=== PATIENT | male | born 1955 | race American Indian/Alaskan Native ===

== ENCOUNTER 2018-09-24 14:20 | Emergency (ER) | payer MEDICAID, OTHER, SELFPAY ==
--- NOTE | 2018-09-24 14:23 | DI.US.S_ITS ---
PROCEDURE: US PERIPH VENOUS LOW EXTREM RT INDICATIONS: LE pain, swelling, smoker TECHNIQUE: Real-time imaging, as well as color and pulse Doppler interrogation, were performed of the lower extremity deep veins from the inguinal ligament to the popliteal fossa. COMPARISON: None. FINDINGS: The common femoral, femoral and popliteal veins are normally compressible, and free of intraluminal thrombus. Color and pulse Doppler demonstrate normal phasic intraluminal flow. There is normal augmentation response to distal compression maneuver. IMPRESSION: No evidence for deep vein thrombosis of the right lower extremity. Dictated by: Derik Jerez M.D. on 09/24/2018 at 13:57 Approved by: Derik Jerez M.D. on 09/24/2018 at 14:26
[2018-09-24 14:25] VITALS: BP 138/78; PULSE 109; RESP 15; TEMP 37.4; O2SAT 96
--- NOTE | 2018-09-24 14:59 | ED_ITS ---
HPI - Extremity Problem <Donna Espinoza PA-C - Last Filed: 09/24/18 21:58> General Chief complaint: Extremity Problem,Nontraumatic Stated complaint: right foot/ankle pain, no injury Time Seen by Provider: 09/24/18 14:22 Source: patient Mode of arrival: ambulatory Limitations: no limitations History of Present Illness HPI Narrative: This 63-year-old male is sent for right lower extremity Doppler by PCP due to concern for possible DVT. Provider called and noted he had onset of swelling and pain in his right foot and calf today. Patient states that he noted onset of pain this morning when walking at the store. He states that he did not note any trauma, did not twist his ankle and fall, however his son notes that he has been walking a lot recently to try to get better control of his diabetes. Patient describes the pain as diffuse, worse in his foot and radiating all the way up the back of his leg. He thinks this is work so with walking but also very tender to touch anywhere on the skin. He denies any history of neuropathy. He denies any new chest pain or dyspnea. He denies any wounds on the leg recently, no fever or other new complaints such as back pain on systems review. He did not take any pain medication at home. He did try hot soak without relief. He states that he does have history of remote fracture in that foot or ankle, cannot remember exactly where Related Data Home Medications Medication Instructions Recorded Confirmed lisinopril 10 mg PO QDAY #0 09/22/11 metformin [Glucophage] 1,000 mg PO BIDCC #0 09/22/11 econazole 1 milly TOPICAL #0 06/11/16 fluconazole [Diflucan] 200 mg PO QDAY #0 06/11/16 Previous Rx's Medication Instructions Recorded amoxicillin-pot clavulanate 875 mg PO Q8H 7 Days #0 tab 06/11/16 [Augmentin] bacitracin zinc 500 unit TOPICAL BID #1 gm 06/11/16 hydrocodone-acetaminophen [[place]] 1 - 2 tab PO Q6HP PRN #10 tab 06/11/16 miconazole nitrate [Micatin] 1 milly TP BID #14 gm 06/11/16 Allergies Allergy/AdvReac Type Severity Reaction Status Date / Time ibuprofen [IBUPROFEN] Allergy Severe RASH Verified 09/24/18 14:27 Review of Systems <Donna Espinoza PA-C - Last Filed: 09/24/18 21:58> Review of Systems ROS Unobtainable: All systems reviewed & are unremarkable except as noted in HPI and below PFSH <Donna Espinoza PA-C - Last Filed: 09/24/18 21:58> Medical History (Updated 09/24/18 @ 16:25 by Donna Espinoza PA-C) Alcoholism (Chronic) Asthma (Chronic) HTN (hypertension) (Chronic) History of gastric ulcer (Chronic) No pertinent family history (Chronic) Type 2 diabetes mellitus (Chronic) History of kidney stones (Resolved) Surgical History (Updated 09/24/18 @ 15:14 by Donna Espinoza PA-C) No pertinent past surgical history (Chronic) Social History Smoking Status: Current every day smoker Social History Smoking Status: Current every day smoker Comment: ETOH abuse Exam <Donna Espinoza PA-C - Last Filed: 09/24/18 21:58> Narrative Exam Narrative: GENERAL APPEARANCE: Patient resting comfortably, in no distress. LUNGS: Clear to auscultation bilaterally. HEART: Rate and rhythm regular without murmur, normal S1 and S2, no S3 or S4. EXTREMITIES: Trace right pedal edema, none on the left. No edema proximal to the right ankle. No cyanosis, right foot is warm to touch. Right PT and DP pulses 2+ MUSCULOSKELETAL: Right foot is exquisitely tender throughout the bones as well as soft tissues, perhaps a bit more on the dorsum than plantar surface, also tender over both malleoli. Achilles is intact by palpation and mildly tender. He is able to move the toes and ankle. Mildly tender over the left calf. No effusion over the knee on the right where he has full range of motion Initial Vital Signs Initial Vital Signs: Vital Signs Temperature 99.3 F 09/24/18 14:25 Pulse Rate 109 H 09/24/18 14:25 Respiratory Rate 15 09/24/18 14:25 Blood Pressure 138/78 09/24/18 14:25 Pulse Oximetry 96 09/24/18 14:25 HENUT Head: normocephalic and atraumatic Ears: external ears normal and TM's normal bilaterally Nose: external nose normal and No nasal discharge Face and sinus: sinuses nontender, face symmetric, no sinus tenderness and No dry mucous membranes Mouth: oral mucosae normal and moist mucous membranes Teeth and gingiva: dentition normal Throat: tonsils normal and uvula midline <Neetu Zabala MD - Last Filed: 10/04/18 07:39> Initial Vital Signs Initial Vital Signs: Vital Signs Temperature 99.3 F 09/24/18 14:25 Pulse Rate 109 H 09/24/18 14:25 Respiratory Rate 15 09/24/18 14:25 Blood Pressure 138/78 09/24/18 14:25 Pulse Oximetry 96 09/24/18 14:25 Course <Donna Espinoza PA-C - Last Filed: 09/24/18 21:58> Additional Information: Patient was feeling better prior to discharge and stated ice had helped. He did not want crutches. Advised source of his pain is not clear, could be neuropathy related to diabetes, no evidence of acute bony injury or DVT today. He will follow up with PCP Orders Ordered: Discontinued Medications Acetaminophen (Tylenol) 650 mg PO NOW ONE Stop: 09/24/18 15:07 Last Admin: 09/24/18 15:12 Dose: 650 mg Vital Signs - 8 hr 09/24/18 14:25 09/24/18 15:17 09/24/18 16:30 Temperature 99.3 F Pulse Rate 109 H 98 H 99 H Respiratory Rate 15 18 16 Blood Pressure 138/78 Blood Pressure [Left Arm] 129/78 129/83 Pulse Oximetry 96 96 98 <Neetu Zabala MD - Last Filed: 10/04/18 07:39> Orders Ordered: Discontinued Medications Acetaminophen (Tylenol) 650 mg PO NOW ONE Stop: 09/24/18 15:07 Last Admin: 09/24/18 15:12 Dose: 650 mg Vital Signs - 8 hr 09/24/18 14:25 09/24/18 15:17 09/24/18 16:30 Temperature 99.3 F Pulse Rate 109 H 98 H 99 H Respiratory Rate 15 18 16 Blood Pressure 138/78 Blood Pressure [Left Arm] 129/78 129/83 Pulse Oximetry 96 96 98 MDM - Extremity (Nontraumatic) <Donna Espinoza PA-C - Last Filed: 09/24/18 21:58> Imaging Data foot and ankle: Radiologist's impression: [address] [address] XRay Report Signed Patient: Edgar Hernandez WMR#: [id number] : 6Acct:[id number] Age/Sex: 63 / MDate of Service: 09/24/18 Loc: ED Accession Number: [id number] Procedure: XR ankle RT min 3V Ordering Provider: Donna Espinoza P.A-C PROCEDURE: XR ANKLE RT MIN 3V INDICATIONS: pain TECHNIQUE: 3 views of the ankle were acquired. COMPARISON: [facility], XR FOOT RT 2V, 09/24/2018, 15:13. FINDINGS: Bones: No fractures or dislocations. Ankle mortise is normally aligned. No suspicious bony lesions. There is a prominent plantar calcaneal spur. Mild degenerative changes of the talonavicular joint are evident. Soft tissues: No tibiotalar joint effusion. Achilles tendon appears normal. IMPRESSION: 1. No acute fractures or ankle. 2. Prominent plantar calcaneal spur. Dictated by: Derik Jerez M.D. on 09/24/2018 at 14:36 Approved by: Derik Jerez M.D. on 09/24/2018 at 14:[address] [address] XRay Report Signed Patient: Edgar Hernandez WMR#: [id number] : 6Acct:[id number] Age/Sex: 63 / MDate of Service: 09/24/18 Loc: ED Accession Number: [id number] Procedure: XR foot RT 2V Ordering Provider: Donna Espinoza P.A-C PROCEDURE: XR FOOT RT 2V INDICATIONS: acute pain after walking, diffuse TECHNIQUE: 3 views of the foot were acquired. COMPARISON: [facility], , XR ANKLE RT MIN 3V, 09/24/2018, 15:13. FINDINGS: Bones: No fractures or dislocations. No suspicious bony lesions. There is a prominent plantar calcaneal spur. Minimal degenerative changes of the tibiotalar joint. Soft tissues: No tibiotalar joint effusion. Achilles tendon appears normal. IMPRESSION: No acute osseous abnormality of the right foot. Dictated by: Derik Jerez M.D. on 09/24/2018 at 14:40 Approved by: Derik Jerez M.D. on 09/24/2018 at 14:42 Venous US: Radiologist's impression: [facility] DATE TYPE STATUS AUTHOR Hx 09/24/18 15:06 Derik Jerez 09/24/18 15:06 Derik Jerez 09/24/18 14:23 Derik JerezEdgar Geoff 63, M0 1955 [facility], ED.LOC - Main ED: R06 88.904kg Extremity Problem,Nontraumatic Search Chart RASH ONSET Today 15:17 Edgar Hernandez Geoff 63 M 1955 [place] [address] Ultrasound Report Signed Patient: Edgar Hernandez WMR#: [id number] : 1955cct:[id number] Age/Sex: 63 / MDate of Service: 09/24/18 Loc: ED Accession Number: [id number] Procedure: US periph venous low extrem rt Ordering Provider: Donna Espinoza P.A-C PROCEDURE: US PERIPH VENOUS LOW EXTREM RT INDICATIONS: LE pain, swelling, smoker TECHNIQUE: Real-time imaging, as well as color and pulse Doppler interrogation, were performed of the lower extremity deep veins from the inguinal ligament to the popliteal fossa. COMPARISON: None. FINDINGS: The common femoral, femoral and popliteal veins are normally compressible, and free of intraluminal thrombus. Color and pulse Doppler demonstrate normal phasic intraluminal flow. There is normal augmentation response to distal compression maneuver. IMPRESSION: No evidence for deep vein thrombosis of the right lower extremity. Dictated by: Derik Jerez M.D. on 09/24/2018 at 13:57 Approved by: Derik Jerez M.D. on 09/24/2018 at 14:26 Discharge Plan Departure Patient Disposition: Home Clinical Impression: Pain in right ankle and joints of right foot, Lower extremity edema Discharge Date/Time: 09/24/18 16:40 Interventions: ED Discharge Assessment Last Done: 09/24/18 16:40 Instructions: DI for Ankle Pain, DI for Foot Pain Activity Restrictions/Additional Instructions: Try the Rick wrap and use ice as needed since that has been helpful for your pain . Also take Tylenol every 4-6 hours as needed. Please rest the foot and ankle today. As we talked about, your ultrasound and x-rays did not show any blood clot or broken bone. It is possible that you have pain related to your diabetes as well. please set up a follow-up appointment with your PCP in the next day or two for recheck and to determine whether further testing or treatment are needed depending upon your progress. Prescriptions: No Action metformin [Glucophage] 500 MG tablet 1,000 mg PO BIDCC Qty: 0 RF: 0 lisinopril 10 MG tablet 10 mg PO QDAY Qty: 0 RF: 0 fluconazole [Diflucan] 200 MG tablet 200 mg PO QDAY Qty: 0 RF: 0 econazole 1 % cream 1 milly Topical Qty: 0 RF: 0 miconazole nitrate [Micatin] 2 % cream 1 milly TP BID Qty: 14 RF: 0 bacitracin zinc 28.35 GM ointment 500 unit Topical BID Qty: 1 RF: 0 amoxicillin-pot clavulanate [Augmentin] 875 MG/125 MG tablet 875 mg PO Q8H 7 Days Qty: 0 RF: 0 hydrocodone-acetaminophen [[place]] 5 MG/325 MG tablet 1 - 2 tab PO Q6HP PRNQty: 10 RF: 0 Referrals: Zander Bowden PA-C [Non-Staff] -
--- NOTE | 2018-09-24 15:06 | DI.RAD.S_ITS ---
PROCEDURE: XR FOOT RT 2V INDICATIONS: acute pain after walking, diffuse TECHNIQUE: 3 views of the foot were acquired. COMPARISON: [facility], CR, XR ANKLE RT MIN 3V, 09/24/2018, 15:13. FINDINGS: Bones: No fractures or dislocations. No suspicious bony lesions. There is a prominent plantar calcaneal spur. Minimal degenerative changes of the tibiotalar joint. Soft tissues: No tibiotalar joint effusion. Achilles tendon appears normal. IMPRESSION: No acute osseous abnormality of the right foot. Dictated by: Derik Jerez M.D. on 09/24/2018 at 14:40 Approved by: Derik Jerez M.D. on 09/24/2018 at 14:42
--- NOTE | 2018-09-24 15:06 | DI.RAD.S_ITS ---
PROCEDURE: XR ANKLE RT MIN 3V INDICATIONS: pain TECHNIQUE: 3 views of the ankle were acquired. COMPARISON: [facility], CR, XR FOOT RT 2V, 09/24/2018, 15:13. FINDINGS: Bones: No fractures or dislocations. Ankle mortise is normally aligned. No suspicious bony lesions. There is a prominent plantar calcaneal spur. Mild degenerative changes of the talonavicular joint are evident. Soft tissues: No tibiotalar joint effusion. Achilles tendon appears normal. IMPRESSION: 1. No acute fractures or ankle. 2. Prominent plantar calcaneal spur. Dictated by: Derik eJrez M.D. on 09/24/2018 at 14:36 Approved by: Derik Jerez M.D. on 09/24/2018 at 14:40
[2018-09-24] MEDS: ACETAMINOPHEN 325 MG TABLET 650 MG PO (15:12)
[2018-09-24 15:17] VITALS: BP 129/78; PULSE 98; RESP 18; O2SAT 96
[2018-09-24 16:30] VITALS: BP 129/83; PULSE 99; RESP 16; O2SAT 98
== END 2018-09-24 16:40 | disposition home or self-care (01) ==
PROVIDERS: Emergency Provider Internal Medicine
DX: M25.571 Pain in right ankle and joints of right foot (principal); R60.0 Localized edema; M79.89 Other specified soft tissue disorders
CPT/HCPCS: 73610; 73620; 93971; 99283; 99284

== ENCOUNTER 2018-12-15 18:38 | Inpatient (IN) | payer MEDICAID, OTHER, SELFPAY ==
[2018-12-15] VITALS (7 sets, daily range): BP systolic 99–135; BP diastolic 57–88; PULSE 108–124; RESP 18–34; TEMP 36.7–37.5; O2SAT 89–95; BMI 30.7
--- NOTE | 2018-12-15 18:46 | DI.RAD.S_ITS ---
PROCEDURE: XR CHEST 1V INDICATIONS: shortness of breath TECHNIQUE: One view of the chest was acquired. COMPARISON: [facility], , CHEST 2 VIEW, 05/03/2014, 20:12. FINDINGS: Surgical changes and devices: None. Lungs and pleura: Lungs are clear. No pleural effusions or pneumothorax. Mediastinum: Mediastinal contours appear normal. Heart size is normal. Bones and chest wall: No suspicious bony lesions. Overlying soft tissues appear unremarkable. IMPRESSION: No acute process. Dictated by: Edwardo Brooke M.D. on 12/15/2018 at 19:35 Approved by: Edwardo Brooke M.D. on 12/15/2018 at 19:35
[2018-12-15 19:05] LABS: Add Manual Diff / Slide Review NO; Basophils Absolute Auto 100 /uL (0-100); Basophils Percent Auto 1.2 % (0-2); Eosinophils Absolute Auto 200 /uL (0-450); Eosinophils Percent Auto 2.4 % (2-4); Hematocrit 41.6 % (41-53); Hemoglobin 14.2 g/dL (13.5-17.5); Lymphocytes Absolute Auto 1900 /uL (1100-4500); Lymphocytes Percent Auto 19.2 % (25-40); Mean Corpuscular Hemoglobin 26.5 PG (26-34); Mean Corpuscular Volume 77.9 fL (80-100); Monocytes Absolute Auto 700 /uL (0-900); Monocytes Percent Auto 7.2 % (3-14); Neutrophils Absolute Auto 7100 /uL (1500-7000); Platelet Count 274 X10^3/uL (150-400); Red Blood Cell Count 5.34 X10^6/uL (4.5-5.9); Red Cell Distribution Width 14.2 % (11.6-14.8); White Blood Cell Count 10.1 X10^3/uL (4.5-11.0)
[2018-12-15] MEDS: ALBUTEROL/IPRATROPIUM 3 ML AMPUL INH (19:05)
[2018-12-15] MEDS: ALBUTEROL 2.5 MG/3 ML NEB (ADULT) INH ×3 (19:05→19:19)
[2018-12-15 19:17] LABS: Alanine Aminotransferase 25 IU/L (21-72); Albumin 3.9 g/dL (3.5-5.0); Alkaline Phosphatase 207 U/L (38-126); Aspartate Aminotransferase 28 IU/L (17-59); BUN Creatinine Ratio 5.5 (6-22); Bilirubin Total 0.9 mg/dL (0.2-1.3); Blood Urea Nitrogen 6 mg/dL (9-20); Calcium 9.4 mg/dL (8.4-10.2); Carbon Dioxide 27 mmol/L (22-32); Chloride 101 mmol/L (98-107); Creatine Kinase 66 U/L (55-170); Estimated Glomerular Filt Rate > 60.0 mL/min (>60); Globulin 3.9 g/dL (1.7-4.1); Glucose 172 mg/dL (80-110); HEMOLYSIS < 15 (0-50); Lipase 470 U/L (23-300); Potassium 4.1 mmol/L (3.4-5.1); Sodium 138 mmol/L (137-145); Total Protein 7.8 g/dL (6.3-8.2)
[2018-12-15 19:18] LABS: Lactate (Lactic Acid) 1.4 mmol/L (0.7-2.1)
--- NOTE | 2018-12-15 19:23 | ED.SOB ---
HPI - SOB/Dyspnea General Chief Complaint: Shortness of Breath/Dyspnea Stated Complaint: SOB Time Seen by Provider: 12/15/18 18:38 Source: patient and family Mode of arrival: ambulatory Limitations: no limitations History of Present Illness 63-year-old male smoker with history of COPD presents with multiple family members and a chief complaint of significant worsening shortness of breath over the past few days to perhaps a week. He has had subjective fever and chills and complains of cough productive of yellowish sputum. He denies any chest pain is not dizzy or lightheaded but is generally weak. He denies any recent travel or history of blood clots. He denies any chest pain. He become significantly more short of breath with any exertion or even talking. On arrival his pulse ox is in the mid 80s on room air MD Complaint: shortness of breath, cough and asthma attack Onset (ago): day(s) Context: recent illness Severity: moderate Consistency/Duration: constant Relieving factors: rest Exacerbating factors: exertion and coughing Known history of: COPD Associated symptoms: cough, wheezing and sputum production Treatment prior to arrival: none Related Data Home Medications Medication Instructions Recorded Confirmed lisinopril 10 mg PO QDAY #0 09/22/11 12/15/18 metformin [Glucophage] 1,000 mg PO BIDCC #0 09/22/11 12/15/18 albuterol sulfate [ProAir HFA] 2 puff INHALATION Q6HR PRN 12/15/18 12/15/18 Previous Rx's Medication Instructions Recorded miconazole nitrate [Micatin] 1 milly TP BID #14 gm 06/11/16 Allergies Allergy/AdvReac Type Severity Reaction Status Date / Time ibuprofen [IBUPROFEN] Allergy Severe RASH Verified 09/24/18 14:27 Review of Systems Constitutional Reports chills, Reports fever(s), Denies lethargy and Reports weakness Eyes Denies change in vision, Denies eye discharge, Denies irritation and Denies loss of vision ENT Ears, Nose, Mouth, and Throat: Denies change in voice, Denies neck pain and Denies sore throat Cardiovascular Denies chest pain, Denies irregular heart rhythm, Denies lightheadedness, Denies palpitations, Reports dyspnea, Reports dyspnea on exertion and Denies orthopnea Respiratory Reports cough, Reports dyspnea, Reports dyspnea on exertion and Denies wheezing Gastrointestinal Gastrointestinal: Denies abdominal pain, Denies change in bowel habits, Denies diarrhea, Denies nausea and Denies vomiting Genitourinary Denies hematuria, Denies flank pain, Denies urinary incontinence and Denies urinary urgency Musculoskeletal Denies neck pain Integumentary/Breasts Denies pruritus, Denies erythema, Denies rash and Denies wounds Neurologic Denies confusion, Denies loss of vision and Reports weakness Psychiatric Denies anxiety, Denies confusion, Denies depression, Denies homicidal ideation and Denies suicidal ideation Endocrine Denies palpitations Hematologic/Lymphatic Denies easy bruising Allergic/Immunologic Denies wheezing [facility] Medical History (Updated 12/15/18 @ 22:35 by LIS Hanson) Tobacco use disorder, moderate, in early remission, dependence (Acute) Hypoxia (Acute) Acute exacerbation of chronic obstructive pulmonary disease (COPD) (Acute) HTN (hypertension) (Chronic) Type 2 diabetes mellitus (Chronic) Asthma (Chronic) History of gastric ulcer (Chronic) History of kidney stones (Resolved) Alcoholism (Inactive) Surgical History (Updated 12/15/18 @ 22:35 by LIS Hanson) H/O right knee surgery (Acute) Family History (Updated 12/15/18 @ 23:10 by LIS Hanson) Mother Colon cancer Father Diabetes mellitus Social History household members: none Smoking Status: Current every day smoker Social History household members: none Smoking Status: Current every day smoker Exam Narrative Exam Narrative: GENERAL: This is a well-nourished, well-developed patient, in mild distress. HEAD: Atraumatic. Normocephalic. No temporal or scalp tenderness. EYES: Pupils equal round and reactive. Extraocular motions intact. No scleral icterus. No injection or drainage. ENT: Nose without bleeding, purulent drainage or septal hematoma. Throat without erythema, tonsillar hypertrophy or exudate. Uvula midline. Airway patent. NECK: Trachea midline. No JVD or lymphadenopathy. Supple, nontender, no meningeal signs. CARDIOVASCULAR: Regular rate and rhythm without murmurs, gallops, or rubs. RESPIRATORY: Clear to auscultation. Breath sounds equal bilaterally. No wheezes, rales, or rhonchi. GASTROINTESTINAL: Abdomen soft, non-tender, nondistended. No hepato-splenomegaly, or palpable masses. No guarding. EXTREMITIES: No clubbing, cyanosis, or edema. No joint tenderness, effusion, or edema noted. BACK: Nontender without deformity or crepitance. No flank tenderness. NEURO: AOx3. SKIN: No rash or erythema. Initial Vital Signs Initial Vital Signs: Vital Signs Temperature 99.5 F 12/15/18 18:40 Pulse Rate 115 H 12/15/18 18:40 Respiratory Rate 34 H 12/15/18 18:40 Blood Pressure 126/84 12/15/18 18:40 Pulse Oximetry 89 L 12/15/18 18:40 Course Course Narrative: patient becomes significantly SOB while ambulating to the bathroom. His room air SpO2 is in mid 80s Orders Ordered: ED Orders 12/15/18 18:46 XR chest 1V Stat EKG-12 Lead Stat RT Consult Eval and Treat Now 12/15/18 18:50 B Type Natriuretic Peptide Stat Complete Blood Count AUTO DIFF Stat Comprehensive Metabolic Panel Stat Lactate (Lactic Acid) Stat Lipase Stat Procalcitonin Stat Troponin & CK Cardiac Panel Stat 12/15/18 19:09 Blood Culture Stat 12/15/18 20:20 CT angio chest PE protocol Stat 12/15/18 21:43 Arterial Blood Gas Stat 12/15/18 22:15 Consult to Respiratory Therapy Evaluate & Treat 12/15/18 22:17 Education, smoking cessation ONGOING 12/16/18 00:30 Troponin I Q6H 12/16/18 05:00 Basic Metabolic Panel Routine Complete Blood Count AUTO DIFF Routine Hemoglobin A1C% w Est Avg Glu Routine Lactate (Lactic Acid) Routine Procalcitonin Routine 12/16/18 06:30 Troponin I Q6H Azithromycin (Zithromax) 500 mg PO DAILY [facility] Last Admin: 12/15/18 22:55 Dose: 500 mg Dextrose (D50w) 25 gm IV PRN PRN PRN Reason: Hypoglycemia Enoxaparin Sodium (Lovenox) 40 mg SUBCUT DAILY [facility] Ceftriaxone Sodium/Dextrose (Rocephin) 1 gm in 50 mls @ 100 mls/hr IV Q24H [facility] Last Admin: 12/15/18 22:55 Dose: 100 mls/hr Insulin Aspart (Novolog Flexpen) 7 unit SUBCUT TIDWM [facility] Insulin Glargine (Lantus Solostar (Pen)) 10 unit SUBCUT BID JACQUELINE Ipratropium [place] (Atrovent Neb) 0.5 mg INH RTQ4HR PRN PRN Reason: Shortness Of Breath Or Wheezing Levalbuterol HCl (Xopenex) 1.25 mg INH Q4H PRN PRN Reason: Shortness Of Breath Last Admin: 12/16/18 00:36 Dose: 1.25 mg Lisinopril (Zestril) 10 mg PO DAILY [facility] Methylprednisolone (Solu-Medrol 125 Mg Vial) 125 mg IV DAILY JACQUELINE Stop: 12/16/18 09:01 Ondansetron HCl (Zofran) 4 mg IV Q8HR PRN PRN Reason: Nausea And Vomiting Discontinued Medications Albuterol (Ventolin) 2.5 mg INH NOW PRN PRN Reason: Shortness Of Breath Or Wheezing Last Admin: 12/15/18 19:19 Dose: 2.5 mg Admin: 12/15/18 19:06 Dose: 2.5 mg Admin: 12/15/18 19:05 Dose: 2.5 mg Albuterol/Ipratropium (Duoneb) 3 ml INH NOW ONE Stop: 12/15/18 19:02 Last Admin: 12/15/18 19:05 Dose: 3 ml Insulin Aspart (Novolog Flexpen) 1 unit SUBCUT 0800 [facility] Insulin Glargine (Lantus Solostar (Pen)) 1 unit SUBCUT 0800 [facility] Insulin Glargine (Lantus Solostar (Pen)) 10 unit SUBCUT BID JACQUELINE Methylprednisolone (Solu-Medrol 125 Mg Vial) 125 mg IV NOW ONE Stop: 12/15/18 19:38 Last Admin: 12/15/18 19:43 Dose: 125 mg Consultations Consultation #1: 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 happy to 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 Vital Signs - 8 hr 12/15/18 19:06 12/15/18 19:07 12/15/18 20:35 Temperature Pulse Rate 109 H 109 H 124 H Respiratory Rate 24 19 Blood Pressure Blood Pressure [Right Arm] 99/57 L Pulse Oximetry 94 94 93 12/15/18 22:11 12/15/18 22:19 12/15/18 22:35 Temperature 98.4 F 98.0 F Pulse Rate 111 H 108 H Respiratory Rate 18 18 Blood Pressure 132/88 Blood Pressure [Right Arm] 135/70 Pulse Oximetry 92 95 12/16/18 00:20 12/16/18 00:39 Temperature Pulse Rate Respiratory Rate Blood Pressure Blood Pressure [Right Arm] Pulse Oximetry 94 94 MDM - SOB/Dyspnea Lab Data Result diagrams: 12/15/18 18:50 12/15/18 18:50 Lab Results 12/15/18 12/15/18 12/15/18 Range/Units 18:50 18:50 18:50 WBC 10.1 (4.5-11.0) X10^3/uL RBC 5.34 (4.5-5.9) X10^6/uL Hgb 14.2 (13.5-17.5) g/dL Hct 41.6 (41-53) % MCV 77.9 L (80-100) fL MCH 26.5 (26-34) PG MCHC 34.0 (30-36) % RDW 14.2 (11.6-14.8) % Plt Count 274 (150-400) X10^3/uL Neut % (Auto) 70.0 (50-75) % Lymph % (Auto) 19.2 L (25-40) % [place] % (Auto) 7.2 (3-14) % Eos % (Auto) 2.4 (2-4) % Baso % (Auto) 1.2 (0-2) % Neut # (Auto) 7100 H (4330-8966) /uL Lymph # (Auto) 1900 (6085-1719) /uL [place] # (Auto) 700 (0-900) /uL Eos # (Auto) 200 (0-450) /uL Baso # (Auto) 100 (0-100) /uL ABG pH (7.35-7.45) ABG pCO2 (35-45) mmHg ABG pO2 (80-100) mmHg ABG HCO3 (22-26) mmol/L ABG Total CO2 (21-31) mmol/L ABG O2 Saturation (95-100) % ABG Base Excess (-2-2) mmol/L FiO2 Sodium 138 (137-145) mmol/L Potassium 4.1 (3.4-5.1) mmol/L Chloride 101 (98-107) mmol/L Carbon Dioxide 27 (22-32) mmol/L BUN 6 L (9-20) mg/dL Creatinine 1.10 (0.66-1.25) mg/dL Estimated GFR > 60.0 (>60) mL/min BUN/Creatinine Ratio 5.5 L (6-22) Glucose 172 H (80-110) mg/dL Lactate (0.7-2.1) mmol/L Calcium 9.4 (8.4-10.2) mg/dL Total Bilirubin 0.9 (0.2-1.3) mg/dL AST 28 (17-59) IU/L ALT 25 (21-72) IU/L Alkaline Phosphatase 207 H (38-126) U/L Total Creatine Kinase 66 (55-170) U/L CK-MB (CK-2) TNP CK-MB (CK-2) Rel Index TNP Troponin I < 0.012 (0.01-0.034) ng/mL B-Natriuretic Peptide < 100 (<100) Total Protein 7.8 (6.3-8.2) g/dL Albumin 3.9 (3.5-5.0) g/dL Globulin 3.9 (1.7-4.1) g/dL Albumin/Globulin Ratio 1.0 (1.0-2.8) Lipase 470 H (23-300) U/L Procalcitonin 0.06 (<0.5) ng/mL 12/15/18 12/15/18 12/16/18 Range/Units 18:50 21:43 00:30 WBC (4.5-11.0) X10^3/uL RBC (4.5-5.9) X10^6/uL Hgb (13.5-17.5) g/dL Hct (41-53) % MCV (80-100) fL MCH (26-34) PG MCHC (30-36) % RDW (11.6-14.8) % Plt Count (150-400) X10^3/uL Neut % (Auto) (50-75) % Lymph % (Auto) (25-40) % [place] % (Auto) (3-14) % Eos % (Auto) (2-4) % Baso % (Auto) (0-2) % Neut # (Auto) (9469-4491) /uL Lymph # (Auto) (6656-6891) /uL [place] # (Auto) (0-900) /uL Eos # (Auto) (0-450) /uL Baso # (Auto) (0-100) /uL ABG pH 7.39 (7.35-7.45) ABG pCO2 39.1 (35-45) mmHg ABG pO2 51 L (80-100) mmHg ABG HCO3 24 (22-26) mmol/L ABG Total CO2 25 (21-31) mmol/L ABG O2 Saturation 85 L (95-100) % ABG Base Excess -1.0 (-2-2) mmol/L FiO2 0.21 Sodium (137-145) mmol/L Potassium (3.4-5.1) mmol/L Chloride (98-107) mmol/L Carbon Dioxide (22-32) mmol/L BUN (9-20) mg/dL Creatinine (0.66-1.25) mg/dL Estimated GFR (>60) mL/min BUN/Creatinine Ratio (6-22) Glucose (80-110) mg/dL Lactate 1.4 (0.7-2.1) mmol/L Calcium (8.4-10.2) mg/dL Total Bilirubin (0.2-1.3) mg/dL AST (17-59) IU/L ALT (21-72) IU/L Alkaline Phosphatase (38-126) U/L Total Creatine Kinase (55-170) U/L CK-MB (CK-2) CK-MB (CK-2) Rel Index Troponin I < 0.012 (0.01-0.034) ng/mL B-Natriuretic Peptide (<100) Total Protein (6.3-8.2) g/dL Albumin (3.5-5.0) g/dL Globulin (1.7-4.1) g/dL Albumin/Globulin Ratio (1.0-2.8) Lipase (23-300) U/L Procalcitonin (<0.5) ng/mL Imaging Data CT scan - chest: Radiologist's impression: Edgar Hernandez 63 M [address] [address] [address] Scan Report Signed Patient: Edgar Hernandez WMR#: [id number] : 6Acct:[id number] Age/Sex: 63 / MDate of Service: 12/15/18 Loc: ED Accession Number: [id number] Procedure: CT angio chest PE protocol Ordering Provider: Ovidio Coronado D.O. PROCEDURE: CT ANGIO CHEST PE PROTOCOL INDICATIONS: CP. SOB, cough, hypoxia TECHNIQUE: After the administration of intravenous contrast, 2 mm thick sections acquired from the pulmonary apices to the posterior costophrenic angles. 3-dimensional maximum intensity projection (MIP) coronal and sagittal reformats were then acquired through the thorax. For radiation dose reduction, the following was used: automated exposure control, adjustment of mA and/or kV according to patient size. COMPARISON: None. FINDINGS: Image quality: Excellent. Pulmonary arteries: Pulmonary arteries are normal in size, and demonstrate no intraluminal filling defects to suggest central pulmonary embolism. Lungs and pleura: Moderate diffuse nodularity throughout the bilateral lung parenchyma. Mild patchy atelectasis versus pneumonia within the bilateral lung bases. No pleural effusions or pneumothorax. Central and peripheral airways are patent. Mediastinum: Heart size is normal, without pericardial effusion. There is calcification of the coronary vasculature. No mediastinal or hilar adenopathy. Thoracic aorta is normal in caliber and enhancement. Esophagus is normal in caliber, without hiatal hernia. Bones and chest wall: No suspicious bony lesions. Ribs and thoracic spine appear intact throughout. Thyroid gland is within normal limits. No axillary or supraclavicular adenopathy. Abdomen: Visualized portions of the upper abdomen demonstrate a nodular hepatic contour, as well as portosystemic collateral vessels. IMPRESSION: 1. No pulmonary embolus. 2. Diffuse micronodular pattern throughout the lungs, with differential considerations including atypical microbacterial or fungal infection, as well as endobronchial spread of pneumonia. Bronchiolitis could produce a similar appearance as well. Pulmonology consultation recommended. 3. Coronary artery disease. 4. Cirrhosis and portal hypertension. Dictated by: Edwardo Brooke M.D. on 12/15/2018 at 21:16 Approved by: Edwardo Brooke M.D. on 12/15/2018 at 21:19 Discharge Plan Departure Patient Disposition: Admitted As Inpatient Clinical Impression: Acute and chronic respiratory failure with hypoxia Pneumonia Qualifiers: Pneumonia type: due to unspecified organism Laterality: unspecified laterality Lung location: unspecified part of lung Qualified Code(s): J18.9 - Pneumonia, unspecified organism Discharge Date/Time: 12/15/18 22:20 Interventions: ED Discharge Assessment Last Done: 12/15/18 22:20 Admit Date/Time: 12/15/18 21:53 Admit Provider: Carmita Luz
[2018-12-15 19:26] LABS: B Type Natriuretic Peptide < 100 (<100)
[2018-12-15 19:29] LABS: Troponin I < 0.012 ng/mL (0.01-0.034)
[2018-12-15 19:35] LABS: Procalcitonin 0.06 ng/mL (<0.5)
[2018-12-15] MEDS: methylPREDNISolone 125 MG/2 ML VIAL IV (19:43)
--- NOTE | 2018-12-15 20:20 | DI.CT.S_ITS ---
PROCEDURE: CT ANGIO CHEST PE PROTOCOL INDICATIONS: CP. SOB, cough, hypoxia TECHNIQUE: After the administration of intravenous contrast, 2 mm thick sections acquired from the pulmonary apices to the posterior costophrenic angles. 3-dimensional maximum intensity projection (MIP) coronal and sagittal reformats were then acquired through the thorax. For radiation dose reduction, the following was used: automated exposure control, adjustment of mA and/or kV according to patient size. COMPARISON: None. FINDINGS: Image quality: Excellent. Pulmonary arteries: Pulmonary arteries are normal in size, and demonstrate no intraluminal filling defects to suggest central pulmonary embolism. Lungs and pleura: Moderate diffuse nodularity throughout the bilateral lung parenchyma. Mild patchy atelectasis versus pneumonia within the bilateral lung bases. No pleural effusions or pneumothorax. Central and peripheral airways are patent. Mediastinum: Heart size is normal, without pericardial effusion. There is calcification of the coronary vasculature. No mediastinal or hilar adenopathy. Thoracic aorta is normal in caliber and enhancement. Esophagus is normal in caliber, without hiatal hernia. Bones and chest wall: No suspicious bony lesions. Ribs and thoracic spine appear intact throughout. Thyroid gland is within normal limits. No axillary or supraclavicular adenopathy. Abdomen: Visualized portions of the upper abdomen demonstrate a nodular hepatic contour, as well as portosystemic collateral vessels. IMPRESSION: 1. No pulmonary embolus. 2. Diffuse micronodular pattern throughout the lungs, with differential considerations including atypical microbacterial or fungal infection, as well as endobronchial spread of pneumonia. Bronchiolitis could produce a similar appearance as well. Pulmonology consultation recommended. 3. Coronary artery disease. 4. Cirrhosis and portal hypertension. Dictated by: Edwardo Brooke M.D. on 12/15/2018 at 21:16 Approved by: Edwardo Brooke M.D. on 12/15/2018 at 21:19
--- NOTE | 2018-12-15 21:11 | ED_ITS ---
HPI - SOB/Dyspnea General Chief Complaint: Shortness of Breath/Dyspnea Stated Complaint: SOB Time Seen by Provider: 12/15/18 18:38 Source: patient and family Mode of arrival: ambulatory Limitations: no limitations History of Present Illness 63-year-old male smoker with history of COPD presents with multiple family members and a chief complaint of significant worsening shortness of breath over the past few days to perhaps a week. He has had subjective fever and chills and complains of cough productive of yellowish sputum. He denies any chest pain is not dizzy or lightheaded but is generally weak. He denies any recent travel or history of blood clots. He denies any chest pain. He become significantly more short of breath with any exertion or even talking. On arrival his pulse ox is in the mid 80s on room air MD Complaint: shortness of breath, cough and asthma attack Onset (ago): day(s) Context: recent illness Severity: moderate Consistency/Duration: constant Relieving factors: rest Exacerbating factors: exertion and coughing Known history of: COPD Associated symptoms: cough, wheezing and sputum production Treatment prior to arrival: none Related Data Home Medications Medication Instructions Recorded Confirmed lisinopril 10 mg PO QDAY #0 09/22/11 12/15/18 metformin [Glucophage] 1,000 mg PO BIDCC #0 09/22/11 12/15/18 albuterol sulfate [ProAir HFA] 2 puff INHALATION Q6HR PRN 12/15/18 12/15/18 Previous Rx's Medication Instructions Recorded miconazole nitrate [Micatin] 1 milly TP BID #14 gm 06/11/16 Allergies Allergy/AdvReac Type Severity Reaction Status Date / Time ibuprofen [IBUPROFEN] Allergy Severe RASH Verified 09/24/18 14:27 Review of Systems Constitutional Reports chills, Reports fever(s), Denies lethargy and Reports weakness Eyes Denies change in vision, Denies eye discharge, Denies irritation and Denies loss of vision ENT Ears, Nose, Mouth, and Throat: Denies change in voice, Denies neck pain and Denies sore throat Cardiovascular Denies chest pain, Denies irregular heart rhythm, Denies lightheadedness, Denies palpitations, Reports dyspnea, Reports dyspnea on exertion and Denies orthopnea Respiratory Reports cough, Reports dyspnea, Reports dyspnea on exertion and Denies wheezing Gastrointestinal Gastrointestinal: Denies abdominal pain, Denies change in bowel habits, Denies diarrhea, Denies nausea and Denies vomiting Genitourinary Denies hematuria, Denies flank pain, Denies urinary incontinence and Denies urin jael urgency Musculoskeletal Denies neck pain Integumentary/Breasts Denies pruritus, Denies erythema, Denies rash and Denies wounds Neurologic Denies confusion, Denies loss of vision and Reports weakness Psychiatric Denies anxiety, Denies confusion, Denies depression, Denies homicidal ideation and Denies suicidal ideation Endocrine Denies palpitations Hematologic/Lymphatic Denies easy bruising Allergic/Immunologic Denies wheezing [facility] Medical History (Updated 12/15/18 @ 22:35 by LIS Hanson) Tobacco use disorder, moderate, in early remission, dependence (Acute) Hypoxia (Acute) Acute exacerbation of chronic obstructive pulmonary disease (COPD) (Acute) HTN (hypertension) (Chronic) Type 2 diabetes mellitus (Chronic) Asthma (Chronic) History of gastric ulcer (Chronic) History of kidney stones (Resolved) Alcoholism (Inactive) Surgical History (Updated 12/15/18 @ 22:35 by LIS Hanson) H/O right knee surgery (Acute) Family History (Updated 12/15/18 @ 23:10 by LIS Hanson) Mother Colon cancer Father Diabetes mellitus Social History household members: none Smoking Status: Current every day smoker Social History household members: none Smoking Status: Current every day smoker Exam Narrative Exam Narrative: GENERAL: This is a well-nourished, well-developed patient, in mild distress. HEAD: Atraumatic. Normocephalic. No temporal or scalp tenderness. EYES: Pupils equal round and reactive. Extraocular motions intact. No scleral icterus. No injection or drainage. ENT: Nose without bleeding, purulent drainage or septal hematoma. Throat without erythema, tonsillar hypertrophy or exudate. Uvula midline. Airway patent. NECK: Trachea midline. No JVD or lymphadenopathy. Supple, nontender, no meningeal signs. CARDIOVASCULAR: Regular rate and rhythm without murmurs, gallops, or rubs. RESPIRATORY: Clear to auscultation. Breath sounds equal bilaterally. No wheezes, rales, or rhonchi. GASTROINTESTINAL: Abdomen soft, non-tender, nondistended. No hepato- splenomegaly, or palpable masses. No guarding. EXTREMITIES: No clubbing, cyanosis, or edema. No joint tenderness, effusion, or edema noted. BACK: Nontender without deformity or crepitance. No flank tenderness. NEURO: AOx3. SKIN: No rash or erythema. Initial Vital Signs Initial Vital Signs: Vital Signs Temperature 99.5 F 12/15/18 18:40 Pulse Rate 115 H 12/15/18 18:40 Respiratory Rate 34 H 12/15/18 18:40 Blood Pressure 126/84 12/15/18 18:40 Pulse Oximetry 89 L 12/15/18 18:40 Course Course Narrative: patient becomes significantly SOB while ambulating to the bathroom. His room air SpO2 is in mid 80s Orders Ordered: ED Orders 12/15/18 18:46 XR chest 1V Stat EKG-12 Lead Stat RT Consult Eval and Treat Now 12/15/18 18:50 B Type Natriuretic Peptide Stat Complete Blood Count AUTO DIFF Stat Comprehensive Metabolic Panel Stat Lactate (Lactic Acid) Stat Lipase Stat Procalcitonin Stat Troponin & CK Cardiac Panel Stat 12/15/18 19:09 Blood Culture Stat 12/15/18 20:20 CT angio chest PE protocol Stat 12/15/18 21:43 Arterial Blood Gas Stat 12/15/18 22:15 Consult to Respiratory Therapy Evaluate & Treat 12/15/18 22:17 Education, smoking cessation ONGOING 12/16/18 00:30 Troponin I Q6H 12/16/18 05:00 Basic Metabolic Panel Routine Complete Blood Count AUTO DIFF Routine Hemoglobin A1C% w Est Avg Glu Routine Lactate (Lactic Acid) Routine Procalcitonin Routine 12/16/18 06:30 Troponin I Q6H Azithromycin (Zithromax) 500 mg PO DAILY [facility] Last Admin: 12/15/18 22:55 Dose: 500 mg Dextrose (D50w) 25 gm IV PRN PRN PRN Reason: Hypoglycemia Enoxaparin Sodium (Lovenox) 40 mg SUBCUT DAILY [facility] Ceftriaxone Sodium/Dextrose (Rocephin) 1 gm in 50 mls @ 100 mls/hr IV Q24H [facility] Last Admin: 12/15/18 22:55 Dose: 100 mls/hr Insulin Aspart (Novolog Flexpen) 7 unit SUBCUT TIDWM JACQUELINE Insulin Glargine (Lantus Solostar (Pen)) 10 unit SUBCUT BID JACQUELINE Ipratropium [place] (Atrovent Neb) 0.5 mg INH RTQ4HR PRN PRN Reason: Shortness Of Breath Or Wheezing Levalbuterol HCl (Xopenex) 1.25 mg INH Q4H PRN PRN Reason: Shortness Of Breath Last Admin: 12/16/18 00:36 Dose: 1.25 mg Lisinopril (Zestril) 10 mg PO DAILY JACQUELINE Methylprednisolone (Solu-Medrol 125 Mg Vial) 125 mg IV DAILY JACQUELINE Stop: 12/16/18 09:01 Ondansetron HCl (Zofran) 4 mg IV Q8HR PRN PRN Reason: Nausea And Vomiting Discontinued Medications Albuterol (Ventolin) 2.5 mg INH NOW PRN PRN Reason: Shortness Of Breath Or Wheezing Last Admin: 12/15/18 19:19 Dose: 2.5 mg Admin: 12/15/18 19:06 Dose: 2.5 mg Admin: 12/15/18 19:05 Dose: 2.5 mg Albuterol/Ipratropium (Duoneb) 3 ml INH NOW ONE Stop: 12/15/18 19:02 Last Admin: 12/15/18 19:05 Dose: 3 ml Insulin Aspart (Novolog Flexpen) 1 unit SUBCUT 0800 [facility] Insulin Glargine (Lantus Solostar (Pen)) 1 unit SUBCUT 0800 [facility] Insulin Glargine (Lantus Solostar (Pen)) 10 unit SUBCUT BID JACQUELINE Methylprednisolone (Solu-Medrol 125 Mg Vial) 125 mg IV NOW ONE Stop: 12/15/18 19:38 Last Admin: 12/15/18 19:43 Dose: 125 mg Consultations Consultation #1: machine sewer happy to accept Vital Signs - 8 hr 12/15/18 19:06 12/15/18 19:07 12/15/18 20:35 Temperature Pulse Rate 109 H 109 H 124 H Respiratory Rate 24 19 Blood Pressure Blood Pressure [Right Arm] 99/57 L Pulse Oximetry 94 94 93 12/15/18 22:11 12/15/18 22:19 12/15/18 22:35 Temperature 98.4 F 98.0 F Pulse Rate 111 H 108 H Respiratory Rate 18 18 Blood Pressure 132/88 Blood Pressure [Right Arm] 135/70 Pulse Oximetry 92 95 12/16/18 00:20 12/16/18 00:39 Temperature Pulse Rate Respiratory Rate Blood Pressure Blood Pressure [Right Arm] Pulse Oximetry 94 94 MDM - SOB/Dyspnea Lab Data Result diagrams: 12/15/18 18:50 12/15/18 18:50 Lab Results 12/15/18 12/15/18 12/15/18 Range/Units 18:50 18:50 18:50 WBC 10.1 (4.5-11.0) X10^3/uL RBC 5.34 (4.5-5.9) X10^6/uL Hgb 14.2 (13.5-17.5) g/dL Hct 41.6 (41-53) % MCV 77.9 L (80-100) fL MCH 26.5 (26-34) PG MCHC 34.0 (30-36) % RDW 14.2 (11.6-14.8) % Plt Count 274 (150-400) X10^3/uL Neut % (Auto) 70.0 (50-75) % Lymph % (Auto) 19.2 L (25-40) % [place] % (Auto) 7.2 (3-14) % Eos % (Auto) 2.4 (2-4) % Baso % (Auto) 1.2 (0-2) % Neut # (Auto) 7100 H (7958-2699) /uL Lymph # (Auto) 1900 (9013-2361) /uL [place] # (Auto) 700 (0-900) /uL Eos # (Auto) 200 (0-450) /uL Baso # (Auto) 100 (0-100) /uL ABG pH (7.35-7.45) ABG pCO2 (35-45) mmHg ABG pO2 (80-100) mmHg ABG HCO3 (22-26) mmol/L ABG Total CO2 (21-31) mmol/L ABG O2 Saturation (95-100) % ABG Base Excess (-2-2) mmol/L FiO2 Sodium 138 (137-145) mmol/L Potassium 4.1 (3.4-5.1) mmol/L Chloride 101 (98-107) mmol/L Carbon Dioxide 27 (22-32) mmol/L BUN 6 L (9-20) mg/dL Creatinine 1.10 (0.66-1.25) mg/dL Estimated GFR > 60.0 (>60) mL/min BUN/Creatinine Ratio 5.5 L (6-22) Glucose 172 H (80-110) mg/dL Lactate (0.7-2.1) mmol/L Calcium 9.4 (8.4-10.2) mg/dL Total Bilirubin 0.9 (0.2-1.3) mg/dL AST 28 (17-59) IU/L ALT 25 (21-72) IU/L Alkaline Phosphatase 207 H (38-126) U/L Total Creatine Kinase 66 (55-170) U/L CK-MB (CK-2) TNP CK-MB (CK-2) Rel Index TNP Troponin I < 0.012 (0.01-0.034) ng/mL B-Natriuretic Peptide < 100 (<100) Total Protein 7.8 (6.3-8.2) g/dL Albumin 3.9 (3.5-5.0) g/dL Globulin 3.9 (1.7-4.1) g/dL Albumin/Globulin Ratio 1.0 (1.0-2.8) Lipase 470 H (23-300) U/L Procalcitonin 0.06 (<0.5) ng/mL 12/15/18 12/15/18 12/16/18 Range/Units 18:50 21:43 00:30 WBC (4.5-11.0) X10^3/uL RBC (4.5-5.9) X10^6/uL Hgb (13.5-17.5) g/dL Hct (41-53) % MCV (80-100) fL MCH (26-34) PG MCHC (30-36) % RDW (11.6-14.8) % Plt Count (150-400) X10^3/uL Neut % (Auto) (50-75) % Lymph % (Auto) (25-40) % [place] % (Auto) (3-14) % Eos % (Auto) (2-4) % Baso % (Auto) (0-2) % Neut # (Auto) (6883-2513) /uL Lymph # (Auto) (4546-6843) /uL [place] # (Auto) (0-900) /uL Eos # (Auto) (0-450) /uL Baso # (Auto) (0-100) /uL ABG pH 7.39 (7.35-7.45) ABG pCO2 39.1 (35-45) mmHg ABG pO2 51 L (80-100) mmHg ABG HCO3 24 (22-26) mmol/L ABG Total CO2 25 (21-31) mmol/L ABG O2 Saturation 85 L (95-100) % ABG Base Excess -1.0 (-2-2) mmol/L FiO2 0.21 Sodium (137-145) mmol/L Potassium (3.4-5.1) mmol/L Chloride (98-107) mmol/L Carbon Dioxide (22-32) mmol/L BUN (9-20) mg/dL Creatinine (0.66-1.25) mg/dL Estimated GFR (>60) mL/min BUN/Creatinine Ratio (6-22) Glucose (80-110) mg/dL Lactate 1.4 (0.7-2.1) mmol/L Calcium (8.4-10.2) mg/dL Total Bilirubin (0.2-1.3) mg/dL AST (17-59) IU/L ALT (21-72) IU/L Alkaline Phosphatase (38-126) U/L Total Creatine Kinase (55-170) U/L CK-MB (CK-2) CK-MB (CK-2) Rel Index Troponin I < 0.012 (0.01-0.034) ng/mL B-Natriuretic Peptide (<100) Total Protein (6.3-8.2) g/dL Albumin (3.5-5.0) g/dL Globulin (1.7-4.1) g/dL Albumin/Globulin Ratio (1.0-2.8) Lipase (23-300) U/L Procalcitonin (<0.5) ng/mL Imaging Data CT scan - chest: Radiologist's impression: Edgar Hernandez 63 M [address] [address] [address] Scan Report Signed Patient: Edgar Hernandez WMR#: [id number] : [id number]:[id number] Age/Sex: 63 / MDate of Service: 12/15/18 Loc: ED Accession Number: [id number] Procedure: CT angio chest PE protocol Ordering Provider: Ovidio Coronado D.O. PROCEDURE: CT ANGIO CHEST PE PROTOCOL INDICATIONS: CP. SOB, cough, hypoxia TECHNIQUE: After the administration of intravenous contrast, 2 mm thick sections acquired from the pulmonary apices to the posterior costophrenic angles. 3-dimensional maximum intensity projection (MIP) coronal and sagittal reformats were then acquired through the thorax. For radiation dose reduction, the following was used: automated exposure control, adjustment of mA and/or kV according to patient size. COMPARISON: None. FINDINGS: Image quality: Excellent. Pulmonary arteries: Pulmonary arteries are normal in size, and demonstrate no intraluminal filling defects to suggest central pulmonary embolism. Lungs and pleura: Moderate diffuse nodularity throughout the bilateral lung parenchyma. Mild patchy atelectasis versus pneumonia within the bilateral lung bases. No pleural effusions or pneumothorax. Central and peripheral airways are patent. Mediastinum: Heart size is normal, without pericardial effusion. There is calcification of the coronary vasculature. No mediastinal or hilar adenopathy. Thoracic aorta is normal in caliber and enhancement. Esophagus is normal in caliber, without hiatal hernia. Bones and chest wall: No suspicious bony lesions. Ribs and thoracic spine appear intact throughout. Thyroid gland is within normal limits. No axillary or supraclavicular adenopathy. Abdomen: Visualized portions of the upper abdomen demonstrate a nodular hepatic contour, as well as portosystemic collateral vessels. IMPRESSION: 1. No pulmonary embolus. 2. Diffuse micronodular pattern throughout the lungs, with differential considerations including atypical microbacterial or fungal infection, as well as endobronchial spread of pneumonia. Bronchiolitis could produce a similar appearance as well. Pulmonology consultation recommended. 3. Coronary artery disease. 4. Cirrhosis and portal hypertension. Dictated by: Edwardo Brooke M.D. on 12/15/2018 at 21:16 Approved by: Edwardo Brooke M.D. on 12/15/2018 at 21:19 Discharge Plan Departure Patient Disposition: Admitted As Inpatient Clinical Impression: Acute and chronic respiratory failure with hypoxia Pneumonia Qualifiers: Pneumonia type: due to unspecified organism Laterality: unspecified laterality Lung location: unspecified part of lung Qualified Code(s): J18.9 - Pneumonia, unspecified organism Discharge Date/Time: 12/15/18 22:20 Interventions: ED Discharge Assessment Last Done: 12/15/18 22:20 Admit Date/Time: 12/15/18 21:53 Admit Provider: Carmita Luz
[2018-12-15 21:59] LABS: Fractionated Inspired Oxygen 0.21; HCO3 ABG 24 mmol/L (22-26); Oxygen Saturation ABG 85 % (95-100); PCO2 ABG 39.1 mmHg (35-45); PO2 ABG 51 mmHg (80-100); TCO2 ABG 25 mmol/L (21-31); pH ABG 7.39 (7.35-7.45)
--- NOTE | 2018-12-15 22:32 | PM.HP.1 ---
History of Present Illness Date Patient Seen: 12/15/18 Time Patient Seen: 22:00 Chief complaint: SOB Narrative: Edgar Hernandez is a pleasant 63-year-old [place] male who presents with shortness of breath. The patient informs me that he has had a 1 month history of having difficulty breathing, fatigue and headache. States he was trying to quit smoking and then thought he was having withdrawals due to having chest pain. He did quit 7 days ago but he feels like he is worsening. He does not use oxygen at home. He complains of subjective fevers, a couple of days ago and then chills for which he went into a hot tub, then he became too warm and could not get cool. He has had nausea with no vomiting but stated that his stomach acid was coming up. Patient denies any numbing and tingling of his upper or lower extremities, denies rashes, states that he does not feel his diabetes is very well under control. He does state his hemoglobin A1c is due and he does not know what his previous A1c was. Per the ED provider he has been going to the [facility] in [place] and apparently the patient states that he sees a different provider every time, he does not remember the name of the clinic or any other providers names. Patient History Medical History (Updated 12/15/18 @ 22:35 by LIS Hanson) Tobacco use disorder, moderate, in early remission, dependence (Acute) Hypoxia (Acute) Acute exacerbation of chronic obstructive pulmonary disease (COPD) (Acute) HTN (hypertension) (Chronic) Type 2 diabetes mellitus (Chronic) Asthma (Chronic) History of gastric ulcer (Chronic) History of kidney stones (Resolved) Alcoholism (Inactive) Surgical History (Updated 12/15/18 @ 22:35 by LIS Hanson) H/O right knee surgery (Acute) Family History (Updated 12/15/18 @ 23:10 by LIS Hanson) Mother Colon cancer Father Diabetes mellitus Social History household members: none Smoking Status: Current every day smoker Family & Social History Family History (Updated 12/15/18 @ 23:10 by LIS Hanson) Mother Colon cancer Father Diabetes mellitus Safety & Behavioral: Feels Safe in Current Yes Environment Been Physically Hurt or No Threatened By a Person Tobacco & Substance use: Smoking Status Current every day smoker 16-17/day alcohol intake frequency holiday/special occasion Substance Use Type marijuana Meds Home Medications Medication Instructions Recorded Confirmed Type lisinopril 10 mg PO QDAY #0 09/22/11 12/15/18 History metformin [Glucophage] 1,000 mg PO BIDCC #0 09/22/11 12/15/18 History miconazole nitrate [Micatin] 1 milly TP BID #14 gm 06/11/16 12/15/18 Rx albuterol sulfate [ProAir HFA] 2 puff INHALATION Q6HR PRN 12/15/18 12/15/18 History Allergies Allergy/AdvReac Type Severity Reaction Status Date / Time ibuprofen [IBUPROFEN] Allergy Severe RASH Verified 09/24/18 14:27 Review of Systems Review of Systems All systems reviewed & are unremarkable except as noted in HPI and below Exam Vital Signs (past 8 hours): - 12/15/18 18:40 12/15/18 19:06 12/15/18 19:07 Temperature 99.5 F Pulse Rate 115 H 109 H 109 H Respiratory Rate 34 H 24 Blood Pressure 126/84 Blood Pressure [Right Arm] Pulse Oximetry 89 L 94 94 12/15/18 20:35 12/15/18 22:11 12/15/18 22:19 Temperature 98.4 F Pulse Rate 124 H 111 H Respiratory Rate 19 18 Blood Pressure Blood Pressure [Right Arm] 99/57 L 135/70 Pulse Oximetry 93 92 Oxygen Delivery Method Nasal Cannula Oxygen Flow Rate 2 Narrative Exam Narrative: General: Alert oriented, overweight 63-year-old [place] male, appears fatigued and mildly ill but nontoxic. 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 Objective Labs Result Diagrams: 12/15/18 18:50 12/15/18 18:50 Labs: Laboratory Results - last 24 hr 12/15/18 12/15/18 12/15/18 18:50 18:50 18:50 WBC 10.1 RBC 5.34 Hgb 14.2 Hct 41.6 MCV 77.9 L MCH 26.5 MCHC 34.0 RDW 14.2 Plt Count 274 Neut % (Auto) 70.0 Lymph % (Auto) 19.2 L [place] % (Auto) 7.2 Eos % (Auto) 2.4 Baso % (Auto) 1.2 Neut # (Auto) 7100 H Lymph # (Auto) 1900 [place] # (Auto) 700 Eos # (Auto) 200 Baso # (Auto) 100 ABG pH ABG pCO2 ABG pO2 ABG HCO3 ABG Total CO2 ABG O2 Saturation ABG Base Excess FiO2 Sodium 138 Potassium 4.1 Chloride 101 Carbon Dioxide 27 BUN 6 L Creatinine 1.10 Estimated GFR > 60.0 BUN/Creatinine Ratio 5.5 L Glucose 172 H Lactate Calcium 9.4 Total Bilirubin 0.9 AST 28 ALT 25 Alkaline Phosphatase 207 H Total Creatine Kinase 66 CK-MB (CK-2) TNP CK-MB (CK-2) Rel Index TNP Troponin I < 0.012 B-Natriuretic Peptide < 100 Total Protein 7.8 Albumin 3.9 Globulin 3.9 Albumin/Globulin Ratio 1.0 Lipase 470 H Procalcitonin 0.06 12/15/18 12/15/18 18:50 21:43 WBC RBC Hgb Hct MCV MCH MCHC RDW Plt Count Neut % (Auto) Lymph % (Auto) [place] % (Auto) Eos % (Auto) Baso % (Auto) Neut # (Auto) Lymph # (Auto) [place] # (Auto) Eos # (Auto) Baso # (Auto) ABG pH 7.39 ABG pCO2 39.1 ABG pO2 51 L ABG HCO3 24 ABG Total CO2 25 ABG O2 Saturation 85 L ABG Base Excess -1.0 FiO2 0.21 Sodium Potassium Chloride Carbon Dioxide BUN Creatinine Estimated GFR BUN/Creatinine Ratio Glucose Lactate 1.4 Calcium Total Bilirubin AST ALT Alkaline Phosphatase Total Creatine Kinase CK-MB (CK-2) CK-MB (CK-2) Rel Index Troponin I B-Natriuretic Peptide Total Protein Albumin Globulin Albumin/Globulin Ratio Lipase Procalcitonin Assessment & Plan Assessment & Plan narrative: Edgar Hernandez is a 63-year-old male who will be admitted for further management and treatment of a community-acquired pneumonia and COPD exacerbation. 1. Community-acquired pneumonia, acute, present on admission He is initiated on IV ceftriaxone 1 g daily and azithromycin 500 mg p.o. daily Initial procalcitonin was negative repeat in the morning 2. Hypoxemia secondary to acute exacerbation of chronic obstructive pulmonary disease, acute, present on admission Patient was received alternating doses of Levabuterol and ipratropium Q 2 hours He received IV Solu-Medrol 125 mg in the ED. He will receive 1 more IV dose in the morning before transition to oral steroids Supplemental oxygen as needed, I have requested a RT consult 3. Diabetes type 2, stable, present on admission Admission glucose was 172 Patient will receive basal and prandial insulin Carb controlled diet Hemoglobin A1c in the morning 4. Essential hypertension, chronic and stable, present on admission Continue home dose of lisinopril 10 mg p.o. daily Patient is admitted an inpatient as his stay is anticipated to exceed 2 midnights. FEN: IV saline lock, carb controlled diet, BMP in the morning VTE Prophylaxis: Enoxaparin 40 mg once daily Disposition: Unknown at this time Code status: Full code Admission time: 65 minutes Meds reconciled: Yes/No/Partial based on current med list Time Spent With Patient Time with patient: 15-24 minutes Quality VTE Deep Vein Thrombosis/Pulmonary Embolism Present on Admission: No
--- NOTE | 2018-12-15 22:37 | P.HP_ITS ---
History of Present Illness Date Patient Seen: 12/15/18 Time Patient Seen: 22:00 Chief complaint: SOB Narrative: Edgar Hernandez is a pleasant 63-year-old [place] male who presents with shortness of breath. The patient informs me that he has had a 1 month history of having difficulty breathing, fatigue and headache. States he was trying to quit smoking and then thought he was having withdrawals due to having chest pain. He did quit 7 days ago but he feels like he is worsening. He does not use oxygen at home. He complains of subjective fevers, a couple of days ago and then chills for which he went into a hot tub, then he became too warm and could not get cool. He has had nausea with no vomiting but stated that his stomach acid was coming up. Patient denies any numbing and tingling of his upper or lower extremities, denies rashes, states that he does not feel his diabetes is very well under control. He does state his hemoglobin A1c is due and he does not know what his previous A1c was. Per the ED provider he has been going to the [facility] in [place] and apparently the patient states that he sees a different provider every time, he does not remember the name of the clinic or any other providers names. Patient History Medical History (Updated 12/15/18 @ 22:35 by LIS Hanson) Tobacco use disorder, moderate, in early remission, dependence (Acute) Hypoxia (Acute) Acute exacerbation of chronic obstructive pulmonary disease (COPD) (Acute) HTN (hypertension) (Chronic) Type 2 diabetes mellitus (Chronic) Asthma (Chronic) History of gastric ulcer (Chronic) History of kidney stones (Resolved) Alcoholism (Inactive) Surgical History (Updated 12/15/18 @ 22:35 by LIS Hanson) H/O right knee surgery (Acute) Family History (Updated 12/15/18 @ 23:10 by LIS Hanson) Mother Colon cancer Father Diabetes mellitus Social History household members: none Smoking Status: Current every day smoker Family & Social History Family History (Updated 12/15/18 @ 23:10 by LIS Hanson) Mother Colon cancer Father Diabetes mellitus Safety & Behavioral: Feels Safe in Current Yes Environment Been Physically Hurt or No Threatened By a Person Tobacco & Substance use: Smoking Status Current every day smoker 16-17/day alcohol intake frequency holiday/special occasion Substance Use Type marijuana Meds Home Medications Medication Instructions Recorded Confirmed Type lisinopril 10 mg PO QDAY #0 09/22/11 12/15/18 History metformin [Glucophage] 1,000 mg PO BIDCC #0 09/22/11 12/15/18 History miconazole nitrate [Micatin] 1 milly TP BID #14 gm 06/11/16 12/15/18 Rx albuterol sulfate [ProAir HFA] 2 puff INHALATION Q6HR PRN 12/15/18 12/15/18 History Allergies Allergy/AdvReac Type Severity Reaction Status Date / Time ibuprofen [IBUPROFEN] Allergy Severe RASH Verified 09/24/18 14:27 Review of Systems Review of Systems All systems reviewed & are unremarkable except as noted in HPI and below Exam Vital Signs (past 8 hours): - 12/15/18 18:40 12/15/18 19:06 12/15/18 19:07 Temperature 99.5 F Pulse Rate 115 H 109 H 109 H Respiratory Rate 34 H 24 Blood Pressure 126/84 Blood Pressure [Right Arm] Pulse Oximetry 89 L 94 94 12/15/18 20:35 12/15/18 22:11 12/15/18 22:19 Temperature 98.4 F Pulse Rate 124 H 111 H Respiratory Rate 19 18 Blood Pressure Blood Pressure [Right Arm] 99/57 L 135/70 Pulse Oximetry 93 92 Oxygen Delivery Method Nasal Cannula Oxygen Flow Rate 2 Narrative Exam Narrative: General: Alert oriented, overweight 63-year-old [place] male, appears fatigued and mildly ill but nontoxic. 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 Objective Labs Result Diagrams: 12/15/18 18:50 12/15/18 18:50 Labs: Laboratory Results - last 24 hr 12/15/18 12/15/18 12/15/18 18:50 18:50 18:50 WBC 10.1 RBC 5.34 Hgb 14.2 Hct 41.6 MCV 77.9 L MCH 26.5 MCHC 34.0 RDW 14.2 Plt Count 274 Neut % (Auto) 70.0 Lymph % (Auto) 19.2 L [place] % (Auto) 7.2 Eos % (Auto) 2.4 Baso % (Auto) 1.2 Neut # (Auto) 7100 H Lymph # (Auto) 1900 [place] # (Auto) 700 Eos # (Auto) 200 Baso # (Auto) 100 ABG pH ABG pCO2 ABG pO2 ABG HCO3 ABG Total CO2 ABG O2 Saturation ABG Base Excess FiO2 Sodium 138 Potassium 4.1 Chloride 101 Carbon Dioxide 27 BUN 6 L Creatinine 1.10 Estimated GFR > 60.0 BUN/Creatinine Ratio 5.5 L Glucose 172 H Lactate Calcium 9.4 Total Bilirubin 0.9 AST 28 ALT 25 Alkaline Phosphatase 207 H Total Creatine Kinase 66 CK-MB (CK-2) TNP CK-MB (CK-2) Rel Index TNP Troponin I < 0.012 B-Natriuretic Peptide < 100 Total Protein 7.8 Albumin 3.9 Globulin 3.9 Albumin/Globulin Ratio 1.0 Lipase 470 H Procalcitonin 0.06 12/15/18 12/15/18 18:50 21:43 WBC RBC Hgb Hct MCV MCH MCHC RDW Plt Count Neut % (Auto) Lymph % (Auto) [place] % (Auto) Eos % (Auto) Baso % (Auto) Neut # (Auto) Lymph # (Auto) [place] # (Auto) Eos # (Auto) Baso # (Auto) ABG pH 7.39 ABG pCO2 39.1 ABG pO2 51 L ABG HCO3 24 ABG Total CO2 25 ABG O2 Saturation 85 L ABG Base Excess -1.0 FiO2 0.21 Sodium Potassium Chloride Carbon Dioxide BUN Creatinine Estimated GFR BUN/Creatinine Ratio Glucose Lactate 1.4 Calcium Total Bilirubin AST ALT Alkaline Phosphatase Total Creatine Kinase CK-MB (CK-2) CK-MB (CK-2) Rel Index Troponin I B-Natriuretic Peptide Total Protein Albumin Globulin Albumin/Globulin Ratio Lipase Procalcitonin Assessment & Plan Assessment & Plan narrative: Edgar Hernandez is a 63-year-old male who will be admitted for further management and treatment of a community-acquired pneumonia and COPD exacerbation. 1. Community-acquired pneumonia, acute, present on admission * He is initiated on IV ceftriaxone 1 g daily and azithromycin 500 mg p.o. daily * Initial procalcitonin was negative repeat in the morning 2. Hypoxemia secondary to acute exacerbation of chronic obstructive pulmonary disease, acute, present on admission * Patient was received alternating doses of Levabuterol and ipratropium Q 2 hours * He received IV Solu-Medrol 125 mg in the ED. He will receive 1 more IV dose in the morning before transition to oral steroids * Supplemental oxygen as needed, I have requested a RT consult 3. Diabetes type 2, stable, present on admission * Admission glucose was 172 * Patient will receive basal and prandial insulin * Carb controlled diet * Hemoglobin A1c in the morning 4. Essential hypertension, chronic and stable, present on admission * Continue home dose of lisinopril 10 mg p.o. daily Patient is admitted an inpatient as his stay is anticipated to exceed 2 midnights. FEN: IV saline lock, carb controlled diet, BMP in the morning VTE Prophylaxis: Enoxaparin 40 mg once daily Disposition: Unknown at this time Code status: Full code Admission time: 65 minutes Meds reconciled: Yes/No/Partial based on current med list Time Spent With Patient Time with patient: 15-24 minutes Quality VTE Deep Vein Thrombosis/Pulmonary Embolism Present on Admission: No
[2018-12-15] MEDS: AZITHROMYCIN 250 MG TABLET 500 MG PO (22:55)
[2018-12-15] MEDS: CEFTRIAXONE 1 GM/50 ML FROZ.PIGGY IV (22:55)
[2018-12-16] VITALS (15 sets, daily range): BP systolic 128–139; BP diastolic 69–93; PULSE 97–114; RESP 18–20; TEMP 36.3–37.3; O2SAT 88–96
[2018-12-16] MEDS: LEVALBUTEROL 1.25 MG/0.5 ML NEB INH ×4 (00:36→17:05)
[2018-12-16 01:01] LABS: Troponin I < 0.012 ng/mL (0.01-0.034)
--- NOTE | 2018-12-16 06:48 | PC.NURSE ---
Slept most of the night, denies any dyspnea & no SOB noted 2 liters of 02/NC SPO2 93-95%. NO C/O CP & other discomfort. Will monitor.
[2018-12-16 06:49] LABS: Add Manual Diff / Slide Review NO; Basophils Absolute Auto 0 /uL (0-100); Basophils Percent Auto 0.3 % (0-2); Eosinophils Absolute Auto 0 /uL (0-450); Eosinophils Percent Auto 0.1 % (2-4); Hemoglobin 14.5 g/dL (13.5-17.5); Lymphocytes Absolute Auto 500 /uL (1100-4500); Lymphocytes Percent Auto 6.2 % (25-40); Mean Corpuscular HGB Conc 33.8 % (30-36); Mean Corpuscular Hemoglobin 26.4 PG (26-34); Mean Corpuscular Volume 78.3 fL (80-100); Monocytes Absolute Auto 100 /uL (0-900); Monocytes Percent Auto 1.3 % (3-14); Neutrophils Absolute Auto 7100 /uL (1500-7000); Neutrophils Percent Auto 92.1 % (50-75); Platelet Count 240 X10^3/uL (150-400); Red Blood Cell Count 5.49 X10^6/uL (4.5-5.9); Red Cell Distribution Width 14.6 % (11.6-14.8); White Blood Cell Count 7.7 X10^3/uL (4.5-11.0)
[2018-12-16 06:55] LABS: Hemoglobin A1C% w Est Avg Glu 8.2 % (4.0-6.0)
[2018-12-16 06:56] LABS: Lactate (Lactic Acid) 1.7 mmol/L (0.7-2.1)
[2018-12-16 07:00] LABS: BUN Creatinine Ratio 12.5 (6-22); Blood Urea Nitrogen 10 mg/dL (9-20); Calcium 9.3 mg/dL (8.4-10.2); Carbon Dioxide 24 mmol/L (22-32); Chloride 102 mmol/L (98-107); Estimated Glomerular Filt Rate > 60.0 mL/min (>60); Glucose 312 mg/dL (80-110); HEMOLYSIS < 15 (0-50); Potassium 4.4 mmol/L (3.4-5.1); Sodium 138 mmol/L (137-145)
[2018-12-16 07:09] LABS: Troponin I < 0.012 ng/mL (0.01-0.034)
[2018-12-16 07:30] LABS: Procalcitonin 0.06 ng/mL (<0.5)
[2018-12-16] MEDS: IPRATROPIUM 0.5 MG/2.5 ML NEB INH ×2 (08:12→19:40)
--- NOTE | 2018-12-16 09:06 | CM.DANOTE ---
DCP: Case received, EMR reviewed and met with patient. Introduced self and role. Baseline history received from patient. DCP template assessment completed with information currently available. Patient is a 63 year old male who admitted yesterday evening to the care of the hospitalist team. PCP: [facility]. Payer: confirmed: Medicaid/[facility]. Patient came to hospital secondary to shortness of breath. Patient has history of smoking, in which he has been attempting to quit, as well as COPD. During admission, patient was noted to have oxygen sats in the 80s. Confirmed that he is not on home oxygen. Patient also has history of HTN, and diabetes. Met briefly with patient. He is alert and oriented. His son was at bedside, earlier. Patient confirmed that he lives alone, but stated that his son will be staying with him. He is not on home oxygen. Confirmed that he does go to [facility], but sees different providers. Patient stated that he uses no DME supplies at this time, and is still driving. P: DCP to continue to follow closely. Will see how he progresses here in hospital. Patient may benefit with home health. Sangita Rose RN/Train Conductor
[2018-12-16] MEDS: AZITHROMYCIN 250 MG TABLET 500 MG PO (09:25)
[2018-12-16] MEDS: INSULIN ASPART 100 UNIT/ML INSULN PEN 7 UNIT SUBCUT ×3 (09:26→16:48)
[2018-12-16] MEDS: ENOXAPARIN 40 MG/0.4 ML SYRINGE SUBCUT (09:26)
[2018-12-16] MEDS: LISINOPRIL 10 MG TABLET PO (09:26)
[2018-12-16] MEDS: methylPREDNISolone 125 MG/2 ML VIAL IV (09:27)
[2018-12-16] MEDS: SODIUM CHLORIDE 0.9% FLUSH 10 ML IV ×3 (09:27→21:08)
[2018-12-16] MEDS: INSULIN GLARGINE 100 UNIT/ML 3ML PEN 10 UNIT SUBCUT ×2 (09:27→21:10)
[2018-12-16 09:33] LABS: Adenovirus Not Detected (Not Detect); Bordetella pertussis Not Detected (Not Detect); Chlamydophila pneumoniae Not Detected (Not Detect); Coronavirus 229E Not Detected (Not Detect); Coronavirus HKU1 Not Detected (Not Detect); Coronavirus NL 63 Not Detected (Not Detect); Coronavirus OC43 Not Detected (Not Detect); Human Metapneumovirus Not Detected (Not Detect); Human Rhinovirus/Enterovirus Not Detected (Not Detect); Influenza A Not Detected (Not Detect); Influenza B Not Detected (Not Detect); Mycoplasma pneumoniae Not Detected (Not Detect); Parainfluenza Virus 1 Not Detected (Not Detect); Parainfluenza Virus 2 Not Detected (Not Detect); Parainfluenza Virus 3 Not Detected (Not Detect); Parainfluenza Virus 4 Not Detected (Not Detect); Respiratory Syncytial Virus Not Detected (Not Detect)
--- NOTE | 2018-12-16 09:39 | RT ---
0821 Patient has had his treatment. Mouth rinsed with water, patient gargled and swallowed, and then instructed to finish drinking galss of water then cough and spit into specimen cup. Procedure performed and patient produced a blood-tinged specimen with high likelihood of acceptable quality. The specimen was processed and sent to laboratory for analysis. Winston Almonte [employer]
[2018-12-16 10:05] LABS: Strep Grp A by PCR Rapid Negative
--- NOTE | 2018-12-16 10:57 | PC.NURSE ---
Addendum entered by Bishop Saenz R.N. 12/16/18 14:40: late entry: Dr. Landrum returned my call, he was updated and the call was transf to Dr. Mtz's office for them to also speak. Addendum entered by Bishop Saenz R.N. 12/16/18 11:01: RT WAS ALSO NOTIFIED AND THEY HAVE BROUGHT THE PAPR TO OUTSIDE RM 211 WHERE PATIENT IS CURRENTLY ASSIGNED. Original Note: ROOFER APPLICATOR NOTE: THIS CHARGE NURSE LEFT MSG FOR DR. LANDRUM, TO NOTIFY THAT PATIENT WILL BE PLACED IN NEGATIVE PRESSURE ISOLATION TO R/O TB. ALSO TALKED TO SAMRA IN ENGINEERING AND SHE WAS NOTIFIED OF SAME. ANGI IN [facility] WAS ALSO NOTIFIED, PATIENT WILL BE TRANSFERRED TO RM 219 AFTER STAT CLEAN.
--- NOTE | 2018-12-16 13:42 | PM.PN.1 ---
Subjective Date Patient Seen: 12/16/18 Time Patient Seen: 13:43 Interval history: Follow-up on pneumonia. Patient seen at bedside. He is feeling a little bit better. Oxygen is helping his breathing. He continues to have productive cough. He is still feeling weak but denies feeling feverish. Patient denies ever having tuberculosis or spending time incarcerated. He denies any relatives or friends who had tuberculosis. Denies any night sweats. Denies any weight loss. He is not homeless. Chest CT findings were reviewed this morning. It revealed diffuse micronodular pattern throughout the lungs with differential considerations including atypical mycobacterial or fungal infection. I have contacted Dr. Purdy, pulmonology, at [facility] regarding further management of the patient. Dr. Purdy recommended the patient be placed on isolation and AFB sputum Gram stain/culture x3 be sent to rule out TB infection. He agreed with antibiotic choice of ceftriaxone and azithromycin. He also recommended scheduled nebulizers q.4 hours. If condition worsens, patient may need to be transferred to Pulmonary Center for the need of bronchoscopy. If however AFB sputum is negative and patient improves, he is to complete therapy for community-acquired pneumonia and follow-up with pulmonology for further diagnosis of lung findings. Exam Vital Signs (past 8 hours): - 12/16/18 08:00 12/16/18 08:14 12/16/18 08:21 Temperature Pulse Rate Respiratory Rate Blood Pressure Pulse Oximetry 90 L 96 96 12/16/18 09:00 Temperature 97.4 F L Pulse Rate 97 H Respiratory Rate 18 Blood Pressure 135/85 Pulse Oximetry 89 L Oxygen Delivery Method Nasal Cannula Oxygen Flow Rate 3 Narrative Exam Narrative: General: No acute distress, A/O x3 HEENT: PERRLA and EOMI bilaterally, moist mucosa. Nasal cannula in place Neck: Supple, no LAD or JVD CV: Regular rate rhythm, no murmurs or gallops appreciated Respiratory: Coarse breath sounds heard throughout with intermittent wheezing. GI: Obese abdomen. Positive bowel sounds in all quadrants, normoactive. No organomegaly. Nontender, nondistended Musculoskeletal: Normal range of motion in all extremities Extremities: No edema. 2+ pulses Skin: Warm to touch, no bruising or lesions Neuro: No focal deficits, AAO x3 Psych: Appropriate mood and behavior. Objective Labs Result Diagrams: 12/16/18 06:30 12/16/18 06:30 Labs: Laboratory Results - last 24 hr 12/15/18 12/15/18 12/15/18 18:50 18:50 18:50 WBC 10.1 RBC 5.34 Hgb 14.2 Hct 41.6 MCV 77.9 L MCH 26.5 MCHC 34.0 RDW 14.2 Plt Count 274 Neut % (Auto) 70.0 Lymph % (Auto) 19.2 L [place] % (Auto) 7.2 Eos % (Auto) 2.4 Baso % (Auto) 1.2 Neut # (Auto) 7100 H Lymph # (Auto) 1900 [place] # (Auto) 700 Eos # (Auto) 200 Baso # (Auto) 100 ABG pH ABG pCO2 ABG pO2 ABG HCO3 ABG Total CO2 ABG O2 Saturation ABG Base Excess FiO2 Sodium 138 Potassium 4.1 Chloride 101 Carbon Dioxide 27 BUN 6 L Creatinine 1.10 Estimated GFR > 60.0 BUN/Creatinine Ratio 5.5 L Glucose 172 H Hemoglobin A1c Lactate Calcium 9.4 Total Bilirubin 0.9 AST 28 ALT 25 Alkaline Phosphatase 207 H Total Creatine Kinase 66 CK-MB (CK-2) TNP CK-MB (CK-2) Rel Index TNP Troponin I < 0.012 B-Natriuretic Peptide < 100 Total Protein 7.8 Albumin 3.9 Globulin 3.9 Albumin/Globulin Ratio 1.0 Lipase 470 H Procalcitonin 0.06 Nasal Screen MRSA (PCR) Chlamy pneumoniae PCR Adenovirus (PCR) B.parapertussis DNA PCR Coronavirus OC43 (PCR) Coronavirus HKU1 (PCR) Coronavirus 229E (PCR) Coronavirus NL63 (PCR) Human Metapneumovir PCR Influenza Type A (PCR) Influenza Type B (PCR) M. pneumoniae (PCR) Parainfluenza 1 (PCR) Parainfluenza 2 (PCR) Parainfluenza 3 (PCR) Parainfluenza 4 (PCR) RSV (PCR) Entero/Rhino (PCR) Group A Strep (PCR) 12/15/18 12/15/18 12/16/18 18:50 21:43 00:30 WBC RBC Hgb Hct MCV MCH MCHC RDW Plt Count Neut % (Auto) Lymph % (Auto) [place] % (Auto) Eos % (Auto) Baso % (Auto) Neut # (Auto) Lymph # (Auto) [place] # (Auto) Eos # (Auto) Baso # (Auto) ABG pH 7.39 ABG pCO2 39.1 ABG pO2 51 L ABG HCO3 24 ABG Total CO2 25 ABG O2 Saturation 85 L ABG Base Excess -1.0 FiO2 0.21 Sodium Potassium Chloride Carbon Dioxide BUN Creatinine Estimated GFR BUN/Creatinine Ratio Glucose Hemoglobin A1c Lactate 1.4 Calcium Total Bilirubin AST ALT Alkaline Phosphatase Total Creatine Kinase CK-MB (CK-2) CK-MB (CK-2) Rel Index Troponin I < 0.012 B-Natriuretic Peptide Total Protein Albumin Globulin Albumin/Globulin Ratio Lipase Procalcitonin Nasal Screen MRSA (PCR) Chlamy pneumoniae PCR Adenovirus (PCR) B.parapertussis DNA PCR Coronavirus OC43 (PCR) Coronavirus HKU1 (PCR) Coronavirus 229E (PCR) Coronavirus NL63 (PCR) Human Metapneumovir PCR Influenza Type A (PCR) Influenza Type B (PCR) M. pneumoniae (PCR) Parainfluenza 1 (PCR) Parainfluenza 2 (PCR) Parainfluenza 3 (PCR) Parainfluenza 4 (PCR) RSV (PCR) Entero/Rhino (PCR) Group A Strep (PCR) 12/16/18 12/16/18 12/16/18 06:30 06:30 06:30 WBC 7.7 RBC 5.49 Hgb 14.5 Hct 43.0 MCV 78.3 L MCH 26.4 MCHC 33.8 RDW 14.6 Plt Count 240 Neut % (Auto) 92.1 H D Lymph % (Auto) 6.2 L [place] % (Auto) 1.3 L Eos % (Auto) 0.1 L Baso % (Auto) 0.3 Neut # (Auto) 7100 H Lymph # (Auto) 500 L [place] # (Auto) 100 Eos # (Auto) 0 Baso # (Auto) 0 ABG pH ABG pCO2 ABG pO2 ABG HCO3 ABG Total CO2 ABG O2 Saturation ABG Base Excess FiO2 Sodium 138 Potassium 4.4 Chloride 102 Carbon Dioxide 24 BUN 10 Creatinine 0.80 Estimated GFR > 60.0 BUN/Creatinine Ratio 12.5 Glucose 312 H D Hemoglobin A1c 8.2 H Lactate Calcium 9.3 Total Bilirubin AST ALT Alkaline Phosphatase Total Creatine Kinase CK-MB (CK-2) CK-MB (CK-2) Rel Index Troponin I B-Natriuretic Peptide Total Protein Albumin Globulin Albumin/Globulin Ratio Lipase Procalcitonin Nasal Screen MRSA (PCR) Chlamy pneumoniae PCR Adenovirus (PCR) B.parapertussis DNA PCR Coronavirus OC43 (PCR) Coronavirus HKU1 (PCR) Coronavirus 229E (PCR) Coronavirus NL63 (PCR) Human Metapneumovir PCR Influenza Type A (PCR) Influenza Type B (PCR) M. pneumoniae (PCR) Parainfluenza 1 (PCR) Parainfluenza 2 (PCR) Parainfluenza 3 (PCR) Parainfluenza 4 (PCR) RSV (PCR) Entero/Rhino (PCR) Group A Strep (PCR) 12/16/18 12/16/18 12/16/18 06:30 06:30 06:30 WBC RBC Hgb Hct MCV MCH MCHC RDW Plt Count Neut % (Auto) Lymph % (Auto) [place] % (Auto) Eos % (Auto) Baso % (Auto) Neut # (Auto) Lymph # (Auto) [place] # (Auto) Eos # (Auto) Baso # (Auto) ABG pH ABG pCO2 ABG pO2 ABG HCO3 ABG Total CO2 ABG O2 Saturation ABG Base Excess FiO2 Sodium Potassium Chloride Carbon Dioxide BUN Creatinine Estimated GFR BUN/Creatinine Ratio Glucose Hemoglobin A1c Lactate 1.7 Calcium Total Bilirubin AST ALT Alkaline Phosphatase Total Creatine Kinase CK-MB (CK-2) CK-MB (CK-2) Rel Index Troponin I < 0.012 B-Natriuretic Peptide Total Protein Albumin Globulin Albumin/Globulin Ratio Lipase Procalcitonin 0.06 Nasal Screen MRSA (PCR) Chlamy pneumoniae PCR Adenovirus (PCR) B.parapertussis DNA PCR Coronavirus OC43 (PCR) Coronavirus HKU1 (PCR) Coronavirus 229E (PCR) Coronavirus NL63 (PCR) Human Metapneumovir PCR Influenza Type A (PCR) Influenza Type B (PCR) M. pneumoniae (PCR) Parainfluenza 1 (PCR) Parainfluenza 2 (PCR) Parainfluenza 3 (PCR) Parainfluenza 4 (PCR) RSV (PCR) Entero/Rhino (PCR) Group A Strep (PCR) 12/16/18 12/16/18 08:05 08:05 WBC RBC Hgb Hct MCV MCH MCHC RDW Plt Count Neut % (Auto) Lymph % (Auto) [place] % (Auto) Eos % (Auto) Baso % (Auto) Neut # (Auto) Lymph # (Auto) [place] # (Auto) Eos # (Auto) Baso # (Auto) ABG pH ABG pCO2 ABG pO2 ABG HCO3 ABG Total CO2 ABG O2 Saturation ABG Base Excess FiO2 Sodium Potassium Chloride Carbon Dioxide BUN Creatinine Estimated GFR BUN/Creatinine Ratio Glucose Hemoglobin A1c Lactate Calcium Total Bilirubin AST ALT Alkaline Phosphatase Total Creatine Kinase CK-MB (CK-2) CK-MB (CK-2) Rel Index Troponin I B-Natriuretic Peptide Total Protein Albumin Globulin Albumin/Globulin Ratio Lipase Procalcitonin Nasal Screen MRSA (PCR) Negative for mrsa Chlamy pneumoniae PCR Not detected Adenovirus (PCR) Not detected B.parapertussis DNA PCR Not detected Coronavirus OC43 (PCR) Not detected Coronavirus HKU1 (PCR) Not detected Coronavirus 229E (PCR) Not detected Coronavirus NL63 (PCR) Not detected Human Metapneumovir PCR Not detected Influenza Type A (PCR) Not detected Influenza Type B (PCR) Not detected M. pneumoniae (PCR) Not detected Parainfluenza 1 (PCR) Not detected Parainfluenza 2 (PCR) Not detected Parainfluenza 3 (PCR) Not detected Parainfluenza 4 (PCR) Not detected RSV (PCR) Not detected Entero/Rhino (PCR) Not detected Group A Strep (PCR) Negative Assessment & Plan Assessment & Plan narrative: 63-year-old male with past medical history of hypertension and diabetes presented to emergency department with fevers, weakness, and shortness of breath. He was found to have diffuse micronodular pneumonia and admitted for further management. 1. Diffuse micronodular pneumonia, acute, present on admission -patient is hemodynamically stable, saturating 91% on 3 L nasal cannula -no leukocytosis, with normal lactate and procalcitonin -CTA PE revealed: 1. No pulmonary embolus. 2. Diffuse micronodular pattern throughout the lungs, with differential considerations including atypical microbacterial or fungal infection, as well as endobronchial spread of pneumonia. Bronchiolitis could produce a similar appearance as well. Pulmonology consultation recommended. 3. Coronary artery disease. 4. Cirrhosis and portal hypertension. -given the CT chest findings, I have consulted pulmonology, Dr. Des Purdy at [facility] for further recommendations of management. Recommendations are to place patient on isolation and get AFB sputum Gram stain and cultures x3. Recommendations are also to continue patient on nebulizers q.4 hours scheduled. Ideally patient should get bronchoscopy however there is no room available for patient to be transferred at this time. Therefore, Dr. Purdy recommends for patient to be continued on antibiotics ceftriaxone and azithromycin and following up with Legionella urine antigen, strep urine antigen, blood cultures, regular sputum cultures -should patient be tested negative for tuberculosis or mycobacterial infection, the plan is to discharge patient home on community-acquired pneumonia treatment with follow-up to pulmonary for further management of his findings -continue ceftriaxone/azithromycin IV at this time -Pending sputum cultures, blood cultures, Legionella/strep urine antigens, AFB cultures x3, QuantiFERON gold -continue nebulizers q.4 hours scheduled -will not continue steroids at this time, as they were not recommended by Pulmonary team and patient does not have diagnosis of COPD 2. Acute hypoxic respiratory failure, acute, present on admission, improving -likely due to multinodular infection -on admission, patient was saturating 88% on room air -ABG revealed PaO2 of 51 -continue O2 nasal cannula therapy at this time, titrate off as tolerated 3. Diabetes type 2 with hyperglycemia, chronic, present on admission -blood glucose 312 this morning -hemoglobin A1c is 8.2-poorly controlled -patient was started on long-acting insulin 10 units subcu b.i.d., as well as short-acting insulin 7 units subcu t.i.d. with meals. Will initiate low-dose sliding scale as well -hold metformin in light of acute illness -frequent Accu-Cheks, hypoglycemia protocol 4. Hypertension, chronic, present admission, stable -blood pressure is stable -continue home regimen lisinopril 10 mg p.o. daily Disposition: Patient is currently being treated for micro larger lower pneumonia with ceftriaxone and azithromycin. Working up the etiology of the infectious process. Patient is on isolation for TB rule out. Full code DVT prophylaxis with Lovenox subcu Quality VTE Deep Vein Thrombosis/Pulmonary Embolism Present on Admission: No
[2018-12-16] MEDS: INSULIN ASPART 100 UNIT/ML INSULN PEN SUBCUT ×2 (16:48→21:10)
[2018-12-16] MEDS: CEFTRIAXONE 1 GM/50 ML FROZ.PIGGY IV (21:08)
[2018-12-17] VITALS (15 sets, daily range): BP systolic 114–135; BP diastolic 80–93; PULSE 88–112; RESP 14–20; TEMP 36.4–36.9; O2SAT 88–98
[2018-12-17] MEDS: IPRATROPIUM 0.5 MG/2.5 ML NEB INH ×5 (00:26→20:30)
[2018-12-17 05:49] LABS: Add Manual Diff / Slide Review NO; Basophils Absolute Auto 0 /uL (0-100); Basophils Percent Auto 0.3 % (0-2); Eosinophils Absolute Auto 0 /uL (0-450); Hematocrit 45.9 % (41-53); Hemoglobin 15.3 g/dL (13.5-17.5); Lymphocytes Absolute Auto 1100 /uL (1100-4500); Lymphocytes Percent Auto 8.1 % (25-40); Mean Corpuscular HGB Conc 33.3 % (30-36); Mean Corpuscular Hemoglobin 26.3 PG (26-34); Monocytes Absolute Auto 900 /uL (0-900); Monocytes Percent Auto 6.4 % (3-14); Neutrophils Absolute Auto 12100 /uL (1500-7000); Neutrophils Percent Auto 85.2 % (50-75); Platelet Count 284 X10^3/uL (150-400); Red Blood Cell Count 5.82 X10^6/uL (4.5-5.9); Red Cell Distribution Width 14.5 % (11.6-14.8); White Blood Cell Count 14.2 X10^3/uL (4.5-11.0)
[2018-12-17 06:18] LABS: BUN Creatinine Ratio 17.8 (6-22); Blood Urea Nitrogen 16 mg/dL (9-20); Calcium 9.5 mg/dL (8.4-10.2); Carbon Dioxide 24 mmol/L (22-32); Chloride 105 mmol/L (98-107); Estimated Glomerular Filt Rate > 60.0 mL/min (>60); Glucose 171 mg/dL (80-110); HEMOLYSIS < 15 (0-50); Potassium 4.4 mmol/L (3.4-5.1); Sodium 140 mmol/L (137-145)
--- NOTE | 2018-12-17 06:21 | PC.NURSE ---
Slept most of the shift, denies any pain or discomfort. Ambulating to the BR. indep. & sitting in the recliner now. Instructed to keep his oxygen on, pt. taking off his 02, SPO2 in RA only 88-89%, with 2 liters 02 sat. 92-94%. Will elmer.
--- NOTE | 2018-12-17 07:49 | PM.PN.1 ---
Subjective Date Patient Seen: 12/17/18 Interval history: Edgar Hernandez is a 63-year-old male with past medical history significant for hypertension and diabetes mellitus type 2, non-insulin using, who presented to emergency department with fevers, weakness, and shortness of breath. He was found to have diffuse micronodular pneumonia and admitted for further management. The patient is resting in bed comfortably. He reports he is starting to feel much better. He reports his sputum production has slowed down. He had a couple of episodes of possible hemoptysis but believes it was bleeding from induction of sputum by RT. He continues to need intermittent oxygen but is titrating off quickly. He inquires regarding length of stay and is eager to go home. He endorses intermittent hot and cold flashes at night and he has had approximately 10 lbs unintentionally in the last 3 months. He denies headache, palpitations, chest pain, abdominal pain, nausea, vomiting, dysuria, diarrhea or constipation. He is voiding without difficulty. He has not had a BM charted since admission and will implement a bowel regimen as needed. He is up ambulating without assistance. Exam Vital Signs (past 8 hours): - 12/17/18 00:33 12/17/18 00:40 12/17/18 00:44 Temperature 97.6 F Pulse Rate 106 H 104 H Respiratory Rate 20 15 Blood Pressure 135/93 H Pulse Oximetry 93 95 95 12/17/18 04:17 Temperature 97.8 F Pulse Rate 91 H Respiratory Rate 17 Blood Pressure 114/81 Pulse Oximetry 92 Oxygen Delivery Method Nasal Cannula Oxygen Flow Rate 0 Narrative Exam Narrative: General: Older male sitting in bed and in no acute distress, appears older than stated age, well-developed, well-nourished, appropriately interactive. HEENT: Normocephalic, atraumatic. External ears without defect. Pupils equal, round, and reactive to light. Anicteric sclerae, moist conjunctivae with subconjunctival hemorrhage in left eye, and no lid lag. Oropharynx free of erythema and cobble stoning with moist mucosa. Neck: Supple with full range of motion. No lymphadenopathy or thyromegaly. Cardiovascular: Regular rhythm, tachycardic, without murmurs, rubs, or gallops appreciated. Pulmonary: Clear to auscultation bilaterally without crackles, wheezes, or rhonchi. Normal respiratory effort with no use of accessory muscles. Abdomen: Soft, protuberant, bowel sounds present, nontender. No hepatosplenomegaly or masses appreciated. Umbilical hernia with possible caput medusae. Extremities: No clubbing, cyanosis, or edema. Skin: Normal temperature, turgor, and texture; no rash, ulcers, or subcutaneous nodules appreciated. Neurological: Cranial nerves grossly intact. Psychiatric: Normal mood and affect. Alert and oriented to person, place, and time. Objective Labs Result Diagrams: 12/18/18 06:00 12/18/18 06:00 Labs: Laboratory Results - last 24 hr 12/16/18 12/16/18 12/17/18 08:05 08:05 05:08 WBC 14.2 H D RBC 5.82 Hgb 15.3 Hct 45.9 MCV 79.0 L MCH 26.3 MCHC 33.3 RDW 14.5 Plt Count 284 Neut % (Auto) 85.2 H Lymph % (Auto) 8.1 L Daniels % (Auto) 6.4 Eos % (Auto) 0.0 L Baso % (Auto) 0.3 Neut # (Auto) 05239 H Lymph # (Auto) 1100 Daniels # (Auto) 900 Eos # (Auto) 0 Baso # (Auto) 0 Sodium Potassium Chloride Carbon Dioxide BUN Creatinine Estimated GFR BUN/Creatinine Ratio Glucose Calcium Nasal Screen MRSA (PCR) Negative for mrsa Chlamy pneumoniae PCR Not detected Adenovirus (PCR) Not detected B.parapertussis DNA PCR Not detected Coronavirus OC43 (PCR) Not detected Coronavirus HKU1 (PCR) Not detected Coronavirus 229E (PCR) Not detected Coronavirus NL63 (PCR) Not detected Human Metapneumovir PCR Not detected Influenza Type A (PCR) Not detected Influenza Type B (PCR) Not detected M. pneumoniae (PCR) Not detected Parainfluenza 1 (PCR) Not detected Parainfluenza 2 (PCR) Not detected Parainfluenza 3 (PCR) Not detected Parainfluenza 4 (PCR) Not detected RSV (PCR) Not detected Entero/Rhino (PCR) Not detected Group A Strep (PCR) Negative 12/17/18 05:08 WBC RBC Hgb Hct MCV MCH MCHC RDW Plt Count Neut % (Auto) Lymph % (Auto) Daniels % (Auto) Eos % (Auto) Baso % (Auto) Neut # (Auto) Lymph # (Auto) Daniels # (Auto) Eos # (Auto) Baso # (Auto) Sodium 140 Potassium 4.4 Chloride 105 Carbon Dioxide 24 BUN 16 Creatinine 0.90 Estimated GFR > 60.0 BUN/Creatinine Ratio 17.8 Glucose 171 H D Calcium 9.5 Nasal Screen MRSA (PCR) Chlamy pneumoniae PCR Adenovirus (PCR) B.parapertussis DNA PCR Coronavirus OC43 (PCR) Coronavirus HKU1 (PCR) Coronavirus 229E (PCR) Coronavirus NL63 (PCR) Human Metapneumovir PCR Influenza Type A (PCR) Influenza Type B (PCR) M. pneumoniae (PCR) Parainfluenza 1 (PCR) Parainfluenza 2 (PCR) Parainfluenza 3 (PCR) Parainfluenza 4 (PCR) RSV (PCR) Entero/Rhino (PCR) Group A Strep (PCR) Assessment & Plan Assessment & Plan narrative: Edgar Hernandez is a 63-year-old male with past medical history significant for hypertension and diabetes mellitus type 2, non-insulin using, who presented to emergency department with fevers, weakness, and shortness of breath. He was found to have diffuse micronodular pneumonia and admitted for further management. 1. Acute diffuse micronodular pneumonia, present on admission. Active -Patient is hemodynamically stable, saturating 91% on 3 L nasal cannula. -No leukocytosis, with normal lactate and procalcitonin -CTA chest demonstrated diffuse micronodular pattern throughout the lungs. PE ruled out. Incidental CAD and cirrhosis with portal hypertension present. -Given the CTA chest findings consulted pulmonology, Dr. Des Ramon at [facility] for further recommendations of management. Recommendations are to place patient on isolation and get AFB sputum Gram stain and cultures x3. Recommendations are also to continue patient on nebulizers every 4 hours scheduled. Ideally patient should get bronchoscopy, however, there is no room available for patient to be transferred at this time. Therefore, Dr. Ramon recommends the patient be continued on antibiotics ceftriaxone and azithromycin and following up with Legionella urine antigen, strep urine antigen, blood cultures, and regular sputum cultures. Should the patient be tested negative for tuberculosis or mycobacterial infection, the plan is to discharge patient home on community-acquired pneumonia treatment with follow-up to pulmonary for further management of his pulmonary findings. -Complete pneumonia workup ordered including: Respiratory viral PCR negative. Strep pneumoniae and Legionella urine antigens, pending. Sputum cultures including AFB GS and cultures, pending. Blood cultures x2 have no growth to date. QuantiFERON gold, pending. -Continue levalbuterol nebulizers every 4 hours hours. -Continue ceftriaxone 2 g IV daily and azithromycin 500 mg daily x3 doses. -Discontinued glucocorticoids as they were not recommended by Pulmonary team and patient does not have previous diagnosis of COPD. Patient now has glucocorticoid driven leukocytosis. 2. Acute hypoxemic respiratory failure, present on admission. Improving. -Secondary to multinodular pneumonia as above. -On admission, patient was saturating 88% on room air with PaO2 51 on ABG. -Consulted RT for evaluation and treatment. Continue supplemental oxygen as need to keep sat 88-92% and titrate off as tolerated. 3. Diabetes mellitus type II, non-insuling using, chronic, present on admission -Hemoglobin A1c is 8.2% indicative of poor control. -Started and continue long-acting insulin with glargine 10 units twice daily and short-acting insulin with Novolog 7 units 3 times daily with meals. -Held metformin in light of acute illness. -Continue [facility] blood glucose checks, low dose correctional scale insulin and hypoglycemia protocol. 4. Hypertension, chronic, present admission. Stable. -Blood pressure is stable. -Continue home lisinopril 10 mg daily. Disposition: Patient is currently being treated for micronodular lower pneumonia with ceftriaxone and azithromycin. Working up the etiology of the infectious process. Patient is on isolation for TB rule out and will likely be several days waiting on culture results before discharge home. Quality VTE Deep Vein Thrombosis/Pulmonary Embolism Present on Admission: No
[2018-12-17] MEDS: LEVALBUTEROL 1.25 MG/0.5 ML NEB INH ×2 (08:04→15:52)
[2018-12-17 08:43] LABS: Procalcitonin < 0.05 ng/mL (<0.5)
[2018-12-17] MEDS: INSULIN ASPART 100 UNIT/ML INSULN PEN SUBCUT (09:57)
[2018-12-17] MEDS: INSULIN ASPART 100 UNIT/ML INSULN PEN 7 UNIT SUBCUT ×3 (09:57→17:02)
[2018-12-17] MEDS: INSULIN GLARGINE 100 UNIT/ML 3ML PEN 10 UNIT SUBCUT ×2 (09:58→21:14)
[2018-12-17] MEDS: LISINOPRIL 10 MG TABLET PO (09:58)
[2018-12-17] MEDS: CEFTRIAXONE 2 GM/50 ML FROZ.PIGGY IV (09:58)
[2018-12-17] MEDS: AZITHROMYCIN 250 MG TABLET 500 MG PO (09:58)
[2018-12-17] MEDS: SODIUM CHLORIDE 0.9% FLUSH 10 ML IV ×2 (09:59→21:14)
[2018-12-17] MEDS: ENOXAPARIN 40 MG/0.4 ML SYRINGE SUBCUT (09:59)
[2018-12-17] MEDS: ACETAMINOPHEN 325 MG TABLET 650 MG PO (17:02)
[2018-12-18] VITALS (11 sets, daily range): BP systolic 112–126; BP diastolic 65–90; PULSE 81–119; RESP 14–18; TEMP 36.4–37.1; O2SAT 89–95
[2018-12-18 06:25] LABS: Add Manual Diff / Slide Review NO; Basophils Absolute Auto 100 /uL (0-100); Basophils Percent Auto 0.8 % (0-2); Eosinophils Absolute Auto 100 /uL (0-450); Eosinophils Percent Auto 0.7 % (2-4); Hematocrit 48.5 % (41-53); Hemoglobin 16.5 g/dL (13.5-17.5); Lymphocytes Absolute Auto 1900 /uL (1100-4500); Lymphocytes Percent Auto 20.6 % (25-40); Mean Corpuscular HGB Conc 34.1 % (30-36); Mean Corpuscular Hemoglobin 26.8 PG (26-34); Mean Corpuscular Volume 78.8 fL (80-100); Monocytes Absolute Auto 600 /uL (0-900); Monocytes Percent Auto 6.9 % (3-14); Neutrophils Absolute Auto 6500 /uL (1500-7000); Platelet Count 281 X10^3/uL (150-400); Red Blood Cell Count 6.16 X10^6/uL (4.5-5.9); Red Cell Distribution Width 14.7 % (11.6-14.8); White Blood Cell Count 9.1 X10^3/uL (4.5-11.0)
[2018-12-18 06:30] LABS: Alanine Aminotransferase 37 IU/L (21-72); Albumin 4.2 g/dL (3.5-5.0); Albumin Globulin Ratio 1.1 (1.0-2.8); Alkaline Phosphatase 217 U/L (38-126); Aspartate Aminotransferase 51 IU/L (17-59); BUN Creatinine Ratio 21.1 (6-22); Bilirubin Total 0.9 mg/dL (0.2-1.3); Blood Urea Nitrogen 19 mg/dL (9-20); Calcium 9.2 mg/dL (8.4-10.2); Carbon Dioxide 22 mmol/L (22-32); Chloride 105 mmol/L (98-107); Estimated Glomerular Filt Rate > 60.0 mL/min (>60); Glucose 149 mg/dL (80-110); HEMOLYSIS 22 (0-50); Magnesium 2.2 mg/dL (1.6-2.3); Potassium 4.5 mmol/L (3.4-5.1); Sodium 140 mmol/L (137-145); Total Protein 8.2 g/dL (6.3-8.2)
[2018-12-18 06:49] LABS: Procalcitonin < 0.05 ng/mL (<0.5)
[2018-12-18] MEDS: IPRATROPIUM 0.5 MG/2.5 ML NEB INH ×5 (08:37→23:40)
[2018-12-18] MEDS: SODIUM CHLORIDE 0.9% FLUSH 10 ML IV ×2 (10:08→20:43)
[2018-12-18] MEDS: INSULIN GLARGINE 100 UNIT/ML 3ML PEN 10 UNIT SUBCUT ×2 (10:09→20:41)
[2018-12-18] MEDS: LISINOPRIL 10 MG TABLET PO (10:09)
[2018-12-18] MEDS: INSULIN ASPART 100 UNIT/ML INSULN PEN SUBCUT ×2 (10:09→13:02)
[2018-12-18] MEDS: ENOXAPARIN 40 MG/0.4 ML SYRINGE SUBCUT (10:09)
[2018-12-18] MEDS: INSULIN ASPART 100 UNIT/ML INSULN PEN 7 UNIT SUBCUT ×3 (10:09→17:16)
[2018-12-18] MEDS: CEFTRIAXONE 2 GM/50 ML FROZ.PIGGY IV (10:10)
[2018-12-18 14:21] LABS: Anti-Streptolysin O Antibody 340 IU/mL (< 200)
--- NOTE | 2018-12-18 14:24 | PC.NURSE ---
TOOK OVER CARE OF PATIENT AT 1330. ESTER BOLANOS, REPORTED TO THIS TECH[employer]ICAL SALES REPRESENTATIVES THAT PATIENT HAS BEEN TACHY IN 119-130'S. SHE STATES SHE NOTIFIED MD, NO NEW ORDERS AT THAT TIME. PATIENT IS ON TELE.
--- NOTE | 2018-12-18 22:30 | PC.NURSE ---
A&OX3. 95%RA. pt tachy 100-128bpm. he has a nonproductive cough. waiting for patient to provide sputum sample. independent in the room. denied pain. call light in reach.
--- NOTE | 2018-12-18 23:12 | P.PN_ITS ---
Subjective Date Patient Seen: 12/18/18 Interval history: Edgar Hernandez is a 63-year-old male with past medical history significant for hypertension and diabetes mellitus type 2, non-insulin using, [facility], [facility], and shortness of breath. He was found to have diffuse micronodular pneumonia and admitted for further management. The patient is resting in bed comfortably. He continues to feel much better. His productive cough has vastly improved. He is off oxygen and satting mid 90's on room air. He continues to be mildly tachycardic that has slightly improved with treatment of pneumonia. He complains about the taste of the food and requests for his family to bring in food. He denies headache, palpitations, chest pain, abdominal pain, nausea, vomiting, dysuria, diarrhea or constipation. He is voiding without difficulty. He has not had a BM charted since admission and a bowel regimen has been implemented. He is up ambulating without assistance. Exam Vital Signs (past 8 hours): - 12/18/18 15:44 12/18/18 16:30 12/18/18 17:43 Temperature 98.7 F Pulse Rate 115 H 83 Respiratory Rate 18 14 Blood Pressure 117/72 Pulse Oximetry 93 93 93 12/18/18 20:45 Temperature 98.3 F Pulse Rate 112 H Respiratory Rate 18 Blood Pressure 126/65 Pulse Oximetry 95 Oxygen Delivery Method Room Air Oxygen Flow Rate 1 Narrative Exam Narrative: General: Older male sitting in bed and in no acute distress, appears older than stated age, well-developed, well-nourished, appropriately interactive. HEENT: Normocephalic, atraumatic. External ears without defect. Pupils equal, round, and reactive to light. Anicteric sclerae, moist conjunctivae with s ubconjunctival hemorrhage in left eye improving, and no lid lag. Oropharynx free of erythema and cobble stoning with moist mucosa. Neck: Supple with full range of motion. No lymphadenopathy or thyromegaly. Cardiovascular: Regular rhythm, tachycardic, without murmurs, rubs, or gallops appreciated. Pulmonary: Clear to auscultation bilaterally with occasional scattered rhonchi. No wheeze or crackles. Normal respiratory effort with no use of accessory muscles. Abdomen: Soft, protuberant, bowel sounds present, nontender. No hepatosplenomegaly or masses appreciated. Umbilical hernia with possible caput medusae. Extremities: No clubbing, cyanosis, or edema. Skin: Normal temperature, turgor, and texture; no rash, ulcers, or subcutaneous nodules appreciated. Neurological: Cranial nerves grossly intact. Psychiatric: Normal mood and affect. Alert and oriented to person, place, and time. Objective Labs Result Diagrams: 12/18/18 06:00 12/18/18 06:00 Labs: Laboratory Results - last 24 hr 12/18/18 12/18/18 12/18/18 06:00 06:00 06:00 WBC 9.1 RBC 6.16 H Hgb 16.5 Hct 48.5 MCV 78.8 L MCH 26.8 MCHC 34.1 RDW 14.7 Plt Count 281 Neut % (Auto) 71.0 Lymph % (Auto) 20.6 L Stark % (Auto) 6.9 Eos % (Auto) 0.7 L Baso % (Auto) 0.8 Neut # (Auto) 6500 Lymph # (Auto) 1900 Stark # (Auto) 600 Eos # (Auto) 100 Baso # (Auto) 100 Sodium 140 Potassium 4.5 Chloride 105 Carbon Dioxide 22 BUN 19 Creatinine 0.90 Estimated GFR > 60.0 BUN/Creatinine Ratio 21.1 Glucose 149 H Calcium 9.2 Magnesium 2.2 Total Bilirubin 0.9 AST 51 ALT 37 Alkaline Phosphatase 217 H Total Protein 8.2 Albumin 4.2 Globulin 4.0 Albumin/Globulin Ratio 1.1 Procalcitonin < 0.05 Assessment & Plan Assessment & Plan narrative: Edgar Hernandez is a 63-year-old male with past medical history significant for hypertension and diabetes mellitus type 2, non-insulin using, who presented to emergency department with fevers, weakness, and shortness of breath. He was found to have diffuse micronodular pneumonia and admitted for further management. 1. Acute diffuse micronodular pneumonia, present on admission. Resolving. -Patient is hemodynamically stable and off oxygen satting in mid 90's on room air. -No leukocytosis with normal lactate and procalcitonin on admission. Transient rise in WBC due to glucocorticoid, now resolved. -CTA chest demonstrated diffuse micronodular pattern throughout the lungs. PE ruled out. Incidental CAD and cirrhosis with portal hypertension present. -Given the CTA chest findings consulted pulmonology, Dr. Des Ramon at [facility] for further recommendations of management. Recommendations are to place patient on isolation and get AFB sputum Gram stain and cultures x3. Continue patient on nebulizers every 4 hours scheduled. Ideally patient should get bronchoscopy, however, there is no room available for patient to be transferred at this time. Therefore, Dr. Ramon recommends the patient be continued on antibiotics ceftriaxone and azithromycin and following up with Legionella urine antigen, strep urine antigen, blood cultures, and regular sputum cultures. Should the patient be tested negative for tuberculosis or mycobacterial infection, the plan is to discharge patient home on community- acquired pneumonia treatment with follow-up to pulmonary for further management of his pulmonary findings. -Complete pneumonia workup ordered including: Respiratory viral PCR negative. Strep pneumoniae and Legionella urine antigens, pending. Sputum culture grew strep pneumoniae and strep pyogenes. AFB GS and cultures, pending. Blood cultures x2 have no growth to date. QuantiFERON gold, pending. -Continue levalbuterol nebulizers every 4 hours hours. -Continue ceftriaxone 2 g IV daily and azithromycin 500 mg daily x 3 doses. -Discontinued glucocorticoids as they were not recommended by Pulmonary team and patient does not have previous diagnosis of COPD. Patient now has glucocorticoid driven leukocytosis. 2. Acute hypoxemic respiratory failure, present on admission. Resolved. -Secondary to micronodular pneumonia as above. -On admission, patient was saturating 88% on room air with PaO2 51 on ABG. -Consulted RT for evaluation and treatment. Continued supplemental oxygen as need to keep sat 88-92%. Off oxygen and satting mid 90's on room air. 3. Diabetes mellitus type II, non-insuling using, chronic, present on admission -Hemoglobin A1c is 8.2% indicative of poor control. -Started and continue long-acting insulin with glargine 10 units twice daily and short-acting insulin with Novolog 7 units 3 times daily with meals. -Held metformin in light of acute illness. -Continue [facility] blood glucose checks, low dose correctional scale insulin and hypoglycemia protocol. 4. Hypertension, chronic, present admission. Stable. -Blood pressure is stable. -Continue home lisinopril 10 mg daily. Disposition: Patient is currently being treated for Strep pneumonia and pyogenes micronodular pneumonia with ceftriaxone and azithromycin. Patient is on isolation for TB rule out and will likely be several days until results of NAAT, culture, and QuantiFERON gold obtained and he is discharged home. Quality VTE Deep Vein Thrombosis/Pulmonary Embolism Present on Admission: No
[2018-12-19] VITALS (9 sets, daily range): BP systolic 111–135; BP diastolic 69–87; PULSE 64–118; RESP 16–18; TEMP 36.3–36.8; O2SAT 91–95
--- NOTE | 2018-12-19 02:45 | PC.NURSE ---
Addendum entered by An Fam R.N. 12/19/18 06:18: Slept most of night. Denies pain. Verifies that he has not had a BM in past 4 days; [place] [place], informed. Original Note: Patient not cooperative with answering questions as upset with being woke so difficult to assess orientation although is reportedly oriented. Is [place] and wears bilateral MAGDALENO's; put one in during assessment but still did not respond to all questions asked. Breath sounds diminished throughout but difficult to ausculate with PAPR on. Denies SOB. HRR but tachy with rate of 109 on telemetry reading of ST at 0000. Denies nausea. BT present but has not had a BM reported since 12/15. Is [place] but doesn't always use urinal so not always able to measure. Is independent with mobility. Fall risk score is moderate. Remains on airborne isolation. Denies pain.
[2018-12-19] MEDS: IPRATROPIUM 0.5 MG/2.5 ML NEB INH (07:40)
[2018-12-19] MEDS: LEVALBUTEROL 1.25 MG/0.5 ML NEB INH (07:40)
--- NOTE | 2018-12-19 07:56 | PM.PN.1 ---
Subjective Date Patient Seen: 12/19/18 Interval history: Edgar Hernandez is a 63-year-old male with past medical history significant for hypertension and diabetes mellitus type 2, non-insulin using, who presented to emergency department with fevers, weakness, and shortness of breath. He was found to have diffuse micronodular pneumonia and admitted for further management. The patient is resting in bedside chair comfortably. He continues to feel well. He reports his cough is resolving and he has very little sputum production. He has been tachycardic his entire hospitalization and started nadolol today to treat portal hypertension and tachycardia which he responded to well. Discussed NAAT/PCR for mycobacterium with lab and per quest should result sometime today for which I informed the patient. He has no complaints and denies headache, palpitations, chest pain, abdominal pain, nausea, vomiting, dysuria, diarrhea or constipation. He is voiding and eliminating without difficulty He is up ambulating without assistance. Exam Vital Signs (past 8 hours): - 12/19/18 01:20 12/19/18 06:13 Temperature 97.4 F L 98.3 F Pulse Rate 111 H 100 H Respiratory Rate 18 16 Blood Pressure 131/77 131/69 Pulse Oximetry 93 92 Oxygen Delivery Method Room Air Oxygen Flow Rate 0 Narrative Exam Narrative: General: Older male sitting in bed and in no acute distress, appears older than stated age, well-developed, well-nourished, appropriately interactive. HEENT: Normocephalic, atraumatic. External ears without defect. Pupils equal, round, and reactive to light. Anicteric sclerae, moist conjunctivae with subconjunctival hemorrhage in left eye improving, and no lid lag. Oropharynx free of erythema and cobble stoning with moist mucosa. Neck: Supple with full range of motion. No lymphadenopathy or thyromegaly. Cardiovascular: Regular rhythm, tachycardic, without murmurs, rubs, or gallops appreciated. Pulmonary: Clear to auscultation bilaterally without rhonchi, wheeze or crackles. Normal respiratory effort with no use of accessory muscles. Abdomen: Soft, protuberant, bowel sounds present, nontender. No hepatosplenomegaly or masses appreciated. Umbilical hernia with possible caput medusae. Extremities: No clubbing, cyanosis, or edema. Skin: Normal temperature, turgor, and texture; no rash, ulcers, or subcutaneous nodules appreciated. Neurological: Cranial nerves grossly intact. Psychiatric: Normal mood and affect. Alert and oriented to person, place, and time. Objective Labs Result Diagrams: 12/18/18 06:00 12/18/18 06:00 Assessment & Plan Assessment & Plan narrative: Edgar Hernandez is a 63-year-old male with past medical history significant for hypertension and diabetes mellitus type 2, non-insulin using, who presented to emergency department with fevers, weakness, and shortness of breath. He was found to have diffuse micronodular pneumonia and admitted for further management. 1. Acute diffuse micronodular pneumonia, present on admission. Resolving. -Patient is hemodynamically stable and off oxygen satting in mid 90's on room air. -No leukocytosis with normal lactate and procalcitonin on admission. Transient rise in WBC due to glucocorticoid, now resolved. -CTA chest demonstrated diffuse micronodular pattern throughout the lungs. PE ruled out. Incidental CAD and cirrhosis with portal hypertension present. -Given the CTA chest findings consulted pulmonology, Dr. Des Ramon at [facility] for further recommendations of management. Recommendations are to place patient on isolation and get AFB sputum Gram stain and cultures x3. Continue patient on nebulizers every 4 hours scheduled. Ideally patient should get bronchoscopy, however, there is no room available for patient to be transferred at this time. Therefore, Dr. Ramon recommends the patient be continued on antibiotics ceftriaxone and azithromycin and following up with Legionella urine antigen, strep urine antigen, blood cultures, and regular sputum cultures. Should the patient be tested negative for tuberculosis or mycobacterial infection, the plan is to discharge patient home on community-acquired pneumonia treatment with follow-up to pulmonary for further management of his pulmonary findings. -Complete pneumonia workup ordered including: Respiratory viral PCR negative. Strep pneumoniae and Legionella urine antigens, pending. Sputum culture grew strep pneumoniae and strep pyogenes. AFB GS and cultures, pending. Blood cultures x2 have no growth to date. QuantiFERON gold, pending. -Continue levalbuterol and DuoNebs nebulizers every 4 hours hours as needed. -Continue ceftriaxone 2 g IV daily and azithromycin 500 mg daily x 3 doses. -Discontinued glucocorticoids as they were not recommended by Pulmonary team and patient does not have previous diagnosis of COPD. Patient now has glucocorticoid driven leukocytosis. 2. Acute hypoxemic respiratory failure, present on admission. Resolved. -Secondary to micronodular pneumonia as above. -On admission, patient was saturating 88% on room air with PaO2 51 on ABG. -Consulted RT for evaluation and treatment. Continued supplemental oxygen as need to keep sat 88-92%. Off oxygen and satting mid 90's on room air. 3. Diabetes mellitus type II, non-insuling using, chronic, present on admission -Hemoglobin A1c is 8.2% indicative of poor control. -Started and continue long-acting insulin with glargine 10 units twice daily and short-acting insulin with Novolog 7 units 3 times daily with meals. -Held metformin in light of acute illness. -Continue [facility] blood glucose checks, low dose correctional scale insulin and hypoglycemia protocol. 4. Hypertension, chronic, present admission. Stable. -Blood pressure is stable. -Continue home lisinopril 10 mg daily. 5. History of significant alcohol abuse with complication of cirrhosis and portal hypertension, chronic, present on admission. Stable. -CTA chest demonstrated cirrhosis with portal hypertension. -Informed and educated patient regarding cirrhosis, portal hypertension and complications thereof. Recommend patient establish care with hepatology for further workup, monitoring and HCC/variceal screenings. -Patient consistently tachycardic in mid 100-110's despite treatment of pneumonia as above. Started nadolol 20 mg twice daily for portal hypertension and sinus tachycardia. 6. CAD evident on CT, present on admission. Stable. -CTA demonstrated coronary artery disease. -Once patient recovers from acute illness should have further risk stratification and treatment. Disposition: Patient is currently being treated for Strep pneumonia and pyogenes micronodular pneumonia with ceftriaxone and azithromycin. Patient is on isolation for TB rule out and will likely discharge today or tomorrow if PCR results are negative. If PCR results are positive will inquire with Infectious Disease treatment plan. Quality VTE Deep Vein Thrombosis/Pulmonary Embolism Present on Admission: No
--- NOTE | 2018-12-19 08:00 | P.PN_ITS ---
Subjective Date Patient Seen: 12/19/18 Interval history: Edgar Hernandez is a 63-year-old male with past medical history significant for hypertension and diabetes mellitus type 2, non-insulin using, [facility], weakness, and shortness of breath. He was found to have diffuse micronodular pneumonia and admitted for further management. The patient is resting in bedside chair comfortably. He continues to feel well. He reports his cough is resolving and he has very little sputum production. He has been tachycardic his entire hospitalization and started nadolol today to t reat portal hypertension and tachycardia which he responded to well. Discussed NAAT/PCR for mycobacterium with lab and per [facility] should result sometime today for which I informed the patient. He has no complaints and denies headache, palpitations, chest pain, abdominal pain, nausea, vomiting, dysuria, diarrhea or constipation. He is voiding and eliminating without difficulty He is up ambulating without assistance. Exam Vital Signs (past 8 hours): - 12/19/18 01:20 12/19/18 06:13 Temperature 97.4 F L 98.3 F Pulse Rate 111 H 100 H Respiratory Rate 18 16 Blood Pressure 131/77 131/69 Pulse Oximetry 93 92 Oxygen Delivery Method Room Air Oxygen Flow Rate 0 Narrative Exam Narrative: General: Older male sitting in bed and in no acute distress, appears older than stated age, well-developed, well-nourished, appropriately interactive. HEENT: Normocephalic, atraumatic. External ears without defect. Pupils equal, round, and reactive to light. Anicteric sclerae, moist conjunctivae with subconjunctival hemorrhage in left eye improving, and no lid lag. Oropharynx free of erythema and cobble stoning with moist mucosa. Neck: Supple with full range of motion. No lymphadenopathy or thyromegaly. Cardiovascular: Regular rhythm, tachycardic, without murmurs, rubs, or gallops appreciated. Pulmonary: Clear to auscultation bilaterally without rhonchi, wheeze or crackles. Normal respiratory effort with no use of accessory muscles. Abdomen: Soft, protuberant, bowel sounds present, nontender. No h epatosplenomegaly or masses appreciated. Umbilical hernia with possible caput medusae. Extremities: No clubbing, cyanosis, or edema. Skin: Normal temperature, turgor, and texture; no rash, ulcers, or subcutaneous nodules appreciated. Neurological: Cranial nerves grossly intact. Psychiatric: Normal mood and affect. Alert and oriented to person, place, and time. Objective Labs Result Diagrams: 12/18/18 06:00 12/18/18 06:00 Assessment & Plan Assessment & Plan narrative: Edgar Hernandez is a 63-year-old male with past medical history significant for hypertension and diabetes mellitus type 2, non-insulin using, who presented to emergency department with fevers, weakness, and shortness of breath. He was found to have diffuse micronodular pneumonia and admitted for further management. 1. Acute diffuse micronodular pneumonia, present on admission. Resolving. -Patient is hemodynamically stable and off oxygen satting in mid 90's on room air. -No leukocytosis with normal lactate and procalcitonin on admission. Transient rise in WBC due to glucocorticoid, now resolved. -CTA chest demonstrated diffuse micronodular pattern throughout the lungs. PE ruled out. Incidental CAD and cirrhosis with portal hypertension present. -Given the CTA chest findings consulted pulmonology, Dr. Des Ramon at [facility] for further recommendations of management. Recommendations are to place patient on isolation and get AFB sputum Gram stain and cultures x3. Continue patient on nebulizers every 4 hours scheduled. Ideally patient should get bronchoscopy, however, there is no room available for patient to be transferred at this time. Therefore, Dr. Ramon recommends the patient be continued on antibiotics ceftriaxone and azithromycin and following up with Legionella urine antigen, strep urine antigen, blood cultures, and regular sputum cultures. Should the patient be tested negative for tuberculosis or mycobacterial infection, the plan is to discharge patient home on community- acquired pneumonia treatment with follow-up to pulmonary for further management of his pulmonary findings. -Complete pneumonia workup ordered including: Respiratory viral PCR negative. Strep pneumoniae and Legionella urine antigens, pending. Sputum culture grew strep pneumoniae and strep pyogenes. AFB GS and cultures, pending. Blood cultures x2 have no growth to date. QuantiFERON gold, pending. -Continue levalbuterol and DuoNebs nebulizers every 4 hours hours as needed. -Continue ceftriaxone 2 g IV daily and azithromycin 500 mg daily x 3 doses. -Discontinued glucocorticoids as they were not recommended by Pulmonary team and patient does not have previous diagnosis of COPD. Patient now has glucocorticoid driven leukocytosis. 2. Acute hypoxemic respiratory failure, present on admission. Resolved. -Secondary to micronodular pneumonia as above. -On admission, patient was saturating 88% on room air with PaO2 51 on ABG. -Consulted RT for evaluation and treatment. Continued supplemental oxygen as need to keep sat 88-92%. Off oxygen and satting mid 90's on room air. 3. Diabetes mellitus type II, non-insuling using, chronic, present on admission -Hemoglobin A1c is 8.2% indicative of poor control. -Started and continue long-acting insulin with glargine 10 units twice daily and short-acting insulin with Novolog 7 units 3 times daily with meals. -Held metformin in light of acute illness. -Continue [facility] blood glucose checks, low dose correctional scale insulin and hypoglycemia protocol. 4. Hypertension, chronic, present admission. Stable. -Blood pressure is stable. -Continue home lisinopril 10 mg daily. 5. History of significant alcohol abuse with complication of cirrhosis and portal hypertension, chronic, present on admission. Stable. -CTA chest demonstrated cirrhosis with portal hypertension. -Informed and educated patient regarding cirrhosis, portal hypertension and complications thereof. Recommend patient establish care with hepatology for further workup, monitoring and HCC/variceal screenings. -Patient consistently tachycardic in mid 100-110's despite treatment of pneumonia as above. Started nadolol 20 mg twice daily for portal hypertension and sinus tachycardia. 6. CAD evident on CT, present on admission. Stable. -CTA demonstrated coronary artery disease. -Once patient recovers from acute illness should have further risk stratification and treatment. Disposition: Patient is currently being treated for Strep pneumonia and pyogenes micronodular pneumonia with ceftriaxone and azithromycin. Patient is on isolation for TB rule out and will likely discharge today or tomorrow if PCR results are negative. If PCR results are positive will inquire with Infectious Disease treatment plan. Quality VTE Deep Vein Thrombosis/Pulmonary Embolism Present on Admission: No
[2018-12-19] MEDS: ENOXAPARIN 40 MG/0.4 ML SYRINGE SUBCUT (08:38)
[2018-12-19] MEDS: CEFTRIAXONE 2 GM/50 ML FROZ.PIGGY IV (08:38)
[2018-12-19] MEDS: LISINOPRIL 10 MG TABLET PO (08:39)
[2018-12-19] MEDS: NADOLOL 40 MG TABLET 20 MG PO ×2 (08:39→22:10)
[2018-12-19] MEDS: DOCUSATE 100 MG CAPSULE PO ×2 (08:39→22:07)
[2018-12-19] MEDS: INSULIN GLARGINE 100 UNIT/ML 3ML PEN 10 UNIT SUBCUT ×2 (08:41→22:07)
[2018-12-19] MEDS: INSULIN ASPART 100 UNIT/ML INSULN PEN 7 UNIT SUBCUT ×2 (08:41→11:57)
[2018-12-19] MEDS: INSULIN ASPART 100 UNIT/ML INSULN PEN SUBCUT ×2 (08:42→11:56)
[2018-12-19] MEDS: SODIUM CHLORIDE 0.9% FLUSH 10 ML IV ×2 (08:43→22:10)
[2018-12-19 11:43] LABS: Mitogen-NIL 2.57 IU/mL; NIL 0.01 IU/mL; QuantiFERON TB NEGATIVE (Negative); TB1-NIL 0.01 IU/mL; TB2-NIL < 0.01 IU/mL
--- NOTE | 2018-12-19 14:20 | CM.DPC ---
DCP: case received and discussed in Team Rounds and then later this afternoon with Dr. Johnson. Dr. Johnson is waiting for testing on the ? of TB with pt at this time remaining on AIRBORN precautions. She is conferring with other colleagues re the protocol do for safe d/c to the community setting. Pt is independently mobilizing in the room per zipper measurer. Dr. Johnson indicates pt is very hopeful for a d/c eric home setting soon. She expects to know more by tomorrow. P: as per Ce Hancock's discussion with pt: he will go home with his son to stay with him. He is functionally independent at baseline in the community, drives and gets his medical care at the [facility] in [place]. Will check in tomorrow and follow prn.
--- NOTE | 2018-12-19 15:00 | PC.NURSE ---
Pts ls cta, pt not coughing today. Independent with all care. Using airborne and resperator precautions to r/0 tB.
[2018-12-19] MEDS: SENNOSIDES 8.6 MG TABLET PO (22:07)
--- NOTE | 2018-12-19 22:30 | PC.NURSE ---
patient is A&O x4, pleasant and cooperative w/ staff and is able to make needs known. Patient is on neg. press. room for R/O TB. Patient's results are still pending, if neg. poss plan is patient to d/c tomorrow per provider. Patient is due to have IV changed and new one placed. This nurse talked to patient about this and patient's req. was to leave in current IV due to the fact that he may be d/c'd tomorrow. Patient is aware that if he does not d/c then we will need to put a new one in if he is willing to allow so. Patient is agreeable to plan. Pt. indep. in room, call light w/in reach for needs.
[2018-12-20] VITALS (11 sets, daily range): BP systolic 95–124; BP diastolic 64–75; PULSE 59–67; RESP 16–24; TEMP 36.3–36.9; O2SAT 89–97
--- NOTE | 2018-12-20 02:41 | PC.NURSE ---
Patient is alert and oriented and more communicative tonight. Breath sounds diminished with fine crackles in left LL; RA sat is 92%. HRR but bradycardia at 59 bpm. BP running lower at 101/64; antihypertensives changed yesterday. Denies nausea. BT present and abdomen is soft. Independent with mobility and not able to measure UOP as patient will not use urinal despite requests to do so. Denies pain. Remains on airborne isolation while waiting on cultures to R/O TB. Fall risk score is moderate.
[2018-12-20] MEDS: CEFTRIAXONE 2 GM/50 ML FROZ.PIGGY IV (09:31)
[2018-12-20] MEDS: NADOLOL 40 MG TABLET 20 MG PO ×2 (09:31→20:25)
[2018-12-20] MEDS: LISINOPRIL 10 MG TABLET PO (09:32)
[2018-12-20] MEDS: ENOXAPARIN 40 MG/0.4 ML SYRINGE SUBCUT (09:33)
[2018-12-20] MEDS: INSULIN ASPART 100 UNIT/ML INSULN PEN 7 UNIT SUBCUT ×2 (09:33→17:19)
[2018-12-20] MEDS: DOCUSATE 100 MG CAPSULE PO (09:33)
[2018-12-20] MEDS: INSULIN ASPART 100 UNIT/ML INSULN PEN SUBCUT ×2 (09:33→17:12)
[2018-12-20] MEDS: INSULIN GLARGINE 100 UNIT/ML 3ML PEN 10 UNIT SUBCUT (09:34)
[2018-12-20] MEDS: SODIUM CHLORIDE 0.9% FLUSH 10 ML IV ×2 (09:35→20:24)
--- NOTE | 2018-12-20 16:40 | P.PN_ITS ---
Subjective Date Patient Seen: 12/20/18 Interval history: Edgar Hernandez is a 63-year-old male with past medical history significant for hypertension and diabetes mellitus type 2, non-insulin using, who presented to emergency department with fevers, weakness, and shortness of breath. He was found to have diffuse micronodular pneumonia and admitted for further management. The patient is resting in bed comfortably. He continues to feel well and has no new complaints. His cough is resolving and he has very little sputum production. Patient has been tachycardic throughout hospitalization which resolved with nadolol to treat tachycardia and portal hypertension. Discussed NAAT/PCR for mycobacterium with lab and per [facility] analyzer is not working and results have been delayed for which they will plan to inform sometime today us when to expect results. His Gram stain x3 is negative and QuantiFERON gold neg ative. He denies headache, palpitations, chest pain, abdominal pain, nausea, vomiting, dysuria, diarrhea or constipation. He is voiding and eliminating without difficulty He is up ambulating without assistance. Exam Vital Signs (past 8 hours): - 12/20/18 09:06 12/20/18 09:19 12/20/18 11:01 Temperature 98.1 F Pulse Rate 64 62 Respiratory Rate 17 16 Blood Pressure 95/64 Pulse Oximetry 89 L 91 94 12/20/18 12:03 12/20/18 15:55 Temperature 97.8 F 97.3 F L Pulse Rate 67 61 Respiratory Rate 18 20 Blood Pressure 124/68 110/75 Pulse Oximetry 90 L 97 Fraction of Inspired Oxygen 21 Oxygen Delivery Method Room Air Oxygen Flow Rate 0 Narrative Exam Narrative: General: Older male lying in bed and in no acute distress, appears older than stated age, well-developed, well-nourished, appropriately interactive. HEENT: Normocephalic, atraumatic. External ears without defect. Pupils equal, round, and reactive to light. Anicteric sclerae, moist conjunctivae with subconjunctival hemorrhage in left eye improving, and no lid lag. Oropharynx free of erythema and cobble stoning with moist mucosa. Neck: Supple with full range of motion. No lymphadenopathy or thyromegaly. Cardiovascular: Regular rhythm, tachycardic, without murmurs, rubs, or gallops appreciated. Pulmonary: Clear to auscultation bilaterally without rhonchi, wheeze or crackles. Normal respiratory effort with no use of accessory muscles. Abdomen: Soft, protuberant, bowel sounds present, nontender. No hepatosplenomegaly or masses appreciated. Umbilical hernia with possible caput medusae. Extremities: No clubbing, cyanosis, or edema. Skin: Normal temperature, turgor, and texture; no rash, ulcers, or subcutaneous nodules appreciated. Neurological: Cranial nerves grossly intact. Psychiatric: Normal mood and affect. Alert and oriented to person, place, and time. Objective Labs Result Diagrams: 12/18/18 06:00 12/18/18 06:00 Assessment & Plan Assessment & Plan narrative: Edgar Hernandez is a 63-year-old male with past medical history significant for hypertension and diabetes mellitus type 2, non-insulin using, who presented to emergency department with fevers, weakness, and shortness of breath. He was found to have diffuse micronodular pneumonia and admitted for further management. 1. Acute diffuse micronodular pneumonia, present on admission. Resolving. -Patient is hemodynamically stable and off oxygen satting in mid 90's on room air. -No leukocytosis with normal lactate and procalcitonin on admission. Transient r ise in WBC due to glucocorticoid, now resolved. -CTA chest demonstrated diffuse micronodular pattern throughout the lungs. PE ruled out. Incidental CAD and cirrhosis with portal hypertension present. -Given the CTA chest findings consulted pulmonology, Dr. Des Ramon at [facility] for further recommendations of management. Recommendations are to place patient on isolation and get AFB sputum Gram stain and cultures x3. Continue patient on nebulizers every 4 hours scheduled. Ideally patient should get bronchoscopy, however, there is no room available for patient to be transferred at this time. Therefore, Dr. Ramon recommends the patient be continued on antibiotics ceftriaxone and azithromycin and following up with Legionella urine antigen, strep urine antigen, blood cultures, and regular sputum cultures. Should the patient be tested negative for tuberculosis or mycobacterial infection, the plan is to discharge patient home on community- acquired pneumonia treatment with follow-up to pulmonary for further management of his pulmonary findings. -Complete pneumonia workup ordered including: Respiratory viral PCR negative. Strep pneumoniae and Legionella urine antigens, pending. Sputum culture grew strep pneumoniae and strep pyogenes. AFB GS negative x3. AFB cultures, pending and will result on 08/26. Blood cultures x2 have no growth to date. QuantiFER ON gold negative. -Continue nebulizers every 4 hours hours as needed. -Continue ceftriaxone 2 g IV daily and completed azithromycin 500 mg daily x 3 doses. -Discontinued glucocorticoids as they were not recommended by Pulmonary team and patient does not have previous diagnosis of COPD. Patient now has glucocorticoid driven leukocytosis. 2. Acute hypoxemic respiratory failure, present on admission. Resolved. -Secondary to micronodular pneumonia as above. -On admission, patient was saturating 88% on room air with PaO2 51 on ABG. -Consulted RT for evaluation and treatment. Continued supplemental oxygen as need to keep sat 88-92%. Off oxygen and satting mid 90's on room air. 3. Diabetes mellitus type II, non-insuling using, chronic, present on admission -Hemoglobin A1c is 8.2% indicative of poor control. -Started and continue long-acting insulin with glargine 10 units twice daily and short-acting insulin with Novolog 7 units 3 times daily with meals. -Held metformin in light of acute illness. -Continue [facility] blood glucose checks, low dose correctional scale insulin and hypoglycemia protocol. 4. Hypertension, chronic, present admission. Stable. -Blood pressure is stable. -Continue home lisinopril 10 mg daily. 5. History of significant alcohol abuse with complication of cirrhosis and portal hypertension, chronic, present on admission. Stable. -CTA chest demonstrated cirrhosis with portal hypertension. -Informed and educated patient regarding cirrhosis, portal hypertension and complications thereof. Recommend patient establish care with hepatology for further workup, monitoring and HCC/variceal screenings. -Patient consistently tachycardic in mid 100-110's despite treatment of pneumonia as above. Started nadolol 20 mg twice daily for portal hypertension and sinus tachycardia which has now resolved. 6. CAD evident on CT, present on admission. Stable. -CTA demonstrated coronary artery disease. -Once patient recovers from acute illness should have further risk st ratification and treatment. Disposition: Patient is currently being treated for Strep pneumonia and strep pyogenes micronodular pneumonia with ceftriaxone and completed azithromycin. Patient is on isolation for TB rule out and will likely discharge as soon as PCR results have returned and if negative. If PCR results are positive will inquire with Infectious Disease treatment plan. Quality VTE Deep Vein Thrombosis/Pulmonary Embolism Present on Admission: No
--- NOTE | 2018-12-20 17:58 | PC.NURSE ---
Addendum entered by Annabella Metzger R.N. 12/20/18 20:56: Pt had relatively uneventful evening. Remains in resp. Iso till R/O TB Family in and out all evening. Order from VIVIAN KIRK to leave HL in the RFA. Call light w/in reach, Pt calls appropriately for needs. Continue w/plan of care. Original Note: Pt up ad dev in room. Denies any discomfort at this time. Had shower before dinner. HL RFA intact/patent. CBG = 191, insulin coverage given as per orders. Call light w/in reach, Pt calls appropriately for needs
[2018-12-21 00:54] VITALS: BP 143/69; PULSE 71; RESP 16; TEMP 36.6; O2SAT 92
[2018-12-21 05:58] LABS: Alanine Aminotransferase 71 IU/L (21-72); Albumin 4.1 g/dL (3.5-5.0); Albumin Globulin Ratio 1.1 (1.0-2.8); Alkaline Phosphatase 207 U/L (38-126); Aspartate Aminotransferase 57 IU/L (17-59); Bilirubin Total 0.8 mg/dL (0.2-1.3); Blood Urea Nitrogen 20 mg/dL (9-20); Calcium 9.4 mg/dL (8.4-10.2); Carbon Dioxide 25 mmol/L (22-32); Chloride 101 mmol/L (98-107); Estimated Glomerular Filt Rate > 60.0 mL/min (>60); Globulin 3.8 g/dL (1.7-4.1); Glucose 138 mg/dL (80-110); HEMOLYSIS < 15 (0-50); Potassium 4.4 mmol/L (3.4-5.1); Sodium 139 mmol/L (137-145); Total Protein 7.9 g/dL (6.3-8.2)
[2018-12-21 05:59] LABS: Add Manual Diff / Slide Review NO; Basophils Absolute Auto 100 /uL (0-100); Basophils Percent Auto 0.4 % (0-2); Eosinophils Absolute Auto 200 /uL (0-450); Eosinophils Percent Auto 1.7 % (2-4); Hematocrit 51.4 % (41-53); Hemoglobin 17.5 g/dL (13.5-17.5); Lymphocytes Absolute Auto 2800 /uL (1100-4500); Lymphocytes Percent Auto 20.1 % (25-40); Mean Corpuscular HGB Conc 34.1 % (30-36); Mean Corpuscular Hemoglobin 26.3 PG (26-34); Mean Corpuscular Volume 77.3 fL (80-100); Monocytes Absolute Auto 900 /uL (0-900); Monocytes Percent Auto 6.3 % (3-14); Neutrophils Absolute Auto 9800 /uL (1500-7000); Neutrophils Percent Auto 71.5 % (50-75); Platelet Count 307 X10^3/uL (150-400); Red Blood Cell Count 6.64 X10^6/uL (4.5-5.9); Red Cell Distribution Width 14.6 % (11.6-14.8); White Blood Cell Count 13.7 X10^3/uL (4.5-11.0)
[2018-12-21 06:00] VITALS: BP 114/58; PULSE 65; RESP 18; TEMP 36.7; O2SAT 93
[2018-12-21 08:40] VITALS: BP 101/70; PULSE 58; RESP 15; TEMP 36.7; O2SAT 93
[2018-12-21 08:43] VITALS: O2SAT 92
[2018-12-21] MEDS: INSULIN ASPART 100 UNIT/ML INSULN PEN 7 UNIT SUBCUT (09:00)
[2018-12-21] MEDS: INSULIN ASPART 100 UNIT/ML INSULN PEN SUBCUT (09:01)
[2018-12-21] MEDS: CEFTRIAXONE 2 GM/50 ML FROZ.PIGGY IV (09:02)
[2018-12-21] MEDS: NADOLOL 40 MG TABLET 20 MG PO (09:03)
[2018-12-21] MEDS: DOCUSATE 100 MG CAPSULE PO (09:03)
[2018-12-21] MEDS: LISINOPRIL 10 MG TABLET PO (09:03)
[2018-12-21] MEDS: INSULIN GLARGINE 100 UNIT/ML 3ML PEN 10 UNIT SUBCUT (09:03)
[2018-12-21] MEDS: SODIUM CHLORIDE 0.9% FLUSH 10 ML IV (09:04)
[2018-12-21] MEDS: ENOXAPARIN 40 MG/0.4 ML SYRINGE SUBCUT (09:17)
[2018-12-21 10:02] LABS: Procalcitonin < 0.05 ng/mL (<0.5)
[2018-12-21 12:21] VITALS: BP 112/75; PULSE 76; RESP 15; TEMP 36.6; O2SAT 93
--- NOTE | 2018-12-21 15:35 | P.DS_ITS ---
History of Present Illness Date Patient Seen: 12/15/18 Chief complaint: SOB Narrative: Written by Carmita HAYS: Edgar Hernandez is a pleasant 63-year-old [place] male who presents with shortness of breath. The patient informs me that he has had a 1 month history of having difficulty breathing, fatigue and headache. States he was trying to quit smoking and then thought he was having withdrawals due to having chest pain. He did quit 7 days ago but he feels like he is worsening. He does not use oxygen at home. He complains of subjective fevers, a couple of days ago and then chills for which he went into a hot tub, then he became too warm and could not get cool. He has had nausea with no vomiting but stated that his stomach acid was coming up. Patient denies any numbing and tingling of his upper or lower extremities, denies rashes, states that he does not feel his diabetes is very well under control. He does state his hemoglobin A1c is due and he does not know what his previous A1c was. Per the ED provider he has been going to the [facility] in [place] and apparently the patient states that he sees a different provider every time, he does not remember the name of the clinic or any other providers names. Discharge Providers Date of admission: 12/15/18 21:53 Discharge Date: 12/21/18 Consults: 12/15/18 22:15 Consult to Respiratory Therapy Evaluate & Treat Comment: Hypoxia, wheezes Physician Instructions: Evaluate and treat 12/20/18 09:23 Consult to Respiratory Therapy Evaluate & Treat Comment: Physician Instructions: Evaluate and treat Discharge provider: Mona Johnson DO Summary Discharge Diagnosis: 1. Acute diffuse micronodular pneumonia, present on admission. Resolving. 2. Acute hypoxemic respiratory failure, present on admission. Resolved. 3. Diabetes mellitus type II, non-insuling using, chronic, present on admission 4. Hypertension, chronic, present admission. Stable. 5. History of significant alcohol abuse with complication of cirrhosis and portal hypertension, chronic, present on admission. Stable. 6. CAD evident on CT, present on admission. Stable. 7. Tobacco dependence, chronic, present on admission. Stable. Hospital Course: Edgar Hernandez is a 63-year-old male with past medical history significant for hypertension and diabetes mellitus type 2, non-insulin using, who presented to emergency department with fevers, weakness, and shortness of breath. He was found to have diffuse micronodular pneumonia and admitted for further management. 1. Acute diffuse micronodular pneumonia, present on admission. Resolving. -Patient is hemodynamically stable and off oxygen satting in mid 90's on room air. -No leukocytosis with normal lactate and procalcitonin on admission. Transient rise in WBC due to glucocorticoid. Patient had repeat WBC today 12/21 with sl ight elevation 13.7 without any other signs or symptoms of infection. Procalcitonin < 0.05. -CTA chest demonstrated diffuse micronodular pattern throughout the lungs. PE ruled out. Incidental CAD and cirrhosis with portal hypertension present. -Given the CTA chest findings consulted pulmonology, Dr. Des Ramon at [facility] for further recommendations of management. Recommended patient be placed on isolation and get AFB sputum Gram stain and cultures x3 which was completed. Continued patient on nebulizers every 4 hours scheduled. Ideally patient should get bronchoscopy, however, there was no room available for patient to be transferred. Therefore, Dr. Ramon recommended the patient be continued on antibiotics ceftriaxone and azithromycin and following up with Legionella urine antigen, strep urine antigen, blood cultures, and regular sputum cultures. The patient tested negative for tuberculosis or mycobacterial infection thus far and he was treated for community-acquired pneumonia as below with follow-up to pulmonary for further management of his pulmonary findings. -Discontinued glucocorticoids as they were not recommended by the Pulmonary team and patient does not have previous diagnosis of COPD. -Complete pneumonia workup ordered including: Respiratory viral PCR negative. Strep pneumoniae and Legionella urine antigens, pending. Sputum culture grew strep pneumoniae and strep pyogenes. AFB GS and smear negative x3. AFB cultures pending and will result on 02/15. Blood cultures x2 have no growth to date. QuantiFERON gold negative. -Continued ceftriaxone 2 g IV daily and completed azithromycin 500 mg daily x 3 doses. Discharged with augmentin twice daily x 1 day to complete 7 day course. -Discussed case with Dr. Lon Landrum of Infectious Disease control who indicates that the patient can be taken off isolation precautions and discharged if appropriate. The Department of Health will contact patient if PCR or AFB cultures result positive. -Reiterated to the patient need for follow-up at [facility] PCP for hospital follow-up , preventative care and referrals to pulmonology and hepatology. 2. Acute hypoxemic respiratory failure, present on admission. Resolved. -Secondary to micronodular pneumonia as above. -On admission, patient was saturating 88% on room air with PaO2 51 on ABG. -Consulted RT for evaluation and treatment. Continued supplemental oxygen as need to keep sat 88-92%. Patient off oxygen and satting mid 90's on room air. Continued duo nebs every 4 hours as needed. 3. Diabetes mellitus type II, non-insuling using, chronic, present on admission -Hemoglobin A1c is 8.2% indicative of poor control. -Started and continued long-acting insulin with glargine 10 units twice daily and short-acting insulin with Novolog 7 units 3 times daily with meals. -Held metformin due to acute illness until time of discharge. -Continued [facility] blood glucose checks, low dose correctional scale insulin and hypoglycemia protocol. 4. Hypertension, chronic, present admission. Stable. -Blood pressure is stable. -Continued home lisinopril 10 mg daily and started nadolol 20 mg twice daily as below. 5. History of significant alcohol abuse with complication of cirrhosis and portal hypertension, chronic, present on admission. Stable. -CTA chest demonstrated cirrhosis with portal hypertension. -Patient consistently tachycardic in mid 100-110's despite treatment of pneumonia as above. Started and continued nadolol 20 mg twice daily for portal hypertension and sinus tachycardia resolved. -Informed and educated patient regarding cirrhosis, portal hypertension and complications thereof. Recommend patient establish care with hepatology for further workup, monitoring and HCC/variceal screenings. 6. CAD evident on CT, present on admission. Stable. -CTA demonstrated coronary artery disease. -Once patient recovers from acute illness should have further risk stratification and treatment outpatient. 7. Tobacco dependence, chronic, present on admission. Stable. -Patient is long-time smoker and recently quit prior to admission. -Discussed smoking cessation and recommended indefinite sensation of tobacco. Exam Vital Signs (past 8 hours): - 12/21/18 08:40 12/21/18 08:43 12/21/18 12:21 Temperature 98.1 F 98 F Pulse Rate 58 L 76 Respiratory Rate 15 15 Blood Pressure 101/70 112/75 Pulse Oximetry 93 92 93 Fraction of Inspired Oxygen 21 Oxygen Delivery Method Room Air Oxygen Flow Rate 0 Narrative Exam Narrative: General: Older male lying in bed and in no acute distress, appears older than stated age, well-developed, well-nourished, appropriately interactive. HEENT: Normocephalic, atraumatic. External ears without defect. Pupils equal, round, and reactive to light. Anicteric sclerae, moist conjunctivae with subconjunctival hemorrhage in left eye and possible subtle port wine stain likely [place]ebayo, no lid lag. Oropharynx free of erythema and cobble stoning with moist mucosa. Neck: Supple with full range of motion. No lymphadenopathy or thyromegaly. Cardiovascular: Regular rhythm, tachycardic, without murmurs, rubs, or gallops appreciated. Pulmonary: Clear to auscultation bilaterally without rhonchi, wheeze or crackles. Normal respiratory effort with no use of accessory muscles. Abdomen: Soft, protuberant, bowel sounds present, nontender. No hepatosplenomegaly or masses appreciated. Umbilical hernia with possible caput medusae. Extremities: No clubbing, cyanosis, or edema. Skin: Normal temperature, turgor, and texture; no rash, ulcers, or subcutaneous nodules appreciated. Neurological: Cranial nerves grossly intact. Psychiatric: Normal mood and affect. Alert and oriented to person, place, and time. Objective Labs Result Diagrams: 12/21/18 05:13 12/21/18 05:13 Labs: Laboratory Results - last 24 hr 12/15/18 12/21/18 12/21/18 22:50 05:13 05:13 WBC 13.7 H RBC 6.64 H Hgb 17.5 Hct 51.4 MCV 77.3 L MCH 26.3 MCHC 34.1 RDW 14.6 Plt Count 307 Neut % (Auto) 71.5 Lymph % (Auto) 20.1 L [place] % (Auto) 6.3 Eos % (Auto) 1.7 L Baso % (Auto) 0.4 Neut # (Auto) 9800 H Lymph # (Auto) 2800 [place] # (Auto) 900 Eos # (Auto) 200 Baso # (Auto) 100 Sodium 139 Potassium 4.4 Chloride 101 Carbon Dioxide 25 BUN 20 Creatinine 1.00 Estimated GFR > 60.0 BUN/Creatinine Ratio 20.0 Glucose 138 H Calcium 9.4 Magnesium 2.0 Total Bilirubin 0.8 AST 57 ALT 71 Alkaline Phosphatase 207 H Total Protein 7.9 Albumin 4.1 Globulin 3.8 Albumin/Globulin Ratio 1.1 Procalcitonin Ref Test (Refrig) 12/21/18 05:13 WBC RBC Hgb Hct MCV MCH MCHC RDW Plt Count Neut % (Auto) Lymph % (Auto) [place] % (Auto) Eos % (Auto) Baso % (Auto) Neut # (Auto) Lymph # (Auto) [place] # (Auto) Eos # (Auto) Baso # (Auto) Sodium Potassium Chloride Carbon Dioxide BUN Creatinine Estimated GFR BUN/Creatinine Ratio Glucose Calcium Magnesium Total Bilirubin AST ALT Alkaline Phosphatase Total Protein Albumin Globulin Albumin/Globulin Ratio Procalcitonin < 0.05 Ref Test (Refrig) Discharge Plan Discharge Plan Patient Disposition: Home Discharge comment: You are being discharged home. Please follow-up with your primary care physician at the [facility] in the next 3-5 days. You need to be referred to pulmonology for further evaluation of your lung disease. You also need a referral to hepatology for further evaluation and treatment of your liver disease. You have been prescribed nadolol 20 mg twice daily to treat you portal hypertension related to cirrhosis of your liver. Please stop smoking indefinitely. Continue to obtain preventative care through your primary care physician including: Vaccinations (influenza once a year to protect you and your grandchildren from the flu and strep pneumonia a one time vaccine and the type of pneumonia you had), colonoscopy, and prostate exam. You have been prescribed Augmentin to take tomorrow 1 tab in the morning and 1 tab at night and your treatment for your pneumonia will be completed. If any of the remaining tuberculosis tests come back positive the Department of Health will contact you. You are not contagious. Please continue using good hand hygiene i.e. cover your cough and wash her hands frequently. Discharge Med Rec/Prescriptions Prescriptions: New amoxicillin-pot clavulanate [Augmentin] 875-125 mg tablet 1 tab PO BID Qty: 2 RF: 0 nadolol 40 mg Tablet 20 mg PO BID Qty: 60 RF: 0 Continued metformin [Glucophage] 500 MG tablet 1,000 mg PO BIDCC Qty: 0 RF: 0 lisinopril 10 MG tablet 10 mg PO QDAY Qty: 0 RF: 0 miconazole nitrate [Micatin] 2 % cream 1 milly TP BID Qty: 14 RF: 0 albuterol sulfate 90 mcg/actuation HFA aerosol inhaler 2 puff inhalation Q6HR PRN (Reason: Wheezing) RF: 0 Provider Discharge Instructions Diet: Low-fat, Low-sodium and Low-cholesterol Activity: Activity as tolerated Visit Report/Discharge Packet Instructions: Pneumococcal Vaccine, DI for Pneumonia -- Adult Discharge Data Attending Provider: Carmita Luz Admit Date/Time: 12/15/18 21:53 Discharges patient from system. Discharge Date/Time: 12/21/18 15:55 Quality VTE Deep Vein Thrombosis/Pulmonary Embolism Present on Admission: No
--- NOTE | 2018-12-21 18:53 | PC.NURSE ---
Called and spoke to pt's son Luis Hernandez at [phone] to inform him that a prescription was left at hospital for pt. Per Luis, pt uses pharmacy in [facility]. Script faxed to [facility].
== END 2018-12-21 15:55 | disposition home or self-care (01) | DRG 193 ==
LOC: ED 21:46 → AC 21:54
PROVIDERS: Internal Medicine; Nurse Practitioner Family; Admitting Provider Nurse Practitioner Family; Emergency Provider Emergency Medicine; Visit Provider Nurse Practitioner Family
DX: J13 Pneumonia due to Streptococcus pneumoniae (principal); J96.01 Acute respiratory failure with hypoxia; K76.6 Portal hypertension; E11.65 Type 2 diabetes mellitus with hyperglycemia; K70.30 Alcoholic cirrhosis of liver without ascites; F17.211 Nicotine dependence, cigarettes, in remission; Z79.84 Long term (current) use of oral hypoglycemic drugs; I10 Essential (primary) hypertension; I25.10 Atherosclerotic heart disease of native coronary artery without angina pectoris
CPT/HCPCS: 36415; 36591; 36600; 71045; 71275; 80048; 80053; 82550; 82805; 82962; 83036; 83605; 83690; 83735; 83880; 84145; 84484; 85025; 86060; 86480; 87040; 87070; 87077; 87116; 87205; 87449; 87633; 87651; 87797; 93005; 93010; 94150; 94640; 94667; 94668; 94760; 96374; 99283; 99285; 99406; J0696; J1650; J2930; J7613; J7614; Q9967

== ENCOUNTER 2019-03-12 20:13 | Emergency (ER) | payer MEDICAID, OTHER, SELFPAY ==
[2018-12-15 22:40] VITALS: BMI 30.7
[2019-03-12 20:17] VITALS: BP 145/83; PULSE 91; RESP 15; TEMP 37.1; O2SAT 97; BMI 30.7
[2019-03-12 21:20] LABS: Add Manual Diff / Slide Review NO; Basophils Absolute Auto 100 /uL (0-100); Basophils Percent Auto 1.1 % (0-2); Eosinophils Absolute Auto 200 /uL (0-450); Eosinophils Percent Auto 2.2 % (2-4); Hematocrit 46.3 % (41-53); Hemoglobin 15.9 g/dL (13.5-17.5); Lymphocytes Absolute Auto 2900 /uL (1100-4500); Mean Corpuscular HGB Conc 34.3 % (30-36); Mean Corpuscular Hemoglobin 26.7 PG (26-34); Mean Corpuscular Volume 77.9 fL (80-100); Monocytes Absolute Auto 600 /uL (0-900); Monocytes Percent Auto 6.6 % (3-14); Neutrophils Absolute Auto 5500 /uL (1500-7000); Neutrophils Percent Auto 59.1 % (50-75); Platelet Count 186 X10^3/uL (150-400); Red Blood Cell Count 5.95 X10^6/uL (4.5-5.9); White Blood Cell Count 9.3 X10^3/uL (4.5-11.0)
[2019-03-12 21:29] LABS: Blood Urea Nitrogen 12 mg/dL (9-20); Calcium 9.2 mg/dL (8.4-10.2); Carbon Dioxide 26 mmol/L (22-32); Chloride 102 mmol/L (98-107); Estimated Glomerular Filt Rate > 60.0 mL/min (>60); Glucose 227 mg/dL (80-110); HEMOLYSIS < 15 (0-50); Potassium 4.1 mmol/L (3.4-5.1); Sodium 136 mmol/L (137-145)
--- NOTE | 2019-03-12 21:41 | ED_ITS ---
HPI - GI Bleed General Chief complaint: GI Bleed Stated complaint: BLOOD IN STOOL Time Seen by Provider: 03/12/19 20:55 Source: patient Mode of arrival: Ambulatory Limitations: no limitations History of Present Illness HPI Narrative: 64-year-old male here for evaluations of 2 episodes of bright red blood per rectum. He states that this happened earlier today when he was going to the restroom. He states that it was not tender for him to go to the bathroom. No fevers. He has never had any abdominal surgeries in the past. States that his primary doctor has told him that he needed a colonoscopy but he has never had it performed. He currently has no symptoms. Related Data Home Medications Medication Instructions Recorded Confirmed lisinopril 10 mg PO QDAY #0 09/22/11 12/15/18 metformin [Glucophage] 1,000 mg PO BIDCC #0 09/22/11 12/15/18 albuterol sulfate 2 puff INHALATION Q6HR PRN 12/15/18 12/15/18 Previous Rx's Medication Instructions Recorded miconazole nitrate [Micatin] 1 milly TP BID #14 gm 06/11/16 amoxicillin-pot clavulanate 1 tab PO BID #2 tab 12/21/18 [Augmentin] nadolol 20 mg PO BID #60 tab 12/21/18 Allergies Allergy/AdvReac Type Severity Reaction Status Date / Time ibuprofen [IBUPROFEN] Allergy Severe RASH Verified 09/24/18 14:27 Review of Systems Constitutional Constitutional: Denies fever(s) and Denies headache(s) ENT Ears, Nose, Mouth, and Throat: Denies headache(s) Cardiovascular Cardiovascular: Denies chest pain and Denies dyspnea Respiratory Respiratory: Denies dyspnea Gastrointestinal Gastrointestinal: Denies abdominal pain, Denies melena, Reports hematochezia, Denies change in stool character, Denies coffee ground emesis, Denies constipation, Denies dyspepsia, Denies diarrhea, Denies loose stools, Denies nausea and Denies vomiting Genitourinary Genitourinary: Denies dysuria Musculoskeletal Musculoskeletal: Denies myalgias and Denies arthralgias Integumentary/Breasts Skin/Breast: Denies lesions and Denies rash Neurologic Neurologic: Denies behavioral changes and Denies headache(s) Psychiatric Psychiatric: Denies behavioral changes Hematologic/Lymphatic Hematologic/Lymphatic: Denies easy bleeding and Denies easy bruising [facility]LY [facility], [facility]1983 Medical History Acute exacerbation of chronic obstructive pulmonary disease (COPD) (Acute) Alcoholism (Inactive) Asthma (Chronic) History of gastric ulcer (Chronic) History of kidney stones (Resolved) HTN (hypertension) (Chronic) Hypoxia (Acute) Tobacco use disorder, moderate, in early remission, dependence (Acute) Type 2 diabetes mellitus (Chronic) Surgical History (Updated 12/15/18 @ 22:35 by LIS Hanson) H/O right knee surgery (Acute) Family History (Updated 12/15/18 @ 23:10 by LIS Hanson) Mother Colon cancer Father Diabetes mellitus Social History household members: none Smoking Status: Current every day smoker Social History household members: none Smoking Status: Current every day smoker Exam Initial Vital Signs Initial Vital Signs: Vital Signs Temperature 98.7 F 03/12/19 20:17 Pulse Rate 91 H 03/12/19 20:17 Respiratory Rate 15 03/12/19 20:17 Blood Pressure 145/83 H 03/12/19 20:17 Pulse Oximetry 97 03/12/19 20:17 Const General: cooperative, well developed and well groomed Orientation: alert, awake and oriented x3 HENMT Head: normal to inspection and normocephalic Resp Effort & Inspection: normal respiratory effort Cardio Rate: regular rate GI Inspection: non-distended Palpation: soft, No firm and No tender Rectal Exam: normal sphincter tone, No abnormal stool, No fissure, heme positive stool, No hemorrhoids, No lesions and No tenderness Skin Lesions: no lesions Rashes: no rashes Neuro General: alert and awake Cognition: normal cognition Speech: speech normal Extrem General: normal to inspection and capillary refill normal Course Orders Ordered: ED Orders 03/12/19 21:10 Basic Metabolic Panel Stat Complete Blood Count AUTO DIFF Stat Vital Signs Vital signs: Vital Signs - 8 hr 03/12/19 21:48 Pulse Rate 86 Blood Pressure 109/67 MDM - GI Bleed Lab Data Attestation: I reviewed the patient's lab results. Result diagrams: 03/12/19 21:10 03/12/19 21:10 Labs: Lab Results 03/12/19 03/12/19 Range/Units 21:10 21:10 WBC 9.3 (4.5-11.0) X10^3/uL RBC 5.95 H (4.5-5.9) X10^6/uL Hgb 15.9 (13.5-17.5) g/dL Hct 46.3 (41-53) % MCV 77.9 L (80-100) fL MCH 26.7 (26-34) PG MCHC 34.3 (30-36) % RDW 15.0 H (11.6-14.8) % Plt Count 186 (150-400) X10^3/uL Neut % (Auto) 59.1 (50-75) % Lymph % (Auto) 31.0 (25-40) % [place] % (Auto) 6.6 (3-14) % Eos % (Auto) 2.2 (2-4) % Baso % (Auto) 1.1 (0-2) % Neut # (Auto) 5500 (0640-1075) /uL Lymph # (Auto) 2900 (8568-2336) /uL [place] # (Auto) 600 (0-900) /uL Eos # (Auto) 200 (0-450) /uL Baso # (Auto) 100 (0-100) /uL Sodium 136 L (137-145) mmol/L Potassium 4.1 (3.4-5.1) mmol/L Chloride 102 (98-107) mmol/L Carbon Dioxide 26 (22-32) mmol/L BUN 12 (9-20) mg/dL Creatinine 0.80 (0.66-1.25) mg/dL Estimated GFR > 60.0 (>60) mL/min BUN/Creatinine Ratio 15.0 (6-22) Glucose 227 H (80-110) mg/dL Calcium 9.2 (8.4-10.2) mg/dL [facility] Narrative Medical decision making narrative: His labs are unremarkable. He has no fiss ures or hemorrhoids seen or felt on the exam today. He did have grossly positive bright red blood on the exam. He has no symptoms currently. No abdominal tenderness. Has not had any vomiting. Denies any black colored stools. Informed him that he needs to talk with his primary provider about re ferral to have a colonoscopy. He was also given the phone number for the surgery group here in [facility]. Patient was given return precautions and follow-up instructions. He expressed understanding and agreement with plan. Discharge Plan Departure Patient Disposition: Home Clinical Impression: Rectal bleeding Discharge Date/Time: 03/12/19 21:48 Instructions: DI for Rectal Bleeding Activity Restrictions/Additional Instructions: [place] and also contact the [facility] at [phone] to help with getting established to have a colonoscopy. Return to the emergency department for any new or worsening symptoms Prescriptions: No Action metformin [Glucophage] 500 MG tablet 1,000 mg PO BIDCC Qty: 0 RF: 0 lisinopril 10 MG tablet 10 mg PO QDAY Qty: 0 RF: 0 miconazole nitrate [Micatin] 2 % cream 1 milly TP BID Qty: 14 RF: 0 albuterol sulfate 90 mcg/actuation HFA aerosol inhaler 2 puff inhalation Q6HR PRN (Reason: Wheezing) RF: 0 amoxicillin-pot clavulanate [Augmentin] 875-125 mg tablet 1 tab PO BID Qty: 2 RF: 0 nadolol 40 mg Tablet 20 mg PO BID Qty: 60 RF: 0
[2019-03-12 21:48] VITALS: BP 109/67; PULSE 86
== END 2019-03-12 21:48 | disposition home or self-care (01) ==
PROVIDERS: Emergency Provider Emergency Medicine
DX: K62.5 Hemorrhage of anus and rectum (principal)
CPT/HCPCS: 36591; 80048; 85025; 99282; 99283

== ENCOUNTER 2021-05-25 20:42 | Emergency (ER) | payer MEDICARE, MEDICAID, OTHER, SELFPAY ==
[2018-12-15 22:40] VITALS: BMI 30.7
[2021-05-25] VITALS (12 sets, daily range): BP systolic 108–147; BP diastolic 71–96; PULSE 94–116; RESP 8–32; TEMP 36.2; O2SAT 97–99
--- NOTE | 2021-05-25 20:51 | DI.RAD.S_ITS ---
PROCEDURE: XR CHEST 1V INDICATIONS: chest pain TECHNIQUE: One view of the chest was acquired. COMPARISON: [facility], CR, XR CHEST 1V, 12/15/2018, 18:50. FINDINGS: Surgical changes and devices: None. Lungs and pleura: Lungs are clear. No pleural effusions or pneumothorax. Mediastinum: Mediastinal contours appear normal. Heart size is normal. Bones and chest wall: No suspicious bony lesions. Overlying soft tissues appear unremarkable. IMPRESSION: No evidence acute pulmonary process. Dictated by: Anthony Bueno M.D. on 05/25/2021 at 22:01 Approved by: Anthony Bueno M.D. on 05/25/2021 at 22:01
[2021-05-25 21:11] LABS: Add Manual Diff / Slide Review NO; Basophils Absolute Auto 100 /uL (0-100); Basophils Percent Auto 1.1 % (0-2); Eosinophils Absolute Auto 100 /uL (0-450); Eosinophils Percent Auto 0.9 % (2-4); Hematocrit 39.4 % (41-53); Lymphocytes Absolute Auto 1900 /uL (1100-4500); Mean Corpuscular HGB Conc 35.4 % (30-36); Mean Corpuscular Hemoglobin 27.1 PG (26-34); Mean Corpuscular Volume 76.5 fL (80-100); Monocytes Absolute Auto 500 /uL (0-900); Monocytes Percent Auto 5.5 % (3-14); Neutrophils Absolute Auto 5900 /uL (1500-7000); Neutrophils Percent Auto 69.5 % (50-75); Platelet Count 207 X10^3/uL (150-400); Red Blood Cell Count 5.15 X10^6/uL (4.5-5.9); White Blood Cell Count 8.5 X10^3/uL (4.5-11.0)
[2021-05-25 21:14] LABS: INR 1.1 (0.9-1.3); Prothrombin Time 12.4 SECONDS (10.1-12.7)
[2021-05-25 21:18] LABS: D Dimer < 200 ng/mL (<230)
[2021-05-25 21:19] LABS: Alanine Aminotransferase 22 IU/L (<50); Albumin Globulin Ratio 1.2 (1.0-2.8); Alkaline Phosphatase 196 U/L (38-126); Aspartate Aminotransferase 27 IU/L (17-59); Bilirubin Total 1.1 mg/dL (0.2-1.3); Blood Urea Nitrogen 8 mg/dL (9-20); Calcium 9.2 mg/dL (8.4-10.2); Carbon Dioxide 31 mmol/L (22-32); Chloride 99 mmol/L (98-107); Creatine Kinase 42 U/L (55-170); Estimated Glomerular Filt Rate > 60.0 mL/min (>60); Globulin 3.3 g/dL (1.7-4.1); Glucose 386 mg/dL (80-110); HEMOLYSIS < 15 (0-50); Lipase 223 U/L (23-300); Potassium 2.8 mmol/L (3.4-5.1); Sodium 136 mmol/L (137-145); Total Protein 7.3 g/dL (6.3-8.2)
[2021-05-25] MEDS: SODIUM CHLORIDE 0.9% 1,000 ML 150 ML IV (21:20)
[2021-05-25 21:30] LABS: NT-proBNP (BNP-Adult 18+) 75 pg/mL (<125); Troponin I < 0.012 ng/mL (0.01-0.034)
[2021-05-25] MEDS: POTASSIUM CHLORIDE 20 MEQ/15 ML UDC 40 MEQ PO (22:08)
[2021-05-25] MEDS: POTASSIUM CHLORIDE IN WATER 10 MEQ/100 ML PIGGYBACK 100 MEQ IV ×2 (22:08→23:07)
--- NOTE | 2021-05-25 22:17 | ED_ITS ---
HPI - Chest Pain General Chief Complaint: Chest Pain Stated Complaint: CHEST PAIN Time Seen by Provider: 05/25/21 20:55 Source: patient and family Mode of arrival: Ambulatory Limitations: no limitations History of Present Illness HPI narrative: 66-year-old male daily smoker with history of hypertension and diabetes presents with his daughter and a chief complaint of brief episodes of chest pain occasional radiation to his back as well as shortness of breath with a dry and hacking cough. He has had no fever or chills. He denies any symptoms currently. He denies any nausea, vomiting or diarrhea. He denies any exertional component to his chest pressure. He states that he went to see his doctor early in the week and after discussion with them an outpatient CT scan of his chest was ordered [facility]. He was seen again today at the clinic and sent here for further evaluation. He isn't a great historian at baseline, daughter states that this is normal for him. He is in no current extremities. Denies any recent travel, history of cancer or blood clot. Related Data Home Medications Medication Instructions Recorded Confirmed lisinopril 10 mg tablet 10 mg PO QDAY #0 09/22/11 12/15/18 metformin 500 mg tablet 1,000 mg PO BIDCC #0 09/22/11 12/15/18 (Glucophage) albuterol sulfate 90 mcg/actuation 2 puff INHALATION Q6HR PRN 12/15/18 12/15/18 aerosol inhaler Previous Rx's Medication Instructions Recorded miconazole nitrate 2 % topical 1 milly TP BID #14 gm 06/11/16 cream (Micatin) amoxicillin 875 mg-potassium 1 tab PO BID #2 tab 12/21/18 clavulanate 125 mg tablet (Augmentin) nadolol 40 mg tablet 20 mg PO BID #60 tab 12/21/18 Allergies Allergy/AdvReac Type Severity Reaction Status Date / Time ibuprofen [IBUPROFEN] Allergy Severe RASH Verified 09/24/18 14:27 Review of Systems Review of Systems Narrative: GENERAL: Denies chills, fatigue, malaise, fever, sweats. HEENT: Denies sinus pain, ear pain, sore throat, difficulty swallowing, dizziness. RESPIRATORY: See HPI CARDIOVASCULAR: See HPI GASTROINTESTINAL: Denies nausea, vomiting, abdominal pain, diarrhea, constipation, melena. : Denies dysuria, frequency, incontinence, hematuria, urinary retention. MUSCULOSKELETAL: denies weakness, joint pain, or bony pain SKIN: Denies rash, skin lesions, or other NEUROLOGIC: Denies weakness, headache, numbness, change in speech, confusion, seizures, incoordination. PSYCHIATRIC: No concerning psychosocial issues. 12 point review of systems is negative except for those stated above Patient History Medical History (Updated 05/26/21 @ 00:55 by Ovidio Coronado DO) Acute exacerbation of chronic obstructive pulmonary disease (COPD) Alcoholism Asthma History of gastric ulcer History of kidney stones HTN (hypertension) Hypoxia Tobacco use disorder, moderate, in early remission, dependence Type 2 diabetes mellitus Surgical History H/O right knee surgery Family History Mother Colon cancer Father Diabetes mellitus Social History household members: none Smoking Status: Current every day smoker Smoking Status: Current every day smoker alcohol intake frequency: holidays/special occasions only Substance Use Type: does not use Exam Narrative Exam Narrative: GENERAL: [66 year old patient appears stated age. Well-developed patient, in mild distress. HEAD: Atraumatic. Normocephalic. EYES: Pupils equal round and reactive. Extraocular motions intact. No scleral icterus. No injection or drainage. ENT: Nose without bleeding, purulent drainage. Throat without erythema, tonsillar hypertrophy or exudate. Airway patent. NECK: Trachea midline. Non tender CARDIOVASCULAR: Regular rate and rhythm without murmurs, gallops, or rubs. RESPIRATORY: Clear to auscultation. Breath sounds equal bilaterally. No wheezes, rales, or rhonchi. GASTROINTESTINAL: Abdomen soft, non-tender, nondistended. EXTREMITIES: No edema or joint tenderness. BACK: Nontender without deformity or crepitance. No flank tenderness. NEURO: AOx3. SKIN: No rash or erythema of visible areas Initial Vital Signs Initial Vital Signs: Vital Signs Temperature 97.2 F L 05/25/21 20:45 Pulse Rate 116 H 05/25/21 20:45 Respiratory Rate 20 05/25/21 20:45 Blood Pressure 130/79 05/25/21 20:45 Pulse Oximetry 97 05/25/21 20:45 Course Orders Ordered: ED Orders 05/25/21 20:51 XR chest 1V Stat EKG-12 Lead Stat 05/25/21 20:55 BNP [NT-proBNP (BNP-Adult 18+)] Stat Complete Blood Count AUTO DIFF Stat Comprehensive Metabolic Panel Stat D Dimer Stat Lipase Stat Prothrombin Time INR Stat Troponin & CK Cardiac Panel Stat 05/25/21 21:11 COVID19 - ADMIT ([employer] swab/PCR) Stat 05/25/21 23:58 Troponin & CK Cardiac Panel Stat Discontinued Medications Sodium Chloride (Normal Saline 0.9%) 1,000 mls @ 150 mls/hr IV CONT JACQUELINE Last Admin: 05/25/21 21:20 Dose: 150 mls/hr Documented by: LIDIA POTASSIUM CHLORIDE IN WATER (Potassium Cl 10 Meq/100 Ml Beata) 10 meq in 100 mls @ 100 mls/hr IV Q1H JACQUELINE Stop: 05/25/21 23:59 Last Infusion: 05/26/21 00:25 Dose: 0 mls/hr Documented by: Admin: 05/25/21 23:07 Dose: 100 mls/hr Documented by: Infusion: 05/25/21 23:07 Dose: 100 mls/hr Documented by: Admin: 05/25/21 22:08 Dose: 100 mls/hr Documented by: LIDIA Potassium Chloride (Potassium Chloride 20 Meq/15 Ml Udc) 40 meq PO NOW ONE Stop: 05/25/21 21:59 Last Admin: 05/25/21 22:08 Dose: 40 meq Documented by: LIDIA Vital Signs Vital signs: Vital Signs - 8 hr 05/25/21 20:45 05/25/21 21:06 05/25/21 21:07 Temperature 97.2 F L Pulse Rate 116 H 110 H Respiratory Rate 20 22 10 L Blood Pressure 130/79 117/79 Pulse Oximetry 97 98 05/25/21 21:15 05/25/21 21:30 05/25/21 21:45 Temperature Pulse Rate 106 H 103 H 102 H Respiratory Rate 16 15 15 Blood Pressure 115/80 114/74 113/71 Pulse Oximetry 97 98 98 05/25/21 22:00 05/25/21 22:15 05/25/21 22:30 Temperature Pulse Rate 98 H 106 H 105 H Respiratory Rate 15 32 H 26 H Blood Pressure 108/73 135/75 147/96 H Pulse Oximetry 98 99 05/25/21 22:45 05/25/21 23:00 05/25/21 23:30 Temperature Pulse Rate 103 H 102 H 94 H Respiratory Rate 8 L 12 11 L Blood Pressure 136/88 123/87 121/85 Pulse Oximetry 98 98 98 05/26/21 00:00 05/26/21 00:30 05/26/21 01:00 Temperature Pulse Rate 90 89 87 Respiratory Rate 14 17 11 L Blood Pressure 134/86 138/86 133/91 H Pulse Oximetry 99 98 99 MDM - Chest Pain Medical Records Data Medical records narrative: Medical records obtained from [facility] including a CT of the chest which demonstrates no significant acute findings such as pneumonia or pulmonary embolism, does mention moderate coronary artery calcifications, cirrhosis Lab Data Result diagrams: 05/25/21 20:55 05/25/21 20:55 Labs: Lab Results 05/25/21 05/25/21 05/25/21 Range/Units 20:55 20:55 20:55 WBC 8.5 (4.5-11.0) X10^3/uL RBC 5.15 (4.5-5.9) X10^6/uL Hgb 14.0 (13.5-17.5) g/dL Hct 39.4 L (41-53) % MCV 76.5 L (80-100) fL MCH 27.1 (26-34) PG MCHC 35.4 (30-36) % RDW 14.0 (11.6-14.8) % Plt Count 207 (150-400) X10^3/uL Neut % (Auto) 69.5 (50-75) % Lymph % (Auto) 23.0 L (25-40) % [place] % (Auto) 5.5 (3-14) % Eos % (Auto) 0.9 L (2-4) % Baso % (Auto) 1.1 (0-2) % Neut # (Auto) 5900 (8703-6706) /uL Lymph # (Auto) 1900 (0496-1963) /uL [place] # (Auto) 500 (0-900) /uL Eos # (Auto) 100 (0-450) /uL Baso # (Auto) 100 (0-100) /uL PT 12.4 (10.1-12.7) SECONDS INR 1.1 (0.9-1.3) D-Dimer < 200 (<230) ng/mL Sodium 136 L (137-145) mmol/L Potassium 2.8 L (3.4-5.1) mmol/L Chloride 99 (98-107) mmol/L Carbon Dioxide 31 (22-32) mmol/L BUN 8 L (9-20) mg/dL Creatinine 0.80 (0.66-1.25) mg/dL Estimated GFR > 60.0 (>60) mL/min BUN/Creatinine Ratio 10.0 (6-22) Glucose 386 H (80-110) mg/dL Calcium 9.2 (8.4-10.2) mg/dL Total Bilirubin 1.1 (0.2-1.3) mg/dL AST 27 (17-59) IU/L ALT 22 (<50) IU/L Alkaline Phosphatase 196 H (38-126) U/L Total Creatine Kinase 42 L (55-170) U/L CK-MB (CK-2) TNP CK-MB (CK-2) Rel Index TNP Troponin I < 0.012 (0.01-0.034) ng/mL NT-Pro-B Natriuret Pep 75 (<125) pg/mL Total Protein 7.3 (6.3-8.2) g/dL Albumin 4.0 (3.5-5.0) g/dL Globulin 3.3 (1.7-4.1) g/dL Albumin/Globulin Ratio 1.2 (1.0-2.8) Lipase 223 (23-300) U/L SARS-CoV-2 (PCR) (Negative) 05/25/21 05/25/21 Range/Units 21:11 23:58 WBC (4.5-11.0) X10^3/uL RBC (4.5-5.9) X10^6/uL Hgb (13.5-17.5) g/dL Hct (41-53) % MCV (80-100) fL MCH (26-34) PG MCHC (30-36) % RDW (11.6-14.8) % Plt Count (150-400) X10^3/uL Neut % (Auto) (50-75) % Lymph % (Auto) (25-40) % [place] % (Auto) (3-14) % Eos % (Auto) (2-4) % Baso % (Auto) (0-2) % Neut # (Auto) (5120-7809) /uL Lymph # (Auto) (3825-0239) /uL [place] # (Auto) (0-900) /uL Eos # (Auto) (0-450) /uL Baso # (Auto) (0-100) /uL PT (10.1-12.7) SECONDS INR (0.9-1.3) D-Dimer (<230) ng/mL Sodium (137-145) mmol/L Potassium (3.4-5.1) mmol/L Chloride (98-107) mmol/L Carbon Dioxide (22-32) mmol/L BUN (9-20) mg/dL Creatinine (0.66-1.25) mg/dL Estimated GFR (>60) mL/min BUN/Creatinine Ratio (6-22) Glucose (80-110) mg/dL Calcium (8.4-10.2) mg/dL Total Bilirubin (0.2-1.3) mg/dL AST (17-59) IU/L ALT (<50) IU/L Alkaline Phosphatase (38-126) U/L Total Creatine Kinase 40 L (55-170) U/L CK-MB (CK-2) TNP CK-MB (CK-2) Rel Index TNP Troponin I < 0.012 (0.01-0.034) ng/mL NT-Pro-B Natriuret Pep (<125) pg/mL Total Protein (6.3-8.2) g/dL Albumin (3.5-5.0) g/dL Globulin (1.7-4.1) g/dL Albumin/Globulin Ratio (1.0-2.8) Lipase (23-300) U/L SARS-CoV-2 (PCR) Positive H (Negative) Imaging Data Chest x-ray: Radiologist's Impression: [address] [address] XRay Report Signed Patient: Edgar Hernandez MR#: [id number] : 1955 Acct:[id number] Age/Sex: 66 / M Date of Service: 05/25/21 Loc: ED Accession Number: [id number] ?? Procedure: XR chest 1V Ordering Provider: Ovidio Coronado D.O. PROCEDURE:? XR CHEST 1V ? INDICATIONS:? chest pain ? TECHNIQUE:? One view of the chest was acquired.? ? COMPARISON:? [facility], CR, XR CHEST 1V, 12/15/2018, 18:50. ? FINDINGS:? ? Surgical changes and devices:? None.? ? Lungs and pleura:? Lungs are clear.? No pleural effusions or pneumothorax.? ? Mediastinum:? Mediastinal contours appear normal.? Heart size is normal.? ? Bones and chest wall:? No suspicious bony lesions.? Overlying soft tissues appear unremarkable.? ? IMPRESSION:? No evidence acute pulmonary process. ? ? ? Dictated by: nAthony Bueno M.D. on 05/25/2021 at 22:01 ? ? Approved by: Anthony Bueno M.D. on 05/25/2021 at 22:01 ? MDM Narrative Medical decision making narrative: Patient presents with upwards of a week of dry and hacking cough with episodes of chest pain. Outside imaging as no significant findings. EKGs are nonischemic. Two troponins by 3 hours are both negative. Patient is COVID positive but does not demonstrate any increased work of breathing or need for supplemental oxygen. Multiple diagnoses for his chest pain were considered but cardiac ischemia, pulmonary embolism, pneumonia including COVID are the top of list. Cardiac ischemia thought to be a unlikely given lack of exertional sy mptoms, lack of radiation, unexplained diaphoresis, nausea or other red flag findings. Additionally, he has had nonischemic EKGs and multiple troponins which are negative. Pulmonary embolism thought unlikely given recent imaging as well as a D-dimer today less than 200. COVID pneumonia the most likely cause, there is no indication for admission as he does not require supplemental oxygen or demonstrate increased work of breathing or even conversational dyspnea. He is a candidate for monoclonal antibodies and I have faxed in order to [facility]. Return precautions have been discussed and patient has had questions answered to his apparent satisfaction Discharge Plan Departure Patient Disposition: Home Clinical Impression: Atypical chest pain, COVID-19 Instructions: DI for COVID-19 (Suspected or Confirmed ) Activity Restrictions/Additional Instructions: *You have been diagnosed with [ COVID-19] your history, physical exam, EKG, labs and imaging are reassuring. There is no evidence of heart attack or blood clot. You do have COVID pneumonia but thankfully, are not in significant respiratory distress and do not require supplemental oxygen, or hospitalization. *What to do: * per recommendations from the CDC and the [facility] Department of Health * stay home except to get medical care. Restrict activities outside your home, except for getting medical care. Do not go to work, school, or public areas. Avoid using public transportation, ride sharing, or taxis. * separate yourself from other people in your home. * call ahead before visiting your doctor * Wear a facemask * Cover your coughs and sneezes * Clean your hands often * Avoid sharing household items * Clean all high-touch services every day * Monitor your symptoms and seek prompt medical attention if your illness is worsening, particularly with difficulty in breathing. You may discontinue your isolation when: 1. You have been fever-free for at least 24 hours without the use of fever reducing medication, AND 2. Your symptoms are getting better 3. At least 10 days have passed since symptoms first appeared Individuals with laboratory confirmed COVID-19 who have not had any symptoms may discontinue home isolation when at least 10 days have passed since the date of their first COVID-19 diagnostic test and have had no subsequent illness Prescriptions: No Action metformin [Glucophage] 500 MG tablet 1,000 mg PO BIDCC Qty: 0 0RF lisinopril 10 MG tablet 10 mg PO QDAY Qty: 0 0RF miconazole nitrate [Micatin] 2 % cream 1 milly TP BID Qty: 14 0RF albuterol sulfate 90 mcg/actuation HFA aerosol inhaler 2 puff inhalation Q6HR PRN (Reason: Wheezing) 0RF Label Comments: INHALE 2 PUFFS BY MOUTH EVERY 4 HOURS IF NEEDED FOR BREATHING amoxicillin-pot clavulanate [Augmentin] 875-125 mg tablet 1 tab PO BID Qty: 2 0RF nadolol 40 mg Tablet 20 mg PO BID Qty: 60 0RF
[2021-05-25 22:23] LABS: COVID19 - ADMIT (NP swab/PCR) POSITIVE (Negative)
[2021-05-26] VITALS: BP 134/86; PULSE 90; RESP 14; O2SAT 99
[2021-05-26 00:29] LABS: Troponin I < 0.012 ng/mL (0.01-0.034)
[2021-05-26 00:30] VITALS: BP 138/86; PULSE 89; RESP 17; O2SAT 98
[2021-05-26 00:31] LABS: Creatine Kinase 40 U/L (55-170)
[2021-05-26 01:00] VITALS: BP 133/91; PULSE 87; RESP 11; O2SAT 99
== END 2021-05-26 01:14 | disposition home or self-care (01) ==
PROVIDERS: Emergency Provider Emergency Medicine
DX: U07.1 COVID-19 (principal); R07.89 Other chest pain
CPT/HCPCS: 36415; 71045; 80053; 82550; 83690; 83880; 84484; 85025; 85379; 85610; 87635; 93005; 93010; 96365; 96366; 99284; 99285; C9803

== ENCOUNTER → 2021-07-18 16:30 | Outpatient (ROUT) | payer MEDICARE, MEDICAID, SELFPAY ==
[2021-07-18 16:59] LABS: Blood Urea Nitrogen 6 mg/dL (9-20); Calcium 8.8 mg/dL (8.4-10.2); Carbon Dioxide 30 mmol/L (22-32); Chloride 98 mmol/L (98-107); Estimated Glomerular Filt Rate > 60.0 mL/min (>60); Glucose 374 mg/dL (80-110); HEMOLYSIS < 15 (0-50); Sodium 136 mmol/L (137-145)
[2021-07-18 17:13] LABS: Potassium 2.4 mmol/L (3.4-5.1)
== END ==
PROVIDERS: Visit Provider Family Medicine
DX: E87.6 Hypokalemia (principal)
CPT/HCPCS: 80048

== ENCOUNTER 2021-07-18 19:05 | Observation (INO) | payer MEDICARE, MEDICAID, OTHER, SELFPAY ==
[2018-12-15 22:40] VITALS: BMI 30.7
[2021-07-18] VITALS (10 sets, daily range): BP systolic 127–138; BP diastolic 74–91; PULSE 89–105; RESP 14–18; TEMP 36.4–36.7; O2SAT 97–100; BMI 25.2
--- NOTE | 2021-07-18 19:15 | DI.RAD.S_ITS ---
PROCEDURE: XR ACUTE ABDOMEN SERIES INDICATIONS: N/V, weakness TECHNIQUE: One view chest and two views of the abdomen were acquired. COMPARISON: None. FINDINGS: Surgical changes and devices: None. Chest: Lungs are clear. Heart size is normal. No pleural effusions. No pneumoperitoneum. Abdomen: Bowel gas pattern is normal. No suspicious calcifications. Visualized solid organ contours appear normal. Bones: No suspicious bony lesions. IMPRESSION: No acute cardiopulmonary process demonstrated radiographically. Large burden of formed stool throughout the colon. Otherwise unremarkable abdominal radiograph. Dictated by: Carroll Wilks M.D. on 07/18/2021 at 20:01 Approved by: Carroll Wilks M.D. on 07/18/2021 at 20:01
--- NOTE | 2021-07-18 19:18 | ED.NAVMDI ---
HPI - Nausea/Vomiting/Diarrhea General Chief complaint: Recheck/Abnormal Lab/Rx Stated complaint: Seen at clinic sent over for low potassium Time Seen by Provider: 07/18/21 19:08 History of Present Illness HPI Narrative: 66-year-old male daily smoker with history of COPD and diabetes presents with family at the request of his clinic for evaluation of low potassium. He has had nausea and vomiting off and on over the past few weeks and is absent of much in the way of other symptoms. He is not a great historian but has little complaint. He denies any headache or dizziness. He denies any fever, chills. He denies any abdominal pain or diarrhea. He denies any change in his medications or diet. He has been seen in the clinic apparently off and on over the past few days and may been drawing labs (are not readily available to us). Related Data Home Medications Medication Instructions Recorded Confirmed lisinopril 10 mg tablet 10 mg PO QDAY #0 09/22/11 12/15/18 metformin 500 mg tablet 1,000 mg PO BIDCC #0 09/22/11 12/15/18 (Glucophage) albuterol sulfate 90 mcg/actuation 2 puff INHALATION Q6HR PRN 12/15/18 12/15/18 aerosol inhaler Previous Rx's Medication Instructions Recorded miconazole nitrate 2 % topical 1 milly TP BID #14 gm 06/11/16 cream (Micatin) amoxicillin 875 mg-potassium 1 tab PO BID #2 tab 12/21/18 clavulanate 125 mg tablet (Augmentin) nadolol 40 mg tablet 20 mg PO BID #60 tab 12/21/18 Allergies Allergy/AdvReac Type Severity Reaction Status Date / Time ibuprofen [IBUPROFEN] Allergy Severe RASH Verified 07/18/21 19:23 Review of Systems Review of Systems Narrative: GENERAL: Denies chills, fatigue, malaise, fever, sweats. HEENT: Denies sinus pain, ear pain, sore throat, difficulty swallowing, dizziness. RESPIRATORY: Denies dyspnea, cough, wheezing, hemoptysis, sputum. CARDIOVASCULAR: Denies chest pain, palpitations, orthopnea, edema, GASTROINTESTINAL: See HPI : Denies dysuria, frequency, incontinence, hematuria, urinary retention. MUSCULOSKELETAL: denies weakness, joint pain, or bony pain SKIN: Denies rash, skin lesions, or other NEUROLOGIC: Denies weakness, headache, numbness, change in speech, confusion, seizures, incoordination. PSYCHIATRIC: No concerning psychosocial issues. 12 point review of systems is negative except for those stated above Patient History Medical History Acute exacerbation of chronic obstructive pulmonary disease (COPD) Alcoholism Asthma History of gastric ulcer History of kidney stones HTN (hypertension) Hypoxia Tobacco use disorder, moderate, in early remission, dependence Type 2 diabetes mellitus Surgical History H/O right knee surgery Family History Mother Colon cancer Father Diabetes mellitus Social History household members: none Smoking Status: Current every day smoker Smoking Status: Current every day smoker alcohol intake frequency: holidays/special occasions only Substance Use Type: does not use Exam Narrative Exam Narrative: GENERAL: [66 year old patient appears stated age. Well-developed patient, in mild distress. HEAD: Atraumatic. Normocephalic. EYES: Pupils equal round and reactive. Extraocular motions intact. No scleral icterus. No injection or drainage. ENT: Nose without bleeding, purulent drainage. Throat without erythema, tonsillar hypertrophy or exudate. Airway patent. NECK: Trachea midline. Non tender CARDIOVASCULAR: Tachycardic but regular rhythm without murmurs, gallops, or rubs. RESPIRATORY: Clear to auscultation. Breath sounds equal bilaterally. No wheezes, rales, or rhonchi. GASTROINTESTINAL: Abdomen soft, tender in the epigastrium and right upper quadrantnondistended. EXTREMITIES: No edema or joint tenderness. BACK: Nontender without deformity or crepitance. No flank tenderness. NEURO: AOx3. SKIN: No rash or erythema of visible areas Initial Vital Signs Initial Vital Signs: Vital Signs Temperature 97.6 F 07/18/21 19:20 Pulse Rate 105 H 07/18/21 19:20 Respiratory Rate 18 07/18/21 19:20 Blood Pressure 127/79 07/18/21 19:20 Pulse Oximetry 99 07/18/21 19:20 Course Orders Ordered: ED Orders 07/18/21 19:15 XR acute abdomen series Stat 07/18/21 19:16 Blood Culture Stat EKG-12 Lead Stat 07/18/21 19:22 VBG [Venous Blood Gas] Stat 07/18/21 19:26 COVID19 -Nasal swab/Pre-Proc Stat Complete Blood Count AUTO DIFF Stat Comprehensive Metabolic Panel Stat Ketones (Beta-Hydroxybutyrate) Stat Lactate (Lactic Acid) Stat Magnesium Stat NT-proBNP (BNP-Adult 18+) Stat Troponin & CK Cardiac Panel Stat POTASSIUM CHLORIDE IN WATER (Potassium Cl 10 Meq/100 Ml Beata) 10 meq in 100 mls @ 100 mls/hr IV Q1H JACQUELINE Stop: 07/19/21 00:14 Last Admin: 07/18/21 20:39 Dose: 100 mls/hr Documented by: Discontinued Medications Sodium Chloride (Normal Saline 0.9%) 1,000 mls @ 1,000 mls/hr IV BOLUS ONE Stop: 07/18/21 20:19 Last Admin: 07/18/21 19:58 Dose: 1,000 mls/hr Documented by: Insulin Human Regular (Insulin Regular 100 Unit/Ml 3 Ml Vial) 6 unit SUBCUT NOW ONE Stop: 07/18/21 20:05 Last Admin: 07/18/21 20:38 Dose: 6 unit Documented by: Potassium Chloride (Potassium Chloride 20 Meq/15 Ml Udc) 40 meq PO NOW ONE Stop: 07/18/21 20:03 Last Admin: 07/18/21 20:38 Dose: 40 meq Documented by: Vital Signs Vital signs: Vital Signs - 8 hr 07/18/21 19:20 07/18/21 19:25 07/18/21 19:30 Temperature 97.6 F Pulse Rate 105 H 103 H 99 H Respiratory Rate 18 Blood Pressure 127/79 Pulse Oximetry 99 97 98 07/18/21 19:43 Temperature Pulse Rate Respiratory Rate Blood Pressure 127/79 Pulse Oximetry MDM - Nausea/Vomiting/Diarrhea Lab Data Result diagrams: 07/18/21 19:26 07/18/21 19:26 Labs: Lab Results 07/18/21 07/18/21 07/18/21 Range/Units 19:22 19:26 19:26 WBC 8.7 (4.5-11.0) X10^3/uL RBC 5.18 (4.5-5.9) X10^6/uL Hgb 13.8 (13.5-17.5) g/dL Hct 38.8 L (41-53) % MCV 74.9 L (80-100) fL MCH 26.7 (26-34) PG MCHC 35.6 (30-36) % RDW 14.4 (11.6-14.8) % Plt Count 191 (150-400) X10^3/uL Neut % (Auto) 67.6 (50-75) % Lymph % (Auto) 23.9 L (25-40) % [place] % (Auto) 6.2 (3-14) % Eos % (Auto) 1.5 L (2-4) % Baso % (Auto) 0.8 (0-2) % Neut # (Auto) 5900 (7819-4894) /uL Lymph # (Auto) 2100 (6172-9585) /uL [place] # (Auto) 500 (0-900) /uL Eos # (Auto) 100 (0-450) /uL Baso # (Auto) 100 (0-100) /uL VBG pH 7.44 H (7.33-7.43) VBG pCO2 38.0 L (45-50) mmHg VBG pO2 58 H (35-45) mmHg VBG HCO3 26 (23-28) mmol/L VBG Total CO2 27 (24-29) mmol/L VBG O2 Saturation 91 H (70-75) % VBG Base Excess 1.0 (0-4) mmol/L Sodium (137-145) mmol/L Potassium (3.4-5.1) mmol/L Chloride (98-107) mmol/L Carbon Dioxide (22-32) mmol/L BUN (9-20) mg/dL Creatinine (0.66-1.25) mg/dL Estimated GFR (>60) mL/min BUN/Creatinine Ratio (6-22) Glucose (80-110) mg/dL Lactate (0.7-2.1) mmol/L Calcium (8.4-10.2) mg/dL Magnesium (1.6-2.3) mg/dL Total Bilirubin (0.2-1.3) mg/dL AST (17-59) IU/L ALT (<50) IU/L Alkaline Phosphatase (38-126) U/L Total Creatine Kinase (55-170) U/L CK-MB (CK-2) CK-MB (CK-2) Rel Index Troponin I (0.01-0.034) ng/mL NT-Pro-B Natriuret Pep (<125) pg/mL Total Protein (6.3-8.2) g/dL Albumin (3.5-5.0) g/dL Globulin (1.7-4.1) g/dL Albumin/Globulin Ratio (1.0-2.8) Ketones 0.05 (<0.27) mmol/L SARS-CoV-2 (PCR) (Negative) 07/18/21 07/18/21 07/18/21 Range/Units 19:26 19:26 19:26 WBC (4.5-11.0) X10^3/uL RBC (4.5-5.9) X10^6/uL Hgb (13.5-17.5) g/dL Hct (41-53) % MCV (80-100) fL MCH (26-34) PG MCHC (30-36) % RDW (11.6-14.8) % Plt Count (150-400) X10^3/uL Neut % (Auto) (50-75) % Lymph % (Auto) (25-40) % [place] % (Auto) (3-14) % Eos % (Auto) (2-4) % Baso % (Auto) (0-2) % Neut # (Auto) (6941-9211) /uL Lymph # (Auto) (8130-3894) /uL [place] # (Auto) (0-900) /uL Eos # (Auto) (0-450) /uL Baso # (Auto) (0-100) /uL VBG pH (7.33-7.43) VBG pCO2 (45-50) mmHg VBG pO2 (35-45) mmHg VBG HCO3 (23-28) mmol/L VBG Total CO2 (24-29) mmol/L VBG O2 Saturation (70-75) % VBG Base Excess (0-4) mmol/L Sodium 133 L (137-145) mmol/L Potassium 2.5 L* (3.4-5.1) mmol/L Chloride 100 (98-107) mmol/L Carbon Dioxide 27 (22-32) mmol/L BUN 6 L (9-20) mg/dL Creatinine 0.83 (0.66-1.25) mg/dL Estimated GFR > 60.0 (>60) mL/min BUN/Creatinine Ratio 7.2 (6-22) Glucose 482 H (80-110) mg/dL Lactate 2.9 H (0.7-2.1) mmol/L Calcium 9.1 (8.4-10.2) mg/dL Magnesium 1.9 (1.6-2.3) mg/dL Total Bilirubin 1.0 (0.2-1.3) mg/dL AST 25 (17-59) IU/L ALT 19 (<50) IU/L Alkaline Phosphatase 176 H (38-126) U/L Total Creatine Kinase 43 L (55-170) U/L CK-MB (CK-2) TNP CK-MB (CK-2) Rel Index TNP Troponin I < 0.012 (0.01-0.034) ng/mL NT-Pro-B Natriuret Pep 90 (<125) pg/mL Total Protein 7.1 (6.3-8.2) g/dL Albumin 3.8 (3.5-5.0) g/dL Globulin 3.3 (1.7-4.1) g/dL Albumin/Globulin Ratio 1.2 (1.0-2.8) Ketones (<0.27) mmol/L SARS-CoV-2 (PCR) Negative (Negative) MDM Narrative Medical decision making narrative: Patient presents at the request of primary care office for persistent vomiting, although episodic along with abnormal labs. Patient is hyperglycemic and was recently started on insulin as the outpatient, also critically low potassium is noted. Patient, family and primary care providers have been working on this as an outpatient for least the past week, patient will require hospitalization for ongoing evaluation and stabilization of his condition. Discharge Plan Departure Patient Disposition: Admitted as Observation Admit Date/Time: 07/18/21 20:33 Admit Provider: Perri Li
[2021-07-18 19:38] LABS: Add Manual Diff / Slide Review NO; Basophils Absolute Auto 100 /uL (0-100); Basophils Percent Auto 0.8 % (0-2); Eosinophils Absolute Auto 100 /uL (0-450); Eosinophils Percent Auto 1.5 % (2-4); Hematocrit 38.8 % (41-53); Hemoglobin 13.8 g/dL (13.5-17.5); Lymphocytes Absolute Auto 2100 /uL (1100-4500); Lymphocytes Percent Auto 23.9 % (25-40); Mean Corpuscular HGB Conc 35.6 % (30-36); Mean Corpuscular Hemoglobin 26.7 PG (26-34); Mean Corpuscular Volume 74.9 fL (80-100); Monocytes Absolute Auto 500 /uL (0-900); Monocytes Percent Auto 6.2 % (3-14); Neutrophils Absolute Auto 5900 /uL (1500-7000); Neutrophils Percent Auto 67.6 % (50-75); Platelet Count 191 X10^3/uL (150-400); Red Blood Cell Count 5.18 X10^6/uL (4.5-5.9); Red Cell Distribution Width 14.4 % (11.6-14.8); White Blood Cell Count 8.7 X10^3/uL (4.5-11.0)
[2021-07-18 19:48] LABS: Lactate (Lactic Acid) 2.9 mmol/L (0.7-2.1)
[2021-07-18 19:49] LABS: Alanine Aminotransferase 19 IU/L (<50); Albumin 3.8 g/dL (3.5-5.0); Albumin Globulin Ratio 1.2 (1.0-2.8); Alkaline Phosphatase 176 U/L (38-126); Aspartate Aminotransferase 25 IU/L (17-59); BUN Creatinine Ratio 7.2 (6-22); Blood Urea Nitrogen 6 mg/dL (9-20); Calcium 9.1 mg/dL (8.4-10.2); Carbon Dioxide 27 mmol/L (22-32); Chloride 100 mmol/L (98-107); Creatine Kinase 43 U/L (55-170); Estimated Glomerular Filt Rate > 60.0 mL/min (>60); Globulin 3.3 g/dL (1.7-4.1); Glucose 482 mg/dL (80-110); HEMOLYSIS < 15 (0-50); Magnesium 1.9 mg/dL (1.6-2.3); Sodium 133 mmol/L (137-145); Total Protein 7.1 g/dL (6.3-8.2)
[2021-07-18 19:50] LABS: COVID19 -Nasal RAPID Negative (Negative)
[2021-07-18 19:51] LABS: Ketones (Beta-Hydroxybutyrate) 0.05 mmol/L (<0.27)
[2021-07-18 19:52] LABS: HCO3 VBG 26 mmol/L (23-28); Oxygen Saturation VBG 91 % (70-75); PO2 VBG 58 mmHg (35-45); Total CO2 VBG 27 mmol/L (24-29); pH VBG 7.44 (7.33-7.43)
[2021-07-18 19:55] LABS: Potassium 2.5 mmol/L (3.4-5.1)
[2021-07-18] MEDS: SODIUM CHLORIDE 0.9% 1,000 ML 1000 ML IV (19:58)
[2021-07-18 20:02] LABS: NT-proBNP (BNP-Adult 18+) 90 pg/mL (<125); Troponin I < 0.012 ng/mL (0.01-0.034)
[2021-07-18] MEDS: INSULIN REGULAR 100 UNIT/ML 3 ML VIAL 6 UNIT SUBCUT (20:38)
[2021-07-18] MEDS: POTASSIUM CHLORIDE 20 MEQ/15 ML UDC 40 MEQ PO (20:38)
[2021-07-18] MEDS: POTASSIUM CHLORIDE IN WATER 10 MEQ/100 ML PIGGYBACK 100 MEQ IV ×3 (20:39→23:04)
[2021-07-18 21:33] LABS: Reflexed Lactate in 2 Hours Y
[2021-07-18 21:46] LABS: Hemoglobin A1C% w Est Avg Glu 12.1 % (4.0-6.0)
[2021-07-18] MEDS: SODIUM CHLORIDE 0.9% 1,000 ML 100 ML IV (21:58)
[2021-07-18 22:03] LABS: Lactate 2HR (Lactic Acid Rflx) 2.5 mmol/L (0.7-2.1)
--- NOTE | 2021-07-18 22:05 | PM.HP.1 ---
History of Present Illness History of Present Illness Date Patient Seen: 07/18/21 Time Patient Seen: 20:30 Chief complaint: Seen at clinic sent over for low potassium Narrative: Edgar Hernandez is a 66-year-old male with a history of COPD, pulmonary hypertension, CAD, essential HTN, alcoholism, cirrhosis, Asthma, daily smoker, non insulin diabetes who presented to the ED with family at the request of his clinic for evaluation of low potassium.?Patient has had reported nausea and vomiting off and on x2 weeks.? The patient has been seen in the clinic apparently off and on over the past few days and been drawing labs (are not readily available to us). 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 Patient is very hard of hearing , even with Left HEARING aide in place, and is a poor historian but has little complaint.? He denies Chest pain, SOB, Cough, headache, dizziness, abdominal pain, nausea, vomiting, fever, chills, diarrhea, change in diet, recent injury or trauma. Patient denies cardiac history. Patient is resting comfortably in his bed in no distress. Patient's vitals upon admit are stable temp 97.6?, BP 127/79, HR 99, RR 18, O2 saturation 98% room air. Patient's VBG is pH 7.44, CO2 38, PO2 58. Patient's CBC WNL. Patient has mildly hyponatremia sodium 133, severe hypokalemia potassium 2.5, BUN 6, glucose 482. Though ketones are WNL at 0.05, and a GAP of 6. Patient's total creatinine kinase 43, troponin and BNP WNL, alk-phos 176. Patient's initial lactate was elevated at 2.9 likely secondary to hyperglycemia and respiratory alkalosis. Chest x-ray is negative for any acute cardiopulmonary processes. I personally reviewed patient's EKG normal sinus rhythm with a rate of [address] or T-wave changes. Patient demonstrated no cardiac irritability. Patient was given 6 units of R insulin, 40 mEq K+ p.o. and 40 mEq IV initiated with 1 L bolus of NS in ED. Patient admitted for electrolyte imbalance severe hypokalemia, hyponatremia secondary to volume depletion in the setting of hyperglycemia, uncontrolled diabetes. Patient History Medical History (Updated 07/18/21 @ 23:45 by MEAGAN Elliott-) Acute exacerbation of chronic obstructive pulmonary disease (COPD) Alcoholism Asthma Cirrhosis of liver Hard of hearing History of gastric ulcer History of kidney stones HTN (hypertension) Hypoxia Portal hypertension Tobacco use disorder, moderate, in early remission, dependence Type 2 diabetes mellitus Surgical History H/O right knee surgery Family & Social History Family History Mother Colon cancer Father Diabetes mellitus Social History: household members none Safety & Behavioral: Feels Safe in Current Yes Environment Been Physically Hurt or No Threatened By a Person Tobacco & Substance use: Smoking Status Current every day smoker alcohol intake frequency holiday/special occasion Substance Use Type does not use Meds Home Medications and Allergies Home Medications Medication Instructions Recorded Confirmed Type lisinopril 10 mg tablet 10 mg PO QDAY #0 09/22/11 07/18/21 History metformin 500 mg tablet 1,000 mg PO BIDCC #0 09/22/11 07/18/21 History (Glucophage) albuterol sulfate 90 mcg/actuation 2 puff INHALATION Q6HR PRN 12/15/18 07/18/21 History aerosol inhaler nadolol 40 mg tablet 20 mg PO BID #60 tab 12/21/18 Rx Allergies Allergy/AdvReac Type Severity Reaction Status Date / Time ibuprofen [IBUPROFEN] Allergy Severe RASH Verified 07/18/21 19:23 Review of Systems Review of Systems Narrative: All 12 point systems reviewed with the patient and are negative except otherwise documented. Exam Vital Signs (past 8 hours): - 07/18/21 19:20 07/18/21 19:25 07/18/21 19:30 Temperature 97.6 F Pulse Rate 105 H 103 H 99 H Respiratory Rate 18 Blood Pressure 127/79 Pulse Oximetry 99 97 98 07/18/21 19:43 07/18/21 20:00 07/18/21 20:30 Temperature Pulse Rate 96 H 92 H Respiratory Rate Blood Pressure 127/79 Pulse Oximetry 97 98 07/18/21 21:00 07/18/21 21:09 Temperature Pulse Rate 96 H 89 Respiratory Rate 14 14 Blood Pressure 138/74 Pulse Oximetry 100 99 Oxygen Delivery Method Room Air Narrative Exam Narrative: General: Patient appears older than stated age, poorly nourished, volume depleted, very hard hearing, resting in no distress at this time. HEENT: Normocephalic, atraumatic, extraocular muscles intact, oral pharynx is clear and mucous membranes are dry. Neck is supple and symmetric, trachea is midline, no adenopathy, no thyroid enlargement, nontender, no masses palpated. Negative for JVD Chest: no nasal flaring, retractions, or tachypneic labored breathing. Lungs: Auscultation of all lung [place] are clear without adventitious sounds, wheezes, rhonchi, or rales. Cardio: regular rate and rhythm without murmur, rubs, or gallops, no carotid bruit, no cardiac pulsations present. Abdomen: Soft nontender, negative for organomegaly, or masses. Bowel sounds are present in all 4 quadrants without guarding or rebound, no CVA tenderness. Musculoskeletal: Muscle strength and tone are equal within normal limits, no deformity, crepitus, effusions, cyanosis, clubbing or edema present. Full range of motion intact radial and pedal pulses are normal. Skin: Warm dry and intact, possible spider telangiectasia to the left side of nose. Neuro: Alert and orientated x3, but a poor historian, moves all extremities, sensation to touch intact, no gross deficits noted of cranial nerves. Psych: Patient has a moderate-kept appearance, appropriate affect. Objective Labs Result Diagrams: 07/18/21 19:26 07/18/21 19:26 Labs: Laboratory Results - last 24 hr 07/18/21 07/18/21 07/18/21 19:22 19:26 19:26 WBC 8.7 RBC 5.18 Hgb 13.8 Hct 38.8 L MCV 74.9 L MCH 26.7 MCHC 35.6 RDW 14.4 Plt Count 191 Neut % (Auto) 67.6 Lymph % (Auto) 23.9 L [place] % (Auto) 6.2 Eos % (Auto) 1.5 L Baso % (Auto) 0.8 Neut # (Auto) 5900 Lymph # (Auto) 2100 [place] # (Auto) 500 Eos # (Auto) 100 Baso # (Auto) 100 VBG pH 7.44 H VBG pCO2 38.0 L VBG pO2 58 H VBG HCO3 26 VBG Total CO2 27 VBG O2 Saturation 91 H VBG Base Excess 1.0 Sodium Potassium Chloride Carbon Dioxide BUN Creatinine Estimated GFR BUN/Creatinine Ratio Glucose Hemoglobin A1c Lactate Calcium Magnesium Total Bilirubin AST ALT Alkaline Phosphatase Total Creatine Kinase CK-MB (CK-2) CK-MB (CK-2) Rel Index Troponin I NT-Pro-B Natriuret Pep Total Protein Albumin Globulin Albumin/Globulin Ratio Ketones 0.05 SARS-CoV-2 (PCR) 07/18/21 07/18/21 07/18/21 19:26 19:26 19:26 WBC RBC Hgb Hct MCV MCH MCHC RDW Plt Count Neut % (Auto) Lymph % (Auto) [place] % (Auto) Eos % (Auto) Baso % (Auto) Neut # (Auto) Lymph # (Auto) [place] # (Auto) Eos # (Auto) Baso # (Auto) VBG pH VBG pCO2 VBG pO2 VBG HCO3 VBG Total CO2 VBG O2 Saturation VBG Base Excess Sodium 133 L Potassium 2.5 L* Chloride 100 Carbon Dioxide 27 BUN 6 L Creatinine 0.83 Estimated GFR > 60.0 BUN/Creatinine Ratio 7.2 Glucose 482 H Hemoglobin A1c Lactate 2.9 H Calcium 9.1 Magnesium 1.9 Total Bilirubin 1.0 AST 25 ALT 19 Alkaline Phosphatase 176 H Total Creatine Kinase 43 L CK-MB (CK-2) TNP CK-MB (CK-2) Rel Index TNP Troponin I < 0.012 NT-Pro-B Natriuret Pep 90 Total Protein 7.1 Albumin 3.8 Globulin 3.3 Albumin/Globulin Ratio 1.2 Ketones SARS-CoV-2 (PCR) Negative 07/18/21 07/18/21 20:07 21:43 WBC RBC Hgb Hct MCV MCH MCHC RDW Plt Count Neut % (Auto) Lymph % (Auto) [place] % (Auto) Eos % (Auto) Baso % (Auto) Neut # (Auto) Lymph # (Auto) [place] # (Auto) Eos # (Auto) Baso # (Auto) VBG pH VBG pCO2 VBG pO2 VBG HCO3 VBG Total CO2 VBG O2 Saturation VBG Base Excess Sodium Potassium Chloride Carbon Dioxide BUN Creatinine Estimated GFR BUN/Creatinine Ratio Glucose Hemoglobin A1c 12.1 H Lactate 2.5 H Calcium Magnesium Total Bilirubin AST ALT Alkaline Phosphatase Total Creatine Kinase CK-MB (CK-2) CK-MB (CK-2) Rel Index Troponin I NT-Pro-B Natriuret Pep Total Protein Albumin Globulin Albumin/Globulin Ratio Ketones SARS-CoV-2 (PCR) Assessment & Plan Assessment & Plan narrative: Edgar Hernandez is a 66-year-old male with a history of COPD, HTN, alcoholism, Asthma, daily smoker, non insulin diabetes who presented to the ED with a potassium of 2.5, sodium 133, and glucose 482 following 2 weeks of on & off nausea and vomiting.? Patient failed outpatient clinic management and requires hospitalization for severe electrolyte balance, hyperglycemia, in the setting of complicating comorbidities of uncontrolled type 2 diabetes, cirrhosis, portal hypertension, and coronary artery disease. 1. Severe hypokalemia, hyponatremia secondary to volume depletion from vomiting, acute, etiology unknown, present on admission -suspect vomiting was brought on by uncontrolled hyperglycemia/diabetes, which had only been managed by metformin. -Patient also has a history of alcoholism will rule out -potassium 2.5, sodium 133, BUN 6. VBG is pH 7.44, CO2 38, PO2 58. Lactate 2.9-trend -40 mEq K+ p.o. and 40 mEq IV initiated with 1 L bolus of NS in ED.-will reassess potassium after infusion. -NS@100cc/Hr -Hydrate -Continue to monitor I&O, electrolytes -Monitor telemetry for cardiac instability. -orthostatics Q shift while awake 2. Hyperglycemia in the setting of uncontrolled Diabetes mellitus type II, insulin-dependent, acute on chronic, present on admission -suspect possible alcohol abuse induced diabetes, resulting in vomiting/volume depletion. -Initial Glucose 482, gap 6, ketones 0.05-patient not in DKA at this time. -6 Units of R insulin given in ED. BS checks Q1Hr until BS <250. -the I reviewed hospitalization notes from 2019 which demonstrated they had initiated patient on both meal and basal insulin. Patient reported on admit that he had strictly been on oral metformin and had been changed yesterday by his clinic to insulin but had yet to initiate insulin. -A1C 12.1% -initiated 6 units Humalog before meals, low-dose sliding scale for coverage, 20 units of Lantus q.h.s. -dietary consult, and diabetes education consult -Stop metformin. -Continue ACHS blood glucose checks, low-carbohydrate diet, and hypoglycemia protocol. -Monitor for the development of possible DKA. 4. Essential Hypertension, chronic, present admission. Stable. -Blood pressure is stable. -Continue home lisinopril 10 mg daily. 5. History of significant alcohol abuse with complication of cirrhosis and portal hypertension, chronic, present on admission.? Stable. -EtOH, GGT, Monitor for withdrawal symptoms, initiate CIWA/Sz protocols as needed if S/S of withdrawal present. -I personally reviewed 12/15/2018 CTA chest which demonstrated cirrhosis with portal hypertension. -Recommend patient establish care with hepatology for further workup, monitoring and HCC/variceal screenings. -Continue nadolol 20 mg twice daily for portal hypertension and sinus tachycardia. 6. Coronary artery disease, chronic, present on admission? Stable. -12/15/2018 CTA demonstrated coronary artery disease. -recommend outpatient Cardiology risk stratification and evaluation 7. COPD, chronic, present on admission -continue albuterol inhaler 8. Tobacco abuse, acute on chronic, present on admission -patient education provided regarding tobacco cessation Code status:Full Surrogate decision maker: Daughter Aisha Peraza COVID PCR:Negative COVID vaccination: Unknown DVT/VTE prophylaxis:Lovenox 40 & Scds Disposition: Patient admitted for observation estimated length of stay less than 2 midnights. I have utilized all available immediate resources to obtain, update, or review the patient's current medications. I confirmed that the patient's advanced care plan is present, Code status is documented and/or surrogate decision maker is listed in the patient's medical record. Time Spent With Patient Critical Care time: I spent a total of [] minutes of critical care time on this patient's care today; this time is exclusive of procedural time.
[2021-07-18 22:52] LABS: Ethanol (ETOH) < 10 mg/dL
[2021-07-18 22:58] LABS: Phosphorous 2.3 mg/dL (2.3-3.7)
[2021-07-18 23:09] LABS: Gamma Glutamyl Transpeptidase 309 U/L (15-73)
[2021-07-19] VITALS (8 sets, daily range): BP systolic 124–146; BP diastolic 77–88; PULSE 79–93; RESP 16–19; TEMP 36.4–36.9; O2SAT 97–99
[2021-07-19] MEDS: POTASSIUM CHLORIDE IN WATER 10 MEQ/100 ML PIGGYBACK 100 MEQ IV ×5 (00:05→06:23)
[2021-07-19 02:27] LABS: Alanine Aminotransferase 16 IU/L (<50); Albumin 3.2 g/dL (3.5-5.0); Albumin Globulin Ratio 1.1 (1.0-2.8); Alkaline Phosphatase 155 U/L (38-126); Aspartate Aminotransferase 22 IU/L (17-59); BUN Creatinine Ratio 7.8 (6-22); Bilirubin Total 0.9 mg/dL (0.2-1.3); Blood Urea Nitrogen 7 mg/dL (9-20); Calcium 8.1 mg/dL (8.4-10.2); Carbon Dioxide 27 mmol/L (22-32); Chloride 108 mmol/L (98-107); Estimated Glomerular Filt Rate > 60.0 mL/min (>60); Globulin 2.9 g/dL (1.7-4.1); Glucose 262 mg/dL (80-110); HEMOLYSIS < 15 (0-50); Magnesium 1.9 mg/dL (1.6-2.3); Sodium 139 mmol/L (137-145); Total Protein 6.1 g/dL (6.3-8.2)
[2021-07-19 02:28] LABS: Lactate (Lactic Acid) 1.2 mmol/L (0.7-2.1)
[2021-07-19 02:38] LABS: Potassium 2.6 mmol/L (3.4-5.1)
[2021-07-19 02:39] LABS: NT-proBNP (BNP-Adult 18+) 91 pg/mL (<125)
[2021-07-19 02:41] LABS: Ketones (Beta-Hydroxybutyrate) 0.06 mmol/L (<0.27)
[2021-07-19 03:01] LABS: Bacteria Urine Few (2-10); RBC Urine 5-10/HPF (0-5/HPF); WBC Urine None Seen (0-5/HPF)
[2021-07-19 03:02] LABS: Culture Indicated Urine Cult Not Indicated
[2021-07-19] MEDS: POTASSIUM CHLORIDE 20 MEQ TAB 40 MEQ PO ×3 (03:03→14:05)
[2021-07-19] MEDS: SODIUM CHLORIDE 0.9% 1,000 ML 100 ML IV (06:05)
[2021-07-19] MEDS: lisinopriL 10 MG TABLET PO (08:22)
[2021-07-19] MEDS: ENOXAPARIN 40 MG/0.4 ML SYRINGE SUBCUT (08:22)
--- NOTE | 2021-07-19 08:31 | PC.NURSE ---
Addendum entered by Cydney Fierro R.N. 07/19/21 15:16: Patient is resting and has no needs at this time. Original Note: Patient just had a potassium level drawn and we are awaiting results of this before we give him his insulin. He is pleasant and hard of hearing. Denies pain and ate some at breakfast. He has no requests at this time. Resting comfortably in bed.
[2021-07-19 08:42] LABS: HEMOLYSIS < 15 (0-50); Potassium 2.9 mmol/L (3.4-5.1)
[2021-07-19] MEDS: INSULIN LISPRO 100 UNIT/ML 3ML VIAL SUBCUT (12:15)
[2021-07-19] MEDS: INSULIN LISPRO 100 UNIT/ML 3ML VIAL 6 UNIT SUBCUT (12:16)
[2021-07-19 14:50] LABS: HEMOLYSIS 15 (0-50)
[2021-07-19] MEDS: POTASSIUM CHLORIDE 20 MEQ TAB PO (17:08)
--- NOTE | 2021-07-19 17:10 | P.DS_ITS ---
History of Present Illness History of Present Illness Chief complaint: Seen at clinic sent over for low potassium Narrative: Per Perri Li: Edgar Hernandez is a 66-year-old male with a history of COPD, pulmonary hypertension, CAD, essential HTN, alcoholism, cirrhosis, Asthma, daily smoker, non insulin diabetes who presented to the ED? with family at the request of his clinic for evaluation of low potassium.?Patient has had reported nausea and vomiting off and on x2 weeks.? The patient has been seen in the clinic apparently off and on over the past few days and been drawing labs (are not readily available to us). 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 Patient is very hard of hearing , even with Left HEARING aide in place, and is a poor historian but has little complaint.? He denies Chest pain, SOB, Cough, headache, dizziness, abdominal pain, nausea, vomiting, fever, chills, diarrhea, change in diet, recent injury or trauma. Patient denies cardiac history. Patient is resting comfortably in his bed in no distress. Patient's vitals upon admit are stable temp 97.6?, BP 127/79, HR 99, RR 18, O2 saturation 98% room air.? Patient's VBG is pH 7.44, CO2 38, PO2 58.? Patient's CBC WNL.? Patient has mildly hyponatremia sodium 133, severe hypokalemia potassium 2.5, BUN 6, glucose 482.? Though ketones are WNL at 0.05, and a GAP of 6.? Patient's total creatinine kinase 43, troponin and BNP WNL, alk-phos 176.? Patient's initial lactate was elevated at 2.9 likely secondary to hyperglycemia and respiratory alkalosis.? Chest x-ray is negative for any acute cardiopulmonary processes.? I personally reviewed patient's EKG normal sinus rhy thm with a rate of [address] or T-wave changes.? Patient demonstrated no cardiac irritability.? Patient was given 6 units of R insulin, 40 mEq K+ p.o. and 40 mEq IV initiated with 1 L bolus of NS in ED. Patient admitted for electrolyte imbalance severe hypokalemia, hyponatremia secondary to volume depletion in the setting of hyperglycemia, uncontrolled diabetes. Discharge Providers Provider Date of admission: 07/18/21 20:33 Discharge Date: 07/19/21 Consults: 07/18/21 22:56 Consult to Dietitian, Adult Routine Comment: the last year Reason For Exam: Diabetic counseling and increased weight loose in 07/18/21 22:59 Consult to Dietitian, Adult Routine Comment: Reason For Exam: increased in weight loose and diabetic teaching Discharge provider: Hector Vazquez MD Summary Hospital Course Discharge Diagnosis: 1. Hypokalemia 2. Chronic weight loss, nauea, vomiting 3. HTN 4. Type 2 Diabetes newly started on insulin, with hyperglycemia 5. Alcoholic cirrhosis 6. CAD 7. COPD Hospital Course: Mr. Hernandez was admitted for hypokalemia. This was in the setting of chronic difficulty with eating over the last year. He states he has poor smell and appetite since getting COVID. He had no nausea or vomiting in the hospital and ate well. He said he felt the best in the hospital that he has in a year. He should be followed closely for consideration of gastroparesis, peptic ulcer disease, or symptomatic hyperglycemia. He has recently seen his PCP who prescribed insulin for him only two days earlier. His potassium improved with supplementation. He was prescribed an additional week of potassium supple mentation and plans to follow up with his PCP within one week. Exam Vital Signs (past 8 hours): - 07/19/21 10:00 07/19/21 12:00 Temperature 98.4 F Pulse Rate 79 Respiratory Rate 19 Blood Pressure 129/84 Pulse Oximetry 98 99 Oxygen Delivery Method Room Air Oxygen Flow Rate 0 Narrative Exam Narrative: GEN: no acute distress CV: regular rate and rhythm PULM: clear bilaterally Objective Labs Result Diagrams: 07/18/21 19:26 07/19/21 14:30 Labs: Laboratory Results - last 24 hr 07/18/21 07/18/21 07/18/21 19:22 19: 19:26 WBC 8.7 RBC 5.18 Hgb 13.8 Hct 38.8 L MCV 74.9 L MCH 26.7 MCHC 35.6 RDW 14.4 Plt Count 191 Neut % (Auto) 67.6 Lymph % (Auto) 23.9 L [place] % (Auto) 6.2 Eos % (Auto) 1.5 L Baso % (Auto) 0.8 Neut # (Auto) 5900 Lymph # (Auto) 2100 [place] # (Auto) 500 Eos # (Auto) 100 Baso # (Auto) 100 VBG pH 7.44 H VBG pCO2 38.0 L VBG pO2 58 H VBG HCO3 26 VBG Total CO2 27 VBG O2 Saturation 91 H VBG Base Excess 1.0 Sodium Potassium Chloride Carbon Dioxide BUN Creatinine Estimated GFR BUN/Creatinine Ratio Glucose Hemoglobin A1c Lactate Calcium Phosphorus Magnesium Total Bilirubin GGT AST ALT Alkaline Phosphatase Total Creatine Kinase CK-MB (CK-2) CK-MB (CK-2) Rel Index Troponin I NT-Pro-B Natriuret Pep Total Protein Albumin Globulin Albumin/Globulin Ratio Urine RBC Urine WBC Urine Bacteria Ur Culture Indicated? Ethyl Alcohol Ketones 0.05 SARS-CoV-2 (PCR) 07/18/21 07/18/21 07/18/21 19:26 19:26 19:26 WBC RBC Hgb Hct MCV MCH MCHC RDW Plt Count Neut % (Auto) Lymph % (Auto) [place] % (Auto) Eos % (Auto) Baso % (Auto) Neut # (Auto) Lymph # (Auto) [place] # (Auto) Eos # (Auto) Baso # (Auto) VBG pH VBG pCO2 VBG pO2 VBG HCO3 VBG Total CO2 VBG O2 Saturation VBG Base Excess Sodium 133 L Potassium 2.5 L* Chloride 100 Carbon Dioxide 27 BUN 6 L Creatinine 0.83 Estimated GFR > 60.0 BUN/Creatinine Ratio 7.2 Glucose 482 H Hemoglobin A1c Lactate 2.9 H Calcium 9.1 Phosphorus Magnesium 1.9 Total Bilirubin 1.0 GGT AST 25 ALT 19 Alkaline Phosphatase 176 H Total Creatine Kinase 43 L CK-MB (CK-2) TNP CK-MB (CK-2) Rel Index TNP Troponin I < 0.012 NT-Pro-B Natriuret Pep 90 Total Protein 7.1 Albumin 3.8 Globulin 3.3 Albumin/Globulin Ratio 1.2 Urine RBC Urine WBC Urine Bacteria Ur Culture Indicated? Ethyl Alcohol Ketones SARS-CoV-2 (PCR) Negative 07/18/21 07/18/21 07/18/21 19:26 19:26 20:07 WBC RBC Hgb Hct MCV MCH MCHC RDW Plt Count Neut % (Auto) Lymph % (Auto) [place] % (Auto) Eos % (Auto) Baso % (Auto) Neut # (Auto) Lymph # (Auto) [place] # (Auto) Eos # (Auto) Baso # (Auto) VBG pH VBG pCO2 VBG pO2 VBG HCO3 VBG Total CO2 VBG O2 Saturation VBG Base Excess Sodium Potassium Chloride Carbon Dioxide BUN Creatinine Estimated GFR BUN/Creatinine Ratio Glucose Hemoglobin A1c 12.1 H Lactate Calcium Phosphorus 2.3 Magnesium Total Bilirubin GGT 309 H AST ALT Alkaline Phosphatase Total Creatine Kinase CK-MB (CK-2) CK-MB (CK-2) Rel Index Troponin I NT-Pro-B Natriuret Pep Total Protein Albumin Globulin Albumin/Globulin Ratio Urine RBC Urine WBC Urine Bacteria Ur Culture Indicated? Ethyl Alcohol Ketones SARS-CoV-2 (PCR) 07/18/21 07/18/21 07/19/21 20:07 21:43 02:02 WBC RBC Hgb Hct MCV MCH MCHC RDW Plt Count Neut % (Auto) Lymph % (Auto) [place] % (Auto) Eos % (Auto) Baso % (Auto) Neut # (Auto) Lymph # (Auto) [place] # (Auto) Eos # (Auto) Baso # (Auto) VBG pH VBG pCO2 VBG pO2 VBG HCO3 VBG Total CO2 VBG O2 Saturation VBG Base Excess Sodium 139 Potassium 2.6 L* Chloride 108 H Carbon Dioxide 27 BUN 7 L Creatinine 0.90 Estimated GFR > 60.0 BUN/Creatinine Ratio 7.8 Glucose 262 H D Hemoglobin A1c Lactate 2.5 H Calcium 8.1 L Phosphorus Magnesium 1.9 Total Bilirubin 0.9 GGT AST 22 ALT 16 Alkaline Phosphatase 155 H Total Creatine Kinase CK-MB (CK-2) CK-MB (CK-2) Rel Index Troponin I NT-Pro-B Natriuret Pep 91 Total Protein 6.1 L Albumin 3.2 L Globulin 2.9 Albumin/Globulin Ratio 1.1 Urine RBC Urine WBC Urine Bacteria Ur Culture Indicated? Ethyl Alcohol < 10 Ketones SARS-CoV-2 (PCR) 07/19/21 07/19/21 07/19/21 02:02 02:02 02:02 WBC RBC Hgb Hct MCV MCH MCHC RDW Plt Count Neut % (Auto) Lymph % (Auto) [place] % (Auto) Eos % (Auto) Baso % (Auto) Neut # (Auto) Lymph # (Auto) [place] # (Auto) Eos # (Auto) Baso # (Auto) VBG pH VBG pCO2 VBG pO2 VBG HCO3 VBG Total CO2 VBG O2 Saturation VBG Base Excess Sodium Potassium Cancelled Chloride Carbon Dioxide BUN Creatinine Estimated GFR BUN/Creatinine Ratio Glucose Hemoglobin A1c Lactate 1.2 Calcium Phosphorus Magnesium Total Bilirubin GGT AST ALT Alkaline Phosphatase Total Creatine Kinase CK-MB (CK-2) CK-MB (CK-2) Rel Index Troponin I NT-Pro-B Natriuret Pep Total Protein Albumin Globulin Albumin/Globulin Ratio Urine RBC Urine WBC Urine Bacteria Ur Culture Indicated? Ethyl Alcohol Ketones 0.06 SARS-CoV-2 (PCR) 07/19/21 07/19/21 07/19/21 02:30 08:09 14:30 WBC RBC Hgb Hct MCV MCH MCHC RDW Plt Count Neut % (Auto) Lymph % (Auto) [place] % (Auto) Eos % (Auto) Baso % (Auto) Neut # (Auto) Lymph # (Auto) [place] # (Auto) Eos # (Auto) Baso # (Auto) VBG pH VBG pCO2 VBG pO2 VBG HCO3 VBG Total CO2 VBG O2 Saturation VBG Base Excess Sodium Potassium 2.9 L 3.0 L Chloride Carbon Dioxide BUN Creatinine Estimated GFR BUN/Creatinine Ratio Glucose Hemoglobin A1c Lactate Calcium Phosphorus Magnesium Total Bilirubin GGT AST ALT Alkaline Phosphatase Total Creatine Kinase CK-MB (CK-2) CK-MB (CK-2) Rel Index Troponin I NT-Pro-B Natriuret Pep Total Protein Albumin Globulin Albumin/Globulin Ratio Urine RBC 5-10/hpf H Urine WBC None seen Urine Bacteria Few (2-10) H Ur Culture Indicated? Cult not indicated Ethyl Alcohol Ketones SARS-CoV-2 (PCR) [facility] Medical History (Updated 07/18/21 @ 23:45 by CECILIA Elliott) Acute exacerbation of chronic obstructive pulmonary disease (COPD) Alcoholism Asthma Cirrhosis of liver Hard of hearing History of gastric ulcer History of kidney stones HTN (hypertension) Hypoxia Portal hypertension Tobacco use disorder, moderate, in early remission, dependence Type 2 diabetes mellitus Surgical History H/O right knee surgery Family History Mother Colon cancer Father Diabetes mellitus Social History household members: none Smoking Status: Former smoker alcohol intake: former Discharge Plan Discharge Plan Patient Disposition: Home Provider Discharge Comment: Mr. Hernandez was admitted with weakness. He had been having issues with nausea and vomiting. This caused low potassium levels. He ate well in the hospital. He was given potassium supplements and his potassium improved. He is given a prescription for another week of potassium supplements. He should follow up with his PCP within a week and get his potassium rechecked. His blood sugars were poorly controlled and he should follow up with his PCP about controlling this better. He has just within the past two days been given a prescription for insulin, but has not started in due to being admitted here. Discharge orders & Medications Prescriptions: New potassium chloride 20 mEq tablet extended release 20 meq PO BID Qty: 14 0RF Continued metformin [Glucophage] 500 MG tablet 1,000 mg PO BIDCC Qty: 0 0RF lisinopril 10 MG tablet 10 mg PO QDAY Qty: 0 0RF albuterol sulfate 90 mcg/actuation HFA aerosol inhaler 2 puff inhalation Q6HR PRN (Reason: Wheezing) 0RF Label Comments: INHALE 2 PUFFS BY MOUTH EVERY 4 HOURS IF NEEDED FOR BREATHING nadolol 40 mg Tablet 20 mg PO BID Qty: 60 0RF Diet/Activity/Treatments Diet: Carb-consistent/Diabetic Visit Report/Discharge Packet Instructions: DI for Hypokalemia, Hypokalemia, Potassium Chloride (By mouth) Discharge Data Attending Provider: Perri Li
[2021-07-19 17:21] LABS: HEMOLYSIS < 15 (0-50); Potassium 3.2 mmol/L (3.4-5.1)
== END 2021-07-19 17:28 | disposition home or self-care (01) ==
LOC: ED 19:18 → AC 20:34
PROVIDERS: Internal Medicine; Admitting Provider Nurse Practitioner Family; Emergency Provider Emergency Medicine; Referring Provider Emergency Medicine; Visit Provider Nurse Practitioner Family
DX: E87.6 Hypokalemia (principal); E86.9 Volume depletion, unspecified; E87.1 Hypo-osmolality and hyponatremia; E11.65 Type 2 diabetes mellitus with hyperglycemia; K70.30 Alcoholic cirrhosis of liver without ascites; K76.6 Portal hypertension; J44.9 Chronic obstructive pulmonary disease, unspecified; I25.10 Atherosclerotic heart disease of native coronary artery without angina pectoris; I10 Essential (primary) hypertension; Z79.84 Long term (current) use of oral hypoglycemic drugs; F17.210 Nicotine dependence, cigarettes, uncomplicated; Z20.822 Contact with and (suspected) exposure to COVID-19
CPT/HCPCS: 36415; 74022; 80048; 80053; 80320; 81003; 81015; 82009; 82550; 82805; 82962; 82977; 83036; 83605; 83735; 83880; 84100; 84132; 84484; 85025; 87040; 87086; 87635; 93005; 94760; 96361; 96365; 96366; 96372; 99284; 99285; C9803; G0378; J1650; J1815

== ENCOUNTER 2021-07-31 20:12 | Emergency (ER) | payer MEDICARE, MEDICAID, OTHER, SELFPAY ==
[2021-07-18 22:51] VITALS: BMI 25.2
[2021-07-31 20:20] VITALS: BP 143/81; PULSE 96; RESP 18; TEMP 36.5; O2SAT 98; BMI 25.8
[2021-07-31 21:40] LABS: Bacteria Urine None Seen; Culture Indicated Urine Cult Not Indicated; RBC Urine 5-10/HPF (0-5/HPF); Squamous Epithelial Cell Urine 0-1 /HPF (0-5/HPF); WBC Urine None Seen (0-5/HPF)
[2021-08-01] VITALS (8 sets, daily range): BP systolic 114–140; BP diastolic 77–84; PULSE 86–100; O2SAT 96–100
--- NOTE | 2021-08-01 01:50 | ED.NAVMDI ---
HPI - Nausea/Vomiting/Diarrhea General Chief complaint: Nausea/Vomiting/Diarrhea Stated complaint: nausea, new diabetic meds Time Seen by Provider: 08/01/21 01:50 Source: patient and family Mode of arrival: Ambulatory History of Present Illness HPI Narrative: 66-year-old gentleman with history of pulmonary hypertension, COPD, alcoholism with related cirrhosis and diabetes discharged from the hospital 2 weeks ago with significant hypokalemia. He presents today complaining of increased nausea and lack perhaps tight again today after taking his potassium. Potassium medications initially prescribed he had been doing well and feeling better however, at different form of potassium was started this morning any began having nausea and again lost his appetite. He states he had COVID in August of 2020 and had a significant loss of appetite was again diagnosed with COVID in May of 2021 and he notes that last week was the 1st time he truly was beginning to feel like eating again. He does not describe any fevers, cough, abdominal pain, diarrhea. He does have nausea but did not have any emesis today. He has had no headaches. He states he used his 1st dose of NovoLog last night. Related Data Home Medications Medication Instructions Recorded Confirmed lisinopril 10 mg tablet 10 mg PO QDAY #0 09/22/11 07/18/21 metformin 500 mg tablet 1,000 mg PO BIDCC #0 09/22/11 07/18/21 (Glucophage) albuterol sulfate 90 mcg/actuation 2 puff INHALATION Q6HR PRN 12/15/18 07/18/21 aerosol inhaler Previous Rx's Medication Instructions Recorded nadolol 40 mg tablet 20 mg PO BID #60 tab 12/21/18 potassium chloride 20 mEq 20 meq PO BID #14 tab 07/19/21 tablet,extended release Allergies Allergy/AdvReac Type Severity Reaction Status Date / Time ibuprofen [IBUPROFEN] Allergy Severe RASH Verified 07/31/21 20:28 Review of Systems Review of Systems Narrative: Remainder of complete review of systems is otherwise unremarkable except for that included in the HPI. Patient History Medical History Acute exacerbation of chronic obstructive pulmonary disease (COPD) Alcoholism Asthma Cirrhosis of liver Hard of hearing History of gastric ulcer History of kidney stones HTN (hypertension) Hypoxia Portal hypertension Tobacco use disorder, moderate, in early remission, dependence Type 2 diabetes mellitus Surgical History H/O right knee surgery Family History Mother Colon cancer Father Diabetes mellitus Social History household members: none Smoking Status: Former smoker alcohol intake: former Smoking Status: Former smoker alcohol intake frequency: holidays/special occasions only Substance Use Type: does not use Exam Initial Vital Signs Initial Vital Signs: Vital Signs Temperature 97.7 F 07/31/21 20:20 Pulse Rate 96 H 07/31/21 20:20 Respiratory Rate 18 07/31/21 20:20 Blood Pressure 143/81 H 07/31/21 20:20 Pulse Oximetry 98 07/31/21 20:20 General: Healthy appearing, in no acute distress. Able to give a complete and coherent history. Well-nourished well-developed HEENT: Moist mucous membranes, normal sclera with reactive pupils, Neck: No JVD, supple Respiratory: Lungs are clear to auscultation, no wheezing no rales no rhonchi. Full and symmetrical air movement Cardiac: Regular rate and rhythm no murmurs no bruits Abdomen: Soft, nontender, good bowel tones, no flank pain Skin: Warm and dry, no rashes Neurologic: Grossly neurologically intact with no obvious asymmetries or abnormalities Extremities: No trauma, well perfused Psych: Cooperative, appropriate insight and affect Course Orders Ordered: ED Orders 07/31/21 21:28 Urine Microscopic Stat 08/01/21 02:14 Complete Blood Count AUTO DIFF Stat Comprehensive Metabolic Panel Stat Lipase Stat Magnesium Stat Troponin I Stat 08/01/21 03:14 COVID19 -Nasal swab/Pre-Proc Stat Vital Signs Vital signs: Vital Signs - 8 hr 07/31/21 20:20 08/01/21 00:38 08/01/21 01:00 Temperature 97.7 F Pulse Rate 96 H 90 86 Respiratory Rate 18 Blood Pressure 143/81 H 122/79 140/78 Pulse Oximetry 98 100 98 08/01/21 01:30 08/01/21 02:00 08/01/21 02:30 Temperature Pulse Rate 90 96 H 91 H Respiratory Rate Blood Pressure 117/77 124/82 114/78 Pulse Oximetry 96 97 97 08/01/21 03:00 Temperature Pulse Rate 95 H Respiratory Rate Blood Pressure 123/83 Pulse Oximetry 99 MDM - Nausea/Vomiting/Diarrhea Lab Data Result diagrams: 08/01/21 02:14 08/01/21 02:14 Labs: Lab Results 07/31/21 08/01/21 08/01/21 Range/Units 21:28 02:14 02:14 WBC 9.0 (4.5-11.0) X10^3/uL RBC 5.29 (4.5-5.9) X10^6/uL Hgb 14.1 (13.5-17.5) g/dL Hct 41.6 (41-53) % MCV 78.8 L (80-100) fL MCH 26.7 (26-34) PG MCHC 33.9 (30-36) % RDW 14.8 (11.6-14.8) % Plt Count 242 (150-400) X10^3/uL Neut % (Auto) 66.4 (50-75) % Lymph % (Auto) 25.4 (25-40) % Placer % (Auto) 5.6 (3-14) % Eos % (Auto) 1.2 L (2-4) % Baso % (Auto) 1.4 (0-2) % Neut # (Auto) 6000 (9125-4368) /uL Lymph # (Auto) 2300 (9428-5882) /uL Placer # (Auto) 500 (0-900) /uL Eos # (Auto) 100 (0-450) /uL Baso # (Auto) 100 (0-100) /uL Sodium 138 (137-145) mmol/L Potassium 4.3 (3.4-5.1) mmol/L Chloride 103 (98-107) mmol/L Carbon Dioxide 27 (22-32) mmol/L BUN 12 (9-20) mg/dL Creatinine 0.89 (0.66-1.25) mg/dL Estimated GFR > 60.0 (>60) mL/min BUN/Creatinine Ratio 13.5 (6-22) Glucose 120 H (80-110) mg/dL Calcium 9.7 (8.4-10.2) mg/dL Magnesium (1.6-2.3) mg/dL Total Bilirubin 0.8 (0.2-1.3) mg/dL AST 31 (17-59) IU/L ALT 19 (<50) IU/L Alkaline Phosphatase 162 H (38-126) U/L Troponin I (0.01-0.034) ng/mL Total Protein 8.1 (6.3-8.2) g/dL Albumin 4.4 (3.5-5.0) g/dL Globulin 3.7 (1.7-4.1) g/dL Albumin/Globulin Ratio 1.2 (1.0-2.8) Lipase (23-300) U/L Urine RBC 5-10/hpf H (0-5/HPF) Urine WBC None seen (0-5/HPF) Ur Squamous Epith Cells 0-1 /hpf (0-5/HPF) Urine Bacteria None seen (None) Ur Culture Indicated? Cult not indicated SARS-CoV-2 (PCR) (Negative) 08/01/21 08/01/21 Range/Units 02:14 03:14 WBC (4.5-11.0) X10^3/uL RBC (4.5-5.9) X10^6/uL Hgb (13.5-17.5) g/dL Hct (41-53) % MCV (80-100) fL MCH (26-34) PG MCHC (30-36) % RDW (11.6-14.8) % Plt Count (150-400) X10^3/uL Neut % (Auto) (50-75) % Lymph % (Auto) (25-40) % Placer % (Auto) (3-14) % Eos % (Auto) (2-4) % Baso % (Auto) (0-2) % Neut # (Auto) (6573-0778) /uL Lymph # (Auto) (7843-6698) /uL Placer # (Auto) (0-900) /uL Eos # (Auto) (0-450) /uL Baso # (Auto) (0-100) /uL Sodium (137-145) mmol/L Potassium (3.4-5.1) mmol/L Chloride (98-107) mmol/L Carbon Dioxide (22-32) mmol/L BUN (9-20) mg/dL Creatinine (0.66-1.25) mg/dL Estimated GFR (>60) mL/min BUN/Creatinine Ratio (6-22) Glucose (80-110) mg/dL Calcium (8.4-10.2) mg/dL Magnesium 1.9 (1.6-2.3) mg/dL Total Bilirubin (0.2-1.3) mg/dL AST (17-59) IU/L ALT (<50) IU/L Alkaline Phosphatase (38-126) U/L Troponin I < 0.012 (0.01-0.034) ng/mL Total Protein (6.3-8.2) g/dL Albumin (3.5-5.0) g/dL Globulin (1.7-4.1) g/dL Albumin/Globulin Ratio (1.0-2.8) Lipase 209 (23-300) U/L Urine RBC (0-5/HPF) Urine WBC (0-5/HPF) Ur Squamous Epith Cells (0-5/HPF) Urine Bacteria (None) Ur Culture Indicated? SARS-CoV-2 (PCR) Negative (Negative) Point of Care Testing Glucose POC 141 Urine Dip Bedside Urine Glucose Negative Bedside Urine Bilirubin - Negative Bedside Urine Ketone - Negative Urine Specific [place] 1.015 Bedside Urine Occult Blood +/- Bedside Urine pH 7 Bedside Urine Protein - Negative Bedside Urine Urobilinogen - Negative Bedside Urine Nitrite - Negative Bedside Urine Leukocytes - Negative Esterase MDM Narrative Medical decision making narrative: 66-year-old gentleman with a history of hypertension, diabetes hypokalemia who you had some nausea this morning and general malaise over the course of the day. He used NovoLog for the 1st time last night and a different formulation of potassium this morning. He and his granddaughter concerned that the potassium was responsible for causing his nausea. Workup in the emergency room is reassuring. At this point his nausea has resolved. Lab work does not suggest acute electrolyte abnormalities and in fact his potassium level is in the normal range. He is not hypoglycemic, no evidence of acute coronary syndrome and he does not have COVID today. At this time he is safe for home discharge. Will ask him to continue with the new injectable insulins but hold off on the potassium for 2-3 days. Once he is clearly feeling improved will have him add back in the potassium. If this formulation continues to cause him nausea will ask him to follow-up with his primary care physician to try a different potassium formulation. Will also encourage them to make sure they are checking blood sugars to make sure he is not hypoglycemic as a source of his nausea. His grand daughter reassured me that they were doing that. This morning his blood sugar was 154 when he was symptomatic. At this time he is safe for home discharge Discharge Plan Departure Patient Disposition: Home Clinical Impression: Nausea Instructions: DI for Nausea -- Adult Activity Restrictions/Additional Instructions: Thank you for coming in today Your workup today was reassuring. I am not seeing any signs of infection, heart attack, electrolyte abnormalities or kidney or liver function problems. Your potassium was actually in the normal range today I am going to suggest that you hold your potassium for the next 2-3 days. Please continue the new insulins and make sure that you are adjusting to this well. When she were feeling well with that then add the potassium back in. If doing so clearly is causing your nausea, please follow-up with your primary care physician to have him prescribe a different formulation of the potassium. If you have new or worsening symptoms, please feel free to return to the emergency department. Prescriptions: No Action metformin [Glucophage] 500 MG tablet 1,000 mg PO BIDCC Qty: 0 0RF lisinopril 10 MG tablet 10 mg PO QDAY Qty: 0 0RF potassium chloride 20 mEq tablet extended release 20 meq PO BID Qty: 14 0RF albuterol sulfate 90 mcg/actuation HFA aerosol inhaler 2 puff inhalation Q6HR PRN (Reason: Wheezing) 0RF Label Comments: INHALE 2 PUFFS BY MOUTH EVERY 4 HOURS IF NEEDED FOR BREATHING nadolol 40 mg Tablet 20 mg PO BID Qty: 60 0RF
[2021-08-01 02:29] LABS: Add Manual Diff / Slide Review NO; Basophils Absolute Auto 100 /uL (0-100); Basophils Percent Auto 1.4 % (0-2); Eosinophils Absolute Auto 100 /uL (0-450); Eosinophils Percent Auto 1.2 % (2-4); Hematocrit 41.6 % (41-53); Hemoglobin 14.1 g/dL (13.5-17.5); Lymphocytes Absolute Auto 2300 /uL (1100-4500); Lymphocytes Percent Auto 25.4 % (25-40); Mean Corpuscular HGB Conc 33.9 % (30-36); Mean Corpuscular Hemoglobin 26.7 PG (26-34); Mean Corpuscular Volume 78.8 fL (80-100); Monocytes Absolute Auto 500 /uL (0-900); Monocytes Percent Auto 5.6 % (3-14); Neutrophils Absolute Auto 6000 /uL (1500-7000); Neutrophils Percent Auto 66.4 % (50-75); Platelet Count 242 X10^3/uL (150-400); Red Blood Cell Count 5.29 X10^6/uL (4.5-5.9); Red Cell Distribution Width 14.8 % (11.6-14.8)
[2021-08-01 02:38] LABS: Alanine Aminotransferase 19 IU/L (<50); Albumin 4.4 g/dL (3.5-5.0); Albumin Globulin Ratio 1.2 (1.0-2.8); Alkaline Phosphatase 162 U/L (38-126); Aspartate Aminotransferase 31 IU/L (17-59); BUN Creatinine Ratio 13.5 (6-22); Bilirubin Total 0.8 mg/dL (0.2-1.3); Blood Urea Nitrogen 12 mg/dL (9-20); Calcium 9.7 mg/dL (8.4-10.2); Carbon Dioxide 27 mmol/L (22-32); Chloride 103 mmol/L (98-107); Estimated Glomerular Filt Rate > 60.0 mL/min (>60); Globulin 3.7 g/dL (1.7-4.1); Glucose 120 mg/dL (80-110); HEMOLYSIS 16 (0-50); Lipase 209 U/L (23-300); Magnesium 1.9 mg/dL (1.6-2.3); Potassium 4.3 mmol/L (3.4-5.1); Sodium 138 mmol/L (137-145); Total Protein 8.1 g/dL (6.3-8.2)
[2021-08-01 02:49] LABS: Troponin I < 0.012 ng/mL (0.01-0.034)
[2021-08-01 03:31] LABS: COVID19 -Nasal RAPID Negative (Negative)
== END 2021-08-01 04:15 | disposition home or self-care (01) ==
PROVIDERS: Emergency Provider Emergency Medicine
DX: R11.0 Nausea (principal); Z20.822 Contact with and (suspected) exposure to COVID-19
CPT/HCPCS: 36415; 80053; 81003; 81015; 82962; 83690; 83735; 84484; 85025; 87635; 99283; C9803

== ENCOUNTER 2021-12-23 09:06 | Emergency (ER) | payer MEDICARE, MEDICAID, OTHER, SELFPAY ==
[2021-07-18 22:51] VITALS: BMI 25.2
[2021-12-23] VITALS (9 sets, daily range): BP systolic 116–128; BP diastolic 72–89; PULSE 119–131; RESP 16–22; TEMP 36.9; O2SAT 96–99; BMI 24.2
--- NOTE | 2021-12-23 09:07 | DI.CT.S_ITS ---
PROCEDURE: CT ABDOMEN PELVIS W CON INDICATIONS: Generalized ABD pain with umbilical hernia TECHNIQUE: After the administration of intravenous contrast, axial sections acquired from the lung bases to the pubic symphysis. Coronal and sagittal reformats were performed. For radiation dose reduction, the following was used: automated exposure control, adjustment of mA and/or kV according to patient size. COMPARISON: None. FINDINGS: Image quality: Excellent. Lung bases: Lung bases are clear. In the right costophrenic angle laterally there is a pulmonary cyst measuring 1 x 2 cm. Heart size is normal. Solid organs: Liver: The liver has irregular contour consistent with cirrhosis. The portal vein and hepatic veins are patent. No liver mass. No intrahepatic biliary ductal dilatation. Biliary: The gallbladder has no gallstones, pericholecystic fluid, gallbladder wall thickening, or surrounding inflammatory change. Pancreas: The pancreas has no mass or ductal dilatation. There is no surrounding inflammation. Spleen: Normal size. There are no masses. Adrenals: No hypertrophy or nodules. Kidneys: No obstructive calculus or hydronephrosis. No solid mass. No cystic mass. Peritoneum and bowel: The distal esophagus and stomach are normal. The small bowel has a normal caliber and appearance. The terminal ileum is normal. There is diverticulosis of the sigmoid colon. There is irregular eccentric thickening of the rectum measuring up to 1.3 cm concerning for rectal carcinoma. Adjacent to this area there is increased attenuation in the surrounding fat suggestive of mild diverticulitis. The appendix is normal. No free fluid or air. Nodes and vessels: No retroperitoneal or mesenteric adenopathy by size criteria. The aorta has atherosclerosis with no aneurysmal dilatation. Miscellaneous: There is a fat containing ventral hernia which measures 6 cm which has a 1.3 centimeter neck. PELVIS: Genitourinary: The bladder has no wall thickening or mass. No bladder calcifications. Bones: No suspicious bony lesions. No vertebral body compression fractures. IMPRESSION: 1. Diverticulosis of the sigmoid colon with increased attenuation in the fat at the rectosigmoid junction concerning for mild diverticulitis. 2. Eccentric irregular thickening of the rectum concerning for rectal carcinoma. The increased attenuation in the fat surrounding this area could also be related to neoplasm. 3. No evidence of distal metastatic disease. 4. Cirrhotic appearing liver. 5. Fat containing ventral hernia measuring 6 cm herniating through a 1.3 centimeter fascial defect. Findings were discussed with Dr. Boogie. Dictated by: Reginaldo Mauricio M.D. on 12/23/2021 at 9:25 Approved by: Reginaldo Mauricio M.D. on 12/23/2021 at 9:37
--- NOTE | 2021-12-23 09:09 | ED_ITS ---
HPI - General Adult General Chief complaint: Abdominal Pain Stated complaint: Abdominal pain Time Seen by Provider: 12/23/21 09:06 Source: patient Mode of arrival: EMS Limitations: no limitations History of Present Illness HPI narrative: Patient is a 66-year-old male. Was brought in by EMS for evaluation of abdomi nal discomfort. He states that yesterday he woke up and had some discomfort. He vomited. His symptoms seem to improve and was relatively comfortable for the rest the day. This morning he again woke up and had an episode of diarrhea. His abdominal pain started prior to this yet has continued even after this episode of loose stools. He is not been vomiting. He does have a history of an umbilical hernia which is present today. He is having some discomfort around the umbilical hernia but also in other places in his abdomen as well. He received 100 mcg of fentanyl and 8 mg of Zofran by EMS which did help his symptoms somewhat. He denies any urinary symptoms. Related Data Previous Rx's Medication Instructions Recorded ciprofloxacin HCl 500 mg tablet 500 mg PO Q12H 10 days #20 tabs 12/23/21 (Cipro) metronidazole 500 mg tablet 500 mg PO TID 10 days #30 tabs 12/23/21 ondansetron 4 mg disintegrating 4 mg PO Q6H PRN nausea and 12/23/21 tablet vomiting #10 tabs Allergies Allergy/AdvReac Type Severity Reaction Status Date / Time ibuprofen Allergy Verified 12/23/21 09:22 Review of Systems Cardiovascular Cardiovascular: Denies chest pain and Denies dyspnea Respiratory Respiratory: Denies dyspnea Gastrointestinal Gastrointestinal: Reports as per HPI and Reports system reviewed and no additional complaints, except as documented Genitourinary Genitourinary: Reports system reviewed and no additional complaints, except as documented Integumentary/Breasts Skin/Breast: Reports system reviewed and no additional complaints, except as documented Hematologic/Lymphatic On Anticoagulants: No Patient History Medical History Diabetes Social History lives independently: Yes Smoking Status: Former smoker Exam Initial Vital Signs Initial Vital Signs: Vital Signs Temperature 98.4 F 12/23/21 09:00 Pulse Rate 131 H 12/23/21 09:00 Respiratory Rate 22 12/23/21 09:00 Blood Pressure 121/77 12/23/21 09:00 Pulse Oximetry 98 12/23/21 09:00 Oxygen Delivery Method 12/23/21 09:00 Const General: cooperative and comfortable HENMT Head: normal to inspection and normocephalic Resp Effort & Inspection: normal respiratory effort Auscultation: clear to auscultation bilaterally Cardio Rate: regular rate Rhythm: regular rhythm GI Inspection: normal to inspection Palpation: soft and tender (Generalized tenderness) Other: Patient does have an umbilical hernia which seems to be partially reducible. He has tenderness around this area but also in other areas of his abdomen as well. Skin General: no rashes or lesions noted Neuro General: patient alert and patient awake Course Orders Ordered: ED Orders 12/23/21 09:07 CT abdomen pelvis w con Stat 12/23/21 09:15 Complete Blood Count AUTO DIFF Stat Comprehensive Metabolic Panel Stat Lipase Stat 12/23/21 09:20 GI Panel (Film Array) Stat 12/23/21 09:27 Lactate (Lactic Acid) Stat Sodium Chloride (Normal Saline 0.9%) 1,000 mls @ 125 mls/hr IV CONT JACQUELINE Last Admin: 12/23/21 10:47 Dose: 125 mls/hr Documented By: KATELIN Vital Signs Vital signs: Vital Signs - 8 hr 12/23/21 09:00 12/23/21 09:10 12/23/21 09:10 Temperature 98.4 F Pulse Rate 131 H 128 H Respiratory Rate 22 Blood Pressure 121/77 121/77 Pulse Oximetry 98 98 Oxygen Delivery Method Room Air 12/23/21 09:30 12/23/21 09:30 12/23/21 10:00 Temperature Pulse Rate 127 H Respiratory Rate 22 Blood Pressure 119/78 127/80 Pulse Oximetry 96 Oxygen Delivery Method Room Air 12/23/21 10:00 12/23/21 10:30 12/23/21 10:30 Temperature Pulse Rate 123 H 126 H Respiratory Rate 21 21 Blood Pressure 126/78 Pulse Oximetry 96 96 Oxygen Delivery Method 12/23/21 11:00 12/23/21 11:00 12/23/21 11:30 Temperature Pulse Rate 122 H Respiratory Rate 20 Blood Pressure 128/72 116/76 Pulse Oximetry 97 Oxygen Delivery Method 12/23/21 11:30 Temperature Pulse Rate 119 H Respiratory Rate 19 Blood Pressure Pulse Oximetry 98 Oxygen Delivery Method Medical Decision Making Medical Records Medical records reviewed: Yes I reviewed the patient's medical records. Lab Data Lab results reviewed: Yes I reviewed the patient's lab results. Result diagrams: 12/23/21 09:15 12/23/21 09:15 Labs: Lab Results 12/23/21 12/23/21 12/23/21 Range/Units 09:15 09:15 09:20 WBC 24.1 H (4.5-11.0) X10^3/uL RBC 5.59 (4.5-5.9) X10^6/uL Hgb 14.5 (13.5-17.5) g/dL Hct 42.8 (41-53) % MCV 76.5 L (80-100) fL MCH 25.9 L (26-34) PG MCHC 33.8 (30-36) % RDW 13.8 (11.6-14.8) % Plt Count 318 (150-400) X10^3/uL Neut % (Auto) 90.3 H (50-75) % Lymph % (Auto) 2.9 L (25-40) % [place] % (Auto) 5.8 (3-14) % Eos % (Auto) 0.6 L (2-4) % Baso % (Auto) 0.4 (0-2) % Neut # (Auto) 95886 H (8271-1042) /uL Lymph # (Auto) 700 L (3514-4067) /uL [place] # (Auto) 1400 H (0-900) /uL Eos # (Auto) 100 (0-450) /uL Baso # (Auto) 100 (0-100) /uL Sodium 138 (137-145) mmol/L Potassium 4.2 (3.4-5.1) mmol/L Chloride 106 (98-107) mmol/L Carbon Dioxide 19 L (22-32) mmol/L BUN 12 (9-20) mg/dL Creatinine 1.01 (0.66-1.25) mg/dL Estimated GFR > 60 (>60) mL/min BUN/Creatinine Ratio 11.9 (6-22) Glucose 213 H (80-110) mg/dL Lactate (0.7-2.1) mmol/L Calcium 9.3 (8.4-10.2) mg/dL Total Bilirubin 1.0 (0.2-1.3) mg/dL AST 31 (17-59) IU/L ALT 20 (<50) IU/L Alkaline Phosphatase 263 H (38-126) U/L Total Protein 8.8 H (6.3-8.2) g/dL Albumin 4.7 (3.5-5.0) g/dL Globulin 4.1 (1.7-4.1) g/dL Albumin/Globulin Ratio 1.1 (1.0-2.8) Lipase 176 (23-300) U/L Stl C. cayetanensis PCR Not detected (Not Detect) Stool Rotavirus (PCR) Not detected (Not Detect) Stool Adenovirus (PCR) Not detected (Not Detect) Stool Astrovirus (PCR) Not detected (Not Detect) Stool Cryptosporidium PCR Not detected (Not Detect) Stl E.coli Shiga Tox PCR Not detected (Not Detect) St Sh/Enteroin Ecoli PCR Not detected (Not Detect) Stool E coli O157 PCR Not Reportable Stl Enterotoxigenic E PCR Not detected (Not Detect) Stool EPEC (PCR) Detected H (Not Detect) Stl E. histolytica PCR Not detected (Not Detect) Stool Giardia Lamblia PCR Not detected (Not Detect) Stool Sapovirus (PCR) Not detected (Not Detect) Stl P. shigelloides PCR Not detected (Not Detect) St Y.enterocolitica PCR Not detected (Not Detect) Stool Vibrio (PCR) Not detected (Not Detect) Stl Vibrio cholerae PCR Not detected (Not Detect) Stl Enteroaggr Ecoli PCR Not detected (Not Detect) Stl Norovirus GI/GII PCR Not detected (Not Detect) Campylobacter (PCR) Not detected (Not Detect) C. difficile Tox (PCR) Not detected (Not Detect) Salmonella (PCR) Not detected (Not Detect) 12/23/21 Range/Units 09:27 WBC (4.5-11.0) X10^3/uL RBC (4.5-5.9) X10^6/uL Hgb (13.5-17.5) g/dL Hct (41-53) % MCV (80-100) fL MCH (26-34) PG MCHC (30-36) % RDW (11.6-14.8) % Plt Count (150-400) X10^3/uL Neut % (Auto) (50-75) % Lymph % (Auto) (25-40) % [place] % (Auto) (3-14) % Eos % (Auto) (2-4) % Baso % (Auto) (0-2) % Neut # (Auto) (5306-9753) /uL Lymph # (Auto) (8653-5903) /uL [place] # (Auto) (0-900) /uL Eos # (Auto) (0-450) /uL Baso # (Auto) (0-100) /uL Sodium (137-145) mmol/L Potassium (3.4-5.1) mmol/L Chloride (98-107) mmol/L Carbon Dioxide (22-32) mmol/L BUN (9-20) mg/dL Creatinine (0.66-1.25) mg/dL Estimated GFR (>60) mL/min BUN/Creatinine Ratio (6-22) Glucose (80-110) mg/dL Lactate 1.7 (0.7-2.1) mmol/L Calcium (8.4-10.2) mg/dL Total Bilirubin (0.2-1.3) mg/dL AST (17-59) IU/L ALT (<50) IU/L Alkaline Phosphatase (38-126) U/L Total Protein (6.3-8.2) g/dL Albumin (3.5-5.0) g/dL Globulin (1.7-4.1) g/dL Albumin/Globulin Ratio (1.0-2.8) Lipase (23-300) U/L Stl C. cayetanensis PCR (Not Detect) Stool Rotavirus (PCR) (Not Detect) Stool Adenovirus (PCR) (Not Detect) Stool Astrovirus (PCR) (Not Detect) Stool Cryptosporidium PCR (Not Detect) Stl E.coli Shiga Tox PCR (Not Detect) St Sh/Enteroin Ecoli PCR (Not Detect) Stool E coli O157 PCR Stl Enterotoxigenic E PCR (Not Detect) Stool EPEC (PCR) (Not Detect) Stl E. histolytica PCR (Not Detect) Stool Giardia Lamblia PCR (Not Detect) Stool Sapovirus (PCR) (Not Detect) Stl P. shigelloides PCR (Not Detect) St Y.enterocolitica PCR (Not Detect) Stool Vibrio (PCR) (Not Detect) Stl Vibrio cholerae PCR (Not Detect) Stl Enteroaggr Ecoli PCR (Not Detect) Stl Norovirus GI/GII PCR (Not Detect) Campylobacter (PCR) (Not Detect) C. difficile Tox (PCR) (Not Detect) Salmonella (PCR) (Not Detect) Point of Care Testing Stool Occult Blood Positive Point of care testing: Point of Care Testing Stool Occult Blood Positive Imaging Data CT scan - abdomen/pelvis: Radiologist's Impression: [address] [address] [address] Scan Report Signed Patient: Edgar Hernandez Jr MR#: [id number] : 1955 Acct:[id number] Age/Sex: 66 / M Date of Service: 12/23/21 Loc: ED Accession Number: [id number] ?? Procedure: CT abdomen pelvis w con Ordering Provider: Jeremy Boogie D.O. PROCEDURE:? CT ABDOMEN PELVIS W CON ? INDICATIONS:? Generalized ABD pain with umbilical hernia ? TECHNIQUE:? After the administration of intravenous contrast, axial sections acquired from the lung bases to the pubic symphysis.? Coronal and sagittal reformats were performed.? For radiation dose reduction, the following was used:? automated exposure control, adjustment of mA and/or kV according to patient size.? ? COMPARISON:? None. ? FINDINGS: Image quality:? Excellent.? ? Lung bases:? Lung bases are clear.? In the right costophrenic angle laterally there is a pulmonary cyst measuring 1 x 2 cm. Heart size is normal. ? Solid organs:? Liver:? The liver has irregular contour consistent with cirrhosis.? The portal vein and hepatic veins are patent.? No liver mass.? No intrahepatic biliary ductal dilatation. Biliary: The gallbladder has no gallstones, pericholecystic fluid, gallbladder wall thickening, or surrounding inflammatory change. Pancreas: The pancreas has no mass or ductal dilatation. There is no surrounding inflammation. Spleen: Normal size. There are no masses. Adrenals: No hypertrophy or nodules. Kidneys: No obstructive calculus or hydronephrosis.? No solid mass. No cystic mass. ? Peritoneum and bowel:? The distal esophagus and stomach are normal.? The small bowel has a normal caliber and appearance. The terminal ileum is normal.? There is diverticulosis of the sigmoid colon.? There is irregular eccentric thickening of the rectum measuring up to 1.3 cm concerning for rectal carcinoma.? Adjacent to this area there is inc reased attenuation in the surrounding fat suggestive of mild diverticulitis.? The appendix is normal. No free fluid or air.? ? Nodes and vessels:? No retroperitoneal or mesenteric adenopathy by size c riteria.? The aorta has atherosclerosis with no aneurysmal dilatation.? ? Miscellaneous:? There is a fat containing ventral hernia which measures 6 cm which has a 1.3 centimeter neck. ? PELVIS:? Genitourinary:? The bladder has no wall thickening or mass. No bladder calcifications. ? Bones:? No suspicious bony lesions.? No vertebral body compression fractures.? ? IMPRESSION:? 1. Diverticulosis of the sigmoid colon with increased attenuation in the fat at the rectosigmoid junction concerning for mild diverticulitis. 2. Eccentric irregular thickening of the rectum concerning for rectal carcinoma. ? The increased attenuation in the fat surrounding this area could also be related to neoplasm. ? 3. No evidence of distal metastatic disease. 4. Cirrhotic appearing liver. 5. Fat containing ventral hernia measuring 6 cm herniating through a 1.3 centimeter fascial defect.? ? Findings were discussed with Dr. Boogie. ? ? Dictated by: Reginaldo Mauricio M.D. on 12/23/2021 at 9:25 ? ? Approved by: Reginaldo Mauricio M.D. on 12/23/2021 at 9:37? MDM Narrative Medical decision making narrative: Stool studies show E coli. CT scan shows diverticulitis but also other findings concerning for neoplasm. I did discuss this with the patient and his family at bedside. Because of the possible concern about diverticulitis and the nature of his symptoms to include his leukocytosis and tachycardia will start the patient on antibiotics. They were transmitted to the pharmacy of his choice. The umbilical hernia shows no signs of herniation or strangulation on the CT scan. He was given return precautions and instructed to follow up with General surgery given information for this. He expressed understanding and agreement. Discharge Plan Departure Patient Disposition: Home Clinical Impression: Diverticulitis, Abdominal pain Instructions: DI for Diverticulitis Activity Restrictions/Additional Instructions: It is important that after you finish the course of antibiotics and improved the rest your symptoms that you follow-up with general surgery to have a colonoscopy. Please contact them at the number provided below. Sure to increase your fluid intake. Return to the emergency department for any new or worsening symptoms. Prescriptions: New ciprofloxacin HCl [Cipro] 500 mg tablet 500 mg PO Q12H 10 Days Qty: 20 0RF metronidazole 500 mg tablet 500 mg PO TID 10 Days Qty: 30 0RF ondansetron 4 mg tablet,disintegrating 4 mg PO Q6H PRN (Reason: nausea and vomiting) Qty: 10 0RF Referrals: Gustabo De La Fuente MD [Physician] -
[2021-12-23 09:20] LABS: Add Manual Diff / Slide Review NO; Basophils Absolute Auto 100 /uL (0-100); Basophils Percent Auto 0.4 % (0-2); Eosinophils Absolute Auto 100 /uL (0-450); Eosinophils Percent Auto 0.6 % (2-4); Hematocrit 42.8 % (41-53); Hemoglobin 14.5 g/dL (13.5-17.5); Lymphocytes Absolute Auto 700 /uL (1100-4500); Lymphocytes Percent Auto 2.9 % (25-40); Mean Corpuscular HGB Conc 33.8 % (30-36); Mean Corpuscular Hemoglobin 25.9 PG (26-34); Mean Corpuscular Volume 76.5 fL (80-100); Monocytes Absolute Auto 1400 /uL (0-900); Monocytes Percent Auto 5.8 % (3-14); Neutrophils Absolute Auto 21800 /uL (1500-7000); Neutrophils Percent Auto 90.3 % (50-75); Platelet Count 318 X10^3/uL (150-400); Red Blood Cell Count 5.59 X10^6/uL (4.5-5.9); Red Cell Distribution Width 13.8 % (11.6-14.8); White Blood Cell Count 24.1 X10^3/uL (4.5-11.0)
[2021-12-23 09:35] LABS: Alanine Aminotransferase 20 IU/L (<50); Albumin 4.7 g/dL (3.5-5.0); Albumin Globulin Ratio 1.1 (1.0-2.8); Alkaline Phosphatase 263 U/L (38-126); Aspartate Aminotransferase 31 IU/L (17-59); BUN Creatinine Ratio 11.9 (6-22); Blood Urea Nitrogen 12 mg/dL (9-20); Calcium 9.3 mg/dL (8.4-10.2); Carbon Dioxide 19 mmol/L (22-32); Chloride 106 mmol/L (98-107); Estimated Glomerular Filt Rate > 60 mL/min (>60); Globulin 4.1 g/dL (1.7-4.1); Glucose 213 mg/dL (80-110); HEMOLYSIS 27 (0-50); Lipase 176 U/L (23-300); Potassium 4.2 mmol/L (3.4-5.1); Sodium 138 mmol/L (137-145); Total Protein 8.8 g/dL (6.3-8.2)
[2021-12-23 09:43] LABS: Lactate (Lactic Acid) 1.7 mmol/L (0.7-2.1)
[2021-12-23] MEDS: SODIUM CHLORIDE 0.9% 1,000 ML 125 ML IV (10:47)
[2021-12-23 11:47] LABS: Campylobacter Not Detected (Not Detect); Clostridium difficile toxin AB Not Detected (Not Detect); Cryptosporidium Not Detected (Not Detect); Cyclospora cayetanensis Not Detected (Not Detect); Enteroaggregative E.coli Not Detected (Not Detect); Enteropathogenic E.coli Detected (Not Detect); Enterotoxigenic E.coli It/st Not Detected (Not Detect); Plesiomonsa shigelloides Not Detected (Not Detect); Salmonella Not Detected (Not Detect); Shiga-like toxin-prod E.coli Not Detected (Not Detect); Shigella/Enteroinvasive E.coli Not Detected (Not Detect); Vibrio Not Detected (Not Detect); Vibrio cholerae Not Detected (Not Detect); Yersinia enterocolitica Not Detected (Not Detect)
[2021-12-23 11:48] LABS: Adenovirus F 40/41 Not Detected (Not Detect); Astrovirus Not Detected (Not Detect); Entamoeba histolytica Not Detected (Not Detect); Giardia lamblia Not Detected (Not Detect); Norovirus GI/GII Not Detected (Not Detect); Rotavirus A Not Detected (Not Detect); Sapovirus Not Detected (Not Detect)
== END 2021-12-23 12:45 | disposition home or self-care (01) ==
PROVIDERS: Emergency Provider Emergency Medicine
DX: K57.92 Diverticulitis of intestine, part unspecified, without perforation or abscess without bleeding (principal); R10.9 Unspecified abdominal pain; R11.10 Vomiting, unspecified; R19.7 Diarrhea, unspecified; R00.0 Tachycardia, unspecified
CPT/HCPCS: 36415; 74177; 80053; 82272; 83605; 83690; 85025; 87507; 96360; 96361; 99284; Q9967

== ENCOUNTER 2022-09-16 15:36 | Inpatient (IN) | payer MEDICARE, MEDICAID, OTHER, SELFPAY ==
[2021-07-18 22:51] VITALS: BMI 25.2
[2022-09-16] VITALS (13 sets, daily range): BP systolic 110–148; BP diastolic 67–93; PULSE 113–137; RESP 17–26; TEMP 36.8–37.5; O2SAT 93–100; BMI 24.2; BMI 24.0
[2022-09-16] MEDS: PANTOPRAZOLE 40 MG VIAL 80 MG IV (16:14)
[2022-09-16 16:17] LABS: INR 1.2 (0.9-1.3); Prothrombin Time 13.5 SECONDS (10.1-12.7)
[2022-09-16 16:19] LABS: Basophils Absolute Auto 200 /uL (0-100); Basophils Percent Auto 1.2 % (0-2); Eosinophils Absolute Auto 300 /uL (0-450); Eosinophils Percent Auto 2.7 % (2-4); Hematocrit 30.6 % (41-53); Hemoglobin 9.6 g/dL (13.5-17.5); Lymphocytes Absolute Auto 1400 /uL (1100-4500); Lymphocytes Percent Auto 11.1 % (25-40); Mean Corpuscular HGB Conc 31.4 % (30-36); Mean Corpuscular Volume 63.9 fL (80-100); Monocytes Absolute Auto 1000 /uL (0-900); Monocytes Percent Auto 7.4 % (3-14); Neutrophils Absolute Auto 10000 /uL (1500-7000); Neutrophils Percent Auto 77.6 % (50-75); PTT Partial Thromboplastin Tim 32 SECONDS (26-36); Platelet Count 445 X10^3/uL (150-400); Red Blood Cell Count 4.79 X10^6/uL (4.5-5.9); Red Cell Distribution Width 16.2 % (11.6-14.8); White Blood Cell Count 12.8 X10^3/uL (4.5-11.0)
[2022-09-16 16:20] LABS: Lactate (Lactic Acid) 1.9 mmol/L (0.7-2.1)
[2022-09-16 16:21] LABS: Alanine Aminotransferase 20 IU/L (<50); Albumin 3.7 g/dL (3.5-5.0); Albumin Globulin Ratio 0.8 (1.0-2.8); Alkaline Phosphatase 297 U/L (38-126); Aspartate Aminotransferase 21 IU/L (17-59); BUN Creatinine Ratio 8.5 (6-22); Bilirubin Total 1.2 mg/dL (0.2-1.3); Blood Urea Nitrogen 9 mg/dL (9-20); Calcium 8.8 mg/dL (8.4-10.2); Carbon Dioxide 20 mmol/L (22-32); Chloride 103 mmol/L (98-107); Estimated Glomerular Filt Rate > 60 mL/min (>60); Globulin 4.6 g/dL (1.7-4.1); Glucose 134 mg/dL (80-110); HEMOLYSIS < 15 (0-50); Potassium 3.4 mmol/L (3.4-5.1); Sodium 135 mmol/L (137-145); Total Protein 8.3 g/dL (6.3-8.2)
[2022-09-16 16:29] LABS: Add Manual Diff / Slide Review SLIDE REVIEW
[2022-09-16 16:37] LABS: Procalcitonin 0.16 ng/mL (<0.5)
[2022-09-16 17:01] LABS: Occult Blood 1 Positive (Negative)
[2022-09-16 17:07] LABS: Hypochromasia 1+; Microcytosis 2+
[2022-09-16 17:08] LABS: Stomatocytes 1+
[2022-09-16 17:08] LABS: Appearance Urine UA CLEAR; Bilirubin Urine UA NEGATIVE (NEGATIVE); Color Urine UA YELLOW; Glucose Urine UA NEGATIVE (Negative); Ketones Urine UA NEGATIVE (NEGATIVE); Leukocyte Esterase Urine UA 1+ (NEGATIVE); Nitrite Urine UA NEGATIVE (Negative); Occult Blood Urine UA TRACE-INTACT (Negative); Protein Urine UA TRACE (Negative); pH Urine UA 6.5 (4.5-8.0)
[2022-09-16 17:15] LABS: Bacteria Urine None Seen; Calcium Oxalate Crystals Urine Many; Culture Indicated Urine Specimen Cultured; RBC Urine 0-1/HPF (0-5/HPF); Squamous Epithelial Cell Urine 0-1 /HPF (0-5/HPF); WBC Urine 1-5/HPF (0-5/HPF)
[2022-09-16 17:38] LABS: Adenovirus Not Detected (Not Detect); B. parapertussis Not Detected (Not Detecte); Bordetella pertussis Not Detected (Not Detecte); Chlamydophila pneumoniae Not Detected (Not Detect); Coronavirus 229E Not Detected (Not Detect); Coronavirus HKU1 Not Detected (Not Detect); Coronavirus NL 63 Not Detected (Not Detect); Coronavirus OC43 Not Detected (Not Detect); Human Metapneumovirus Not Detected (Not Detect); Human Rhinovirus/Enterovirus Not Detected (Not Detect); Influenza A Not Detected (Not Detect); Influenza B Not Detected (Not Detect); Mycoplasma pneumoniae Not Detected (Not Detect); Parainfluenza Virus 1 Not Detected (Not Detect); Parainfluenza Virus 2 Not Detected (Not Detect); Parainfluenza Virus 3 Not Detected (Not Detect); Parainfluenza Virus 4 Not Detected (Not Detect); Respiratory Syncytial Virus Not Detected (Not Detect); SARS- CoV-2 Not Detected (Not Detecte)
[2022-09-16 18:26] LABS: Add Manual Diff / Slide Review NO; Basophils Absolute Auto 100 /uL (0-100); Basophils Percent Auto 0.7 % (0-2); Eosinophils Absolute Auto 200 /uL (0-450); Eosinophils Percent Auto 2.1 % (2-4); Hematocrit 28.6 % (41-53); Hemoglobin 9.2 g/dL (13.5-17.5); Lymphocytes Absolute Auto 1000 /uL (1100-4500); Lymphocytes Percent Auto 9.3 % (25-40); Mean Corpuscular HGB Conc 32.2 % (30-36); Mean Corpuscular Hemoglobin 20.6 PG (26-34); Monocytes Absolute Auto 700 /uL (0-900); Monocytes Percent Auto 6.7 % (3-14); Neutrophils Absolute Auto 8300 /uL (1500-7000); Neutrophils Percent Auto 81.2 % (50-75); Platelet Count 378 X10^3/uL (150-400); Red Blood Cell Count 4.47 X10^6/uL (4.5-5.9); Red Cell Distribution Width 16.2 % (11.6-14.8); White Blood Cell Count 10.3 X10^3/uL (4.5-11.0)
--- NOTE | 2022-09-16 18:47 | ED.GIBLEED ---
HPI - GI Bleed General Chief complaint: GI Bleed Stated complaint: Joint pain Time Seen by Provider: 09/16/22 17:55 Source: patient and EMS Mode of arrival: EMS Limitations: no limitations History of Present Illness HPI Narrative: 67-year-old male who arrives the emergency department initially for evaluation of left wrist pain and right ankle pain. He states that there is not any specific trauma. He is never had a history of gout. No fevers. He states the pain is radiating up his left arm and also up his right leg. Does have a history of diabetes. He did take a pain medication that was given to him by a friend of his and he states it did not help any of his symptoms. He denies any fevers. In triage was found that he was tachycardic. He stated that he has been having black-colored stools and also diarrhea over the past couple days but did not have any black stools today. No vomiting blood. This has some vague lower abdominal discomfort. He was scheduled to have a routine colonoscopy at the end of last week but did not go to it because he was not feeling well. He is not on anticoagulation. Does not use nonsteroidal anti-inflammatories. Related Data Home Medications Medication Instructions Recorded Confirmed metformin 500 mg tablet 500 mg PO DAILY ##0 09/22/11 09/16/22 (Glucophage) albuterol sulfate 90 mcg/actuation 2 puff inhalation Q6HR PRN Wheezing 12/15/18 09/16/22 aerosol inhaler Allergies Allergy/AdvReac Type Severity Reaction Status Date / Time ibuprofen [IBUPROFEN] Allergy Severe RASH Verified 09/16/22 16:01 Review of Systems Review of Systems ROS Unobtainable: All systems reviewed & are unremarkable except as noted in HPI and below Patient History Medical History Acute exacerbation of chronic obstructive pulmonary disease (COPD) Alcoholism Asthma Cirrhosis of liver Diabetes Hard of hearing History of gastric ulcer History of kidney stones HTN (hypertension) Hypoxia Portal hypertension Tobacco use disorder, moderate, in early remission, dependence Type 2 diabetes mellitus Surgical History H/O right knee surgery Family History Mother Colon cancer Father Diabetes mellitus Social History household members: family lives independently: Yes Smoking Status: Former smoker alcohol intake: former Smoking Status: Former smoker alcohol intake frequency: holidays/special occasions only Substance Use Type: does not use and marijuana Exam Initial Vital Signs Initial Vital Signs: Vital Signs Pulse Rate 137 H 09/16/22 15:50 Pulse Oximetry 99 09/16/22 15:50 Const General: No ill appearing HENMT Head: normal to inspection and normocephalic Resp Effort & Inspection: normal respiratory effort Auscultation: clear to auscultation bilaterally Cardio Rate: tachycardic Rhythm: regular rhythm GI Inspection: normal to inspection and non-distended Palpation: No firm and No guarding Skin Other: No redness around the left wrist of the right ankle. Neuro General: patient alert and patient awake Extrem Other: Does have swelling to the left wrist in the lateral aspect of the right ankle. He does have full range of motion both some discomfort. His right knee and right hip and left elbow and left shoulder her unremarkable. Course Orders Ordered: ED Orders 09/16/22 16:20 Respiratory Panel (Film Array) Stat 09/16/22 17:05 Blood Culture Stat 09/16/22 18:10 A1C [Hemoglobin A1C% w Est Avg Glu] Stat CBC Auto Diff [Complete Blood Count AUTO DIFF] Stat 09/16/22 22:00 CBC Auto Diff [Complete Blood Count AUTO DIFF] Stat Acetaminophen (Acetaminophen 325 Mg Tablet) 650 mg PO Q6H PRN PRN Reason: Fever/Mild Pain (1-3) Al Hydrox/Mg Hydrox/Simethicone (Mag Hydrox/Alum/Simeth 30 Ml Udc) 30 ml PO Q6HR PRN PRN Reason: Dyspepsia Calcium Carbonate (Calcium Carbonate 500 Mg Tab) 1,000 mg PO Q4HR PRN PRN Reason: Dyspepsia Dextrose (Dextrose 50 % In Water 25 Gm/50 Ml Syringe) 25 gm IV PRN PRN PRN Reason: Hypoglycemia Hydromorphone HCl (Hydromorphone 0.5 Mg Inj) 0.5 mg IV Q4H PRN PRN Reason: pain 1-10 Dextrose/Sodium Chloride (Dextrose 5%-0.9% Ns) 1,000 mls @ 80 mls/hr IV CONT JACQUELINE Last Admin: 03/27/23 23:20 Dose: 80 mls/hr Documented By: THOMPSON Insulin Human Lispro (Insulin Lispro 100 Unit/Ml 3ml Vial) 0 unit SUBCUT Q6H [facility]; Protocol Last Admin: 09/17/22 00:29 Dose: Not Given Documented By: [facility] Naloxone HCl (Naloxone 0.4 Mg/Ml Vial) 0.2 mg IV Q2MIN PRN PRN Reason: Opiate Reversal Ondansetron HCl (Ondansetron 4 Mg/2 Ml Inj) 4 mg IV Q4HR PRN PRN Reason: Nausea And Vomiting Last Admin: 09/16/22 23:20 Dose: 4 mg Documented By: [facility] Oxycodone HCl (Oxycodone Ir 10 Mg Tablet) 10 mg PO Q4HR PRN PRN Reason: Pain, Severe (5-10 Last Admin: 09/16/22 23:05 Dose: 10 mg Documented By: THOMPSON Pantoprazole Sodium (Pantoprazole 40 Mg Vial) 40 mg IV BID [facility] Sodium Chloride (Sodium Chloride 0.9% Flush) 10 ml IV PRN PRN PRN Reason: Flush Sodium Chloride (Sodium Chloride 0.9% Flush) 10 ml IV BID JACQUELINE Discontinued Medications Sodium Chloride (Normal Saline 0.9%) 1,000 mls @ 60 mls/hr IV CONT [facility] Last Admin: 09/16/22 23:25 Dose: Not Given Documented By: THOMPSON Insulin Human Lispro (Insulin Lispro 100 Unit/Ml 3ml Vial) 0 unit SUBCUT ACHS [facility]; Protocol Morphine Sulfate (Morphine 4 Mg/Ml Inj) 4 mg IV NOW ONE Stop: 09/16/22 18:58 Last Admin: 09/16/22 19:14 Dose: 4 mg Documented By: AT Morphine Sulfate (Morphine 4 Mg/Ml Inj) 4 mg IV NOW ONE Stop: 09/16/22 20:29 Last Admin: 09/16/22 20:34 Dose: 4 mg Documented By: SB Ondansetron HCl (Ondansetron 4 Mg/2 Ml Inj) 4 mg IV NOW PRN PRN Reason: Nausea And Vomiting Ondansetron HCl (Ondansetron 4 Mg Odt) 4 mg SL NOW PRN PRN Reason: Nausea And Vomiting Pantoprazole Sodium (Pantoprazole 40 Mg Vial) 80 mg IV NOW ONE Stop: 09/16/22 15:59 Last Admin: 09/16/22 16:14 Dose: 80 mg Documented By: AT Vital Signs Vital signs: Vital Signs - 8 hr 09/16/22 17:30 09/16/22 17:30 09/16/22 18:00 Pulse Rate 119 H Respiratory Rate 17 Blood Pressure 135/83 139/84 Pulse Oximetry 98 Oxygen Delivery Method Room Air 09/16/22 18:00 09/16/22 18:30 09/16/22 18:30 Pulse Rate 122 H 126 H Respiratory Rate 25 H 22 Blood Pressure 148/85 H Pulse Oximetry 95 Oxygen Delivery Method Room Air 09/16/22 19:00 09/16/22 19:00 09/16/22 19:30 Pulse Rate 129 H Respiratory Rate 20 Blood Pressure 142/92 H 110/67 Pulse Oximetry Oxygen Delivery Method 09/16/22 19:30 09/16/22 20:00 09/16/22 20:01 Pulse Rate 116 H 114 H Respiratory Rate 19 23 Blood Pressure 131/81 Pulse Oximetry 97 Oxygen Delivery Method 09/16/22 20:01 Pulse Rate 123 H Respiratory Rate 20 Blood Pressure Pulse Oximetry 93 Oxygen Delivery Method MDM - GI Bleed Lab Data Attestation: I reviewed the patient's lab results. 09/16/22 18:10 09/16/22 15:52 Labs: Lab Results 09/16/22 09/16/22 09/16/22 Range/Units 15:45 15:45 15:52 WBC 12.8 H (4.5-11.0) X10^3/uL RBC 4.79 (4.5-5.9) X10^6/uL Hgb 9.6 L (13.5-17.5) g/dL Hct 30.6 L (41-53) % MCV 63.9 L (80-100) fL MCH 20.0 L (26-34) PG MCHC 31.4 (30-36) % RDW 16.2 H (11.6-14.8) % Plt Count 445 H (150-400) X10^3/uL Neut % (Auto) 77.6 H (50-75) % Lymph % (Auto) 11.1 L (25-40) % [place] % (Auto) 7.4 (3-14) % Eos % (Auto) 2.7 (2-4) % Baso % (Auto) 1.2 (0-2) % Neut # (Auto) 38439 H (9939-0407) /uL Lymph # (Auto) 1400 (3219-6171) /uL [place] # (Auto) 1000 H (0-900) /uL Eos # (Auto) 300 (0-450) /uL Baso # (Auto) 200 H (0-100) /uL RBC Morphology See below Hypochromasia 1+ H Microcytosis 2+ H Stomatocytes 1+ H ESR (0-15) MM/HR PT (10.1-12.7) SECONDS INR (0.9-1.3) APTT (26-36) SECONDS Sodium (137-145) mmol/L Potassium (3.4-5.1) mmol/L Chloride (98-107) mmol/L Carbon Dioxide (22-32) mmol/L BUN (9-20) mg/dL Creatinine (0.66-1.25) mg/dL Estimated GFR (>60) mL/min BUN/Creatinine Ratio (6-22) Glucose (80-110) mg/dL Hemoglobin A1c (4.0-6.0) % Lactate (0.7-2.1) mmol/L Uric Acid (3.5-8.5) mg/dL Calcium (8.4-10.2) mg/dL Magnesium (1.6-2.3) mg/dL Total Bilirubin (0.2-1.3) mg/dL AST (17-59) IU/L ALT (<50) IU/L Alkaline Phosphatase (38-126) U/L C-Reactive Protein (<1.0) mg/dL Total Protein (6.3-8.2) g/dL Albumin (3.5-5.0) g/dL Globulin (1.7-4.1) g/dL Albumin/Globulin Ratio (1.0-2.8) Procalcitonin (<0.5) ng/mL Urine Color Yellow Urine Appearance Clear Urine pH 6.5 (4.5-8.0) Ur Specific [place] 1.010 (1.000-1.035) Urine Protein Trace H (Negative) Urine Glucose (UA) Negative (Negative) g/dL Urine Ketones Negative (NEGATIVE) Urine Occult Blood Trace-intact (Negative) Urine Nitrate Negative (Negative) Urine Bilirubin Negative (NEGATIVE) Urine Urobilinogen 2.0 H (0.2) E.U./dL Ur Leukocyte Esterase 1+ H (NEGATIVE) Urine RBC 0-1/hpf (0-5/HPF) Urine WBC 1-5/hpf (0-5/HPF) Ur Squamous Epith Cells 0-1 /hpf (0-5/HPF) Calcium Oxalate Crystal Many H Urine Bacteria None seen (None) Ur Culture Indicated? Specimen cultured Stool Occult Blood Positive H (Negative) Chlamy pneumoniae PCR (Not Detect) Adenovirus (PCR) (Not Detect) B. pertussis DNA (PCR) (Not Detecte) B.parapertussis DNA PCR (Not Detecte) Coronavirus OC43 (PCR) (Not Detect) Coronavirus HKU1 (PCR) (Not Detect) Coronavirus 229E (PCR) (Not Detect) SARS-CoV-2 (PCR) (Not Detecte) Coronavirus NL63 (PCR) (Not Detect) Human Metapneumovir PCR (Not Detect) Influenza Type A (PCR) (Not Detect) Influenza Type B (PCR) (Not Detect) M. pneumoniae (PCR) (Not Detect) Parainfluenza 1 (PCR) (Not Detect) Parainfluenza 2 (PCR) (Not Detect) Parainfluenza 3 (PCR) (Not Detect) Parainfluenza 4 (PCR) (Not Detect) RSV (PCR) (Not Detect) Entero/Rhino (PCR) (Not Detect) Blood Type Antibody Screen 09/16/22 09/16/22 09/16/22 Range/Units 15:52 15:52 15:52 WBC (4.5-11.0) X10^3/uL RBC (4.5-5.9) X10^6/uL Hgb (13.5-17.5) g/dL Hct (41-53) % MCV (80-100) fL MCH (26-34) PG MCHC (30-36) % RDW (11.6-14.8) % Plt Count (150-400) X10^3/uL Neut % (Auto) (50-75) % Lymph % (Auto) (25-40) % [place] % (Auto) (3-14) % Eos % (Auto) (2-4) % Baso % (Auto) (0-2) % Neut # (Auto) (3176-2356) /uL Lymph # (Auto) (4922-2794) /uL [place] # (Auto) (0-900) /uL Eos # (Auto) (0-450) /uL Baso # (Auto) (0-100) /uL RBC Morphology Hypochromasia Microcytosis Stomatocytes ESR (0-15) MM/HR PT 13.5 H (10.1-12.7) SECONDS INR 1.2 (0.9-1.3) APTT 32 (26-36) SECONDS Sodium 135 L (137-145) mmol/L Potassium 3.4 (3.4-5.1) mmol/L Chloride 103 (98-107) mmol/L Carbon Dioxide 20 L (22-32) mmol/L BUN 9 (9-20) mg/dL Creatinine 1.06 (0.66-1.25) mg/dL Estimated GFR > 60 (>60) mL/min BUN/Creatinine Ratio 8.5 (6-22) Glucose 134 H (80-110) mg/dL Hemoglobin A1c (4.0-6.0) % Lactate (0.7-2.1) mmol/L Uric Acid (3.5-8.5) mg/dL Calcium 8.8 (8.4-10.2) mg/dL Magnesium (1.6-2.3) mg/dL Total Bilirubin 1.2 (0.2-1.3) mg/dL AST 21 (17-59) IU/L ALT 20 (<50) IU/L Alkaline Phosphatase 297 H (38-126) U/L C-Reactive Protein (<1.0) mg/dL Total Protein 8.3 H (6.3-8.2) g/dL Albumin 3.7 (3.5-5.0) g/dL Globulin 4.6 H (1.7-4.1) g/dL Albumin/Globulin Ratio 0.8 L (1.0-2.8) Procalcitonin (<0.5) ng/mL Urine Color Urine Appearance Urine pH (4.5-8.0) Ur Specific [place] (1.000-1.035) Urine Protein (Negative) Urine Glucose (UA) (Negative) g/dL Urine Ketones (NEGATIVE) Urine Occult Blood (Negative) Urine Nitrate (Negative) Urine Bilirubin (NEGATIVE) Urine Urobilinogen (0.2) E.U./dL Ur Leukocyte Esterase (NEGATIVE) Urine RBC (0-5/HPF) Urine WBC (0-5/HPF) Ur Squamous Epith Cells (0-5/HPF) Calcium Oxalate Crystal Urine Bacteria (None) Ur Culture Indicated? Stool Occult Blood (Negative) Chlamy pneumoniae PCR (Not Detect) Adenovirus (PCR) (Not Detect) B. pertussis DNA (PCR) (Not Detecte) B.parapertussis DNA PCR (Not Detecte) Coronavirus OC43 (PCR) (Not Detect) Coronavirus HKU1 (PCR) (Not Detect) Coronavirus 229E (PCR) (Not Detect) SARS-CoV-2 (PCR) (Not Detecte) Coronavirus NL63 (PCR) (Not Detect) Human Metapneumovir PCR (Not Detect) Influenza Type A (PCR) (Not Detect) Influenza Type B (PCR) (Not Detect) M. pneumoniae (PCR) (Not Detect) Parainfluenza 1 (PCR) (Not Detect) Parainfluenza 2 (PCR) (Not Detect) Parainfluenza 3 (PCR) (Not Detect) Parainfluenza 4 (PCR) (Not Detect) RSV (PCR) (Not Detect) Entero/Rhino (PCR) (Not Detect) Blood Type O Positive Antibody Screen Negative 09/16/22 09/16/22 09/16/22 Range/Units 15:52 15:52 15:52 WBC (4.5-11.0) X10^3/uL RBC (4.5-5.9) X10^6/uL Hgb (13.5-17.5) g/dL Hct (41-53) % MCV (80-100) fL MCH (26-34) PG MCHC (30-36) % RDW (11.6-14.8) % Plt Count (150-400) X10^3/uL Neut % (Auto) (50-75) % Lymph % (Auto) (25-40) % [place] % (Auto) (3-14) % Eos % (Auto) (2-4) % Baso % (Auto) (0-2) % Neut # (Auto) (0695-7765) /uL Lymph # (Auto) (5169-8595) /uL [place] # (Auto) (0-900) /uL Eos # (Auto) (0-450) /uL Baso # (Auto) (0-100) /uL RBC Morphology Hypochromasia Microcytosis Stomatocytes ESR (0-15) MM/HR PT (10.1-12.7) SECONDS INR (0.9-1.3) APTT (26-36) SECONDS Sodium (137-145) mmol/L Potassium (3.4-5.1) mmol/L Chloride (98-107) mmol/L Carbon Dioxide (22-32) mmol/L BUN (9-20) mg/dL Creatinine (0.66-1.25) mg/dL Estimated GFR (>60) mL/min BUN/Creatinine Ratio (6-22) Glucose (80-110) mg/dL Hemoglobin A1c (4.0-6.0) % Lactate 1.9 (0.7-2.1) mmol/L Uric Acid 3.9 (3.5-8.5) mg/dL Calcium (8.4-10.2) mg/dL Magnesium (1.6-2.3) mg/dL Total Bilirubin (0.2-1.3) mg/dL AST (17-59) IU/L ALT (<50) IU/L Alkaline Phosphatase (38-126) U/L C-Reactive Protein (<1.0) mg/dL Total Protein (6.3-8.2) g/dL Albumin (3.5-5.0) g/dL Globulin (1.7-4.1) g/dL Albumin/Globulin Ratio (1.0-2.8) Procalcitonin 0.16 (<0.5) ng/mL Urine Color Urine Appearance Urine pH (4.5-8.0) Ur Specific [place] (1.000-1.035) Urine Protein (Negative) Urine Glucose (UA) (Negative) g/dL Urine Ketones (NEGATIVE) Urine Occult Blood (Negative) Urine Nitrate (Negative) Urine Bilirubin (NEGATIVE) Urine Urobilinogen (0.2) E.U./dL Ur Leukocyte Esterase (NEGATIVE) Urine RBC (0-5/HPF) Urine WBC (0-5/HPF) Ur Squamous Epith Cells (0-5/HPF) Calcium Oxalate Crystal Urine Bacteria (None) Ur Culture Indicated? Stool Occult Blood (Negative) Chlamy pneumoniae PCR (Not Detect) Adenovirus (PCR) (Not Detect) B. pertussis DNA (PCR) (Not Detecte) B.parapertussis DNA PCR (Not Detecte) Coronavirus OC43 (PCR) (Not Detect) Coronavirus HKU1 (PCR) (Not Detect) Coronavirus 229E (PCR) (Not Detect) SARS-CoV-2 (PCR) (Not Detecte) Coronavirus NL63 (PCR) (Not Detect) Human Metapneumovir PCR (Not Detect) Influenza Type A (PCR) (Not Detect) Influenza Type B (PCR) (Not Detect) M. pneumoniae (PCR) (Not Detect) Parainfluenza 1 (PCR) (Not Detect) Parainfluenza 2 (PCR) (Not Detect) Parainfluenza 3 (PCR) (Not Detect) Parainfluenza 4 (PCR) (Not Detect) RSV (PCR) (Not Detect) Entero/Rhino (PCR) (Not Detect) Blood Type Antibody Screen 09/16/22 09/16/22 09/16/22 Range/Units 15:52 15:52 15:52 WBC (4.5-11.0) X10^3/uL RBC (4.5-5.9) X10^6/uL Hgb (13.5-17.5) g/dL Hct (41-53) % MCV (80-100) fL MCH (26-34) PG MCHC (30-36) % RDW (11.6-14.8) % Plt Count (150-400) X10^3/uL Neut % (Auto) (50-75) % Lymph % (Auto) (25-40) % [place] % (Auto) (3-14) % Eos % (Auto) (2-4) % Baso % (Auto) (0-2) % Neut # (Auto) (9710-4927) /uL Lymph # (Auto) (0193-7202) /uL [place] # (Auto) (0-900) /uL Eos # (Auto) (0-450) /uL Baso # (Auto) (0-100) /uL RBC Morphology Hypochromasia Microcytosis Stomatocytes ESR 83 H (0-15) MM/HR PT (10.1-12.7) SECONDS INR (0.9-1.3) APTT (26-36) SECONDS Sodium (137-145) mmol/L Potassium (3.4-5.1) mmol/L Chloride (98-107) mmol/L Carbon Dioxide (22-32) mmol/L BUN (9-20) mg/dL Creatinine (0.66-1.25) mg/dL Estimated GFR (>60) mL/min BUN/Creatinine Ratio (6-22) Glucose (80-110) mg/dL Hemoglobin A1c (4.0-6.0) % Lactate (0.7-2.1) mmol/L Uric Acid (3.5-8.5) mg/dL Calcium (8.4-10.2) mg/dL Magnesium 1.9 (1.6-2.3) mg/dL Total Bilirubin (0.2-1.3) mg/dL AST (17-59) IU/L ALT (<50) IU/L Alkaline Phosphatase (38-126) U/L C-Reactive Protein 8.0 H (<1.0) mg/dL Total Protein (6.3-8.2) g/dL Albumin (3.5-5.0) g/dL Globulin (1.7-4.1) g/dL Albumin/Globulin Ratio (1.0-2.8) Procalcitonin (<0.5) ng/mL Urine Color Urine Appearance Urine pH (4.5-8.0) Ur Specific [place] (1.000-1.035) Urine Protein (Negative) Urine Glucose (UA) (Negative) g/dL Urine Ketones (NEGATIVE) Urine Occult Blood (Negative) Urine Nitrate (Negative) Urine Bilirubin (NEGATIVE) Urine Urobilinogen (0.2) E.U./dL Ur Leukocyte Esterase (NEGATIVE) Urine RBC (0-5/HPF) Urine WBC (0-5/HPF) Ur Squamous Epith Cells (0-5/HPF) Calcium Oxalate Crystal Urine Bacteria (None) Ur Culture Indicated? Stool Occult Blood (Negative) Chlamy pneumoniae PCR (Not Detect) Adenovirus (PCR) (Not Detect) B. pertussis DNA (PCR) (Not Detecte) B.parapertussis DNA PCR (Not Detecte) Coronavirus OC43 (PCR) (Not Detect) Coronavirus HKU1 (PCR) (Not Detect) Coronavirus 229E (PCR) (Not Detect) SARS-CoV-2 (PCR) (Not Detecte) Coronavirus NL63 (PCR) (Not Detect) Human Metapneumovir PCR (Not Detect) Influenza Type A (PCR) (Not Detect) Influenza Type B (PCR) (Not Detect) M. pneumoniae (PCR) (Not Detect) Parainfluenza 1 (PCR) (Not Detect) Parainfluenza 2 (PCR) (Not Detect) Parainfluenza 3 (PCR) (Not Detect) Parainfluenza 4 (PCR) (Not Detect) RSV (PCR) (Not Detect) Entero/Rhino (PCR) (Not Detect) Blood Type Antibody Screen 09/16/22 09/16/22 09/16/22 Range/Units 16:20 18:10 18:10 WBC 10.3 (4.5-11.0) X10^3/uL RBC 4.47 L (4.5-5.9) X10^6/uL Hgb 9.2 L (13.5-17.5) g/dL Hct 28.6 L (41-53) % MCV 64.0 L (80-100) fL MCH 20.6 L (26-34) PG MCHC 32.2 (30-36) % RDW 16.2 H (11.6-14.8) % Plt Count 378 (150-400) X10^3/uL Neut % (Auto) 81.2 H (50-75) % Lymph % (Auto) 9.3 L (25-40) % [place] % (Auto) 6.7 (3-14) % Eos % (Auto) 2.1 (2-4) % Baso % (Auto) 0.7 (0-2) % Neut # (Auto) 8300 H (9098-5475) /uL Lymph # (Auto) 1000 L (8340-0137) /uL [place] # (Auto) 700 (0-900) /uL Eos # (Auto) 200 (0-450) /uL Baso # (Auto) 100 (0-100) /uL RBC Morphology See below Hypochromasia 1+ H Microcytosis 2+ H Stomatocytes ESR (0-15) MM/HR PT (10.1-12.7) SECONDS INR (0.9-1.3) APTT (26-36) SECONDS Sodium (137-145) mmol/L Potassium (3.4-5.1) mmol/L Chloride (98-107) mmol/L Carbon Dioxide (22-32) mmol/L BUN (9-20) mg/dL Creatinine (0.66-1.25) mg/dL Estimated GFR (>60) mL/min BUN/Creatinine Ratio (6-22) Glucose (80-110) mg/dL Hemoglobin A1c 6.0 (4.0-6.0) % Lactate (0.7-2.1) mmol/L Uric Acid (3.5-8.5) mg/dL Calcium (8.4-10.2) mg/dL Magnesium (1.6-2.3) mg/dL Total Bilirubin (0.2-1.3) mg/dL AST (17-59) IU/L ALT (<50) IU/L Alkaline Phosphatase (38-126) U/L C-Reactive Protein (<1.0) mg/dL Total Protein (6.3-8.2) g/dL Albumin (3.5-5.0) g/dL Globulin (1.7-4.1) g/dL Albumin/Globulin Ratio (1.0-2.8) Procalcitonin (<0.5) ng/mL Urine Color Urine Appearance Urine pH (4.5-8.0) Ur Specific [place] (1.000-1.035) Urine Protein (Negative) Urine Glucose (UA) (Negative) g/dL Urine Ketones (NEGATIVE) Urine Occult Blood (Negative) Urine Nitrate (Negative) Urine Bilirubin (NEGATIVE) Urine Urobilinogen (0.2) E.U./dL Ur Leukocyte Esterase (NEGATIVE) Urine RBC (0-5/HPF) Urine WBC (0-5/HPF) Ur Squamous Epith Cells (0-5/HPF) Calcium Oxalate Crystal Urine Bacteria (None) Ur Culture Indicated? Stool Occult Blood (Negative) Chlamy pneumoniae PCR Not detected (Not Detect) Adenovirus (PCR) Not detected (Not Detect) B. pertussis DNA (PCR) Not detected (Not Detecte) B.parapertussis DNA PCR Not detected (Not Detecte) Coronavirus OC43 (PCR) Not detected (Not Detect) Coronavirus HKU1 (PCR) Not detected (Not Detect) Coronavirus 229E (PCR) Not detected (Not Detect) SARS-CoV-2 (PCR) Not detected (Not Detecte) Coronavirus NL63 (PCR) Not detected (Not Detect) Human Metapneumovir PCR Not detected (Not Detect) Influenza Type A (PCR) Not detected (Not Detect) Influenza Type B (PCR) Not detected (Not Detect) M. pneumoniae (PCR) Not detected (Not Detect) Parainfluenza 1 (PCR) Not detected (Not Detect) Parainfluenza 2 (PCR) Not detected (Not Detect) Parainfluenza 3 (PCR) Not detected (Not Detect) Parainfluenza 4 (PCR) Not detected (Not Detect) RSV (PCR) Not detected (Not Detect) Entero/Rhino (PCR) Not detected (Not Detect) Blood Type Antibody Screen ECG Data Attestation: I personally reviewed and interpreted this ECG as follows: Interpretation: Sinus tachycardia Ventricular rate 124 Normal axis Normal QRS Normal QTC No ST T wave changes MDM Narrative Medical decision making narrative: Patient has had several days of nontraumatic left wrist and right ankle discomfort. There is some swelling but no warmth and no redness. Low suspicion for gout. Low suspicion for infection. Low suspicion for fracture as well. Patient is anemic. He is had black-colored stools recently. No fevers. When I discussed this with him he states he has been feeling very fatigued and having dyspnea on exertion with the past couple days as well. I did discuss the case with Dr. De La Fuente with general surgery who agrees to see the patient upon admission. Discussed the case with the [facility] Guillermo the [facility] hospital provider who will admit for further evaluation. Discussed the need for admission with the patient who expressed understanding and agreement as well. Discharge Plan Departure Patient Disposition: Admitted As Inpatient Clinical Impression: Arthralgia, GI bleed, Anemia Admit Date/Time: 09/16/22 20:26 Admit Provider: Perri Li
[2022-09-16] MEDS: MORPHINE 4 MG/ML INJ IV ×2 (19:14→20:34)
[2022-09-16 19:32] LABS: Hypochromasia 1+; Microcytosis 2+
[2022-09-16 20:17] LABS: Erythrocyte Sedimentation Rate 83 MM/HR (0-15)
[2022-09-16 20:23] LABS: Uric Acid 3.9 mg/dL (3.5-8.5)
--- NOTE | 2022-09-16 22:36 | DI.RAD.S_ITS ---
PROCEDURE: XR CHEST 1V INDICATIONS: Tachycardia, tachypnea, GI bleed TECHNIQUE: One view of the chest was acquired. COMPARISON: [facility], CR, XR CHEST 1V, 05/25/2021, 21:05. [facility], CR, XR CHEST 1V, 12/15/2018, 18:50. FINDINGS: Surgical changes and devices: None. Lungs and pleura: Lungs are clear. No pleural effusions or pneumothorax. Mediastinum: Mediastinal contours appear normal. Heart size is normal. Bones and chest wall: No suspicious bony lesions. Overlying soft tissues appear unremarkable. IMPRESSION: No acute cardiopulmonary process. Dictated by: Wil Lopes M.D. on 09/17/2022 at 9:29 Approved by: Wil Lopes M.D. on 09/17/2022 at 9:30
--- NOTE | 2022-09-16 22:45 | P.HP_ITS ---
History of Present Illness History of Present Illness Date Patient Seen: 09/16/22 Time Patient Seen: 22:45 Chief complaint: Joint pain Narrative: Edgar Hernandez Jr is a 67-year-old male with a history of COPD, pulmonary hypertension, CAD, essential HTN, alcoholism, cirrhosis, Asthma, daily smoker, non insulin diabetes?. He presented to the ED today for fatigue body aches joint pain weakness and black tarry stools. He states that there is not any specific trauma.? He is never had a history of gout.? No fevers.? He states the pain is radiating up his left arm and also up his right leg.? Does have a history of diabetes.? He did take a pain medication that was given to him by a friend of his and he states it did not help any of his symptoms.? He denies any fevers.? In triage was found that he was tachycardic.? He stated that he has been having black-colored stools and also diarrhea over the past couple days but did not have any black stools today.? No vomiting blood.? This has some vague lower abdominal discomfort.? He was scheduled to have a routine colonoscopy at the end of last week but did not go to it because he was not feeling well.? He is not on anticoagulation.? Does not use nonsteroidal anti-inflammatories. In ED tachycardic heart rates in the 130s, respiratory rates in the 20s with a low- grade fever- WBC 12.8, with a neutrophilic shift, H&H 9.6/30.6, PLT 445 within 3 hours WBC had resolved 10.3, H&H dropped slightly 9.2-28.6, and platelets normalized. On admit temp 99.5?, BP 128/83, HR 113, R 20, 98% on room air. H&H 9.2/28.6, bicarb 20, glucose 134, PT 13.5, INR 1.2 patient was guaiac positive, urinalysis was positive for urine bili leukocytes WBCs culture is pending lactate, procalcitonin, respiratory panel, uric acid were all within normal limits. Sudhakar was consulted states that patient will be NPO at midnight on 09/18 as he can not take him to the OR tomorrow for a scope. Patient has been typed and crossed is O-positive. Patient admitted for lower GI bleed, blood-loss anemia. Patient History Medical History Acute exacerbation of chronic obstructive pulmonary disease (COPD) Alcoholism Asthma Cirrhosis of liver Diabetes Hard of hearing History of gastric ulcer History of kidney stones HTN (hypertension) Hypoxia Portal hypertension Tobacco use disorder, moderate, in early remission, dependence Type 2 diabetes mellitus Surgical History H/O right knee surgery Family & Social History Family History Mother Colon cancer Father Diabetes mellitus Social History: household members family lives independently Yes Safety & Behavioral: Feels Safe in Current Yes Environment Been Physically Hurt or No Threatened By a Person Tobacco & Substance use: Smoking Status Former smoker alcohol intake former alcohol intake frequency holiday/special occasion Substance Use Type marijuana,does not use Meds Home Medications and Allergies Home Medications Medication Instructions Recorded Confirmed Type metformin 500 mg tablet 500 mg PO DAILY ##0 09/22/11 09/16/22 History (Glucophage) albuterol sulfate 90 mcg/actuation 2 puff inhalation Q6HR PRN Wheezing 12/15/18 09/16/22 History aerosol inhaler Allergies Allergy/AdvReac Type Severity Reaction Status Date / Time ibuprofen [IBUPROFEN] Allergy Severe RASH Verified 09/16/22 16:01 Review of Systems Review of Systems Narrative: All 12 point systems reviewed with the patient and are negative except otherwise documented. Exam Vital Signs (past 8 hours): - 09/16/22 15:53 09/16/22 15:50 09/16/22 16:00 Temperature 98.2 F Pulse Rate 132 H 137 H Respiratory Rate 22 Blood Pressure 147/93 H 142/78 H Pulse Oximetry 99 99 Oxygen Delivery Method Room Air Oxygen Flow Rate 09/16/22 16:00 09/16/22 16:30 09/16/22 16:30 Temperature Pulse Rate 127 H 123 H Respiratory Rate 25 H 18 Blood Pressure 132/86 Pulse Oximetry 100 98 Oxygen Delivery Method Room Air Room Air Oxygen Flow Rate 09/16/22 17:00 09/16/22 17:00 09/16/22 17:30 Temperature Pulse Rate 121 H Respiratory Rate 26 H Blood Pressure 131/83 135/83 Pulse Oximetry 99 Oxygen Delivery Method Room Air Oxygen Flow Rate 09/16/22 17:30 09/16/22 18:00 09/16/22 18:00 Temperature Pulse Rate 119 H 122 H Respiratory Rate 17 25 H Blood Pressure 139/84 Pulse Oximetry 98 95 Oxygen Delivery Method Room Air Room Air Oxygen Flow Rate 09/16/22 18:30 09/16/22 18:30 09/16/22 19:00 Temperature Pulse Rate 126 H Respiratory Rate 22 Blood Pressure 148/85 H 142/92 H Pulse Oximetry Oxygen Delivery Method Oxygen Flow Rate 09/16/22 19:00 09/16/22 19:30 09/16/22 19:30 Temperature Pulse Rate 129 H 116 H Respiratory Rate 20 19 Blood Pressure 110/67 Pulse Oximetry Oxygen Delivery Method Oxygen Flow Rate 09/16/22 20:00 09/16/22 20:01 09/16/22 20:01 Temperature Pulse Rate 114 H 123 H Respiratory Rate 23 20 Blood Pressure 131/81 Pulse Oximetry 97 93 Oxygen Delivery Method Oxygen Flow Rate 09/16/22 20:50 Temperature 99.5 F Pulse Rate 113 H Respiratory Rate 20 Blood Pressure 128/83 Pulse Oximetry 98 Oxygen Delivery Method Oxygen Flow Rate 0 Oxygen Delivery Method Room Air Oxygen Flow Rate 0 Narrative Exam Narrative: General: No ill appearing, patient is stable in no distress HENMA Head: normal to inspection and normocephalic Resp Effort & Inspection: normal respiratory effort Auscultation: Of all lung [place] clear to auscultation bilaterally Cardio Rate: tachycardic Rhythm: regular rhythm GI Inspection: Bowel sounds diminished but present in all 4 quadrants, nontender normal to inspection and non-distended Palpation: No firm and No guarding Skin Other: Patient verbalized extensive pain to even the slightest touch of the right foot or ankle-no edema present bilaterally, no open wounds injuries bruising deformity, or signs and symptoms of infection present No redness around the left wrist of the right ankle. Neuro General: patient alert and patient awake Extrem Other: Does have swelling to the left wrist in the lateral aspect of the right ankle.? He does have full range of motion both some discomfort.? His right knee and right hip and left elbow and left shoulder her unremarkable. Objective Labs 09/17/22 00:59 09/16/22 15:52 Labs: Laboratory Results - last 24 hr 09/16/22 09/16/22 09/16/22 15:45 15:45 15:52 WBC 12.8 H RBC 4.79 Hgb 9.6 L Hct 30.6 L MCV 63.9 L MCH 20.0 L MCHC 31.4 RDW 16.2 H Plt Count 445 H Neut % (Auto) 77.6 H Lymph % (Auto) 11.1 L [place] % (Auto) 7.4 Eos % (Auto) 2.7 Baso % (Auto) 1.2 Neut # (Auto) 09412 H Lymph # (Auto) 1400 [place] # (Auto) 1000 H Eos # (Auto) 300 Baso # (Auto) 200 H RBC Morphology See below Hypochromasia 1+ H Microcytosis 2+ H Stomatocytes 1+ H ESR PT INR APTT Sodium Potassium Chloride Carbon Dioxide BUN Creatinine Estimated GFR BUN/Creatinine Ratio Glucose Hemoglobin A1c Lactate Uric Acid Calcium Total Bilirubin AST ALT Alkaline Phosphatase C-Reactive Protein Total Protein Albumin Globulin Albumin/Globulin Ratio Procalcitonin Urine Color Yellow Urine Appearance Clear Urine pH 6.5 Ur Specific [place] 1.010 Urine Protein Trace H Urine Glucose (UA) Negative Urine Ketones Negative Urine Occult Blood Trace-intact Urine Nitrate Negative Urine Bilirubin Negative Urine Urobilinogen 2.0 H Ur Leukocyte Esterase 1+ H Urine RBC 0-1/hpf Urine WBC 1-5/hpf Ur Squamous Epith Cells 0-1 /hpf Calcium Oxalate Crystal Many H Urine Bacteria None seen Ur Culture Indicated? Specimen cultured Stool Occult Blood Positive H Chlamy pneumoniae PCR Adenovirus (PCR) B. pertussis DNA (PCR) B.parapertussis DNA PCR Coronavirus OC43 (PCR) Coronavirus HKU1 (PCR) Coronavirus 229E (PCR) SARS-CoV-2 (PCR) Coronavirus NL63 (PCR) Human Metapneumovir PCR Influenza Type A (PCR) Influenza Type B (PCR) M. pneumoniae (PCR) Parainfluenza 1 (PCR) Parainfluenza 2 (PCR) Parainfluenza 3 (PCR) Parainfluenza 4 (PCR) RSV (PCR) Entero/Rhino (PCR) Blood Type Antibody Screen 09/16/22 09/16/22 09/16/22 15:52 15:52 15:52 WBC RBC Hgb Hct MCV MCH MCHC RDW Plt Count Neut % (Auto) Lymph % (Auto) [place] % (Auto) Eos % (Auto) Baso % (Auto) Neut # (Auto) Lymph # (Auto) [place] # (Auto) Eos # (Auto) Baso # (Auto) RBC Morphology Hypochromasia Microcytosis Stomatocytes ESR PT 13.5 H INR 1.2 APTT 32 Sodium 135 L Potassium 3.4 Chloride 103 Carbon Dioxide 20 L BUN 9 Creatinine 1.06 Estimated GFR > 60 BUN/Creatinine Ratio 8.5 Glucose 134 H Hemoglobin A1c Lactate Uric Acid Calcium 8.8 Total Bilirubin 1.2 AST 21 ALT 20 Alkaline Phosphatase 297 H C-Reactive Protein Total Protein 8.3 H Albumin 3.7 Globulin 4.6 H Albumin/Globulin Ratio 0.8 L Procalcitonin Urine Color Urine Appearance Urine pH Ur Specific [place] Urine Protein Urine Glucose (UA) Urine Ketones Urine Occult Blood Urine Nitrate Urine Bilirubin Urine Urobilinogen Ur Leukocyte Esterase Urine RBC Urine WBC Ur Squamous Epith Cells Calcium Oxalate Crystal Urine Bacteria Ur Culture Indicated? Stool Occult Blood Chlamy pneumoniae PCR Adenovirus (PCR) B. pertussis DNA (PCR) B.parapertussis DNA PCR Coronavirus OC43 (PCR) Coronavirus HKU1 (PCR) Coronavirus 229E (PCR) SARS-CoV-2 (PCR) Coronavirus NL63 (PCR) Human Metapneumovir PCR Influenza Type A (PCR) Influenza Type B (PCR) M. pneumoniae (PCR) Parainfluenza 1 (PCR) Parainfluenza 2 (PCR) Parainfluenza 3 (PCR) Parainfluenza 4 (PCR) RSV (PCR) Entero/Rhino (PCR) Blood Type O Positive Antibody Screen Negative 09/16/22 09/16/22 09/16/22 15:52 15:52 15:52 WBC RBC Hgb Hct MCV MCH MCHC RDW Plt Count Neut % (Auto) Lymph % (Auto) [place] % (Auto) Eos % (Auto) Baso % (Auto) Neut # (Auto) Lymph # (Auto) [place] # (Auto) Eos # (Auto) Baso # (Auto) RBC Morphology Hypochromasia Microcytosis Stomatocytes ESR PT INR APTT Sodium Potassium Chloride Carbon Dioxide BUN Creatinine Estimated GFR BUN/Creatinine Ratio Glucose Hemoglobin A1c Lactate 1.9 Uric Acid 3.9 Calcium Total Bilirubin AST ALT Alkaline Phosphatase C-Reactive Protein Total Protein Albumin Globulin Albumin/Globulin Ratio Procalcitonin 0.16 Urine Color Urine Appearance Urine pH Ur Specific [place] Urine Protein Urine Glucose (UA) Urine Ketones Urine Occult Blood Urine Nitrate Urine Bilirubin Urine Urobilinogen Ur Leukocyte Esterase Urine RBC Urine WBC Ur Squamous Epith Cells Calcium Oxalate Crystal Urine Bacteria Ur Culture Indicated? Stool Occult Blood Chlamy pneumoniae PCR Adenovirus (PCR) B. pertussis DNA (PCR) B.parapertussis DNA PCR Coronavirus OC43 (PCR) Coronavirus HKU1 (PCR) Coronavirus 229E (PCR) SARS-CoV-2 (PCR) Coronavirus NL63 (PCR) Human Metapneumovir PCR Influenza Type A (PCR) Influenza Type B (PCR) M. pneumoniae (PCR) Parainfluenza 1 (PCR) Parainfluenza 2 (PCR) Parainfluenza 3 (PCR) Parainfluenza 4 (PCR) RSV (PCR) Entero/Rhino (PCR) Blood Type Antibody Screen 09/16/22 09/16/22 09/16/22 15:52 15:52 16:20 WBC RBC Hgb Hct MCV MCH MCHC RDW Plt Count Neut % (Auto) Lymph % (Auto) [place] % (Auto) Eos % (Auto) Baso % (Auto) Neut # (Auto) Lymph # (Auto) [place] # (Auto) Eos # (Auto) Baso # (Auto) RBC Morphology Hypochromasia Microcytosis Stomatocytes ESR 83 H PT INR APTT Sodium Potassium Chloride Carbon Dioxide BUN Creatinine Estimated GFR BUN/Creatinine Ratio Glucose Hemoglobin A1c Lactate Uric Acid Calcium Total Bilirubin AST ALT Alkaline Phosphatase C-Reactive Protein 8.0 H Total Protein Albumin Globulin Albumin/Globulin Ratio Procalcitonin Urine Color Urine Appearance Urine pH Ur Specific [place] Urine Protein Urine Glucose (UA) Urine Ketones Urine Occult Blood Urine Nitrate Urine Bilirubin Urine Urobilinogen Ur Leukocyte Esterase Urine RBC Urine WBC Ur Squamous Epith Cells Calcium Oxalate Crystal Urine Bacteria Ur Culture Indicated? Stool Occult Blood Chlamy pneumoniae PCR Not detected Adenovirus (PCR) Not detected B. pertussis DNA (PCR) Not detected B.parapertussis DNA PCR Not detected Coronavirus OC43 (PCR) Not detected Coronavirus HKU1 (PCR) Not detected Coronavirus 229E (PCR) Not detected SARS-CoV-2 (PCR) Not detected Coronavirus NL63 (PCR) Not detected Human Metapneumovir PCR Not detected Influenza Type A (PCR) Not detected Influenza Type B (PCR) Not detected M. pneumoniae (PCR) Not detected Parainfluenza 1 (PCR) Not detected Parainfluenza 2 (PCR) Not detected Parainfluenza 3 (PCR) Not detected Parainfluenza 4 (PCR) Not detected RSV (PCR) Not detected Entero/Rhino (PCR) Not detected Blood Type Antibody Screen 09/16/22 09/16/22 18:10 18:10 WBC 10.3 RBC 4.47 L Hgb 9.2 L Hct 28.6 L MCV 64.0 L MCH 20.6 L MCHC 32.2 RDW 16.2 H Plt Count 378 Neut % (Auto) 81.2 H Lymph % (Auto) 9.3 L [place] % (Auto) 6.7 Eos % (Auto) 2.1 Baso % (Auto) 0.7 Neut # (Auto) 8300 H Lymph # (Auto) 1000 L [place] # (Auto) 700 Eos # (Auto) 200 Baso # (Auto) 100 RBC Morphology See below Hypochromasia 1+ H Microcytosis 2+ H Stomatocytes ESR PT INR APTT Sodium Potassium Chloride Carbon Dioxide BUN Creatinine Estimated GFR BUN/Creatinine Ratio Glucose Hemoglobin A1c 6.0 Lactate Uric Acid Calcium Total Bilirubin AST ALT Alkaline Phosphatase C-Reactive Protein Total Protein Albumin Globulin Albumin/Globulin Ratio Procalcitonin Urine Color Urine Appearance Urine pH Ur Specific [place] Urine Protein Urine Glucose (UA) Urine Ketones Urine Occult Blood Urine Nitrate Urine Bilirubin Urine Urobilinogen Ur Leukocyte Esterase Urine RBC Urine WBC Ur Squamous Epith Cells Calcium Oxalate Crystal Urine Bacteria Ur Culture Indicated? Stool Occult Blood Chlamy pneumoniae PCR Adenovirus (PCR) B. pertussis DNA (PCR) B.parapertussis DNA PCR Coronavirus OC43 (PCR) Coronavirus HKU1 (PCR) Coronavirus 229E (PCR) SARS-CoV-2 (PCR) Coronavirus NL63 (PCR) Human Metapneumovir PCR Influenza Type A (PCR) Influenza Type B (PCR) M. pneumoniae (PCR) Parainfluenza 1 (PCR) Parainfluenza 2 (PCR) Parainfluenza 3 (PCR) Parainfluenza 4 (PCR) RSV (PCR) Entero/Rhino (PCR) Blood Type Antibody Screen Assessment & Plan Assessment & Plan narrative: Edgar Hernandez Jr is a 67-year-old male with a history of COPD, pulmonary hypertension, CAD, essential HTN, alcoholism, cirrhosis, Asthma, daily smoker, non insulin diabetes?. Admitted for GI bleed. 1. GI bleed with acute blood loss anemia, acute, with history of gastric ulcer, present on admission -initial H&H 9.6/30.6 MCV 63.9, MCH 20, platelets 445-repeat 3 hours later 9.2/28.6, MCV 64, MCH 20.6, platelets 378 -will continue to trend H&H, monitor for bleeding -Protonix IV 40 b.i.d. -NPO - due to swallowing issues-speech consult for swallow eval placed -glucose checks q.6 hours, -consult Dr. De La Fuente-scope planned for 09/18 -pain management -D5NS at 60 cc/HR -iron studies, H pylori, orthostatics q.4 hours while awake starting tomorrow morning 2. Chronic pain, multiple joints, chronic, present on admission -left shoulder, left wrist, right ankle-patient also demonstrates what appears to be neuropathy pain to the right foot with even slight touch. -Consider gabapentin trial once cleared by speech/swallow, topical lidocaine -PT OT evaluation -RA, ESR, CRP ordered -pain management 3. Essential Hypertension, chronic, present admission. Stable. -Blood pressure is stable. 128/83 4 Coronary artery disease, chronic, present on admission? Stable. -12/15/2018 CTA demonstrated coronary artery disease. -recommend outpatient Cardiology risk stratification and evaluation 5. COPD, chronic, present on admission -continue albuterol inhaler 6. Type 2 diabetes, on metformin, chronic, present on admission -controlled blood sugar 134 on at -admitted under diabetic protocol, holding metformin -A1c 6.0 Code status:Full Surrogate decision maker: Daughter Aisha CARR PCR:Negative DVT/VTE prophylaxis:Holding VTE medication, SCD's only Disposition: Patient admitted for evaluation GI bleed, expected length of stay greater than 2 midnights. I have utilized all available immediate resources to obtain, update, or review the patient's current medications. I confirmed that the patient's advanced care plan is present, Code status is documented and/or surrogate decision maker is listed in the patient's medical record. I have personally reviewed patient's chart notes from PCP, specialists, diagnostic imaging, and laboratory results. Quality VTE Deep Vein Thrombosis/Pulmonary Embolism Present on Admission: No
[2022-09-16] MEDS: OXYCODONE IR 10 MG TABLET PO (23:05)
[2022-09-16 23:08] LABS: Magnesium 1.9 mg/dL (1.6-2.3)
[2022-09-16] MEDS: DEXTROSE 5%-0.9% NS 1,000 ML 80 ML IV (23:20)
[2022-09-16] MEDS: ONDANSETRON 4 MG/2 ML INJ IV (23:20)
[2022-09-17] VITALS (15 sets, daily range): BP systolic 115–146; BP diastolic 75–98; PULSE 104–127; RESP 16–22; TEMP 36.4–38.2; O2SAT 94–100; BMI 24.0
--- NOTE | 2022-09-17 00:30 | PC.ADMIT ---
[id number] [facility] Admission Note: The patient,Edgar Hernandez Jr,67 y/o, was given written information regarding hospital policies, unit procedures and contact persons. Patient's smoking status: Former smoker. Vital Signs - 8 hr 09/16/22 17:00 09/16/22 17:00 09/16/22 17:30 Temperature Pulse Rate 121 H Respiratory Rate 26 H Blood Pressure 131/83 135/83 Pulse Oximetry 99 Oxygen Delivery Method Room Air Oxygen Flow Rate 09/16/22 17:30 09/16/22 18:00 09/16/22 18:00 Temperature Pulse Rate 119 H 122 H Respiratory Rate 17 25 H Blood Pressure 139/84 Pulse Oximetry 98 95 Oxygen Delivery Method Room Air Room Air Oxygen Flow Rate 09/16/22 18:30 09/16/22 18:30 09/16/22 19:00 Temperature Pulse Rate 126 H Respiratory Rate 22 Blood Pressure 148/85 H 142/92 H Pulse Oximetry Oxygen Delivery Method Oxygen Flow Rate 09/16/22 19:00 09/16/22 19:30 09/16/22 19:30 Temperature Pulse Rate 129 H 116 H Respiratory Rate 20 19 Blood Pressure 110/67 Pulse Oximetry Oxygen Delivery Method Oxygen Flow Rate 09/16/22 20:00 09/16/22 20:01 09/16/22 20:01 Temperature Pulse Rate 114 H 123 H Respiratory Rate 23 20 Blood Pressure 131/81 Pulse Oximetry 97 93 Oxygen Delivery Method Oxygen Flow Rate 09/16/22 20:50 09/17/22 00:12 Temperature 99.5 F Pulse Rate 113 H Respiratory Rate 20 Blood Pressure 128/83 Pulse Oximetry 98 Oxygen Delivery Method Room Air Oxygen Flow Rate 0 Patient admitted to room 214 at 2040 per stretcher. Is alert and oriented although very [place]; speech can sound garbled at times. Breath sounds CTA with RA sat of 98%. HRR but tachy at 113 bpm with telemetry reading of ST. Denied nausea but after taking po oxycodone was sitting up in bed coughing and dry heaving although did not have any emesis; medicated with Zofran. BT present and abdomen is soft and non tender; son reports he had liquid incontinent stools x 3 earlier today. 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 Voided on BSC after transferring with 1 assist + walker doing a pivot as unable to put weight on right LE. Is able to turn himself in bed. Complains of right LE pain with relief obtained from oxycodone but any movement or touch causes him increased discomfort. No redness or swelling noted in extremity. Declined use of SCD's. Fall risk score is high and bed alarm is activated. Oriented to call light and bed controls.
[2022-09-17 01:21] LABS: Basophils Absolute Auto 100 /uL (0-100); Basophils Percent Auto 1.2 % (0-2); Eosinophils Absolute Auto 100 /uL (0-450); Eosinophils Percent Auto 1.1 % (2-4); Hematocrit 27.3 % (41-53); Hemoglobin 8.8 g/dL (13.5-17.5); Lymphocytes Absolute Auto 900 /uL (1100-4500); Lymphocytes Percent Auto 9.8 % (25-40); Mean Corpuscular HGB Conc 32.2 % (30-36); Mean Corpuscular Hemoglobin 20.6 PG (26-34); Mean Corpuscular Volume 63.9 fL (80-100); Monocytes Absolute Auto 800 /uL (0-900); Monocytes Percent Auto 8.5 % (3-14); Neutrophils Absolute Auto 7500 /uL (1500-7000); Neutrophils Percent Auto 79.4 % (50-75); Platelet Count 351 X10^3/uL (150-400); Red Blood Cell Count 4.27 X10^6/uL (4.5-5.9); White Blood Cell Count 9.5 X10^3/uL (4.5-11.0)
[2022-09-17 01:22] LABS: Add Manual Diff / Slide Review SLIDE REVIEW
[2022-09-17] MEDS: HYDROMORPHONE 0.5 MG INJ IV ×3 (02:29→11:01)
[2022-09-17] MEDS: SODIUM CHLORIDE 0.9% FLUSH 10 ML IV ×3 (02:30→20:56)
[2022-09-17 03:30] LABS: Anisocytosis 2+; Hypochromasia 1+; Microcytosis 2+
[2022-09-17] MEDS: INSULIN LISPRO 100 UNIT/ML 3ML VIAL SUBCUT (06:13)
[2022-09-17 06:40] LABS: Basophils Absolute Auto 100 /uL (0-100); Eosinophils Absolute Auto 100 /uL (0-450); Hematocrit 27.2 % (41-53); Hemoglobin 8.6 g/dL (13.5-17.5); Lymphocytes Absolute Auto 1000 /uL (1100-4500); Lymphocytes Percent Auto 9.8 % (25-40); Mean Corpuscular HGB Conc 31.8 % (30-36); Mean Corpuscular Hemoglobin 20.6 PG (26-34); Mean Corpuscular Volume 64.8 fL (80-100); Monocytes Absolute Auto 900 /uL (0-900); Monocytes Percent Auto 8.8 % (3-14); Neutrophils Absolute Auto 7700 /uL (1500-7000); Neutrophils Percent Auto 79.4 % (50-75); Platelet Count 380 X10^3/uL (150-400); Red Blood Cell Count 4.19 X10^6/uL (4.5-5.9); Red Cell Distribution Width 16.4 % (11.6-14.8); White Blood Cell Count 9.7 X10^3/uL (4.5-11.0)
[2022-09-17 06:45] LABS: Add Manual Diff / Slide Review SLIDE REVIEW
[2022-09-17 06:48] LABS: INR 1.2 (0.9-1.3); Prothrombin Time 14.1 SECONDS (10.1-12.7)
[2022-09-17 06:57] LABS: Rheumatoid Factor < 8.6 IU/mL (<12.0)
[2022-09-17 07:00] LABS: Alanine Aminotransferase 14 IU/L (<50); Albumin 3.4 g/dL (3.5-5.0); Albumin Globulin Ratio 0.9 (1.0-2.8); Alkaline Phosphatase 234 U/L (38-126); Aspartate Aminotransferase 20 IU/L (17-59); BUN Creatinine Ratio 10.7 (6-22); Bilirubin Total 1.1 mg/dL (0.2-1.3); Blood Urea Nitrogen 11 mg/dL (9-20); Calcium 8.3 mg/dL (8.4-10.2); Carbon Dioxide 19 mmol/L (22-32); Chloride 103 mmol/L (98-107); Estimated Glomerular Filt Rate > 60 mL/min (>60); Globulin 3.9 g/dL (1.7-4.1); Glucose 133 mg/dL (80-110); HEMOLYSIS < 15 (0-50); Potassium 3.3 mmol/L (3.4-5.1); Sodium 136 mmol/L (137-145); Total Protein 7.3 g/dL (6.3-8.2)
[2022-09-17 07:13] LABS: Hypochromasia 1+; Microcytosis 2+
[2022-09-17 07:37] LABS: HEMOLYSIS < 15 (0-50); Iron 20 ug/dL (49-181)
--- NOTE | 2022-09-17 07:47 | PM.PN.1 ---
Subjective Subjective Interval history: Patient complaining of right ankle pain which is severely sensitive to the touch. No history of gout. Also bilateral wrist and elbow pain. He will undergo EGD today then speech eval to follow. Exam Vital Signs (past 8 hours): - 09/17/22 00:12 09/17/22 02:22 09/17/22 04:31 Temperature 98.7 F 98.4 F Pulse Rate 111 H 111 H Respiratory Rate 18 18 Blood Pressure 143/86 H 142/84 H Pulse Oximetry 98 99 Oxygen Delivery Method Room Air Oxygen Flow Rate 0 0 Oxygen Delivery Method Room Air Oxygen Flow Rate 0 Narrative Exam Narrative: General: No ill appearing, patient is stable in no distress HENMT Head: normal to inspection and normocephalic Resp Effort & Inspection: normal respiratory effort Auscultation: Of all lung [place] clear to auscultation bilaterally Cardio Rate: tachycardic Rhythm: regular rhythm GI Inspection: Bowel sounds diminished but present in all 4 quadrants, nontender normal to inspection and non-distended Palpation: No firm and No guarding Skin Other: Patient verbalized extensive pain to even the slightest touch of the right foot or ankle-no edema present bilaterally, no open wounds injuries bruising deformity, or signs and symptoms of infection present No redness around the left wrist of the right ankle. Neuro General: patient alert and patient awake Extrem Other: Does have swelling to the left wrist in the lateral aspect of the right ankle.? He does have full range of motion both some discomfort.? Right ankle extremely sensitive to touch due to pain. Objective Labs 09/17/22 06:15 09/17/22 06:15 Labs: Laboratory Results - last 24 hr 09/16/22 09/16/22 09/16/22 15:45 15:45 15:52 WBC 12.8 H RBC 4.79 Hgb 9.6 L Hct 30.6 L MCV 63.9 L MCH 20.0 L MCHC 31.4 RDW 16.2 H Plt Count 445 H Neut % (Auto) 77.6 H Lymph % (Auto) 11.1 L [place] % (Auto) 7.4 Eos % (Auto) 2.7 Baso % (Auto) 1.2 Neut # (Auto) 29679 H Lymph # (Auto) 1400 [place] # (Auto) 1000 H Eos # (Auto) 300 Baso # (Auto) 200 H RBC Morphology See below Hypochromasia 1+ H Anisocytosis Microcytosis 2+ H Stomatocytes 1+ H ESR PT INR APTT Sodium Potassium Chloride Carbon Dioxide BUN Creatinine Estimated GFR BUN/Creatinine Ratio Glucose Hemoglobin A1c Lactate Uric Acid Calcium Magnesium Iron Total Bilirubin AST ALT Alkaline Phosphatase C-Reactive Protein Total Protein Albumin Globulin Albumin/Globulin Ratio Procalcitonin Urine Color Yellow Urine Appearance Clear Urine pH 6.5 Ur Specific [place] 1.010 Urine Protein Trace H Urine Glucose (UA) Negative Urine Ketones Negative Urine Occult Blood Trace-intact Urine Nitrate Negative Urine Bilirubin Negative Urine Urobilinogen 2.0 H Ur Leukocyte Esterase 1+ H Urine RBC 0-1/hpf Urine WBC 1-5/hpf Ur Squamous Epith Cells 0-1 /hpf Calcium Oxalate Crystal Many H Urine Bacteria None seen Ur Culture Indicated? Specimen cultured Stool Occult Blood Positive H Rheumatoid Factor Chlamy pneumoniae PCR Adenovirus (PCR) B. pertussis DNA (PCR) B.parapertussis DNA PCR Coronavirus OC43 (PCR) Coronavirus HKU1 (PCR) Coronavirus 229E (PCR) SARS-CoV-2 (PCR) Coronavirus NL63 (PCR) Human Metapneumovir PCR Influenza Type A (PCR) Influenza Type B (PCR) M. pneumoniae (PCR) Parainfluenza 1 (PCR) Parainfluenza 2 (PCR) Parainfluenza 3 (PCR) Parainfluenza 4 (PCR) RSV (PCR) Entero/Rhino (PCR) Blood Type Antibody Screen 09/16/22 09/16/22 09/16/22 15:52 15:52 15:52 WBC RBC Hgb Hct MCV MCH MCHC RDW Plt Count Neut % (Auto) Lymph % (Auto) [place] % (Auto) Eos % (Auto) Baso % (Auto) Neut # (Auto) Lymph # (Auto) [place] # (Auto) Eos # (Auto) Baso # (Auto) RBC Morphology Hypochromasia Anisocytosis Microcytosis Stomatocytes ESR PT 13.5 H INR 1.2 APTT 32 Sodium 135 L Potassium 3.4 Chloride 103 Carbon Dioxide 20 L BUN 9 Creatinine 1.06 Estimated GFR > 60 BUN/Creatinine Ratio 8.5 Glucose 134 H Hemoglobin A1c Lactate Uric Acid Calcium 8.8 Magnesium Iron Total Bilirubin 1.2 AST 21 ALT 20 Alkaline Phosphatase 297 H C-Reactive Protein Total Protein 8.3 H Albumin 3.7 Globulin 4.6 H Albumin/Globulin Ratio 0.8 L Procalcitonin Urine Color Urine Appearance Urine pH Ur Specific [place] Urine Protein Urine Glucose (UA) Urine Ketones Urine Occult Blood Urine Nitrate Urine Bilirubin Urine Urobilinogen Ur Leukocyte Esterase Urine RBC Urine WBC Ur Squamous Epith Cells Calcium Oxalate Crystal Urine Bacteria Ur Culture Indicated? Stool Occult Blood Rheumatoid Factor Chlamy pneumoniae PCR Adenovirus (PCR) B. pertussis DNA (PCR) B.parapertussis DNA PCR Coronavirus OC43 (PCR) Coronavirus HKU1 (PCR) Coronavirus 229E (PCR) SARS-CoV-2 (PCR) Coronavirus NL63 (PCR) Human Metapneumovir PCR Influenza Type A (PCR) Influenza Type B (PCR) M. pneumoniae (PCR) Parainfluenza 1 (PCR) Parainfluenza 2 (PCR) Parainfluenza 3 (PCR) Parainfluenza 4 (PCR) RSV (PCR) Entero/Rhino (PCR) Blood Type O Positive Antibody Screen Negative 09/16/22 09/16/22 09/16/22 15:52 15:52 15:52 WBC RBC Hgb Hct MCV MCH MCHC RDW Plt Count Neut % (Auto) Lymph % (Auto) [place] % (Auto) Eos % (Auto) Baso % (Auto) Neut # (Auto) Lymph # (Auto) [place] # (Auto) Eos # (Auto) Baso # (Auto) RBC Morphology Hypochromasia Anisocytosis Microcytosis Stomatocytes ESR PT INR APTT Sodium Potassium Chloride Carbon Dioxide BUN Creatinine Estimated GFR BUN/Creatinine Ratio Glucose Hemoglobin A1c Lactate 1.9 Uric Acid 3.9 Calcium Magnesium Iron Total Bilirubin AST ALT Alkaline Phosphatase C-Reactive Protein Total Protein Albumin Globulin Albumin/Globulin Ratio Procalcitonin 0.16 Urine Color Urine Appearance Urine pH Ur Specific [place] Urine Protein Urine Glucose (UA) Urine Ketones Urine Occult Blood Urine Nitrate Urine Bilirubin Urine Urobilinogen Ur Leukocyte Esterase Urine RBC Urine WBC Ur Squamous Epith Cells Calcium Oxalate Crystal Urine Bacteria Ur Culture Indicated? Stool Occult Blood Rheumatoid Factor Chlamy pneumoniae PCR Adenovirus (PCR) B. pertussis DNA (PCR) B.parapertussis DNA PCR Coronavirus OC43 (PCR) Coronavirus HKU1 (PCR) Coronavirus 229E (PCR) SARS-CoV-2 (PCR) Coronavirus NL63 (PCR) Human Metapneumovir PCR Influenza Type A (PCR) Influenza Type B (PCR) M. pneumoniae (PCR) Parainfluenza 1 (PCR) Parainfluenza 2 (PCR) Parainfluenza 3 (PCR) Parainfluenza 4 (PCR) RSV (PCR) Entero/Rhino (PCR) Blood Type Antibody Screen 09/16/22 09/16/22 09/16/22 15:52 15:52 15:52 WBC RBC Hgb Hct MCV MCH MCHC RDW Plt Count Neut % (Auto) Lymph % (Auto) [place] % (Auto) Eos % (Auto) Baso % (Auto) Neut # (Auto) Lymph # (Auto) [place] # (Auto) Eos # (Auto) Baso # (Auto) RBC Morphology Hypochromasia Anisocytosis Microcytosis Stomatocytes ESR 83 H PT INR APTT Sodium Potassium Chloride Carbon Dioxide BUN Creatinine Estimated GFR BUN/Creatinine Ratio Glucose Hemoglobin A1c Lactate Uric Acid Calcium Magnesium 1.9 Iron Total Bilirubin AST ALT Alkaline Phosphatase C-Reactive Protein 8.0 H Total Protein Albumin Globulin Albumin/Globulin Ratio Procalcitonin Urine Color Urine Appearance Urine pH Ur Specific [place] Urine Protein Urine Glucose (UA) Urine Ketones Urine Occult Blood Urine Nitrate Urine Bilirubin Urine Urobilinogen Ur Leukocyte Esterase Urine RBC Urine WBC Ur Squamous Epith Cells Calcium Oxalate Crystal Urine Bacteria Ur Culture Indicated? Stool Occult Blood Rheumatoid Factor Chlamy pneumoniae PCR Adenovirus (PCR) B. pertussis DNA (PCR) B.parapertussis DNA PCR Coronavirus OC43 (PCR) Coronavirus HKU1 (PCR) Coronavirus 229E (PCR) SARS-CoV-2 (PCR) Coronavirus NL63 (PCR) Human Metapneumovir PCR Influenza Type A (PCR) Influenza Type B (PCR) M. pneumoniae (PCR) Parainfluenza 1 (PCR) Parainfluenza 2 (PCR) Parainfluenza 3 (PCR) Parainfluenza 4 (PCR) RSV (PCR) Entero/Rhino (PCR) Blood Type Antibody Screen 09/16/22 09/16/22 09/16/22 15:52 16:20 18:10 WBC 10.3 RBC 4.47 L Hgb 9.2 L Hct 28.6 L MCV 64.0 L MCH 20.6 L MCHC 32.2 RDW 16.2 H Plt Count 378 Neut % (Auto) 81.2 H Lymph % (Auto) 9.3 L [place] % (Auto) 6.7 Eos % (Auto) 2.1 Baso % (Auto) 0.7 Neut # (Auto) 8300 H Lymph # (Auto) 1000 L [place] # (Auto) 700 Eos # (Auto) 200 Baso # (Auto) 100 RBC Morphology See below Hypochromasia 1+ H Anisocytosis Microcytosis 2+ H Stomatocytes ESR PT INR APTT Sodium Potassium Chloride Carbon Dioxide BUN Creatinine Estimated GFR BUN/Creatinine Ratio Glucose Hemoglobin A1c Lactate Uric Acid Calcium Magnesium Iron 20 L Total Bilirubin AST ALT Alkaline Phosphatase C-Reactive Protein Total Protein Albumin Globulin Albumin/Globulin Ratio Procalcitonin Urine Color Urine Appearance Urine pH Ur Specific [place] Urine Protein Urine Glucose (UA) Urine Ketones Urine Occult Blood Urine Nitrate Urine Bilirubin Urine Urobilinogen Ur Leukocyte Esterase Urine RBC Urine WBC Ur Squamous Epith Cells Calcium Oxalate Crystal Urine Bacteria Ur Culture Indicated? Stool Occult Blood Rheumatoid Factor Chlamy pneumoniae PCR Not detected Adenovirus (PCR) Not detected B. pertussis DNA (PCR) Not detected B.parapertussis DNA PCR Not detected Coronavirus OC43 (PCR) Not detected Coronavirus HKU1 (PCR) Not detected Coronavirus 229E (PCR) Not detected SARS-CoV-2 (PCR) Not detected Coronavirus NL63 (PCR) Not detected Human Metapneumovir PCR Not detected Influenza Type A (PCR) Not detected Influenza Type B (PCR) Not detected M. pneumoniae (PCR) Not detected Parainfluenza 1 (PCR) Not detected Parainfluenza 2 (PCR) Not detected Parainfluenza 3 (PCR) Not detected Parainfluenza 4 (PCR) Not detected RSV (PCR) Not detected Entero/Rhino (PCR) Not detected Blood Type Antibody Screen 09/16/22 09/17/22 09/17/22 18:10 00:59 06:15 WBC 9.5 9.7 RBC 4.27 L 4.19 L Hgb 8.8 L 8.6 L Hct 27.3 L 27.2 L MCV 63.9 L 64.8 L MCH 20.6 L 20.6 L MCHC 32.2 31.8 RDW 16.0 H 16.4 H Plt Count 351 380 Neut % (Auto) 79.4 H 79.4 H Lymph % (Auto) 9.8 L 9.8 L [place] % (Auto) 8.5 8.8 Eos % (Auto) 1.1 L 1.0 L Baso % (Auto) 1.2 1.0 Neut # (Auto) 7500 H 7700 H Lymph # (Auto) 900 L 1000 L [place] # (Auto) 800 900 Eos # (Auto) 100 100 Baso # (Auto) 100 100 RBC Morphology See below See below Hypochromasia 1+ H 1+ H Anisocytosis 2+ H Microcytosis 2+ H 2+ H Stomatocytes ESR PT INR APTT Sodium Potassium Chloride Carbon Dioxide BUN Creatinine Estimated GFR BUN/Creatinine Ratio Glucose Hemoglobin A1c 6.0 Lactate Uric Acid Calcium Magnesium Iron Total Bilirubin AST ALT Alkaline Phosphatase C-Reactive Protein Total Protein Albumin Globulin Albumin/Globulin Ratio Procalcitonin Urine Color Urine Appearance Urine pH Ur Specific [place] Urine Protein Urine Glucose (UA) Urine Ketones Urine Occult Blood Urine Nitrate Urine Bilirubin Urine Urobilinogen Ur Leukocyte Esterase Urine RBC Urine WBC Ur Squamous Epith Cells Calcium Oxalate Crystal Urine Bacteria Ur Culture Indicated? Stool Occult Blood Rheumatoid Factor Chlamy pneumoniae PCR Adenovirus (PCR) B. pertussis DNA (PCR) B.parapertussis DNA PCR Coronavirus OC43 (PCR) Coronavirus HKU1 (PCR) Coronavirus 229E (PCR) SARS-CoV-2 (PCR) Coronavirus NL63 (PCR) Human Metapneumovir PCR Influenza Type A (PCR) Influenza Type B (PCR) M. pneumoniae (PCR) Parainfluenza 1 (PCR) Parainfluenza 2 (PCR) Parainfluenza 3 (PCR) Parainfluenza 4 (PCR) RSV (PCR) Entero/Rhino (PCR) Blood Type Antibody Screen 09/17/22 09/17/22 09/17/22 06:15 06:15 06:15 WBC RBC Hgb Hct MCV MCH MCHC RDW Plt Count Neut % (Auto) Lymph % (Auto) [place] % (Auto) Eos % (Auto) Baso % (Auto) Neut # (Auto) Lymph # (Auto) [place] # (Auto) Eos # (Auto) Baso # (Auto) RBC Morphology Hypochromasia Anisocytosis Microcytosis Stomatocytes ESR PT 14.1 H INR 1.2 APTT Sodium 136 L Potassium 3.3 L Chloride 103 Carbon Dioxide 19 L BUN 11 Creatinine 1.03 Estimated GFR > 60 BUN/Creatinine Ratio 10.7 Glucose 133 H Hemoglobin A1c Lactate Uric Acid Calcium 8.3 L Magnesium Iron Total Bilirubin 1.1 AST 20 ALT 14 Alkaline Phosphatase 234 H C-Reactive Protein Total Protein 7.3 Albumin 3.4 L Globulin 3.9 Albumin/Globulin Ratio 0.9 L Procalcitonin Urine Color Urine Appearance Urine pH Ur Specific [place] Urine Protein Urine Glucose (UA) Urine Ketones Urine Occult Blood Urine Nitrate Urine Bilirubin Urine Urobilinogen Ur Leukocyte Esterase Urine RBC Urine WBC Ur Squamous Epith Cells Calcium Oxalate Crystal Urine Bacteria Ur Culture Indicated? Stool Occult Blood Rheumatoid Factor < 8.6 Chlamy pneumoniae PCR Adenovirus (PCR) B. pertussis DNA (PCR) B.parapertussis DNA PCR Coronavirus OC43 (PCR) Coronavirus HKU1 (PCR) Coronavirus 229E (PCR) SARS-CoV-2 (PCR) Coronavirus NL63 (PCR) Human Metapneumovir PCR Influenza Type A (PCR) Influenza Type B (PCR) M. pneumoniae (PCR) Parainfluenza 1 (PCR) Parainfluenza 2 (PCR) Parainfluenza 3 (PCR) Parainfluenza 4 (PCR) RSV (PCR) Entero/Rhino (PCR) Blood Type Antibody Screen [facility] Medical History Acute exacerbation of chronic obstructive pulmonary disease (COPD) Alcoholism Asthma Cirrhosis of liver Diabetes Hard of hearing History of gastric ulcer History of kidney stones HTN (hypertension) Hypoxia Portal hypertension Tobacco use disorder, moderate, in early remission, dependence Type 2 diabetes mellitus Surgical History H/O right knee surgery Family History Mother Colon cancer Father Diabetes mellitus Social History household members: family lives independently: Yes Smoking Status: Former smoker alcohol intake: former Assessment & Plan Assessment & Plan narrative: Edgar Hernandez Jr is a 67-year-old male with a history of COPD, pulmonary hypertension, CAD, essential HTN, alcoholism, cirrhosis, Asthma, daily smoker, non insulin diabetes?. Admitted for GI bleed. 1. GI bleed with acute blood loss anemia, acute, with history of gastric ulcer, present on admission -initial H&H 9.6/30.6 MCV 63.9, MCH 20, platelets 445-repeat 3 hours later 9.2/28.6, MCV 64, MCH 20.6, platelets 378 -guiaic positive -will continue to trend H&H, monitor for bleeding -Protonix IV 40 b.i.d. -NPO - due to swallowing issues-speech consult for swallow eval placed -consult Dr. Lord-scope planned for 09/17 2. Chronic pain, multiple joints, worse in right ankle, present on admission -left shoulder, left wrist, right ankle especially sensitive to the touch -unclear of inflammatory arthritis vs gout -PT OT evaluation -ESR, CRP evelated at 83 and 8 respectively -trial of colchicine as right ankle pain likely due to gout -no involvement of MTP joints making RA less likely 3. Essential Hypertension, chronic, present admission. Stable. -Blood pressure is stable. 128/83 4 Coronary artery disease, chronic, present on admission? Stable. -12/15/2018 CTA demonstrated coronary artery disease. -recommend outpatient Cardiology risk stratification and evaluation 5. COPD, chronic, present on admission -continue albuterol inhaler 6. Type 2 diabetes, on metformin, chronic, present on admission -controlled blood sugar 134 on at -admitted under diabetic protocol, holding metformin -A1c 6.0 Code status:Full Surrogate decision maker: Daughter Aisha CARR PCR:Negative DVT/VTE prophylaxis:Holding VTE medication, SCD's only Disposition: Pending EGD findings. Quality VTE Deep Vein Thrombosis/Pulmonary Embolism Present on Admission: No
[2022-09-17 07:48] LABS: Percent Iron Saturation 7 % (20-50); Total Iron Binding Capacity 299 ug/dL (261-462); Transferrin 222 mg/dL (206-381)
[2022-09-17] MEDS: PANTOPRAZOLE 40 MG VIAL IV ×2 (08:44→20:55)
[2022-09-17] MEDS: POTASSIUM CHLORIDE IN WATER 10 MEQ/100 ML PIGGYBACK 100 MEQ IV ×4 (08:45→12:13)
--- NOTE | 2022-09-17 13:52 | P.CONS_ITS ---
History of Present Illness Consult details Date Patient Seen: 09/17/22 Time Patient Seen: 13:52 Chief complaint: Joint pain Narrative: 67-year-old man history of cirrhosis and diabetes who presents to the hospital with melanotic stool. He is a history of peptic ulcer disease not currently on NSAIDs or anticoagulation. No history of known esophageal varices or p aracentesis. He has been hemodynamically stable with mild tachycardia during his hospitalization is not required blood transfusion. Meds Home Medications and Allergies Home Medications Medication Instructions Recorded Confirmed Type metformin 500 mg tablet 500 mg PO DAILY ##0 09/22/11 09/16/22 History (Glucophage) albuterol sulfate 90 mcg/actuation 2 puff inhalation Q6HR PRN Wheezing 12/15/18 09/16/22 History aerosol inhaler Allergies Allergy/AdvReac Type Severity Reaction Status Date / Time ibuprofen [IBUPROFEN] Allergy Severe RASH Verified 09/17/22 14:06 Exam Vital Signs (past 8 hours): - 09/17/22 08:00 09/17/22 11:51 Temperature 98.1 F 98.4 F Pulse Rate 104 H 107 H Respiratory Rate 17 17 Blood Pressure 136/85 121/82 Pulse Oximetry 95 97 Oxygen Flow Rate 0 0 Oxygen Delivery Method Room Air Oxygen Flow Rate 0 Narrative Exam Narrative: General adult man alert oriented no distress Chest nonlabored respirations Heart sinus tachycardia Abdomen mild distention non tender. Extremities warm well perfused Objective Labs 09/17/22 06:15 09/17/22 06:15 Labs: Laboratory Results - last 24 hr 09/16/22 09/16/22 09/16/22 15:45 15:45 15:52 WBC 12.8 H RBC 4.79 Hgb 9.6 L Hct 30.6 L MCV 63.9 L MCH 20.0 L MCHC 31.4 RDW 16.2 H Plt Count 445 H Neut % (Auto) 77.6 H Lymph % (Auto) 11.1 L Gibson % (Auto) 7.4 Eos % (Auto) 2.7 Baso % (Auto) 1.2 Neut # (Auto) 09697 H Lymph # (Auto) 1400 Gibson # (Auto) 1000 H Eos # (Auto) 300 Baso # (Auto) 200 H RBC Morphology See below Hypochromasia 1+ H Anisocytosis Microcytosis 2+ H Stomatocytes 1+ H ESR PT INR APTT Sodium Potassium Chloride Carbon Dioxide BUN Creatinine Estimated GFR BUN/Creatinine Ratio Glucose Hemoglobin A1c Lactate Uric Acid Calcium Magnesium Iron TIBC % Saturation Transferrin Total Bilirubin AST ALT Alkaline Phosphatase C-Reactive Protein Total Protein Albumin Globulin Albumin/Globulin Ratio Procalcitonin Urine Color Yellow Urine Appearance Clear Urine pH 6.5 Ur Specific [place] 1.010 Urine Protein Trace H Urine Glucose (UA) Negative Urine Ketones Negative Urine Occult Blood Trace-intact Urine Nitrate Negative Urine Bilirubin Negative Urine Urobilinogen 2.0 H Ur Leukocyte Esterase 1+ H Urine RBC 0-1/hpf Urine WBC 1-5/hpf Ur Squamous Epith Cells 0-1 /hpf Calcium Oxalate Crystal Many H Urine Bacteria None seen Ur Culture Indicated? Specimen cultured Stool Occult Blood Positive H Rheumatoid Factor Chlamy pneumoniae PCR Adenovirus (PCR) B. pertussis DNA (PCR) B.parapertussis DNA PCR Coronavirus OC43 (PCR) Coronavirus HKU1 (PCR) Coronavirus 229E (PCR) SARS-CoV-2 (PCR) Coronavirus NL63 (PCR) Human Metapneumovir PCR Influenza Type A (PCR) Influenza Type B (PCR) M. pneumoniae (PCR) Parainfluenza 1 (PCR) Parainfluenza 2 (PCR) Parainfluenza 3 (PCR) Parainfluenza 4 (PCR) RSV (PCR) Entero/Rhino (PCR) Blood Type Antibody Screen 09/16/22 09/16/22 09/16/22 15:52 15:52 15:52 WBC RBC Hgb Hct MCV MCH MCHC RDW Plt Count Neut % (Auto) Lymph % (Auto) Gibson % (Auto) Eos % (Auto) Baso % (Auto) Neut # (Auto) Lymph # (Auto) Gibson # (Auto) Eos # (Auto) Baso # (Auto) RBC Morphology Hypochromasia Anisocytosis Microcytosis Stomatocytes ESR PT 13.5 H INR 1.2 APTT 32 Sodium 135 L Potassium 3.4 Chloride 103 Carbon Dioxide 20 L BUN 9 Creatinine 1.06 Estimated GFR > 60 BUN/Creatinine Ratio 8.5 Glucose 134 H Hemoglobin A1c Lactate Uric Acid Calcium 8.8 Magnesium Iron TIBC % Saturation Transferrin Total Bilirubin 1.2 AST 21 ALT 20 Alkaline Phosphatase 297 H C-Reactive Protein Total Protein 8.3 H Albumin 3.7 Globulin 4.6 H Albumin/Globulin Ratio 0.8 L Procalcitonin Urine Color Urine Appearance Urine pH Ur Specific [place] Urine Protein Urine Glucose (UA) Urine Ketones Urine Occult Blood Urine Nitrate Urine Bilirubin Urine Urobilinogen Ur Leukocyte Esterase Urine RBC Urine WBC Ur Squamous Epith Cells Calcium Oxalate Crystal Urine Bacteria Ur Culture Indicated? Stool Occult Blood Rheumatoid Factor Chlamy pneumoniae PCR Adenovirus (PCR) B. pertussis DNA (PCR) B.parapertussis DNA PCR Coronavirus OC43 (PCR) Coronavirus HKU1 (PCR) Coronavirus 229E (PCR) SARS-CoV-2 (PCR) Coronavirus NL63 (PCR) Human Metapneumovir PCR Influenza Type A (PCR) Influenza Type B (PCR) M. pneumoniae (PCR) Parainfluenza 1 (PCR) Parainfluenza 2 (PCR) Parainfluenza 3 (PCR) Parainfluenza 4 (PCR) RSV (PCR) Entero/Rhino (PCR) Blood Type O Positive Antibody Screen Negative 09/16/22 09/16/22 09/16/22 15:52 15:52 15:52 WBC RBC Hgb Hct MCV MCH MCHC RDW Plt Count Neut % (Auto) Lymph % (Auto) Gibson % (Auto) Eos % (Auto) Baso % (Auto) Neut # (Auto) Lymph # (Auto) Gibson # (Auto) Eos # (Auto) Baso # (Auto) RBC Morphology Hypochromasia Anisocytosis Microcytosis Stomatocytes ESR PT INR APTT Sodium Potassium Chloride Carbon Dioxide BUN Creatinine Estimated GFR BUN/Creatinine Ratio Glucose Hemoglobin A1c Lactate 1.9 Uric Acid 3.9 Calcium Magnesium Iron TIBC % Saturation Transferrin Total Bilirubin AST ALT Alkaline Phosphatase C-Reactive Protein Total Protein Albumin Globulin Albumin/Globulin Ratio Procalcitonin 0.16 Urine Color Urine Appearance Urine pH Ur Specific [place] Urine Protein Urine Glucose (UA) Urine Ketones Urine Occult Blood Urine Nitrate Urine Bilirubin Urine Urobilinogen Ur Leukocyte Esterase Urine RBC Urine WBC Ur Squamous Epith Cells Calcium Oxalate Crystal Urine Bacteria Ur Culture Indicated? Stool Occult Blood Rheumatoid Factor Chlamy pneumoniae PCR Adenovirus (PCR) B. pertussis DNA (PCR) B.parapertussis DNA PCR Coronavirus OC43 (PCR) Coronavirus HKU1 (PCR) Coronavirus 229E (PCR) SARS-CoV-2 (PCR) Coronavirus NL63 (PCR) Human Metapneumovir PCR Influenza Type A (PCR) Influenza Type B (PCR) M. pneumoniae (PCR) Parainfluenza 1 (PCR) Parainfluenza 2 (PCR) Parainfluenza 3 (PCR) Parainfluenza 4 (PCR) RSV (PCR) Entero/Rhino (PCR) Blood Type Antibody Screen 09/16/22 09/16/22 09/16/22 15:52 15:52 15:52 WBC RBC Hgb Hct MCV MCH MCHC RDW Plt Count Neut % (Auto) Lymph % (Auto) Gibson % (Auto) Eos % (Auto) Baso % (Auto) Neut # (Auto) Lymph # (Auto) Gibson # (Auto) Eos # (Auto) Baso # (Auto) RBC Morphology Hypochromasia Anisocytosis Microcytosis Stomatocytes ESR 83 H PT INR APTT Sodium Potassium Chloride Carbon Dioxide BUN Creatinine Estimated GFR BUN/Creatinine Ratio Glucose Hemoglobin A1c Lactate Uric Acid Calcium Magnesium 1.9 Iron TIBC % Saturation Transferrin Total Bilirubin AST ALT Alkaline Phosphatase C-Reactive Protein 8.0 H Total Protein Albumin Globulin Albumin/Globulin Ratio Procalcitonin Urine Color Urine Appearance Urine pH Ur Specific [place] Urine Protein Urine Glucose (UA) Urine Ketones Urine Occult Blood Urine Nitrate Urine Bilirubin Urine Urobilinogen Ur Leukocyte Esterase Urine RBC Urine WBC Ur Squamous Epith Cells Calcium Oxalate Crystal Urine Bacteria Ur Culture Indicated? Stool Occult Blood Rheumatoid Factor Chlamy pneumoniae PCR Adenovirus (PCR) B. pertussis DNA (PCR) B.parapertussis DNA PCR Coronavirus OC43 (PCR) Coronavirus HKU1 (PCR) Coronavirus 229E (PCR) SARS-CoV-2 (PCR) Coronavirus NL63 (PCR) Human Metapneumovir PCR Influenza Type A (PCR) Influenza Type B (PCR) M. pneumoniae (PCR) Parainfluenza 1 (PCR) Parainfluenza 2 (PCR) Parainfluenza 3 (PCR) Parainfluenza 4 (PCR) RSV (PCR) Entero/Rhino (PCR) Blood Type Antibody Screen 09/16/22 09/16/22 09/16/22 15:52 16:20 18:10 WBC 10.3 RBC 4.47 L Hgb 9.2 L Hct 28.6 L MCV 64.0 L MCH 20.6 L MCHC 32.2 RDW 16.2 H Plt Count 378 Neut % (Auto) 81.2 H Lymph % (Auto) 9.3 L Gibson % (Auto) 6.7 Eos % (Auto) 2.1 Baso % (Auto) 0.7 Neut # (Auto) 8300 H Lymph # (Auto) 1000 L Gibson # (Auto) 700 Eos # (Auto) 200 Baso # (Auto) 100 RBC Morphology See below Hypochromasia 1+ H Anisocytosis Microcytosis 2+ H Stomatocytes ESR PT INR APTT Sodium Potassium Chloride Carbon Dioxide BUN Creatinine Estimated GFR BUN/Creatinine Ratio Glucose Hemoglobin A1c Lactate Uric Acid Calcium Magnesium Iron 20 L TIBC 299 % Saturation 7 L Transferrin 222 Total Bilirubin AST ALT Alkaline Phosphatase C-Reactive Protein Total Protein Albumin Globulin Albumin/Globulin Ratio Procalcitonin Urine Color Urine Appearance Urine pH Ur Specific [place] Urine Protein Urine Glucose (UA) Urine Ketones Urine Occult Blood Urine Nitrate Urine Bilirubin Urine Urobilinogen Ur Leukocyte Esterase Urine RBC Urine WBC Ur Squamous Epith Cells Calcium Oxalate Crystal Urine Bacteria Ur Culture Indicated? Stool Occult Blood Rheumatoid Factor Chlamy pneumoniae PCR Not detected Adenovirus (PCR) Not detected B. pertussis DNA (PCR) Not detected B.parapertussis DNA PCR Not detected Coronavirus OC43 (PCR) Not detected Coronavirus HKU1 (PCR) Not detected Coronavirus 229E (PCR) Not detected SARS-CoV-2 (PCR) Not detected Coronavirus NL63 (PCR) Not detected Human Metapneumovir PCR Not detected Influenza Type A (PCR) Not detected Influenza Type B (PCR) Not detected M. pneumoniae (PCR) Not detected Parainfluenza 1 (PCR) Not detected Parainfluenza 2 (PCR) Not detected Parainfluenza 3 (PCR) Not detected Parainfluenza 4 (PCR) Not detected RSV (PCR) Not detected Entero/Rhino (PCR) Not detected Blood Type Antibody Screen 09/16/22 09/17/22 09/17/22 18:10 00:59 06:15 WBC 9.5 9.7 RBC 4.27 L 4.19 L Hgb 8.8 L 8.6 L Hct 27.3 L 27.2 L MCV 63.9 L 64.8 L MCH 20.6 L 20.6 L MCHC 32.2 31.8 RDW 16.0 H 16.4 H Plt Count 351 380 Neut % (Auto) 79.4 H 79.4 H Lymph % (Auto) 9.8 L 9.8 L Gibson % (Auto) 8.5 8.8 Eos % (Auto) 1.1 L 1.0 L Baso % (Auto) 1.2 1.0 Neut # (Auto) 7500 H 7700 H Lymph # (Auto) 900 L 1000 L Gibson # (Auto) 800 900 Eos # (Auto) 100 100 Baso # (Auto) 100 100 RBC Morphology See below See below Hypochromasia 1+ H 1+ H Anisocytosis 2+ H Microcytosis 2+ H 2+ H Stomatocytes ESR PT INR APTT Sodium Potassium Chloride Carbon Dioxide BUN Creatinine Estimated GFR BUN/Creatinine Ratio Glucose Hemoglobin A1c 6.0 Lactate Uric Acid Calcium Magnesium Iron TIBC % Saturation Transferrin Total Bilirubin AST ALT Alkaline Phosphatase C-Reactive Protein Total Protein Albumin Globulin Albumin/Globulin Ratio Procalcitonin Urine Color Urine Appearance Urine pH Ur Specific [place] Urine Protein Urine Glucose (UA) Urine Ketones Urine Occult Blood Urine Nitrate Urine Bilirubin Urine Urobilinogen Ur Leukocyte Esterase Urine RBC Urine WBC Ur Squamous Epith Cells Calcium Oxalate Crystal Urine Bacteria Ur Culture Indicated? Stool Occult Blood Rheumatoid Factor Chlamy pneumoniae PCR Adenovirus (PCR) B. pertussis DNA (PCR) B.parapertussis DNA PCR Coronavirus OC43 (PCR) Coronavirus HKU1 (PCR) Coronavirus 229E (PCR) SARS-CoV-2 (PCR) Coronavirus NL63 (PCR) Human Metapneumovir PCR Influenza Type A (PCR) Influenza Type B (PCR) M. pneumoniae (PCR) Parainfluenza 1 (PCR) Parainfluenza 2 (PCR) Parainfluenza 3 (PCR) Parainfluenza 4 (PCR) RSV (PCR) Entero/Rhino (PCR) Blood Type Antibody Screen 09/17/22 09/17/22 09/17/22 06:15 06:15 06:15 WBC RBC Hgb Hct MCV MCH MCHC RDW Plt Count Neut % (Auto) Lymph % (Auto) Gibson % (Auto) Eos % (Auto) Baso % (Auto) Neut # (Auto) Lymph # (Auto) Gibson # (Auto) Eos # (Auto) Baso # (Auto) RBC Morphology Hypochromasia Anisocytosis Microcytosis Stomatocytes ESR PT 14.1 H INR 1.2 APTT Sodium 136 L Potassium 3.3 L Chloride 103 Carbon Dioxide 19 L BUN 11 Creatinine 1.03 Estimated GFR > 60 BUN/Creatinine Ratio 10.7 Glucose 133 H Hemoglobin A1c Lactate Uric Acid Calcium 8.3 L Magnesium Iron TIBC % Saturation Transferrin Total Bilirubin 1.1 AST 20 ALT 14 Alkaline Phosphatase 234 H C-Reactive Protein Total Protein 7.3 Albumin 3.4 L Globulin 3.9 Albumin/Globulin Ratio 0.9 L Procalcitonin Urine Color Urine Appearance Urine pH Ur Specific [place] Urine Protein Urine Glucose (UA) Urine Ketones Urine Occult Blood Urine Nitrate Urine Bilirubin Urine Urobilinogen Ur Leukocyte Esterase Urine RBC Urine WBC Ur Squamous Epith Cells Calcium Oxalate Crystal Urine Bacteria Ur Culture Indicated? Stool Occult Blood Rheumatoid Factor < 8.6 Chlamy pneumoniae PCR Adenovirus (PCR) B. pertussis DNA (PCR) B.parapertussis DNA PCR Coronavirus OC43 (PCR) Coronavirus HKU1 (PCR) Coronavirus 229E (PCR) SARS-CoV-2 (PCR) Coronavirus NL63 (PCR) Human Metapneumovir PCR Influenza Type A (PCR) Influenza Type B (PCR) M. pneumoniae (PCR) Parainfluenza 1 (PCR) Parainfluenza 2 (PCR) Parainfluenza 3 (PCR) Parainfluenza 4 (PCR) RSV (PCR) Entero/Rhino (PCR) Blood Type Antibody Screen [facility] Medical History Acute exacerbation of chronic obstructive pulmonary disease (COPD) Alcoholism Asthma Cirrhosis of liver Diabetes Hard of hearing History of gastric ulcer History of kidney stones HTN (hypertension) Hypoxia Portal hypertension Tobacco use disorder, moderate, in early remission, dependence Type 2 diabetes mellitus Surgical History H/O right knee surgery Family History Mother Colon cancer Father Diabetes mellitus Social History household members: family lives independently: Yes Tobacco & Substance Use Smoking Status: Former smoker alcohol intake: former Assessment & Plan Assessment and plan (1) GI bleed: Status: Acute Plan 67-year-old man with cirrhosis hemodynamically stable with an GI bleed. Recommend beginning with esophagoduodenoscopy for further evaluation and possible therapeutic intervention. Overview of the procedure was discussed with the patient. Procedural risks including further bleeding, intestinal injury, need for further procedure dependent on pathology findings were discussed. His questions have been answered and he is in agreement with this plan. He provides his written and verbal consent to proceed.
--- NOTE | 2022-09-17 13:56 | PC.NURSE ---
Pt to OR via w/c by OR personnel for EGD. IV saline locked. Tele removed.
--- NOTE | 2022-09-17 14:00 | CM.DANOTE ---
Patient is a 67 yo male who was admitted on 09/16/22 for Joint Pain. Pt has [facility] and [facility] for insurance and his PCP is not listed. EMR was reviewed. Per MD, pt with hx of COPD, ETOH, smoking and admitted for likely lower GI Bleed and anemia. Per Surgeon, plan to have scope likely tomorrow when OR schedule open and to be NPO after midnight. Per RN, pt currently NPO as well awaiting ST eval and recommendations due to some swallow issues. SW met bedside with pt and david Godoy and explained role and pt confirms he lives at home in [facility] with david Godoy and Dtr and grandchildren that are teenagers. 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 Pt states though since testing COVID+ a few months ago he has no appetite, has lost at least 50 lbs, has difficulty some days swallowing food and other days very hungry and can eat. Pt states he is so weak that he can barely walk around the house and has started having joint pain. Pt denies any hx of HH or SNF and does not have formal DPOA but states likely would be his son Walt. Pt states he has not needed to go to PCP much until getting COVID and goes to the [facility] and is not sure if he has established PCP there or not. Pt preference is to d/c home with family assist, would be willing to consider HH if recommended and is hopeful for his joint pain to be relieved and to figure out getting adequate oral intake. Plan: SW to follow closely for PT and ST eval and scope by Surgeon tomorrow towards determining d/c planning needs. DIANE [place] Discharge Planning/Care Management CM Discharge Assessment Start: 09/17/22 13:57 Freq: Status: Active Protocol: Document 09/17/22 13:57 BF (Rec: 09/17/22 14:00 BF [id number]) Discharge Planning Assessment Assigned Campus Recruiting Intern DIANE Rocha DPOA/Assigned Designee Name informally david Godoy Advance Directives? No Advance Directives on File No History Provided By Patient,Family Member,Medical Record Has Patient been admitted in last 30 No days? Prior Living Arrangements House Household Members family Comment david Godoy and Dtr and grandkids Type of transporation used prior to Relies on Others admit Independent with ADL's No: since COVID has needed assist Is patient alert and oriented? Yes Needs Assistance With Meal Prep,Managing Medications ,Home Chores / Shopping Caregiver for Another No DME Already Rented / Owned Cane Comment Pending PT eval and recommendations, r/o HH Barriers to Discharge No Discharge Plan Home with Home Health Transportation Arrangement David Godoy bedside Additional Comment pending scope and PT eval Whiteboard Updated in Patient Room with Yes name and ext. # of Campus Recruiting Intern Review Status In Process Please Provide Date Initial DC 09/17/22 Assessment Was Performed Next Review Type Continued Stay Review
--- NOTE | 2022-09-17 14:05 | PT-IP ANOTE ---
Attempted to perform Physical Therapy evaluation. RN reported pt would be going down for an EGD any moment now to check for GI bleeding. Did note that pt has been up to his BSC and back to bed, appears to be moving fairly well at the moment. Will attempt to evaluate again at a later time.
[2022-09-17] MEDS: LACTATED RINGERS 1,000 ML 42 ML IV (14:14)
--- NOTE | 2022-09-17 14:59 | PM.OP.EGD ---
Operative Date/Time/Diagnoses Date of procedure: 09/17/22 Time of procedure: 14:59 Pre-op diagnosis: GI bleed Post-op diagnosis: same Procedure & Clinicians Study performed: Esophagoduodenoscopy Same procedure as scheduled: Yes Indications: GI bleed Surgeon: Emerson Lord Procedure Notes Procedure in detail: The history and physical was performed/updated and the patient is ASA class is 3. The procedure was discussed in detail with the patient. Potential risks complications including infection, bleeding, missed diagnosis, perforation, need for surgery, and were explained. Their questions were answered and informed consent was obtained. Patient placed in left lateral decubitus position. Time out was performed. Procedural sedation was administered by Anesthesia. A bite block was placed. the scope was inserted into the mouth and advanced through the esophagus and into the stomach. The stomach was without masses, ulcers or gastritis. The pylorus was intubated and the duodenum was normal to the 2nd portion. The scope was retroflexed within the stomach and there was a small hiatal hernia. The scope was withdrawn into the esophagus the Z line was seen at 35 cm from the incisions. No esophagitis. There are varices without active hemorrhage.. No evidence of hemorrhage within the upper gastrointestinal tract Findings: other findings (Esophageal varices) Specimen(s): none sent Impression: Negative for hemorrhage within the upper intestinal tract Post-procedure Plan for aftercare: Needs a colonoscopy. There is abnormality of the rectum on CT abdomen pelvis from last year concerning for adenocarcinoma Disposition: Acute Care
--- NOTE | 2022-09-17 15:40 | PC.NURSE ---
Pt is back to room 214 via w/c and transferred back into bed. Speech Therapy is in the room performing a swallow eval. Bed alarm on for safety.
[2022-09-17] MEDS: COLCHICINE 0.6 MG TABLET PO ×2 (15:47→20:55)
[2022-09-17] MEDS: OXYCODONE IR 10 MG TABLET PO ×2 (15:47→20:54)
--- NOTE | 2022-09-17 16:50 | ST.IPCSEOM ---
Visit Care Team Role Provider Type Doctor MD [facility] Primary Care Provider Non-Staff Specialty: Medical Address: Phone: Fax: Email: Gustabo De La Fuente MD Other Providers Physician Specialty: General Surgery Address: [address] [place] [address], [address], [place], [address] Email: [email or web address] Jeremy Boogie DO Emergency Provider Physician Referring Provider Specialty: Emergency Medicine Address: [address] [place] [address], [address] Email: [email or web address] Perri Li [facility] Admit Provider Physician Attending Provider Specialty: Hospitalist Internal Medicine Address: [address] [place] [address], [address] Email: Current Diagnoses Gastrointestinal hemorrhage, unspecified (09/16/22) Past Medical History (Last Reviewed 09/17/22 @ 14:39 by Emerson Lord MD) Acute exacerbation of chronic obstructive pulmonary disease (COPD) (Medical) Alcoholism (Medical) Asthma (Medical) Cirrhosis of liver (Medical) Diabetes (Medical) Hard of hearing (Medical) Hearing aide right ear History of gastric ulcer (Medical) History of kidney stones (Medical) HTN (hypertension) (Medical) Hypoxia (Medical) Portal hypertension (Medical) Tobacco use disorder, moderate, in early remission, dependence (Medical) Type 2 diabetes mellitus (Medical) Speech-Language Pathology Swallow Evaluation 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 Clinical Swallow Evaluation Start: 09/17/22 16:18 Freq: Status: Active Protocol: Document 09/17/22 16:19 MICHELLEK (Rec: 09/17/22 16:50 LNK [id number]) Clinical Swallow Evaluation Session Time Visit Start Time 15:30 Visit Stop Time 16:05 Total Visit Minutes [address] Richter Reason for Referral dysphagia Setting Assessment Location Acute Care Visit Type Note Type Initial evaluation Next Note Type Next Note Type Re-evaluation Patient Information Identification Type Name,Wristband History Pt is a 67-year-old male with a history of COPD, pulmonary hypertension, CAD, essential HTN, alcoholism, cirrhosis, Asthma, daily smoker, non insulin diabetes. He presented to the ED for fatigue, body aches, joint pain weakness and black tarry stools and diarrhea over the past couple days. pt's family reported that the pt has had difficulty swallowing recently . They also reported that he could not swallow water, needing to spit it out. Pt underwent an EGD today. Swallowing assessment was ordered to determine pt's safety for PO intake following EGD. Subjective Observations Pt was in his bed. 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 Family members were present. Objective Assessment Mental Status Alert,Responsive,Cooperative Oral Integrity WFL Dentition Missing teeth Lip Function Within normal limits Observation of Lips at Rest Symmetrical Pucker Within normal limits Lip Retraction Within normal limits Tongue Function Within normal limits Observations of Tongue at Rest Within normal limits Tongue Retraction Within normal limits Tongue Lateralization Within normal limits Jaw Function Within normal limits Comment OME and DKS were obsered to be WFL. Pt is edentulous having lost [his] dentures in Jens!. Pt's speech was clear with a slight slur secondary to no teeth. Oral Phase: pt was able to control the boluses trialed without difficulty. He was able to masticate a soft diet (puree and dysphagia mechanical) without oral residue observed. Pt swallowed 2 pills whole with water without difficulty. Pt describes inability to swallow liquids during meals. Possibly there is esophageal dysmotility that results in a build up of foods. Will monitor this. Food and Liquid Trials Position During Assessment Upright (90 degrees) Liquids Trialed Ice chips,Thin Solids Trialed Puree,Dysphagia Mechanical Administration Type Tea spoon,Cup single sip, Controlled cup sip,Cup consecutive sips,Self-feeding Oral Impairment Within functional limits Oral Phase Comments Pt's baseline diet is soft foods/thin liquids per family. Pharyngeal Impairment Within functional limits Findings Swallowing Function Within functional limits Swallowing Function Comments Pt is edentulous. Has baseline of soft foods Severity of Swallow Impairment Within functional limits Contributing Factors to Swallow Mastication inefficiency Impairment Comments possible esophageal dysmotility Prognosis Good Based on Cognitive status,Family support,Age Recommendations Instrumental Assessment No Swallowing Treatment Yes Frequency Follow up x1 Recommended Solids Dysphagia Mechanical Recommended Liquids Thin Other Recommendations Medications as tolerated Safety Precautions/Swallowing Reduce distractions,Remain Recommendations upright (90 degrees) during all oral intake,Upright position at least 30 minutes after meals,Small bites and sips when eating,Slow rate; swallow between bites,Sip by straw only,Alternate liquids and solids Medication Recommendations As Tolerated Discharge Recommendations Home Education Patient/Caregiver Education Described results of evaluation,Patient expressed understanding of evaluation, Family/caregivers expressed understanding of evaluation, Family/caregivers expressed agreement with goals & treatment plans,Patient expressed understanding of feeding recommendations,Family /caregivers expressed understanding of safety precautions Goals Long-term Goals Pt will safely tolerate the least restrictive diet to meet hydration and nutrition nees without s/sx aspiration.
--- NOTE | 2022-09-17 17:12 | PT.IIE ---
Current Diagnoses Gastrointestinal hemorrhage, unspecified (09/16/22) Surgery Performed Operation Date: 09/17/22 15:00 Actual Procedures p Esophagogastroduodenoscopy - Emerson Lord MD Surgical History (Last Reviewed 09/17/22 @ 14:39 by Emerson Lord MD) H/O right knee surgery Medical History (Last Reviewed 09/17/22 @ 14:39 by Emerson Lord MD) Acute exacerbation of chronic obstructive pulmonary disease (COPD) Alcoholism Asthma Cirrhosis of liver Diabetes Hard of hearing History of gastric ulcer History of kidney stones HTN (hypertension) Hypoxia Portal hypertension Tobacco use disorder, moderate, in early remission, dependence Type 2 diabetes mellitus Physical Therapy Inpatient Evaluation/Re-Eval M1 PT/OT-IP Prior Functional Status Start: 09/17/22 16:42 Freq: NEEDED Status: Active Protocol: Document 09/17/22 16:42 [facility] (Rec: 09/17/22 17:11 [facility] [id number]) Medical Review Prior Functional Status Medical History Reviewed Yes Mobility and Gait pt has been using a fww at home but his family notes once his right foot pain began he was unable to ambulate Social History Household Members family Living Arrangements House M2 PT-IP Current Condition Start: 09/17/22 16:42 Freq: NEEDED Status: Active Protocol: Document 09/17/22 16:42 [facility] (Rec: 09/17/22 17:11 [facility] [id number]) Physical Therapy Current Condition Current Condition Evaluation Date 09/17/22 Treatment Diagnosis joint pain Onset Date 09/15/22 M3 PT-IP Subjective Start: 09/17/22 16:42 Freq: NEEDED Status: Active Protocol: Document 09/17/22 16:42 [facility] (Rec: 09/17/22 17:11 [facility] [id number]) Subjective Physical Therapy Visit Type Type Initial Evaluation Visit Start Time 16:10 Visit Stop Time 16:35 Total Visit Minutes 25 Physical Therapy Visit Comments Patient Comments pt is laying back in bed after having his esophagoduodenscopy. He reports his right ankle has been very sore but doing a little better after the medication. He reports Im not going to stand on my right foot, its too painful Therapy Pain Assessment Pain When Pain Assessed During Mobility Pain Present Pain Present Pain Reported Location right LE Intensity 5 M4 PT-IP Mobility and Gait Start: 09/17/22 16:42 Freq: NEEDED Status: Active Protocol: Document 09/17/22 16:42 [facility] (Rec: 09/17/22 17:11 [facility] [id number]) PT-Bed Mobility Assessment Rolling Type of Rolling Roll to Right Level of Assist Standby Assistance Supine to Sit Supine to Sit Standby Assistance Sit to Supine Sit to Supine Contact Guard Assistance Scooting Scooting Up and Down in Bed Contact Guard Assistance PT-Transfer Assessment Sit to and From Stand Sit to and from Stand Contact Guard Assistance Equipment Transfer Assistive Device Gait Belt,Front Wheeled Walker Orthotic/Prosthetic Devices or Brace: No Comments Mobility Comments pt demonstates SBA bed mobility and was CGA for sit- stand with fww. Pt notes with standing that his right foot feels better than it did prior to the medicine to have it dangling down. He attempted to put weight on it though and pain increased and he was unable to attempt walking Gait Assessment Comments Gait Comments not yet assessed due to pt not being able to bear weight on his R LE PT-Balance Assessment Sitting Balance and Reactions Static Sitting Balance Ability Normal Dynamic Sitting Balance Ability Normal Standing Balance and Reactions Static Standing Balance Ability Fair Dynamic Standing Balance Ability Fair Comments Other Balance Tests/Deviations/Treatment pt is unable to weight bear on : his right LE so he is placing a large amount of weight through his UE with the FWW M5 PT-IP Objective Assessments Start: 09/17/22 16:42 Freq: NEEDED Status: Active Protocol: Document 09/17/22 16:42 [facility] (Rec: 09/17/22 17:11 [facility] [id number]) Orientation Orientation/Cognition Level of Alertness Alert Gross Range of Motion Upper Extremity ROM Assessment Left Impaired Impairments pt describes left sided radiating pain down his UE Lower Extremity ROM Assessment Right Impaired Impairments Right foot and ankle pain Strength Upper Extremity Strength Assessment Left Impaired Lower Extremity Strength Assessment Right Impaired M7 PT-IP Assessment and Plan Start: 09/17/22 16:42 Freq: NEEDED Status: Active Protocol: Document 09/17/22 16:42 [facility] (Rec: 09/17/22 17:11 [facility] [id number]) PT Summary Assessment and Plan Potential Rehabilitation Potential Good Status of Condition at Evaluation Evolving Summary Impairments Pain,ROM,Strength,Transfers, Gait,Activity Tolerance Assessment Summary Mr Hernández is a 67 year old male who presented to the ER with Left wrist pain and right ankle pain. He also described black stools and diarrhea. He has a past medical history of diabetes and cirrhosis. Esophagoduodenoscopy was performed and was negative. There was a abnormality of the rectum on a CT scan of the abdomen and pelvis last year that was concerning for adenocarcinoma. Pt's family is in the room when PT arrived today. They noted that the right sided ankle pain and left UE pain came on with a insidious onset . Pt was given medication for gout and he felt this was helping some. With transfer from supine to sitting he notes he was not as painful as he was earlier in the afternoon. Pt was SBA for all bed mobility and CGA for sit-stand with FWW. He was not able to put any weight on his R LE due to pain. He will need further assessment for gait Goals Bed Mobility Goal Independent Transfer Goal Standby Assistance Gait Goal Contact Guard Assistance Gait Distance 50 feet Days to Meet Goals 5 Frequency of Treatment Frequency Of Treatment Once a Day Treatment Plan Physical Therapy Treatment Plan Transfer Training,Gait Training,Therapeutic Exercise Weight Bearing Status Weight Bearing Status Full Weight Bearing Recommendations To Nursing Amount of Assist Needed 1 Person Assist Discharge Recommendations PT Discharge Recommendations Home Transportation Needs at Discharge Private Vehicle
[2022-09-18] MEDS: HYDROMORPHONE 0.5 MG INJ IV (00:30)
[2022-09-18 06:34] LABS: Basophils Absolute Auto 100 /uL (0-100); Basophils Percent Auto 0.8 % (0-2); Eosinophils Absolute Auto 100 /uL (0-450); Hematocrit 26.9 % (41-53); Hemoglobin 8.6 g/dL (13.5-17.5); Lymphocytes Absolute Auto 1000 /uL (1100-4500); Lymphocytes Percent Auto 11.1 % (25-40); Mean Corpuscular HGB Conc 32.1 % (30-36); Mean Corpuscular Hemoglobin 20.6 PG (26-34); Mean Corpuscular Volume 64.1 fL (80-100); Monocytes Absolute Auto 800 /uL (0-900); Monocytes Percent Auto 9.4 % (3-14); Neutrophils Absolute Auto 6800 /uL (1500-7000); Neutrophils Percent Auto 77.7 % (50-75); Platelet Count 347 X10^3/uL (150-400); Red Blood Cell Count 4.19 X10^6/uL (4.5-5.9); White Blood Cell Count 8.8 X10^3/uL (4.5-11.0)
[2022-09-18 06:35] LABS: Add Manual Diff / Slide Review SLIDE REVIEW
[2022-09-18 06:40] LABS: Uric Acid 3.3 mg/dL (3.5-8.5)
[2022-09-18 06:42] LABS: Alanine Aminotransferase 12 IU/L (<50); Albumin 3.2 g/dL (3.5-5.0); Albumin Globulin Ratio 0.8 (1.0-2.8); Alkaline Phosphatase 215 U/L (38-126); Aspartate Aminotransferase 17 IU/L (17-59); BUN Creatinine Ratio 9.8 (6-22); Bilirubin Total 1.6 mg/dL (0.2-1.3); Blood Urea Nitrogen 10 mg/dL (9-20); Calcium 8.2 mg/dL (8.4-10.2); Carbon Dioxide 20 mmol/L (22-32); Chloride 103 mmol/L (98-107); Estimated Glomerular Filt Rate > 60 mL/min (>60); Glucose 122 mg/dL (80-110); HEMOLYSIS < 15 (0-50); Potassium 3.2 mmol/L (3.4-5.1); Sodium 135 mmol/L (137-145); Total Protein 7.2 g/dL (6.3-8.2)
[2022-09-18 06:43] VITALS: BP 137/83; PULSE 116; RESP 18; TEMP 37.1; O2SAT 99
[2022-09-18 07:14] LABS: Hypochromasia 1+; Microcytosis 2+
[2022-09-18 07:58] VITALS: BP 124/90; PULSE 117; RESP 16; TEMP 36.6; O2SAT 99
--- NOTE | 2022-09-18 08:38 | PM.PN.1 ---
Subjective Subjective Interval history: Right ankle feeling better today with the colchicine. Patient to prep today for colonoscopy tomorrow. He has no further complaints today. Exam Vital Signs (past 8 hours): - 09/18/22 06:43 09/18/22 07:58 Temperature 98.7 F 97.8 F Pulse Rate 116 H 117 H Respiratory Rate 18 16 Blood Pressure 137/83 124/90 Pulse Oximetry 99 99 Oxygen Flow Rate 0 0 Oxygen Delivery Method Room Air Oxygen Flow Rate 0 Narrative Exam Narrative: General: No ill appearing, patient is stable in no distress HENMT Head: normal to inspection and normocephalic Resp Effort & Inspection: normal respiratory effort Auscultation: Of all lung hampton clear to auscultation bilaterally Cardio Rate: tachycardic Rhythm: regular rhythm GI Inspection: Bowel sounds diminished but present in all 4 quadrants, nontender normal to inspection and non-distended Palpation: No firm and No guarding Skin Other: Patient verbalized extensive pain to even the slightest touch of the right foot or ankle-no edema present bilaterally, no open wounds injuries bruising deformity, or signs and symptoms of infection present No redness around the left wrist of the right ankle. Neuro General: patient alert and patient awake Extrem Other: Does have swelling to the left wrist in the lateral aspect of the right ankle.? He does have full range of motion both some discomfort.? Right ankle extremely sensitive to touch due to pain. Objective Labs 09/18/22 05:43 09/18/22 05:43 Labs: Laboratory Results - last 24 hr 09/18/22 09/18/22 09/18/22 05:43 05:43 05:43 WBC 8.8 RBC 4.19 L Hgb 8.6 L Hct 26.9 L MCV 64.1 L MCH 20.6 L MCHC 32.1 RDW 16.0 H Plt Count 347 Neut % (Auto) 77.7 H Lymph % (Auto) 11.1 L Stark % (Auto) 9.4 Eos % (Auto) 1.0 L Baso % (Auto) 0.8 Neut # (Auto) 6800 Lymph # (Auto) 1000 L Stark # (Auto) 800 Eos # (Auto) 100 Baso # (Auto) 100 RBC Morphology See below Hypochromasia 1+ H Microcytosis 2+ H Sodium 135 L Potassium 3.2 L Chloride 103 Carbon Dioxide 20 L BUN 10 Creatinine 1.02 Estimated GFR > 60 BUN/Creatinine Ratio 9.8 Glucose 122 H Uric Acid 3.3 L Calcium 8.2 L Total Bilirubin 1.6 H AST 17 ALT 12 Alkaline Phosphatase 215 H Total Protein 7.2 Albumin 3.2 L Globulin 4.0 Albumin/Globulin Ratio 0.8 L PFSH Medical History Acute exacerbation of chronic obstructive pulmonary disease (COPD) Alcoholism Asthma Cirrhosis of liver Diabetes Hard of hearing History of gastric ulcer History of kidney stones HTN (hypertension) Hypoxia Portal hypertension Tobacco use disorder, moderate, in early remission, dependence Type 2 diabetes mellitus Surgical History H/O right knee surgery Family History Mother Colon cancer Father Diabetes mellitus Social History household members: family lives independently: Yes Smoking Status: Former smoker alcohol intake: former Assessment & Plan Assessment & Plan narrative: Edgar Hernandez Jr is a 67-year-old male with a history of COPD, pulmonary hypertension, CAD, essential HTN, alcoholism, cirrhosis, Asthma, daily smoker, non insulin diabetes?. Admitted for GI bleed. 1. GI bleed with acute blood loss anemia, acute, with history of gastric ulcer, present on admission -initial H&H 9.6/30.6 MCV 63.9, MCH 20, platelets 445-repeat 3 hours later 9.2/28.6, MCV 64, MCH 20.6, platelets 378 -guiaic positive -will continue to trend H&H, monitor for bleeding -Protonix IV 40 b.i.d. -on dysphagia diet per speech -EGD on 09/17 unremarkable -due to previous imaging suggesting rectal thickening concerning for adenocarcinoma, patient to undergo colonoscopy on 09/19 -prep today and NPO at midnight 2. Chronic pain, multiple joints, worse in right ankle with possible gout, present on admission -left shoulder, left wrist, right ankle especially sensitive to the touch -unclear of inflammatory arthritis vs gout -PT OT evaluation -ESR, CRP evelated at 83 and 8 respectively -trial of colchicine as right ankle pain likely due to gout, has improved right ankle pain -no involvement of MTP joints making RA less likely 3. Essential Hypertension, chronic, present admission. Stable. -Blood pressure is stable. 128/83 4 Coronary artery disease, chronic, present on admission? Stable. -12/15/2018 CTA demonstrated coronary artery disease. -recommend outpatient Cardiology risk stratification and evaluation 5. COPD, chronic, present on admission -continue albuterol inhaler 6. Type 2 diabetes, on metformin, chronic, present on admission -controlled blood sugar 134 on at -admitted under diabetic protocol, holding metformin -A1c 6.0 Code status:Full Surrogate decision maker: Daughter Aisha CARR PCR:Negative DVT/VTE prophylaxis: Holding VTE medication, SCD's only Disposition: Pending colonoscopy on 09/19 then likely home. Quality VTE Deep Vein Thrombosis/Pulmonary Embolism Present on Admission: No
--- NOTE | 2022-09-18 08:42 | DI.RAD.S_ITS ---
PROCEDURE: XR ANKLE RT MIN 3V INDICATIONS: severe joint pain TECHNIQUE: 3 views of the ankle were acquired. COMPARISON: [facility], CR, XR ANKLE RT MIN 3V, 09/24/2018, 15:13. FINDINGS: Bones: No fractures or dislocations. Osteoarthritic changes are noted in midfoot and hindfoot joints most notably in tibiotalar joint. Well-defined plantar calcaneal enthesophyte is seen. Ankle mortise is normally aligned. No suspicious bony lesions. Soft tissues: No tibiotalar joint effusion. Achilles tendon appears normal. IMPRESSION: No acute ankle fracture or dislocation. Midfoot and hindfoot joint osteoarthritis. Calcaneal enthesophyte. Dictated by: Reinaldo Shipley M.D. on 09/18/2022 at 9:02 Approved by: Reinaldo Shipley M.D. on 09/18/2022 at 9:09
[2022-09-18] MEDS: COLCHICINE 0.6 MG TABLET PO ×2 (09:50→20:52)
[2022-09-18] MEDS: PANTOPRAZOLE 40 MG VIAL IV (09:51)
[2022-09-18] MEDS: SODIUM CHLORIDE 0.9% FLUSH 10 ML IV ×3 (09:51→20:51)
[2022-09-18 12:00] VITALS: BP 128/85; PULSE 122; RESP 16; TEMP 37.1; O2SAT 98
--- NOTE | 2022-09-18 12:29 | ST.IPDYTX ---
Visit Care Team Role Provider Type Doctor MD [facility] Primary Care Provider Non-Staff Specialty: Medical Address: Phone: Fax: Email: Gustabo De La Fuente MD Other Providers Physician Specialty: General Surgery Address: [address] [place] [address], [address], [address] Email: [email or web address] Jeremy Boogie DO Emergency Provider Physician Referring Provider Specialty: Emergency Medicine Address: [address] [place] [address], [address] Email: [email or web address] Perri Li [facility] Admit Provider Physician Attending Provider Specialty: Hospitalist Internal Medicine Address: [address] [place] [address], [address] Email: LOG DECK TENDER Dysphagia Treatment LOG DECK TENDER Dysphagia Treatment Start: 09/17/22 16:18 Freq: Status: Active Protocol: Document 09/18/22 12:12 LNK (Rec: 09/18/22 12:29 LNK [id number]) Dysphagia Treatment Session Time Visit Start Time 11:30 Visit Stop Time 11:45 Total Visit Minutes 15 Setting Assessment Location Acute Care Visit Type Note Type Treatment Note Patient Information Identification Type Name,ID Wristband Subjective Observations Pt was in bed resting. He agreed to talk to me. Treatment Treatment Activities Pt and nursing report that he is safely tolerating current diet (at baseline per pt). Pt stated that he sometimes feels full, pointing to his chest, and he wants to throw up. Pt education provided re: possible age-related espohageal dysmotility. Encouraged pt to eat slowly, alternate liquids/solids and stay upright, allowing gravity to assist in esophageal clearance. Assessment Patient Response to Treatment Good Assessment of Improvement Pt is currently at baseline diet. Will d/c at this time Diet Recommendations Recommendations Continue Current Diet Aspiration Precautions Recommended Precautions Alternate Liquids/Solids, Frequent Rest Periods,Small Bites/Sips Treatment Plan Placement Recommendation after Discharge Home,Home with Home Health Appropriate for Continued Therapy No: Pt is currently at baseline diet. Will d/c at this time Dysphagia Goals pt to safely tolerate least restrictive diet without s/sx aspiration.
[2022-09-18] MEDS: INSULIN LISPRO 100 UNIT/ML 3ML VIAL SUBCUT (12:47)
--- NOTE | 2022-09-18 12:48 | PT.IPTN ---
Current Diagnoses Gastrointestinal hemorrhage, unspecified (09/16/22) Surgery Performed Operation Date: 09/17/22 15:00 Actual Procedures p Esophagogastroduodenoscopy - Emerson Lord MD Operation Date: 09/19/22 08:15 <No data on this case meets the specified criteria> Physical Therapy Treatment Note M2 PT-IP Current Condition Start: 09/17/22 16:42 Freq: NEEDED Status: Active Protocol: Document 09/17/22 16:42 [facility] (Rec: 09/17/22 17:11 [facility] [id number]) Physical Therapy Current Condition Current Condition Evaluation Date 09/17/22 Treatment Diagnosis joint pain Onset Date 09/15/22 M3 PT-IP Subjective Start: 09/17/22 16:42 Freq: NEEDED Status: Active Protocol: Document 09/18/22 13:06 TS (Rec: 09/18/22 13:24 TS [id number]) Subjective Physical Therapy Visit Type Type Treatment Note Visit Start Time 12:48 Visit Stop Time 13:05 Total Visit Minutes 17 Physical Therapy Visit Comments Patient Comments Pt found resting in bed, family in room. Pt reports he is able to move his toes now and pain in his R foot has slightly improved. Family mentioned he has lost about 100lbs over the course of a year. Therapy Pain Assessment Pain When Pain Assessed At Rest Pain Present Pain Present Pain Reported M4 PT-IP Mobility and Gait Start: 09/17/22 16:42 Freq: NEEDED Status: Active Protocol: Document 09/18/22 13:06 TS (Rec: 09/18/22 13:24 TS [id number]) PT-Bed Mobility Assessment Supine to Sit Supine to Sit Independent Sit to Supine Sit to Supine Independent Scooting Scooting to Edge of Bed Independent PT-Transfer Assessment Sit to and From Stand Sit to and from Stand Standby Assistance Equipment Transfer Assistive Device Gait Belt,Front Wheeled Walker Orthotic/Prosthetic Devices or Brace: No Comments Mobility Comments Pt found resting in bed, agreeable to PT session. Supine to sit Ind w/out BUE support HOB raised. Scooted EOB Ind with cues for feet flat on floor. Pt performed sit to stand x1 SBA, BUE support on bed, RLE NWB. He ambulated around room on LLE SBA ~30'. Sit to supine Ind with BUE support scooting to HOB. Pt was left in room with family, call light nearby. Gait Assessment Gait Gait Assistance Required: Standby Assistance Distance (Feet) 30 Assistive Devices Orthotic/Prosthetic Devices or Brace: No Comments Gait Comments Due to pain in ankle pt is NWB on RLE, limiting his ability to mobilize. Ambulates with LLE wbering swinging through with RLE while in FWW. PT-Balance Assessment Sitting Balance and Reactions Static Sitting Balance Ability Normal Dynamic Sitting Balance Ability Normal Standing Balance and Reactions Static Standing Balance Ability Fair Dynamic Standing Balance Ability Fair Comments Other Balance Tests/Deviations/Treatment pt is unable to weight bear on : his right LE so he is placing a large amount of weight through his UE with the FWW M5 PT-IP Objective Assessments Start: 09/17/22 16:42 Freq: NEEDED Status: Active Protocol: Document 09/17/22 16:42 [facility] (Rec: 09/17/22 17:11 [facility] [id number]) Orientation Orientation/Cognition Level of Alertness Alert Gross Range of Motion Upper Extremity ROM Assessment Left Impaired Impairments pt describes left sided radiating pain down his UE Lower Extremity ROM Assessment Right Impaired Impairments Right foot and ankle pain Strength Upper Extremity Strength Assessment Left Impaired Lower Extremity Strength Assessment Right Impaired M7 PT-IP Assessment and Plan Start: 09/17/22 16:42 Freq: NEEDED Status: Active Protocol: Document 09/18/22 13:06 TS (Rec: 09/18/22 13:24 TS [id number]) PT Summary Assessment and Plan Potential Rehabilitation Potential Good Status of Condition at Evaluation Evolving Summary Impairments Pain,ROM,Strength,Transfers, Gait,Activity Tolerance Assessment Summary Pt is Ind in bed mobility, SBA for sit to stand and gait. He is a fall risk due to pain in R ankle and will not weight bear. He ambulates on LLE and swings RLE forward in FWW SBA. PT recommends return home with assistance from family. Goals Bed Mobility Goal Independent Transfer Goal Standby Assistance Gait Goal Contact Guard Assistance Gait Distance 50 feet Days to Meet Goals 5 Frequency of Treatment Frequency Of Treatment Once a Day Treatment Plan Physical Therapy Treatment Plan Transfer Training,Gait Training,Therapeutic Exercise Weight Bearing Status Weight Bearing Status Full Weight Bearing Recommendations To Nursing Amount of Assist Needed 1 Person Assist Discharge Recommendations PT Discharge Recommendations Home Transportation Needs at Discharge Private Vehicle
[2022-09-18] MEDS: PEG3350/SOD SULF,BICARB,CL/KCL 4,000 ML SOLUTION 4000 ML PO (14:24)
--- NOTE | 2022-09-18 15:46 | CM.DPC ---
DC plan continued: CM team discussed patient during AM rounds patient had a Scope done and was determined to need Colonoscopy which will be done on 09/19/22. DC plan remains the same to DC home with family assistance since he has daughter, son and teenage grand children all live with him. Patient is open to HH however PT and SPL both recommend home and not HH. CM team will follow up tomorrow after Colonoscopy to see if there are any new DC planning needs at that time. Ora Georges RNpolisher and buffer
[2022-09-18 16:00] VITALS: BP 136/95; PULSE 150; RESP 17; TEMP 36.2; O2SAT 98
[2022-09-18 18:00] VITALS: BP 122/82; PULSE 134; RESP 17; O2SAT 95
[2022-09-18 18:30] LABS: INR 1.3 (0.9-1.3); Prothrombin Time 15.4 SECONDS (10.1-12.7)
[2022-09-18] MEDS: PANTOPRAZOLE DR 40 MG TABLET PO (20:52)
[2022-09-19] VITALS (11 sets, daily range): BP systolic 103–150; BP diastolic 72–88; PULSE 102–123; RESP 15–20; TEMP 36.3–37.1; O2SAT 96–100; BMI 24.0
--- NOTE | 2022-09-19 | PATH_ITS ---
[facility] Accession Number: [id number] No. of containers..01 Tissue . 01 Material submitted: . rectum - RECTAL MASS . 01 Diagnosis: Rectal Mass, Biopsy: Invasive adenocarcinoma, moderately differentiated, ulcerated. Lymphovascular invasion not identified. . . IMMUNOHISTOCHEMISTRY TESTING FOR MISMATCH REPAIR PROTEINS: . MLH1: Intact nuclear expression. MSH2: Intact nuclear expression. MSH6: Intact nuclear expression. PMS2: Intact nuclear expression. Background nonneoplastic tissue/internal control with intact nuclear expression. . INTERPRETATION: No loss of nuclear expression of MMR proteins: low probability of microsatellite instability-high (MSI-H)* . * There are exceptions to the above IHC interpretations. These results should not be considered in isolation, and clinical correlation with genetic counseling is recommended to assess the need for germline testing. . * This test was developed and its performance characteristics determined by [facility]. It has not been cleared or approved by the U.S. Food and Drug Administration. The FDA has determined that such clearance or approval is not necessary. This test is used for clinical purposes. It should not be regarded as investigational or for research. [facility] 09/24/2022 1606 Local . 01 Comment: As part of routine training and quality manager, Dr. Hagen has reviewed this case and agrees with the diagnosis of invasive adenocarcinoma. The finding of invasive adenocarcinoma was reported to Dr. De La Fuente via [facility] by Dr. Trotter on 09/24/2022. . 01 Electronically signed: . Bhavik Trotter MD, PhD, Pathologist NPI- [id number] . 01 Gross description: . The specimen is received in formalin labeled with the patient's name, , and rectal mass consists of multiple resendiz to brown soft tissue fragments aggregating to 2.9 x 1.6 x 0.3 cm. The specimen is filtered into a biopsy bag and submitted entirely in cassette A1. ([id number]) /MRV 09/20/2022 1635 [facility] . 01 Pathologist provided ICD-10: C20 . 01 CPT . 926808, [id number], [id number] Specimen Comment: A courtesy copy of this report has been sent to [phone] Performed at: 01 [facility] [address] [place] [address], [place], [place] [id number] MD Quinton Aguilar MD Phone: [phone]
[2022-09-19] MEDS: PANTOPRAZOLE DR 40 MG TABLET PO (05:24)
[2022-09-19 05:47] LABS: Basophils Absolute Auto 100 /uL (0-100); Basophils Percent Auto 1.2 % (0-2); Eosinophils Absolute Auto 100 /uL (0-450); Eosinophils Percent Auto 1.3 % (2-4); Hematocrit 28.2 % (41-53); Hemoglobin 9.2 g/dL (13.5-17.5); Lymphocytes Absolute Auto 1100 /uL (1100-4500); Lymphocytes Percent Auto 11.9 % (25-40); Mean Corpuscular HGB Conc 32.4 % (30-36); Mean Corpuscular Hemoglobin 20.6 PG (26-34); Mean Corpuscular Volume 63.4 fL (80-100); Monocytes Absolute Auto 700 /uL (0-900); Monocytes Percent Auto 7.8 % (3-14); Neutrophils Absolute Auto 7300 /uL (1500-7000); Neutrophils Percent Auto 77.8 % (50-75); Platelet Count 414 X10^3/uL (150-400); Red Blood Cell Count 4.45 X10^6/uL (4.5-5.9); Red Cell Distribution Width 16.4 % (11.6-14.8); White Blood Cell Count 9.3 X10^3/uL (4.5-11.0)
[2022-09-19 05:49] LABS: Add Manual Diff / Slide Review SLIDE REVIEW
[2022-09-19 05:56] LABS: Alanine Aminotransferase 15 IU/L (<50); Albumin 3.5 g/dL (3.5-5.0); Albumin Globulin Ratio 0.9 (1.0-2.8); Alkaline Phosphatase 245 U/L (38-126); Aspartate Aminotransferase 21 IU/L (17-59); BUN Creatinine Ratio 12.7 (6-22); Bilirubin Total 1.1 mg/dL (0.2-1.3); Blood Urea Nitrogen 13 mg/dL (9-20); Calcium 8.6 mg/dL (8.4-10.2); Carbon Dioxide 21 mmol/L (22-32); Chloride 103 mmol/L (98-107); Estimated Glomerular Filt Rate > 60 mL/min (>60); Globulin 4.1 g/dL (1.7-4.1); Glucose 121 mg/dL (80-110); HEMOLYSIS < 15 (0-50); Potassium 2.9 mmol/L (3.4-5.1); Sodium 138 mmol/L (137-145); Total Protein 7.6 g/dL (6.3-8.2)
[2022-09-19 06:25] LABS: Hypochromasia 1+; Microcytosis 2+
[2022-09-19] MEDS: LACTATED RINGERS 1,000 ML 200 ML IV (07:39)
--- NOTE | 2022-09-19 08:11 | P.PN_ITS ---
Subjective Subjective Date Patient Seen: 09/19/22 Time Patient Seen: 08:11 Exam Vital Signs (past 8 hours): - 09/19/22 00:12 09/19/22 06:00 09/19/22 07:32 Temperature 98.7 F 98.3 F 97.6 F Pulse Rate 119 H 108 H 118 H Respiratory Rate 18 17 16 Blood Pressure 134/83 120/84 141/88 H Pulse Oximetry 97 98 100 Oxygen Delivery Method Room Air Oxygen Flow Rate 9 0 Oxygen Delivery Method Room Air Oxygen Flow Rate 0 Const General: No acute distress Objective Labs 09/19/22 05:32 09/19/22 05:32 Labs: Laboratory Results - last 24 hr 09/18/22 09/19/22 09/19/22 18:12 05:32 05:32 WBC 9.3 RBC 4.45 L Hgb 9.2 L Hct 28.2 L MCV 63.4 L MCH 20.6 L MCHC 32.4 RDW 16.4 H Plt Count 414 H Neut % (Auto) 77.8 H Lymph % (Auto) 11.9 L [place] % (Auto) 7.8 Eos % (Auto) 1.3 L Baso % (Auto) 1.2 Neut # (Auto) 7300 H Lymph # (Auto) 1100 [place] # (Auto) 700 Eos # (Auto) 100 Baso # (Auto) 100 RBC Morphology See below Hypochromasia 1+ H Microcytosis 2+ H PT 15.4 H INR 1.3 Sodium 138 Potassium 2.9 L Chloride 103 Carbon Dioxide 21 L BUN 13 Creatinine 1.02 Estimated GFR > 60 BUN/Creatinine Ratio 12.7 Glucose 121 H Calcium 8.6 Total Bilirubin 1.1 AST 21 ALT 15 Alkaline Phosphatase 245 H Total Protein 7.6 Albumin 3.5 Globulin 4.1 Albumin/Globulin Ratio 0.9 L PFSH Medical History Acute exacerbation of chronic obstructive pulmonary disease (COPD) Alcoholism Asthma Cirrhosis of liver Diabetes Hard of hearing History of gastric ulcer History of kidney stones HTN (hypertension) Hypoxia Portal hypertension Tobacco use disorder, moderate, in early remission, dependence Type 2 diabetes mellitus Surgical History H/O right knee surgery Family History Mother Colon cancer Father Diabetes mellitus Social History household members: family lives independently: Yes Smoking Status: Former smoker alcohol intake: former Assessment & Plan Assessment and plan (1) GI bleed: Status: Acute Plan 67-year-old man with rectal bleeding and obstructed defecation. We reviewed the risks benefits and alternatives of colonoscopy and he would like to proceed. Quality VTE Deep Vein Thrombosis/Pulmonary Embolism Present on Admission: No
--- NOTE | 2022-09-19 08:40 | PM.OP.COLON ---
Operative Date/Time/Diagnoses Date of procedure: 09/19/22 Time of procedure: 08:40 Pre-op diagnosis: Anemia Post-op diagnosis: same Procedure & Clinicians Study performed: Proctoscopy Same procedure as scheduled: Yes Surgeon: Gustabo De La Fuente Procedure Notes Procedure in detail: Surgeon: Gustabo De La Fuente MD Anesthesia: Codey Lua CRNA Procedure: The patient was brought to the endoscopy suite, placed in left lateral decubitus position. The patient was connected to monitoring devices. A time-out was performed. Sedation was administered. Once the patient was adequately sedated, a digital rectal exam was performed. The scope was then inserted and immediately a mass was seen in the mid rectum. An attempt was made to traverse mass however it was quite extensive very friable. It was decided not to attempt to push beyond the mass to avoid injury or bleeding. Multiple biopsies were taken from the mass with the Jumbo forceps. Fragments of the mass that sloughed off were suctioned into a trap and sent together with the Jumbo forceps biopsies. The scope was withdrawn. The patient was awakened and brought to recovery. Scope withdrawal time: Not applicable Sedation time: 11 minutes EBL: 10 mL Findings: Large friable mass extending from mid rectum to an undetermined proximal extent Post-procedure Disposition: PACU
--- NOTE | 2022-09-19 08:48 | DI.CT.S_ITS ---
PROCEDURE: CT CHEST ABD PEL W CON INDICATIONS: rectal mass TECHNIQUE: After the administration of oral and intravenous contrast, axial sections acquired from the supraclavicular neck to the pubic symphysis. Coronal and sagittal reformats were performed. For radiation dose reduction, the following was used: automated exposure control, adjustment of mA and/or kV according to patient size. COMPARISON: [facility], CT, CT LOW DOSE LUNG CA SCREENING, 05/22/2021, 17:45. [facility], CT, CT ABDOMEN PELVIS W CON, 12/23/2021, 9:43. FINDINGS: Image quality: Excellent. CHEST: Lower Neck: No enlarged lymph nodes. Thyroid: Within normal limits. Axillae: No enlarged lymph nodes. Chest Wall: Unremarkable. Lungs and Airways: A few areas of distal mucus airway plugging. Minimal ground-glass opacity near the right hilum, new or increased. Central airways are clear. Small tracheocele. Small calcified granuloma. No mass or significant pulmonary nodules. Pleura: No pneumothorax or pleural effusions. Heart: Heart size is normal. No pericardial effusion. Thoracic Vessels: The aorta and pulmonary arteries demonstrate normal size. Mediastinum and Jacquelyn: No enlarged lymph nodes. Esophagus: No wall thickening. No hiatal hernia. ABDOMEN: Liver: Cirrhotic liver morphology. No focal lesion is identified. Note, this exam is not tailored for the evaluation of HCC. Gallbladder: Unremarkable. Biliary ducts: Unremarkable. Pancreas: Unremarkable. Spleen: Mild splenomegaly measuring 14 cm. Adrenal Glands: Unremarkable. Kidneys and Ureters: No hydronephrosis. Small nonobstructing kidney stones bilaterally. Stomach and Bowel: Upper rectal/mid semi circumferential mass measuring approximately 7 cm in craniocaudal length, (6/47), previously 4.5 cm. There is extramural invasion measuring approximately 1.4 cm, (4/109). The mass is likely above the peritoneal reflection. Possible invasion at the peritoneal reflection. The tumor abuts the right medial seminal vesicle, (4/114). There is no upstream colonic dilatation. Diverticulosis. Normal appendix. No small bowel obstruction. Stomach is not distended. Peritoneum: No abnormal intraperitoneal fluid. No free air. Ventral Wall: Large fat containing umbilical hernia. The hernia neck measures 1.5 cm. Abdominal Nodes: No retroperitoneal or mesenteric adenopathy by size criteria. Vessels: Aorta and inferior vena cava are normal in size. PELVIS: Pelvic Organs: Small prosthetic calcifications. Bladder: Subtle increased density at the left bladder, unchanged. Pelvic Nodes: Superior rectal node measuring 0.7 cm, (4/101), previously 0.7 cm. Left pelvic sidewall node measuring 0.8 cm, (4/106), previously 0.6 cm. Miscellaneous: No inguinal hernias are seen. Bones: No suspicious lesion. IMPRESSION: 1. Upper/mid semicircumferential rectal mass measuring 7 cm is increased in size compared to December 2021. Worsening extramural invasion and abutment of the right seminal vesicle. 2. Superior rectal and left pelvic sidewall nodes are not significantly changed. Remain suspicious. 3. No bowel obstruction. 4. Cirrhotic liver morphology. No ascites. Mild splenomegaly. 5. Subtle increased density in thickening at the left bladder, unchanged. Small neoplasm could have this appearance. Small stones is also in the differential diagnosis. Nonobstructing kidney stones. Dictated by: Mikey Beck M.D. on 09/19/2022 at 10:34 Approved by: Mikey Beck M.D. on 09/19/2022 at 10:56
[2022-09-19] MEDS: COLCHICINE 0.6 MG TABLET PO (10:14)
[2022-09-19] MEDS: POTASSIUM CHLORIDE 20 MEQ TAB 40 MEQ PO (10:14)
[2022-09-19 10:38] LABS: Carcinoembryonic Antigen 39.1 ng/mL (0.1-3.0)
--- NOTE | 2022-09-19 10:38 | PC.NURSE ---
Patient teary eyed with family in room. gave patient some news that patient has rectal cancer. Initially, patient and family upset and crying, patient seems to be in better spirits now. He ate a few bites at breakfast. He tolerated all of his po medication well. Down for ct scan, and now resting.
--- NOTE | 2022-09-19 10:58 | PT.IPTN ---
Current Diagnoses Gastrointestinal hemorrhage, unspecified (09/16/22) Surgery Performed Operation Date: 09/17/22 15:00 Actual Procedures p Esophagogastroduodenoscopy - Emerson Lord MD Operation Date: 09/19/22 08:15 Actual Procedures p Colonoscopy - Gustabo De La Fuente MD Physical Therapy Treatment Note M2 PT-IP Current Condition Start: 09/17/22 16:42 Freq: NEEDED Status: Active Protocol: Document 09/17/22 16:42 [facility] (Rec: 09/17/22 17:11 AMH [id number]) Physical Therapy Current Condition Current Condition Evaluation Date 09/17/22 Treatment Diagnosis joint pain Onset Date 09/15/22 M3 PT-IP Subjective Start: 09/17/22 16:42 Freq: NEEDED Status: Active Protocol: Document 09/19/22 11:18 TS (Rec: 09/19/22 11:38 TS [id number]) Subjective Physical Therapy Visit Type Type Treatment Note Visit Start Time 10:58 Visit Stop Time 11:16 Total Visit Minutes 18 Physical Therapy Visit Comments Patient Comments Pt found resting in bed, sons in room. Pt reports he is still having pain in R ankle but it is less sensitive to touch. Therapy Pain Assessment Pain When Pain Assessed At Rest Pain Present Pain Present Pain Reported M4 PT-IP Mobility and Gait Start: 09/17/22 16:42 Freq: NEEDED Status: Active Protocol: Document 09/19/22 11:18 TS (Rec: 09/19/22 11:38 TS [id number]) PT-Bed Mobility Assessment Rolling Type of Rolling Roll to Left Level of Assist Independent Supine to Sit Supine to Sit Independent Sit to Supine Sit to Supine Independent Scooting Scooting to Edge of Bed Independent Scooting Up and Down in Bed Independent PT-Transfer Assessment Comments Mobility Comments Pt found resting in bed, agreeable to PT session. Supine to sit Ind with BUE support, RLE is stiff with knee flexion when sitting up to EOB. Sat Ind with no BUE support on bed. Performed knee flex/ext x5 and weight shift onto RLE for increased wbering . Sit to supine Ind with BUE support. Provided cues for quad sets x5, SLR X5, heel slides x5 and bridging x2. Pt was left in bed with sons in room, call light nearby. Gait Assessment Factors Limiting Gait Function Factors Limiting Gait Function Pain Comments Gait Comments Pt requesting not to ambulate at this time due to pain in RLE. PT-Balance Assessment Sitting Balance and Reactions Static Sitting Balance Ability Normal Dynamic Sitting Balance Ability Normal Standing Balance and Reactions Static Standing Balance Ability Fair Dynamic Standing Balance Ability Fair Comments Other Balance Tests/Deviations/Treatment Pt did ont stand this session. : M5 PT-IP Objective Assessments Start: 09/17/22 16:42 Freq: NEEDED Status: Active Protocol: Document 09/17/22 16:42 [facility] (Rec: 09/17/22 17:11 AM[facility] [id number]) Orientation Orientation/Cognition Level of Alertness Alert Gross Range of Motion Upper Extremity ROM Assessment Left Impaired Impairments pt describes left sided radiating pain down his UE Lower Extremity ROM Assessment Right Impaired Impairments Right foot and ankle pain Strength Upper Extremity Strength Assessment Left Impaired Lower Extremity Strength Assessment Right Impaired M7 PT-IP Assessment and Plan Start: 09/17/22 16:42 Freq: NEEDED Status: Active Protocol: Document 09/19/22 11:18 TS (Rec: 09/19/22 11:38 TS [id number]) PT Summary Assessment and Plan Potential Rehabilitation Potential Good Status of Condition at Evaluation Evolving Summary Impairments Pain,ROM,Strength,Transfers, Gait,Activity Tolerance Assessment Summary Pt continues to be Ind for all bed mobility, did not want to stand this session due to pain wbering through R ankle. He is progressing his wbering on his RLE sitting EOB this session and has decreased sensitivity to touch but is still causing him pain and discomfort. PT continues to recommend home with assist from family when medically stable. Goals Bed Mobility Goal Independent Transfer Goal Standby Assistance Gait Goal Contact Guard Assistance Gait Distance 50 feet Days to Meet Goals 5 Frequency of Treatment Frequency Of Treatment Once a Day Treatment Plan Physical Therapy Treatment Plan Transfer Training,Gait Training,Therapeutic Exercise Weight Bearing Status Weight Bearing Status Full Weight Bearing Recommendations To Nursing Amount of Assist Needed Standby Assistance Discharge Recommendations PT Discharge Recommendations Home Transportation Needs at Discharge Private Vehicle
[2022-09-19] MEDS: INSULIN LISPRO 100 UNIT/ML 3ML VIAL SUBCUT (12:06)
--- NOTE | 2022-09-19 12:22 | PM.PN.1 ---
Subjective Subjective Date Patient Seen: 09/19/22 Interval history: Patient underwent colonoscopy this AM showing large rectal mass in the mid-rectum. Scope could not be advanced beyond this. Patient briefed on the finding and was tearful, and stated he would not want to do chemo but might be open to surgery. Exam Vital Signs (past 8 hours): - 09/19/22 06:00 09/19/22 07:32 09/19/22 08:41 Temperature 98.3 F 97.6 F 98.2 F Pulse Rate 108 H 118 H 104 H Respiratory Rate 17 16 16 Blood Pressure 120/84 141/88 H 103/72 Pulse Oximetry 98 100 100 Oxygen Delivery Method Room Air Room Air Oxygen Flow Rate 0 09/19/22 08:45 09/19/22 08:49 09/19/22 09:00 Temperature 97.4 F L Pulse Rate 104 H 102 H 105 H Respiratory Rate 15 16 18 Blood Pressure 103/72 108/73 122/78 Pulse Oximetry 98 98 99 Oxygen Delivery Method Room Air Room Air Oxygen Flow Rate 0 09/19/22 09:35 09/19/22 10:00 09/19/22 11:15 Temperature 97.7 F 98.0 F 98.3 F Pulse Rate 114 H 121 H 123 H Respiratory Rate 18 18 20 Blood Pressure 127/88 150/85 H 129/82 Pulse Oximetry 96 100 98 Oxygen Delivery Method Oxygen Flow Rate 0 0 0 Oxygen Delivery Method Room Air Oxygen Flow Rate 0 Narrative Exam Narrative: General: Not ill appearing, patient is stable in no distress, tearful HENMT Head: normal to inspection and normocephalic Resp Effort & Inspection: normal respiratory effort Auscultation: Of all lung [place] clear to auscultation bilaterally Cardio Rate: tachycardic Rhythm: regular rhythm GI Inspection: Bowel sounds diminished but present in all 4 quadrants, nontender normal to inspection and non-distended Palpation: No firm and No guarding Skin Other: Patient verbalized extensive pain to even the slightest touch of the right foot or ankle-no edema present bilaterally, no open wounds injuries bruising deformity, or signs and symptoms of infection present No redness around the left wrist of the right ankle. Neuro General: patient alert and patient awake Extrem Other: Does have swelling to the left wrist in the lateral aspect of the right ankle.? He does have full range of motion both some discomfort.? Right ankle extremely sensitive to touch due to pain. Objective Labs 09/19/22 05:32 09/19/22 05:32 Labs: Laboratory Results - last 24 hr 09/18/22 09/19/22 09/19/22 18:12 05:32 05:32 WBC 9.3 RBC 4.45 L Hgb 9.2 L Hct 28.2 L MCV 63.4 L MCH 20.6 L MCHC 32.4 RDW 16.4 H Plt Count 414 H Neut % (Auto) 77.8 H Lymph % (Auto) 11.9 L [place] % (Auto) 7.8 Eos % (Auto) 1.3 L Baso % (Auto) 1.2 Neut # (Auto) 7300 H Lymph # (Auto) 1100 [place] # (Auto) 700 Eos # (Auto) 100 Baso # (Auto) 100 RBC Morphology See below Hypochromasia 1+ H Microcytosis 2+ H PT 15.4 H INR 1.3 Sodium 138 Potassium 2.9 L Chloride 103 Carbon Dioxide 21 L BUN 13 Creatinine 1.02 Estimated GFR > 60 BUN/Creatinine Ratio 12.7 Glucose 121 H Calcium 8.6 Total Bilirubin 1.1 AST 21 ALT 15 Alkaline Phosphatase 245 H Total Protein 7.6 Albumin 3.5 Globulin 4.1 Albumin/Globulin Ratio 0.9 L Carcinoembryonic Ag 09/19/22 05:32 WBC RBC Hgb Hct MCV MCH MCHC RDW Plt Count Neut % (Auto) Lymph % (Auto) [place] % (Auto) Eos % (Auto) Baso % (Auto) Neut # (Auto) Lymph # (Auto) [place] # (Auto) Eos # (Auto) Baso # (Auto) RBC Morphology Hypochromasia Microcytosis PT INR Sodium Potassium Chloride Carbon Dioxide BUN Creatinine Estimated GFR BUN/Creatinine Ratio Glucose Calcium Total Bilirubin AST ALT Alkaline Phosphatase Total Protein Albumin Globulin Albumin/Globulin Ratio Carcinoembryonic Ag 39.1 H [facility] Medical History Acute exacerbation of chronic obstructive pulmonary disease (COPD) Alcoholism Asthma Cirrhosis of liver Diabetes Hard of hearing History of gastric ulcer History of kidney stones HTN (hypertension) Hypoxia Portal hypertension Tobacco use disorder, moderate, in early remission, dependence Type 2 diabetes mellitus Surgical History H/O right knee surgery Family History Mother Colon cancer Father Diabetes mellitus Social History household members: family lives independently: Yes Smoking Status: Former smoker alcohol intake: former Assessment & Plan Assessment & Plan narrative: Edgar Hernandez Jr is a 67-year-old male with a history of COPD, pulmonary hypertension, CAD, essential HTN, alcoholism, cirrhosis, Asthma, daily smoker, non insulin diabetes?. Admitted for GI bleed. 1. Large rectal mass with recent rectal bleeding, present on admission -initial H&H 9.6/30.6 MCV 63.9, MCH 20, platelets 445-repeat 3 hours later 9.2/28.6, MCV 64, MCH 20.6, platelets 378 -guiaic positive -will continue to trend H&H, monitor for bleeding -can stop PPI due to negative EGD -on dysphagia diet per speech -EGD on 09/17 positive for non-bleeding varices -colonoscopy on 09/19 with large mid-rectal mass which was friable and likely source of bleeding, biopsies taken -will need consult with colorectal surgeon Dr. Monte at [facility], as well as oncology referral -CT CAP pending for staging 2. Chronic pain, multiple joints, worse in right ankle with possible gout, present on admission -left shoulder, left wrist, right ankle especially sensitive to the touch -unclear of inflammatory arthritis vs gout -PT OT evaluation -ESR, CRP evelated at 83 and 8 respectively -trial of colchicine as right ankle pain likely due to gout, has improved right ankle pain -no involvement of MTP joints making RA less likely -PT cleared for home 3. Essential Hypertension, chronic, present admission. Stable. -Blood pressure is stable. 128/83 4 Coronary artery disease, chronic, present on admission? Stable. -12/15/2018 CTA demonstrated coronary artery disease. -recommend outpatient Cardiology risk stratification and evaluation 5. COPD, chronic, present on admission -continue albuterol inhaler 6. Type 2 diabetes, on metformin, chronic, present on admission -controlled blood sugar 134 on at -admitted under diabetic protocol, holding metformin -A1c 6.0 Code status:Full Surrogate decision maker: Daughter Aisha CARR PCR:Negative DVT/VTE prophylaxis: Holding VTE medication, SCD's only Disposition: Pending plan for rectal mass. Quality VTE Deep Vein Thrombosis/Pulmonary Embolism Present on Admission: No
--- NOTE | 2022-09-19 14:53 | P.DS_ITS ---
History of Present Illness History of Present Illness Date Patient Seen: 09/19/22 Time Patient Seen: 14:54 Chief complaint: Joint pain Narrative: Edgar Hernandez Jr is a 67-year-old male with a history of COPD, pulmonary hypertension, CAD, essential HTN, alcoholism, cirrhosis, Asthma, daily smoker, non insulin diabetes?. He presented to the ED today for fatigue body aches joint pain weakness and black tarry stools. He states that there is not any specific trauma.? He is never had a history of gout.? No fevers.? He states the pain is radiating up his left arm and also up his right leg.? Does have a history of diabetes.? He did take a pain medication that was given to him by a friend of his and he states it did not help any of his symptoms.? He denies any fevers.? In triage was found that he was tachycardic.? He stated that he has been having black-colored stools and also diarrhea over the past couple days but did not have any black stools today.? No vomiting blood.? This has some vague lower abdominal discomfort.? He was scheduled to have a routine colonoscopy at the end of last week but did not go to it because he was not feeling well.? He is not on anticoagulation.? Does not use nonsteroidal anti-inflammatories. In ED tachycardic heart rates in the 130s, respiratory rates in the 20s with a low- grade fever- WBC 12.8, with a neutrophilic shift, H&H 9.6/30.6, PLT 445 within 3 hours WBC had resolved 10.3, H&H dropped slightly 9.2-28.6, and platelets normalized. On admit temp 99.5?, BP 128/83, HR 113, R 20, 98% on room air. H&H 9.2/28.6, bicarb 20, glucose 134, PT 13.5, INR 1.2 patient was guaiac positive, urinalysis was positive for urine bili leukocytes WBCs culture is pending lactate, procalcitonin, respiratory panel, uric acid were all within normal limits. Sudhakar was consulted states that patient will be NPO at midnight on 09/18 as he can not take him to the OR tomorrow for a scope. Patient has been typed and crossed is O-positive. Patient admitted for lower GI bleed, blood-loss anemia. Discharge Providers Provider Date of admission: 09/16/22 20:26 Discharge Date: 09/19/22 Primary care physician: Doctor Otis MD Consults: 09/16/22 21:04 Consult to Hand Edge Bander Routine Comment: lives home with his son; recently requires assist 09/16/22 22:39 Consult to General Surgery Routine Comment: Consulting Provider: Gustabo De La Fuente Reason for consultation: GI Bleed Has provider been notified: Yes 09/17/22 05:09 Consult to Speech Therapy Evaluate & Treat Comment: swallow eval Physician Instructions: Evaluate and treat 09/17/22 05:10 Consult to [employer]CH[employer] - Hand Edge Bander Routine Comment: [employer] Consult needed for:: [facility] Res Need Consult to Physical Therapy Evaluate & Treat Comment: weakness Physician Instructions: Evaluate and Treat Discharge provider: Bhavik Richter DO Summary Hospital Course Discharge Diagnosis: 1. Large rectal mass with recent rectal bleeding, present on admission -initial H&H 9.6/30.6 MCV 63.9, MCH 20, platelets 445-repeat 3 hours later 9.2/28.6, MCV 64, MCH 20.6, platelets 378 -guiaic positive -will continue to trend H&H, monitor for bleeding -can stop PPI due to negative EGD -on dysphagia diet per speech -EGD on 09/17 positive for non-bleeding varices -colonoscopy on 09/19 with large mid-rectal mass which was friable and likely source of bleeding, biopsies taken -spoke with PCP who sent referrals to colorectal surgeon Dr. Monte at [facility], as well as [facility] referral -CT CAP showed tumor invading through rectum into seminal vesicle, but no distant metastasis 2. Chronic pain, multiple joints, worse in right ankle with possible gout, present on admission -left shoulder, left wrist, right ankle especially sensitive to the touch -unclear of inflammatory arthritis vs gout -PT OT evaluation -ESR, CRP evelated at 83 and 8 respectively -trial of colchicine as right ankle pain likely due to gout, has improved right ankle pain -no involvement of MTP joints making RA less likely -PT cleared for home 3.? Essential Hypertension, chronic, present admission. Stable. -Blood pressure is stable.? 128/83 4 Coronary artery disease, chronic, present on admission? Stable. -12/15/2018 CTA demonstrated coronary artery disease. -recommend outpatient Cardiology risk stratification and evaluation 5. COPD, chronic, present on admission -continue albuterol inhaler 6. Type 2 diabetes, on metformin, chronic, present on admission -controlled blood sugar 134 on at -admitted under diabetic protocol, holding metformin -A1c 6.0 Code status:Full Surrogate decision maker: Daughter Aisha DavisBradley Hospital Course: Admitted for rectal bleeding and underwent EGD which was normal but colonoscopy showed large rectal mass. Biopsies taken. Patient's PCP contacted who placed urgent referrals to [facility] and Dr. Rajiv Monte colorectal surgeon at [facility]. Patient blood counts remained stable. He also had ankle pain which was likely gout and improved with colchicine. Time Spent with Patient Time spent: Greater than 30 minutes Exam Vital Signs (past 8 hours): - 09/19/22 07:32 09/19/22 08:41 09/19/22 08:45 Temperature 97.6 F 98.2 F Pulse Rate 118 H 104 H 104 H Respiratory Rate 16 16 15 Blood Pressure 141/88 H 103/72 103/72 Pulse Oximetry 100 100 98 Oxygen Delivery Method Room Air Room Air Room Air Oxygen Flow Rate 09/19/22 08:49 09/19/22 09:00 09/19/22 09:35 Temperature 97.4 F L 97.7 F Pulse Rate 102 H 105 H 114 H Respiratory Rate 16 18 18 Blood Pressure 108/73 122/78 127/88 Pulse Oximetry 98 99 96 Oxygen Delivery Method Room Air Oxygen Flow Rate 0 0 09/19/22 10:00 09/19/22 11:15 09/19/22 12:00 Temperature 98.0 F 98.3 F 98.3 F Pulse Rate 121 H 123 H 123 H Respiratory Rate 18 20 20 Blood Pressure 150/85 H 129/82 129/82 Pulse Oximetry 100 98 98 Oxygen Delivery Method Oxygen Flow Rate 0 0 0 Oxygen Delivery Method Room Air Oxygen Flow Rate 0 Narrative Exam Narrative: General: Not ill appearing, patient is stable in no distress HENMD Head: normal to inspection and normocephalic Resp Effort & Inspection: normal respiratory effort Auscultation: Of all lung hampton clear to auscultation bilaterally Cardio Rate: tachycardic Rhythm: regular rhythm GI Inspection: Bowel sounds diminished but present in all 4 quadrants, nontender normal to inspection and non-distended Palpation: No firm and No guarding Skin Other: Patient verbalized extensive pain to even the slightest touch of the right foot or ankle-no edema present bilaterally, no open wounds injuries b ruising deformity, or signs and symptoms of infection present No redness around the left wrist of the right ankle. Neuro General: patient alert and patient awake Extrem Other: Does have swelling to the left wrist in the lateral aspect of the right ankle.? He does have full range of motion both some discomfort.? Right ankle extremely sensitive to touch due to pain. Objective Labs 09/19/22 05:32 09/19/22 05:32 Labs: Laboratory Results - last 24 hr 09/18/22 09/19/22 09/19/22 18:12 05:32 05:32 WBC 9.3 RBC 4.45 L Hgb 9.2 L Hct 28.2 L MCV 63.4 L MCH 20.6 L MCHC 32.4 RDW 16.4 H Plt Count 414 H Neut % (Auto) 77.8 H Lymph % (Auto) 11.9 L Kent % (Auto) 7.8 Eos % (Auto) 1.3 L Baso % (Auto) 1.2 Neut # (Auto) 7300 H Lymph # (Auto) 1100 Kent # (Auto) 700 Eos # (Auto) 100 Baso # (Auto) 100 RBC Morphology See below Hypochromasia 1+ H Microcytosis 2+ H PT 15.4 H INR 1.3 Sodium 138 Potassium 2.9 L Chloride 103 Carbon Dioxide 21 L BUN 13 Creatinine 1.02 Estimated GFR > 60 BUN/Creatinine Ratio 12.7 Glucose 121 H Calcium 8.6 Total Bilirubin 1.1 AST 21 ALT 15 Alkaline Phosphatase 245 H Total Protein 7.6 Albumin 3.5 Globulin 4.1 Albumin/Globulin Ratio 0.9 L Carcinoembryonic Ag 09/19/22 05:32 WBC RBC Hgb Hct MCV MCH MCHC RDW Plt Count Neut % (Auto) Lymph % (Auto) Kent % (Auto) Eos % (Auto) Baso % (Auto) Neut # (Auto) Lymph # (Auto) Kent # (Auto) Eos # (Auto) Baso # (Auto) RBC Morphology Hypochromasia Microcytosis PT INR Sodium Potassium Chloride Carbon Dioxide BUN Creatinine Estimated GFR BUN/Creatinine Ratio Glucose Calcium Total Bilirubin AST ALT Alkaline Phosphatase Total Protein Albumin Globulin Albumin/Globulin Ratio Carcinoembryonic Ag 39.1 [facility] Medical History Acute exacerbation of chronic obstructive pulmonary disease (COPD) Alcoholism Asthma Cirrhosis of liver Diabetes Hard of hearing History of gastric ulcer History of kidney stones HTN (hypertension) Hypoxia Portal hypertension Tobacco use disorder, moderate, in early remission, dependence Type 2 diabetes mellitus Surgical History H/O right knee surgery Family History Mother Colon cancer Father Diabetes mellitus Social History household members: family lives independently: Yes Smoking Status: Former smoker alcohol intake: former Discharge Plan Discharge Plan Patient Disposition: Home Provider Discharge Comment: You were unfortunately diagnosed with likely rectal cancer on colonoscopy. You will now need to see [facility] and [facility] General surgery for next steps. We have had your PCP send referrals over so you just need to call to get appts [place]. Biopsy results will automatically be sent to these clinics so they can follow-up on what kind of cancer it is. Your scan thankfully didn't show that it has spread throughout your body as this point. Discharge orders & Medications Prescriptions: Continued metformin [Glucophage] 500 MG tablet 500 mg PO DAILY Qty: 0 albuterol sulfate 90 mcg/actuation HFA aerosol inhaler 2 puff inhalation Q6HR PRN (Reason: Wheezing) Patient Comments: INHALE 2 PUFFS BY MOUTH EVERY 4 HOURS IF NEEDED FOR BREATHING Follow up/Referrals: Doctor Berg MD [Primary Care Provider] - Visit Report/Discharge Packet Instructions: Rectal Cancer Stand Alone Forms: Patient Portal/API, Stroke Signs & Symptoms Discharge Data Primary Care Provider: Doctor Otis Discharges patient from system. Discharge Date/Time: 09/19/22 15:30 Quality VTE Deep Vein Thrombosis/Pulmonary Embolism Present on Admission: No
[2022-09-19 14:59] LABS: H. Pylori Antigen Stool Negative (Negative)
== END 2022-09-19 15:30 | disposition home or self-care (01) | DRG 375 ==
LOC: ED 20:11 → AC 20:27
PROVIDERS: Emergency Medicine; Student in an Organized Health Care Education/Training Program; Surgery; Admitting Provider Nurse Practitioner Family; Emergency Provider Emergency Medicine; Referring Provider Emergency Medicine; Visit Provider Nurse Practitioner Family
PROC: 0DJ08ZZ Inspection of Upper Intestinal Tract, Via Natural or Artificial Opening Endoscopic (ICD-10-PCS; CPT 43235; principal; 2022-09-17 15:00)
PROC: 0DJD8ZZ Inspection of Lower Intestinal Tract, Via Natural or Artificial Opening Endoscopic (ICD-10-PCS; CPT 45378; principal; 2022-09-19 08:15)
DX: C20 Malignant neoplasm of rectum (principal); D62 Acute posthemorrhagic anemia; K92.2 Gastrointestinal hemorrhage, unspecified; I85.00 Esophageal varices without bleeding; M25.512 Pain in left shoulder; M25.532 Pain in left wrist; M25.571 Pain in right ankle and joints of right foot; G89.29 Other chronic pain; I10 Essential (primary) hypertension; I25.10 Atherosclerotic heart disease of native coronary artery without angina pectoris; J44.9 Chronic obstructive pulmonary disease, unspecified; E11.9 Type 2 diabetes mellitus without complications; Z79.84 Long term (current) use of oral hypoglycemic drugs; Z87.891 Personal history of nicotine dependence; Z20.822 Contact with and (suspected) exposure to COVID-19
CPT/HCPCS: 36415; 43235; 45380; 71045; 71260; 73610; 74177; 80053; 81001; 82270; 82378; 82962; 83036; 83540; 83550; 83605; 83735; 84145; 84550; 85025; 85610; 85651; 85730; 86140; 86430; 86850; 86900; 86901; 87040; 87086; 87338; 87633; 92526; 92610; 93005; 96374; 96375; 96376; 97110; 97161; 97530; 99231; 99232; 99284; C9113; J1170; J1815; J2270; J2405; J2704; Q9967

== ENCOUNTER 2022-10-11 07:07 | Emergency (ER) | payer MEDICARE, MEDICAID, OTHER, SELFPAY ==
[2022-09-16 20:31] VITALS: BMI 24.0
[2022-10-11] VITALS (21 sets, daily range): BP systolic 110–172; BP diastolic 72–85; PULSE 106–135; RESP 12–24; TEMP 36.6–38.3; O2SAT 97–100; BMI 24.6
[2022-10-11] MEDS: ONDANSETRON 4 MG/2 ML INJ IV (07:36)
[2022-10-11] MEDS: SODIUM CHLORIDE 0.9% 1,000 ML 1000 ML IV ×2 (07:37→10:03)
[2022-10-11 07:38] LABS: Add Manual Diff / Slide Review NO; Basophils Absolute Auto 100 /uL (0-100); Basophils Percent Auto 0.7 % (0-2); Eosinophils Absolute Auto 0 /uL (0-450); Eosinophils Percent Auto 0.1 % (2-4); Hematocrit 29.1 % (41-53); Hemoglobin 9.1 g/dL (13.5-17.5); Lymphocytes Absolute Auto 700 /uL (1100-4500); Lymphocytes Percent Auto 7.1 % (25-40); Mean Corpuscular HGB Conc 31.1 % (30-36); Mean Corpuscular Hemoglobin 19.7 PG (26-34); Mean Corpuscular Volume 63.2 fL (80-100); Monocytes Absolute Auto 600 /uL (0-900); Neutrophils Absolute Auto 8900 /uL (1500-7000); Neutrophils Percent Auto 86.1 % (50-75); Platelet Count 431 X10^3/uL (150-400); Red Cell Distribution Width 16.7 % (11.6-14.8); White Blood Cell Count 10.3 X10^3/uL (4.5-11.0)
--- NOTE | 2022-10-11 07:38 | DI.CT.S_ITS ---
PROCEDURE: CT CHEST ABD PEL W CON INDICATIONS: IV contrast only/sepsis TECHNIQUE: After the administration of oral and intravenous contrast, axial sections acquired from the supraclavicular neck to the pubic symphysis. Coronal and sagittal reformats were performed. For radiation dose reduction, the following was used: automated exposure control, adjustment of mA and/or kV according to patient size. COMPARISON: [facility], CT, CT CHEST ABD PEL W CON, 09/19/2022, 9:34. FINDINGS: Image quality: Excellent. CHEST: Lower Neck: No enlarged lymph nodes. Thyroid: Within normal limits. Axillae: No enlarged lymph nodes. Chest Wall: Unremarkable. Lungs and Airways: No consolidation or suspicious nodules. Pleura: No pneumothorax or pleural effusions. Heart: Heart size is normal. No pericardial effusion. Thoracic Vessels: The aorta and pulmonary arteries demonstrate normal size. Mediastinum and Jacquelyn: No enlarged lymph nodes. Esophagus: No wall thickening. Mild hiatal hernia. ABDOMEN: Liver: Cirrhotic appearing liver is present without focal mass. Overall appearance is stable compared to prior exam. Gallbladder: Unremarkable. Biliary ducts: Unremarkable. Pancreas: Unremarkable. Spleen: Mildly enlarged, unchanged. Adrenal Glands: Unremarkable. Kidneys and Ureters: Nonobstructing bilateral renal calculi are present. Stomach and Bowel: Stomach, small bowel loops, and colon are nonobstructive. Diverticula are present within the left colon. As identified on prior exam, within the upper mid rectum there is a semi circumferential mass measuring approximately 7.5 x 6.6 by 8.1 cm compared to 7.2 x 6.1 x 6.4 cm. There is no visualized proximal obstruction. As previously identified, there appears to be extramural extension overall unchanged. It is in direct approximation to the seminal vesicle as previously noted. Peritoneum: No abnormal intraperitoneal fluid. No free air. Ventral Wall: Large fat containing ventral hernia with rectus diastasis measuring 1.5 cm, unchanged. Abdominal Nodes: No retroperitoneal or mesenteric adenopathy by size criteria. Vessels: Aorta and inferior vena cava are normal in size. PELVIS: Pelvic Organs: Unremarkable. Bladder: Unremarkable. Pelvic Nodes: 7 mm superior rectal node on series 2, image 98 as well as left pelvic sidewall node measuring 8 mm on series 2, image 104 is unchanged. Miscellaneous: No inguinal hernias are seen. Bones: Unremarkable. IMPRESSION: 1. Mild interval increase in size of rectal mass without proximal obstruction. 2. Unchanged appearance of superior rectal and left pelvic sidewall lymph nodes suspicious for metastatic disease. 3. Hepatic cirrhosis and mild splenomegaly are stable. 4. Diverticulosis. Dictated by: Indu Chacon M.D. on 10/11/2022 at 9:23 Approved by: Indu Chacon M.D. on 10/11/2022 at 9:33
--- NOTE | 2022-10-11 07:39 | ED_ITS ---
HPI - Fever <Zander Dove MD - Last Filed: 10/28/22 22:10> General Chief Complaint: Fever Stated Complaint: throwing up, mild fever Time Seen by Provider: 10/11/22 07:32 Source: family Mode of arrival: Wheelchair History of Present Illness HPI Narrative: Patient brought here by son and daughter for complaints of fever cough nausea vomiting that started yesterday around noon time. Patient was doing well yeste rd morning. Went to the pharmacy prescription for pain medication. Patient is scheduled today for medication port to prepare for chemotherapy for rectal cancer. Patient followed by [facility] Dr. Crespo. Has not established general surgeon yet. Blood pressure heart rate and temperature noted here. Patient is nauseous. Family deny any history of kidney failure. Pt is allergic to ibuprofen. Related Data Home Medications Medication Instructions Recorded Confirmed metformin 500 mg tablet 500 mg PO DAILY ##0 09/22/11 09/30/22 (Glucophage) albuterol sulfate 90 mcg/actuation 2 puff inhalation Q6HR PRN Wheezing 12/15/18 09/30/22 aerosol inhaler Previous Rx's Medication Instructions Recorded hydrocodone 5 mg-acetaminophen 325 1 tab PO Q6H PRN pain #20 tabs 10/11/22 mg tablet metoclopramide HCl 10 mg tablet 10 mg PO Q6H PRN nausea and 10/11/22 (Reglan) vomiting #20 tabs metoclopramide HCl 5 mg tablet 5 mg PO QAC PRN nausea and 10/11/22 vomiting 30 days #90 tabs ondansetron 4 mg disintegrating 4 mg PO Q8H PRN nausea and 10/11/22 tablet vomiting #20 tabs ondansetron HCl 4 mg tablet 4 mg PO Q6H PRN nausea and 10/11/22 vomiting 30 days #30 tabs Allergies Allergy/AdvReac Type Severity Reaction Status Date / Time ibuprofen [IBUPROFEN] Allergy Severe RASH Verified 09/30/22 12:02 Review of Systems <Zander Dove MD - Last Filed: 10/28/22 22:10> Review of Systems Narrative: GENERAL: Positive chills, fatigue, malaise, fever, sweats. HEENT: negative sinus pain, ear pain, sore throat RESPIRATORY: negative dyspnea, positive cough CARDIOVASCULAR: negative chest pain, palpitations GASTROINTESTINAL: Positive nausea, vomiting, negative abdominal pain : negative dysuria, frequency, hematuria MUSCULOSKELETAL: negative muscle or bony pain SKIN: negative rash, skin lesions NEUROLOGIC: negative weakness, numbness ROS Unobtainable: All systems reviewed & are unremarkable except as noted in HPI and below Patient History <Zander Dove MD - Last Filed: 10/28/22 22:10> Medical History Acute exacerbation of chronic obstructive pulmonary disease (COPD) Alcoholism Asthma Cirrhosis of liver Diabetes Hard of hearing History of gastric ulcer History of kidney stones HTN (hypertension) Hypoxia Portal hypertension Tobacco use disorder, moderate, in early remission, dependence Type 2 diabetes mellitus Surgical History H/O right knee surgery Family History Mother Colon cancer Father Diabetes mellitus Social History household members: family lives independently: Yes Smoking Status: Former smoker alcohol intake: former Smoking Status: Former smoker alcohol intake frequency: holidays/special occasions only Substance Use Type: does not use and marijuana Exam <Zander Dove MD - Last Filed: 10/28/22 22:10> Narrative Exam Narrative: GENERAL: in no distress, not toxic not dyspneic HEAD: Normocephalic. EYES: Pupils equal round ENT: Mucous membranes intraoral slightly dry with dry lips NECK: Trachea midline. CARDIOVASCULAR: Tachycardia with Regular rate and rhythm RESPIRATORY: Clear to auscultation. Breath sounds equal bilaterally. No wheezes, rales, or rhonchi. GASTROINTESTINAL: Abdomen soft, non-tender, abdomen is soft flat nontender no peritoneal signs. Bowel sounds are present. No CVA tenderness EXTREMITIES: No gross deformities. BACK: No flank tenderness. NEURO: AOx4. SKIN: Warm and dry PSYCH: Not anxious, is cooperative Initial Vital Signs Initial Vital Signs: Vital Signs Pulse Rate 133 H 10/11/22 07:21 Blood Pressure 112/72 10/11/22 07:21 Pulse Oximetry 99 10/11/22 07:21 <Makayla Hernández DO - Last Filed: 10/13/22 08:02> Initial Vital Signs Initial Vital Signs: Vital Signs Pulse Rate 133 H 10/11/22 07:21 Blood Pressure 112/72 10/11/22 07:21 Pulse Oximetry 99 10/11/22 07:21 Course <Zander Dove MD - Last Filed: 10/28/22 22:10> Orders Ordered: Discontinued Medications Acetaminophen (Acetaminophen 325 Mg Tablet) 975 mg PO NOW ONE Stop: 10/11/22 07:39 Last Admin: 10/11/22 08:04 Dose: 975 mg Documented By: AMBob Sodium Chloride (Normal Saline 0.9%) 1,000 mls @ 1,000 mls/hr IV BOLUS ONE Stop: 10/11/22 08:29 Last Infusion: 10/11/22 08:31 Dose: 0 mls/hr Documented By: AMBob Admin: 10/11/22 07:37 Dose: 1,000 mls/hr Documented By: FAITH Ceftriaxone Sodium 2,000 mg/ (Sodium Chloride) 100 mls @ 200 mls/hr IV NOW ONE Stop: 10/11/22 07:48 Last Infusion: 10/11/22 08:31 Dose: 0 mls/hr Documented By: Admin: 10/11/22 08:04 Dose: 200 mls/hr Documented By: SAJI Sodium Chloride (Normal Saline 0.9%) 1,000 mls @ 1,000 mls/hr IV BOLUS ONE Stop: 10/11/22 10:51 Last Infusion: 10/11/22 11:39 Dose: 0 mls/hr Documented By: Admin: 10/11/22 10:03 Dose: 1,000 mls/hr Documented By: SAJI Ondansetron HCl (Ondansetron 4 Mg/2 Ml Inj) 4 mg IV NOW PRN PRN Reason: Nausea And Vomiting Last Admin: 10/11/22 07:36 Dose: 4 mg Documented By: FAITH Vital Signs Vital signs: Vital Signs - 8 hr 10/11/22 07:27 10/11/22 07:21 10/11/22 07:21 Temperature 100.9 F H Pulse Rate 135 H 133 H Respiratory Rate 18 Blood Pressure 172/72 H 112/72 Pulse Oximetry 99 99 Oxygen Delivery Method Room Air 10/11/22 07:30 10/11/22 07:33 10/11/22 07:33 Temperature Pulse Rate 127 H 132 H Respiratory Rate 12 14 Blood Pressure 110/75 Pulse Oximetry 98 99 Oxygen Delivery Method 10/11/22 08:00 10/11/22 08:00 10/11/22 08:25 Temperature Pulse Rate 118 H 120 H Respiratory Rate 24 13 Blood Pressure 132/75 Pulse Oximetry 97 99 Oxygen Delivery Method 10/11/22 08:25 10/11/22 08:30 10/11/22 08:48 Temperature Pulse Rate 129 H 121 H Respiratory Rate 20 21 Blood Pressure 130/76 Pulse Oximetry 98 Oxygen Delivery Method 10/11/22 08:48 10/11/22 09:00 10/11/22 09:00 Temperature Pulse Rate 122 H Respiratory Rate 13 Blood Pressure 130/77 134/73 Pulse Oximetry 99 Oxygen Delivery Method 10/11/22 09:30 10/11/22 10:00 10/11/22 10:07 Temperature Pulse Rate 127 H 114 H 111 H Respiratory Rate 20 21 20 Blood Pressure Pulse Oximetry 97 98 97 Oxygen Delivery Method 10/11/22 10:07 10/11/22 10:30 10/11/22 11:00 Temperature Pulse Rate 121 H 109 H Respiratory Rate 20 20 Blood Pressure 126/77 Pulse Oximetry 98 99 Oxygen Delivery Method Room Air 10/11/22 11:40 10/11/22 11:42 10/11/22 11:43 Temperature 97.9 F Pulse Rate 107 H 107 H Respiratory Rate 13 19 Blood Pressure Pulse Oximetry 99 98 Oxygen Delivery Method 10/11/22 11:43 10/11/22 12:00 10/11/22 12:00 Temperature Pulse Rate 107 H Respiratory Rate 19 Blood Pressure 142/85 H 145/79 H Pulse Oximetry 98 Oxygen Delivery Method 10/11/22 12:30 10/11/22 12:31 10/11/22 12:31 Temperature Pulse Rate 110 H 110 H Respiratory Rate 20 12 Blood Pressure 125/79 Pulse Oximetry 98 100 Oxygen Delivery Method 10/11/22 13:00 10/11/22 13:00 Temperature Pulse Rate 106 H Respiratory Rate 13 Blood Pressure 130/79 Pulse Oximetry 99 Oxygen Delivery Method <Makayla Hernández DO - Last Filed: 10/13/22 08:02> Orders Ordered: Discontinued Medications Acetaminophen (Acetaminophen 325 Mg Tablet) 975 mg PO NOW ONE Stop: 10/11/22 07:39 Last Admin: 10/11/22 08:04 Dose: 975 mg Documented By: SAJI Sodium Chloride (Normal Saline 0.9%) 1,000 mls @ 1,000 mls/hr IV BOLUS ONE Stop: 10/11/22 08:29 Last Infusion: 10/11/22 08:31 Dose: 0 mls/hr Documented By: AMBob Admin: 10/11/22 07:37 Dose: 1,000 mls/hr Documented By: FAITH Ceftriaxone Sodium 2,000 mg/ (Sodium Chloride) 100 mls @ 200 mls/hr IV NOW ONE Stop: 10/11/22 07:48 Last Infusion: 10/11/22 08:31 Dose: 0 mls/hr Documented By: Admin: 10/11/22 08:04 Dose: 200 mls/hr Documented By: SAJI Sodium Chloride (Normal Saline 0.9%) 1,000 mls @ 1,000 mls/hr IV BOLUS ONE Stop: 10/11/22 10:51 Last Infusion: 10/11/22 11:39 Dose: 0 mls/hr Documented By: Admin: 10/11/22 10:03 Dose: 1,000 mls/hr Documented By: SAJI Ondansetron HCl (Ondansetron 4 Mg/2 Ml Inj) 4 mg IV NOW PRN PRN Reason: Nausea And Vomiting Last Admin: 10/11/22 07:36 Dose: 4 mg Documented By: FAITH Vital Signs Vital signs: Vital Signs - 8 hr 10/11/22 07:27 10/11/22 07:21 10/11/22 07:21 Temperature 100.9 F H Pulse Rate 135 H 133 H Respiratory Rate 18 Blood Pressure 172/72 H 112/72 Pulse Oximetry 99 99 Oxygen Delivery Method Room Air 10/11/22 07:30 10/11/22 07:33 10/11/22 07:33 Temperature Pulse Rate 127 H 132 H Respiratory Rate 12 14 Blood Pressure 110/75 Pulse Oximetry 98 99 Oxygen Delivery Method 10/11/22 08:00 10/11/22 08:00 10/11/22 08:25 Temperature Pulse Rate 118 H 120 H Respiratory Rate 24 13 Blood Pressure 132/75 Pulse Oximetry 97 99 Oxygen Delivery Method 10/11/22 08:25 10/11/22 08:30 10/11/22 08:48 Temperature Pulse Rate 129 H 121 H Respiratory Rate 20 21 Blood Pressure 130/76 Pulse Oximetry 98 Oxygen Delivery Method 10/11/22 08:48 10/11/22 09:00 10/11/22 09:00 Temperature Pulse Rate 122 H Respiratory Rate 13 Blood Pressure 130/77 134/73 Pulse Oximetry 99 Oxygen Delivery Method 10/11/22 09:30 10/11/22 10:00 10/11/22 10:07 Temperature Pulse Rate 127 H 114 H 111 H Respiratory Rate 20 21 20 Blood Pressure Pulse Oximetry 97 98 97 Oxygen Delivery Method 10/11/22 10:07 10/11/22 10:30 10/11/22 11:00 Temperature Pulse Rate 121 H 109 H Respiratory Rate 20 20 Blood Pressure 126/77 Pulse Oximetry 98 99 Oxygen Delivery Method Room Air 10/11/22 11:40 10/11/22 11:42 10/11/22 11:43 Temperature 97.9 F Pulse Rate 107 H 107 H Respiratory Rate 13 19 Blood Pressure Pulse Oximetry 99 98 Oxygen Delivery Method 10/11/22 11:43 10/11/22 12:00 10/11/22 12:00 Temperature Pulse Rate 107 H Respiratory Rate 19 Blood Pressure 142/85 H 145/79 H Pulse Oximetry 98 Oxygen Delivery Method 10/11/22 12:30 10/11/22 12:31 10/11/22 12:31 Temperature Pulse Rate 110 H 110 H Respiratory Rate 20 12 Blood Pressure 125/79 Pulse Oximetry 98 100 Oxygen Delivery Method 10/11/22 13:00 10/11/22 13:00 Temperature Pulse Rate 106 H Respiratory Rate 13 Blood Pressure 130/79 Pulse Oximetry 99 Oxygen Delivery Method MDM - Fever <Zander Dove MD - Last Filed: 10/28/22 22:10> Lab Data 10/11/22 07:25 10/11/22 07:25 Labs: Lab Results 10/11/22 10/11/22 10/11/22 Range/Units 07:25 07:25 07:25 WBC 10.3 (4.5-11.0) X10^3/uL RBC 4.60 (4.5-5.9) X10^6/uL Hgb 9.1 L (13.5-17.5) g/dL Hct 29.1 L (41-53) % MCV 63.2 L (80-100) fL MCH 19.7 L (26-34) PG MCHC 31.1 (30-36) % RDW 16.7 H (11.6-14.8) % Plt Count 431 H (150-400) X10^3/uL Neut % (Auto) 86.1 H (50-75) % Lymph % (Auto) 7.1 L (25-40) % [place] % (Auto) 6.0 (3-14) % Eos % (Auto) 0.1 L (2-4) % Baso % (Auto) 0.7 (0-2) % Neut # (Auto) 8900 H (0290-5179) /uL Lymph # (Auto) 700 L (1180-3596) /uL [place] # (Auto) 600 (0-900) /uL Eos # (Auto) 0 (0-450) /uL Baso # (Auto) 100 (0-100) /uL RBC Morphology Not Reportable Poikilocytosis 1+ H Anisocytosis 1+ H PT 13.9 H (10.1-12.7) SECONDS INR 1.2 (0.9-1.3) APTT 31 (26-36) SECONDS Sodium 137 (137-145) mmol/L Potassium 3.2 L (3.4-5.1) mmol/L Chloride 104 (98-107) mmol/L Carbon Dioxide 20 L (22-32) mmol/L BUN 9 (9-20) mg/dL Creatinine 0.86 (0.66-1.25) mg/dL Estimated GFR > 60 (>60) mL/min BUN/Creatinine Ratio 10.5 (6-22) Glucose 156 H (80-110) mg/dL Lactate (0.7-2.1) mmol/L Calcium 8.5 (8.4-10.2) mg/dL Total Bilirubin 1.0 (0.2-1.3) mg/dL AST 22 (17-59) IU/L ALT 18 (<50) IU/L Alkaline Phosphatase 280 H (38-126) U/L Total Protein 8.1 (6.3-8.2) g/dL Albumin 3.7 (3.5-5.0) g/dL Globulin 4.4 H (1.7-4.1) g/dL Albumin/Globulin Ratio 0.8 L (1.0-2.8) Lipase 168 (23-300) U/L Procalcitonin 0.44 (<0.5) ng/mL Urine Color Urine Appearance Urine pH (4.5-8.0) Ur Specific [place] (1.000-1.035) Urine Protein (Negative) Urine Glucose (UA) (Negative) g/dL Urine Ketones (NEGATIVE) Urine Occult Blood (Negative) Urine Nitrate (Negative) Urine Bilirubin (NEGATIVE) Urine Urobilinogen (0.2) E.U./dL Ur Leukocyte Esterase (NEGATIVE) Urine RBC (0-5/HPF) Urine WBC (0-5/HPF) Urine Bacteria (None) Ur Culture Indicated? A.calcoaceticus-baumannii cmplx PCR (Not Detect) Chlamy pneumoniae PCR (Not Detect) Adenovirus (PCR) (Not Detect) Bacteroides fragilis (Not Detect) B. pertussis DNA (PCR) (Not Detecte) B.parapertussis DNA PCR (Not Detecte) Feli albicans (PCR) (Not Detect) Feli auris (PCR) (Not Detect) C. glabrata (PCR) (Not Detect) C. krusei (PCR) (Not Detect) C. parapsilosis (PCR) (Not Detect) C. tropicalis (PCR) (Not Detect) Coronavirus OC43 (PCR) (Not Detect) Coronavirus HKU1 (PCR) (Not Detect) Coronavirus 229E (PCR) (Not Detect) SARS-CoV-2 (PCR) (Not Detecte) Coronavirus NL63 (PCR) (Not Detect) C. neoform/gattii (PCR) (Not Detect) Enterobacterales (PCR) (Not Detect) E. cloacae complex PCR (Not Detect) Enterococc faecalis PCR (Not Detect) Enterococc faecium PCR (Not Detect) E. coli (PCR) (Not Detect) H. influenzae (PCR) (Not Detect) Human Metapneumovir PCR (Not Detect) Influenza Type A (PCR) (Not Detect) Influenza Type B (PCR) (Not Detect) Klebsiella aerogenes (PCR) (Not Detect) Klebsiella oxytoca PCR (Not Detect) Klebsiella pneumoniae (Not Detect) List. monocytogenes PCR (Not Detect) M. pneumoniae (PCR) (Not Detect) N. meningitidis (PCR) (Not Detect) Parainfluenza 1 (PCR) (Not Detect) Parainfluenza 2 (PCR) (Not Detect) Parainfluenza 3 (PCR) (Not Detect) Parainfluenza 4 (PCR) (Not Detect) Proteus species (PCR) (Not Detect) RSV (PCR) (Not Detect) Entero/Rhino (PCR) (Not Detect) Salmonella spp. (PCR) (Not Detect) Serratia marcescens PCR (Not Detect) Staphylococcus sp PCR (Not Detect) Staph aureus (PCR) (Not Detect) Staph epidermidis (PCR) (Not Detect) Staph lugdunensis PCR (Not Detect) S. maltophilia (PCR) (Not Detect) Streptococcus sp PCR (Not Detect) Group A Strep (PCR) (Not Detect) Strep agalactiae (PCR) (Not Detect) Strep pneumoniae (PCR) (Not Detect) P. aeruginosa (PCR) (Not Detect) blaIMP Car res Gene PCR (Not Detect) KPC-Carbap Res Gene PCR (Not Detect) blaNDM Car Res Gene PCR (Not Detect) OXA-48 Carbapenem Resis Gene (PCR) (Not Detect) blaVIM Car Res Gene PCR (Not Detect) CTX-M Gene Resistance (PCR) (Not Detect) 10/11/22 10/11/22 10/11/22 Range/Units 07:25 07:35 08:12 WBC (4.5-11.0) X10^3/uL RBC (4.5-5.9) X10^6/uL Hgb (13.5-17.5) g/dL Hct (41-53) % MCV (80-100) fL MCH (26-34) PG MCHC (30-36) % RDW (11.6-14.8) % Plt Count (150-400) X10^3/uL Neut % (Auto) (50-75) % Lymph % (Auto) (25-40) % [place] % (Auto) (3-14) % Eos % (Auto) (2-4) % Baso % (Auto) (0-2) % Neut # (Auto) (2959-3573) /uL Lymph # (Auto) (0024-0028) /uL [place] # (Auto) (0-900) /uL Eos # (Auto) (0-450) /uL Baso # (Auto) (0-100) /uL RBC Morphology Poikilocytosis Anisocytosis PT (10.1-12.7) SECONDS INR (0.9-1.3) APTT (26-36) SECONDS Sodium (137-145) mmol/L Potassium (3.4-5.1) mmol/L Chloride (98-107) mmol/L Carbon Dioxide (22-32) mmol/L BUN (9-20) mg/dL Creatinine (0.66-1.25) mg/dL Estimated GFR (>60) mL/min BUN/Creatinine Ratio (6-22) Glucose (80-110) mg/dL Lactate 2.7 H (0.7-2.1) mmol/L Calcium (8.4-10.2) mg/dL Total Bilirubin (0.2-1.3) mg/dL AST (17-59) IU/L ALT (<50) IU/L Alkaline Phosphatase (38-126) U/L Total Protein (6.3-8.2) g/dL Albumin (3.5-5.0) g/dL Globulin (1.7-4.1) g/dL Albumin/Globulin Ratio (1.0-2.8) Lipase (23-300) U/L Procalcitonin (<0.5) ng/mL Urine Color Urine Appearance Urine pH (4.5-8.0) Ur Specific [place] (1.000-1.035) Urine Protein (Negative) Urine Glucose (UA) (Negative) g/dL Urine Ketones (NEGATIVE) Urine Occult Blood (Negative) Urine Nitrate (Negative) Urine Bilirubin (NEGATIVE) Urine Urobilinogen (0.2) E.U./dL Ur Leukocyte Esterase (NEGATIVE) Urine RBC (0-5/HPF) Urine WBC (0-5/HPF) Urine Bacteria (None) Ur Culture Indicated? A.calcoaceticus-baumannii cmplx PCR Not detected (Not Detect) Chlamy pneumoniae PCR Not detected (Not Detect) Adenovirus (PCR) Not detected (Not Detect) Bacteroides fragilis Not detected (Not Detect) B. pertussis DNA (PCR) Not detected (Not Detecte) B.parapertussis DNA PCR Not detected (Not Detecte) Feli albicans (PCR) Not detected (Not Detect) Feli auris (PCR) Not detected (Not Detect) C. glabrata (PCR) Not detected (Not Detect) C. krusei (PCR) Not detected (Not Detect) C. parapsilosis (PCR) Not detected (Not Detect) C. tropicalis (PCR) Not detected (Not Detect) Coronavirus OC43 (PCR) Not detected (Not Detect) Coronavirus HKU1 (PCR) Not detected (Not Detect) Coronavirus 229E (PCR) Not detected (Not Detect) SARS-CoV-2 (PCR) Not detected (Not Detecte) Coronavirus NL63 (PCR) Not detected (Not Detect) C. neoform/gattii (PCR) Not detected (Not Detect) Enterobacterales (PCR) Detected H (Not Detect) E. cloacae complex PCR Not detected (Not Detect) Enterococc faecalis PCR Not detected (Not Detect) Enterococc faecium PCR Not detected (Not Detect) E. coli (PCR) Not detected (Not Detect) H. influenzae (PCR) Not detected (Not Detect) Human Metapneumovir PCR Not detected (Not Detect) Influenza Type A (PCR) Not detected (Not Detect) Influenza Type B (PCR) Not detected (Not Detect) Klebsiella aerogenes (PCR) Not detected (Not Detect) Klebsiella oxytoca PCR Not detected (Not Detect) Klebsiella pneumoniae Not detected (Not Detect) List. monocytogenes PCR Not detected (Not Detect) M. pneumoniae (PCR) Not detected (Not Detect) N. meningitidis (PCR) Not detected (Not Detect) Parainfluenza 1 (PCR) Not detected (Not Detect) Parainfluenza 2 (PCR) Not detected (Not Detect) Parainfluenza 3 (PCR) Not detected (Not Detect) Parainfluenza 4 (PCR) Not detected (Not Detect) Proteus species (PCR) Detected H (Not Detect) RSV (PCR) Not detected (Not Detect) Entero/Rhino (PCR) Not detected (Not Detect) Salmonella spp. (PCR) Not detected (Not Detect) Serratia marcescens PCR Not detected (Not Detect) Staphylococcus sp PCR Not detected (Not Detect) Staph aureus (PCR) Not detected (Not Detect) Staph epidermidis (PCR) Not detected (Not Detect) Staph lugdunensis PCR Not detected (Not Detect) S. maltophilia (PCR) Not detected (Not Detect) Streptococcus sp PCR Not detected (Not Detect) Group A Strep (PCR) Not detected (Not Detect) Strep agalactiae (PCR) Not detected (Not Detect) Strep pneumoniae (PCR) Not detected (Not Detect) P. aeruginosa (PCR) Not detected (Not Detect) blaIMP Car res Gene PCR Not detected (Not Detect) KPC-Carbap Res Gene PCR Not detected (Not Detect) blaNDM Car Res Gene PCR Not detected (Not Detect) OXA-48 Carbapenem Resis Gene (PCR) Not detected (Not Detect) blaVIM Car Res Gene PCR Not detected (Not Detect) CTX-M Gene Resistance (PCR) Not detected (Not Detect) 10/11/22 10/11/22 Range/Units 09:45 11:12 WBC (4.5-11.0) X10^3/uL RBC (4.5-5.9) X10^6/uL Hgb (13.5-17.5) g/dL Hct (41-53) % MCV (80-100) fL MCH (26-34) PG MCHC (30-36) % RDW (11.6-14.8) % Plt Count (150-400) X10^3/uL Neut % (Auto) (50-75) % Lymph % (Auto) (25-40) % [place] % (Auto) (3-14) % Eos % (Auto) (2-4) % Baso % (Auto) (0-2) % Neut # (Auto) (5019-1301) /uL Lymph # (Auto) (6173-3510) /uL [place] # (Auto) (0-900) /uL Eos # (Auto) (0-450) /uL Baso # (Auto) (0-100) /uL RBC Morphology Poikilocytosis Anisocytosis PT (10.1-12.7) SECONDS INR (0.9-1.3) APTT (26-36) SECONDS Sodium (137-145) mmol/L Potassium (3.4-5.1) mmol/L Chloride (98-107) mmol/L Carbon Dioxide (22-32) mmol/L BUN (9-20) mg/dL Creatinine (0.66-1.25) mg/dL Estimated GFR (>60) mL/min BUN/Creatinine Ratio (6-22) Glucose (80-110) mg/dL Lactate 0.8 (0.7-2.1) mmol/L Calcium (8.4-10.2) mg/dL Total Bilirubin (0.2-1.3) mg/dL AST (17-59) IU/L ALT (<50) IU/L Alkaline Phosphatase (38-126) U/L Total Protein (6.3-8.2) g/dL Albumin (3.5-5.0) g/dL Globulin (1.7-4.1) g/dL Albumin/Globulin Ratio (1.0-2.8) Lipase (23-300) U/L Procalcitonin (<0.5) ng/mL Urine Color Yellow Urine Appearance Clear Urine pH 7.5 (4.5-8.0) Ur Specific [place] 1.010 (1.000-1.035) Urine Protein Negative (Negative) Urine Glucose (UA) Negative (Negative) g/dL Urine Ketones Negative (NEGATIVE) Urine Occult Blood Trace-intact (Negative) Urine Nitrate Negative (Negative) Urine Bilirubin Negative (NEGATIVE) Urine Urobilinogen 2.0 H (0.2) E.U./dL Ur Leukocyte Esterase Negative (NEGATIVE) Urine RBC 1-5/hpf (0-5/HPF) Urine WBC None seen (0-5/HPF) Urine Bacteria None seen (None) Ur Culture Indicated? Cult not indicated A.calcoaceticus-baumannii cmplx PCR (Not Detect) Chlamy pneumoniae PCR (Not Detect) Adenovirus (PCR) (Not Detect) Bacteroides fragilis (Not Detect) B. pertussis DNA (PCR) (Not Detecte) B.parapertussis DNA PCR (Not Detecte) Feli albicans (PCR) (Not Detect) Feli auris (PCR) (Not Detect) C. glabrata (PCR) (Not Detect) C. krusei (PCR) (Not Detect) C. parapsilosis (PCR) (Not Detect) C. tropicalis (PCR) (Not Detect) Coronavirus OC43 (PCR) (Not Detect) Coronavirus HKU1 (PCR) (Not Detect) Coronavirus 229E (PCR) (Not Detect) SARS-CoV-2 (PCR) (Not Detecte) Coronavirus NL63 (PCR) (Not Detect) C. neoform/gattii (PCR) (Not Detect) Enterobacterales (PCR) (Not Detect) E. cloacae complex PCR (Not Detect) Enterococc faecalis PCR (Not Detect) Enterococc faecium PCR (Not Detect) E. coli (PCR) (Not Detect) H. influenzae (PCR) (Not Detect) Human Metapneumovir PCR (Not Detect) Influenza Type A (PCR) (Not Detect) Influenza Type B (PCR) (Not Detect) Klebsiella aerogenes (PCR) (Not Detect) Klebsiella oxytoca PCR (Not Detect) Klebsiella pneumoniae (Not Detect) List. monocytogenes PCR (Not Detect) M. pneumoniae (PCR) (Not Detect) N. meningitidis (PCR) (Not Detect) Parainfluenza 1 (PCR) (Not Detect) Parainfluenza 2 (PCR) (Not Detect) Parainfluenza 3 (PCR) (Not Detect) Parainfluenza 4 (PCR) (Not Detect) Proteus species (PCR) (Not Detect) RSV (PCR) (Not Detect) Entero/Rhino (PCR) (Not Detect) Salmonella spp. (PCR) (Not Detect) Serratia marcescens PCR (Not Detect) Staphylococcus sp PCR (Not Detect) Staph aureus (PCR) (Not Detect) Staph epidermidis (PCR) (Not Detect) Staph lugdunensis PCR (Not Detect) S. maltophilia (PCR) (Not Detect) Streptococcus sp PCR (Not Detect) Group A Strep (PCR) (Not Detect) Strep agalactiae (PCR) (Not Detect) Strep pneumoniae (PCR) (Not Detect) P. aeruginosa (PCR) (Not Detect) blaIMP Car res Gene PCR (Not Detect) KPC-Carbap Res Gene PCR (Not Detect) blaNDM Car Res Gene PCR (Not Detect) OXA-48 Carbapenem Resis Gene (PCR) (Not Detect) blaVIM Car Res Gene PCR (Not Detect) CTX-M Gene Resistance (PCR) (Not Detect) Imaging Data CT chest abdomen and pelvis: Radiologist's Impression: PROCEDURE:? CT CHEST ABD PEL W CON ? INDICATIONS:? IV contrast only/sepsis ? TECHNIQUE:? After the administration of oral and intravenous contrast, axial sections acquired from the supraclavicular neck to the pubic symphysis.? Coronal and sagittal reformats were performed.? For radiation dose reduction, the following was used:? automated exposure control, adjustment of mA and/or kV according to patient size.? ? COMPARISON: ? [facility], CT, CT CHEST ABD PEL W CON, 09/19/2022, 9:34. ? FINDINGS:? Image quality:? Excellent.? ? CHEST: Lower Neck: No enlarged lymph nodes.? Thyroid: Within normal limits. Axillae: No enlarged lymph nodes. Chest Wall:? Unremarkable.? ? Lungs and Airways: No consolidation or suspicious nodules. Pleura: No pneumothorax or pleural effusions.? ? Heart: Heart size is normal.? No pericardial effusion. Thoracic Vessels: The aorta and pulmonary arteries demonstrate normal size.? Mediastinum and [place]: No enlarged lymph nodes.? Esophagus: No wall thickening.? Mild hiatal hernia. ? ? ABDOMEN: Liver:? Cirrhotic appearing liver is present without focal mass.? Overall appearance is stable compared to prior exam. Gallbladder:? Unremarkable.? ? Biliary ducts:? Unremarkable.? ? Pancreas:? Unremarkable.? ? Spleen:? Mildly enlarged, unchanged. Adrenal Glands:? Unremarkable.? ? Kidneys and Ureters:? Nonobstructing bilateral renal calculi are present. ? Stomach and Bowel:? Stomach, small bowel loops, and colon are nonobstructive.? Diverticula are present within the left colon.? As identified on prior exam, within the upper mid rectum there is a semi circumferential mass measuring approximately 7.5 x 6.6 by 8.1 cm compared to 7.2 x 6.1 x 6.4 cm.? There is no visualized proximal obstruction.? As previously identified, there appears to be extramural extension overall unchanged.? It is in direct approximation to the seminal vesicle as previously noted.? Peritoneum:? No abnormal intraperitoneal fluid.? No free air.? ? Ventral Wall: ? Large fat containing ventral hernia with rectus diastasis measuring 1.5 cm, unchanged. Abdominal Nodes:? No retroperitoneal or mesenteric adenopathy by size criteria.? Vessels:? Aorta and inferior vena cava are normal in size.? ? PELVIS: Pelvic Organs:? Unremarkable.? ? Bladder:? Unremarkable.? ? Pelvic Nodes:? 7 mm superior rectal node on series 2, image 98 as well as left pelvic sidewall node measuring 8 mm on series 2, image 104 is unchanged. Miscellaneous: No inguinal hernias are seen. ? ? ? Bones:? Unremarkable.? ? ? IMPRESSION:? ? 1.? Mild interval increase in size of rectal mass without proximal obstruction. ? 2.? Unchanged appearance of superior rectal and left pelvic sidewall lymph nodes suspicious for metastatic disease. ? 3.? Hepatic cirrhosis and mild splenomegaly are stable. ? 4. Diverticulosis. ? Dictated by: Indu Chacon M.D. on 10/11/2022 at 9:23 ? ? Approved by: Indu Chacon M.D. on 10/11/2022 at 9:33 ? MDM Narrative Medical decision making narrative: After history and exam sepsis workup started. CBC CMP procalcitonin lactic acid normal saline EKG CT chest abdomen pelvis Tylenol respiratory panel ordered, Rocephin ordered MDM CC: Fever vomiting cough Complicating co-morbidities: Recent diagnosis of rectal cancer Data collected from: Patient daughter son Medical records reviewed: September 19, 2022 discharge summary from hospitalist at this hospital Differential considered: Includes but not limited to sepsis, UTI, pneumonia, upper respiratory infection, viral syndrome Exam documented above, pertinent findings include: Tachycardia, fever Lab Test results independently reviewed as above. Pertinent findings: Urinalysi s negative. Respiratory panel negative. WBC 10.3 procalcitonin 0.44 lactic acid 2.7 decreased 0.8 Independently reviewed EKG as above sinus tachycardia rate [address] elevation or depression, otherwise normal EKG Imaging studies independently reviewed: CT chest abdomen pelvis no acute process, there has been increase in rectal mass without obstruction. Metastatic disease suspicious Consultations: 11:00 a.m.. Spoke with patient's general surgeon, Dr. Vee, she states do not transfer patient to [facility] no indication. Patient to be admitted there for fever workup. 12:[address] Hendrickson, hospitalist, he will see patient for evaluation. 1:[address] Hendrickson, he is in the department. He has seen patient in person. Patient feels much better now. He has spoken with patient and the patient desires discharge home. Dr. Hendrickson feels there is no indication for admission. He is unable to print hydrocodone Reglan and Zofran for patient and has asked me to print them as software for the system does not allow him to print them. Treatments: Normal saline Tylenol Rocephin Re-evaluations: 1:47 p.m.. I spoke with patient and family and daughter and son at bedside. Patient states he feels much better. They do understand discussion from Dr. Hendrickson, fever at this time possibly from the cancer or the medications he took. However not toxic at this time. I did inform them that blood cultures are pending. And will be resulted tomorrow. Return precautions reviewed with him. They desire discharge home. Discussion: Patient being discharged home after evaluation of Internal Medicine hospitalist Dr. Hendrickson, computer system would not allow him to print prescription so I had to print them for him. Again these are under his dir ections. Nontoxic at discharge. Return precautions reviewed with him. Diagnosis: Fever unknown origin <Makayla Hernández DO - Last Filed: 10/13/22 08:02> Lab Data Labs: Lab Results 10/11/22 10/11/22 10/11/22 Range/Units 07:25 07:25 07:25 WBC 10.3 (4.5-11.0) X10^3/uL RBC 4.60 (4.5-5.9) X10^6/uL Hgb 9.1 L (13.5-17.5) g/dL Hct 29.1 L (41-53) % MCV 63.2 L (80-100) fL MCH 19.7 L (26-34) PG MCHC 31.1 (30-36) % RDW 16.7 H (11.6-14.8) % Plt Count 431 H (150-400) X10^3/uL Neut % (Auto) 86.1 H (50-75) % Lymph % (Auto) 7.1 L (25-40) % [place] % (Auto) 6.0 (3-14) % Eos % (Auto) 0.1 L (2-4) % Baso % (Auto) 0.7 (0-2) % Neut # (Auto) 8900 H (7376-0791) /uL Lymph # (Auto) 700 L (2647-6923) /uL [place] # (Auto) 600 (0-900) /uL Eos # (Auto) 0 (0-450) /uL Baso # (Auto) 100 (0-100) /uL RBC Morphology Not Reportable Poikilocytosis 1+ H Anisocytosis 1+ H PT 13.9 H (10.1-12.7) SECONDS INR 1.2 (0.9-1.3) APTT 31 (26-36) SECONDS Sodium 137 (137-145) mmol/L Potassium 3.2 L (3.4-5.1) mmol/L Chloride 104 (98-107) mmol/L Carbon Dioxide 20 L (22-32) mmol/L BUN 9 (9-20) mg/dL Creatinine 0.86 (0.66-1.25) mg/dL Estimated GFR > 60 (>60) mL/min BUN/Creatinine Ratio 10.5 (6-22) Glucose 156 H (80-110) mg/dL Lactate (0.7-2.1) mmol/L Calcium 8.5 (8.4-10.2) mg/dL Total Bilirubin 1.0 (0.2-1.3) mg/dL AST 22 (17-59) IU/L ALT 18 (<50) IU/L Alkaline Phosphatase 280 H (38-126) U/L Total Protein 8.1 (6.3-8.2) g/dL Albumin 3.7 (3.5-5.0) g/dL Globulin 4.4 H (1.7-4.1) g/dL Albumin/Globulin Ratio 0.8 L (1.0-2.8) Lipase 168 (23-300) U/L Procalcitonin 0.44 (<0.5) ng/mL Urine Color Urine Appearance Urine pH (4.5-8.0) Ur Specific [place] (1.000-1.035) Urine Protein (Negative) Urine Glucose (UA) (Negative) g/dL Urine Ketones (NEGATIVE) Urine Occult Blood (Negative) Urine Nitrate (Negative) Urine Bilirubin (NEGATIVE) Urine Urobilinogen (0.2) E.U./dL Ur Leukocyte Esterase (NEGATIVE) Urine RBC (0-5/HPF) Urine WBC (0-5/HPF) Urine Bacteria (None) Ur Culture Indicated? A.calcoaceticus-baumannii cmplx PCR (Not Detect) Chlamy pneumoniae PCR (Not Detect) Adenovirus (PCR) (Not Detect) Bacteroides fragilis (Not Detect) B. pertussis DNA (PCR) (Not Detecte) B.parapertussis DNA PCR (Not Detecte) Feli albicans (PCR) (Not Detect) Feli auris (PCR) (Not Detect) C. glabrata (PCR) (Not Detect) C. krusei (PCR) (Not Detect) C. parapsilosis (PCR) (Not Detect) C. tropicalis (PCR) (Not Detect) Coronavirus OC43 (PCR) (Not Detect) Coronavirus HKU1 (PCR) (Not Detect) Coronavirus 229E (PCR) (Not Detect) SARS-CoV-2 (PCR) (Not Detecte) Coronavirus NL63 (PCR) (Not Detect) C. neoform/gattii (PCR) (Not Detect) Enterobacterales (PCR) (Not Detect) E. cloacae complex PCR (Not Detect) Enterococc faecalis PCR (Not Detect) Enterococc faecium PCR (Not Detect) E. coli (PCR) (Not Detect) H. influenzae (PCR) (Not Detect) Human Metapneumovir PCR (Not Detect) Influenza Type A (PCR) (Not Detect) Influenza Type B (PCR) (Not Detect) Klebsiella aerogenes (PCR) (Not Detect) Klebsiella oxytoca PCR (Not Detect) Klebsiella pneumoniae (Not Detect) List. monocytogenes PCR (Not Detect) M. pneumoniae (PCR) (Not Detect) N. meningitidis (PCR) (Not Detect) Parainfluenza 1 (PCR) (Not Detect) Parainfluenza 2 (PCR) (Not Detect) Parainfluenza 3 (PCR) (Not Detect) Parainfluenza 4 (PCR) (Not Detect) Proteus species (PCR) (Not Detect) RSV (PCR) (Not Detect) Entero/Rhino (PCR) (Not Detect) Salmonella spp. (PCR) (Not Detect) Serratia marcescens PCR (Not Detect) Staphylococcus sp PCR (Not Detect) Staph aureus (PCR) (Not Detect) Staph epidermidis (PCR) (Not Detect) Staph lugdunensis PCR (Not Detect) S. maltophilia (PCR) (Not Detect) Streptococcus sp PCR (Not Detect) Group A Strep (PCR) (Not Detect) Strep agalactiae (PCR) (Not Detect) Strep pneumoniae (PCR) (Not Detect) P. aeruginosa (PCR) (Not Detect) blaIMP Car res Gene PCR (Not Detect) KPC-Carbap Res Gene PCR (Not Detect) blaNDM Car Res Gene PCR (Not Detect) OXA-48 Carbapenem Resis Gene (PCR) (Not Detect) blaVIM Car Res Gene PCR (Not Detect) CTX-M Gene Resistance (PCR) (Not Detect) 10/11/22 10/11/22 10/11/22 Range/Units 07:25 07:35 08:12 WBC (4.5-11.0) X10^3/uL RBC (4.5-5.9) X10^6/uL Hgb (13.5-17.5) g/dL Hct (41-53) % MCV (80-100) fL MCH (26-34) PG MCHC (30-36) % RDW (11.6-14.8) % Plt Count (150-400) X10^3/uL Neut % (Auto) (50-75) % Lymph % (Auto) (25-40) % [place] % (Auto) (3-14) % Eos % (Auto) (2-4) % Baso % (Auto) (0-2) % Neut # (Auto) (4244-9245) /uL Lymph # (Auto) (0402-2457) /uL [place] # (Auto) (0-900) /uL Eos # (Auto) (0-450) /uL Baso # (Auto) (0-100) /uL RBC Morphology Poikilocytosis Anisocytosis PT (10.1-12.7) SECONDS INR (0.9-1.3) APTT (26-36) SECONDS Sodium (137-145) mmol/L Potassium (3.4-5.1) mmol/L Chloride (98-107) mmol/L Carbon Dioxide (22-32) mmol/L BUN (9-20) mg/dL Creatinine (0.66-1.25) mg/dL Estimated GFR (>60) mL/min BUN/Creatinine Ratio (6-22) Glucose (80-110) mg/dL Lactate 2.7 H (0.7-2.1) mmol/L Calcium (8.4-10.2) mg/dL Total Bilirubin (0.2-1.3) mg/dL AST (17-59) IU/L ALT (<50) IU/L Alkaline Phosphatase (38-126) U/L Total Protein (6.3-8.2) g/dL Albumin (3.5-5.0) g/dL Globulin (1.7-4.1) g/dL Albumin/Globulin Ratio (1.0-2.8) Lipase (23-300) U/L Procalcitonin (<0.5) ng/mL Urine Color Urine Appearance Urine pH (4.5-8.0) Ur Specific [place] (1.000-1.035) Urine Protein (Negative) Urine Glucose (UA) (Negative) g/dL Urine Ketones (NEGATIVE) Urine Occult Blood (Negative) Urine Nitrate (Negative) Urine Bilirubin (NEGATIVE) Urine Urobilinogen (0.2) E.U./dL Ur Leukocyte Esterase (NEGATIVE) Urine RBC (0-5/HPF) Urine WBC (0-5/HPF) Urine Bacteria (None) Ur Culture Indicated? A.calcoaceticus-baumannii cmplx PCR Not detected (Not Detect) Chlamy pneumoniae PCR Not detected (Not Detect) Adenovirus (PCR) Not detected (Not Detect) Bacteroides fragilis Not detected (Not Detect) B. pertussis DNA (PCR) Not detected (Not Detecte) B.parapertussis DNA PCR Not detected (Not Detecte) Feli albicans (PCR) Not detected (Not Detect) Feli auris (PCR) Not detected (Not Detect) C. glabrata (PCR) Not detected (Not Detect) C. krusei (PCR) Not detected (Not Detect) C. parapsilosis (PCR) Not detected (Not Detect) C. tropicalis (PCR) Not detected (Not Detect) Coronavirus OC43 (PCR) Not detected (Not Detect) Coronavirus HKU1 (PCR) Not detected (Not Detect) Coronavirus 229E (PCR) Not detected (Not Detect) SARS-CoV-2 (PCR) Not detected (Not Detecte) Coronavirus NL63 (PCR) Not detected (Not Detect) C. neoform/gattii (PCR) Not detected (Not Detect) Enterobacterales (PCR) Detected H (Not Detect) E. cloacae complex PCR Not detected (Not Detect) Enterococc faecalis PCR Not detected (Not Detect) Enterococc faecium PCR Not detected (Not Detect) E. coli (PCR) Not detected (Not Detect) H. influenzae (PCR) Not detected (Not Detect) Human Metapneumovir PCR Not detected (Not Detect) Influenza Type A (PCR) Not detected (Not Detect) Influenza Type B (PCR) Not detected (Not Detect) Klebsiella aerogenes (PCR) Not detected (Not Detect) Klebsiella oxytoca PCR Not detected (Not Detect) Klebsiella pneumoniae Not detected (Not Detect) List. monocytogenes PCR Not detected (Not Detect) M. pneumoniae (PCR) Not detected (Not Detect) N. meningitidis (PCR) Not detected (Not Detect) Parainfluenza 1 (PCR) Not detected (Not Detect) Parainfluenza 2 (PCR) Not detected (Not Detect) Parainfluenza 3 (PCR) Not detected (Not Detect) Parainfluenza 4 (PCR) Not detected (Not Detect) Proteus species (PCR) Detected H (Not Detect) RSV (PCR) Not detected (Not Detect) Entero/Rhino (PCR) Not detected (Not Detect) Salmonella spp. (PCR) Not detected (Not Detect) Serratia marcescens PCR Not detected (Not Detect) Staphylococcus sp PCR Not detected (Not Detect) Staph aureus (PCR) Not detected (Not Detect) Staph epidermidis (PCR) Not detected (Not Detect) Staph lugdunensis PCR Not detected (Not Detect) S. maltophilia (PCR) Not detected (Not Detect) Streptococcus sp PCR Not detected (Not Detect) Group A Strep (PCR) Not detected (Not Detect) Strep agalactiae (PCR) Not detected (Not Detect) Strep pneumoniae (PCR) Not detected (Not Detect) P. aeruginosa (PCR) Not detected (Not Detect) blaIMP Car res Gene PCR Not detected (Not Detect) KPC-Carbap Res Gene PCR Not detected (Not Detect) blaNDM Car Res Gene PCR Not detected (Not Detect) OXA-48 Carbapenem Resis Gene (PCR) Not detected (Not Detect) blaVIM Car Res Gene PCR Not detected (Not Detect) CTX-M Gene Resistance (PCR) Not detected (Not Detect) 10/11/22 10/11/22 Range/Units 09:45 11:12 WBC (4.5-11.0) X10^3/uL RBC (4.5-5.9) X10^6/uL Hgb (13.5-17.5) g/dL Hct (41-53) % MCV (80-100) fL MCH (26-34) PG MCHC (30-36) % RDW (11.6-14.8) % Plt Count (150-400) X10^3/uL Neut % (Auto) (50-75) % Lymph % (Auto) (25-40) % [place] % (Auto) (3-14) % Eos % (Auto) (2-4) % Baso % (Auto) (0-2) % Neut # (Auto) (7563-2532) /uL Lymph # (Auto) (9462-4335) /uL [place] # (Auto) (0-900) /uL Eos # (Auto) (0-450) /uL Baso # (Auto) (0-100) /uL RBC Morphology Poikilocytosis Anisocytosis PT (10.1-12.7) SECONDS INR (0.9-1.3) APTT (26-36) SECONDS Sodium (137-145) mmol/L Potassium (3.4-5.1) mmol/L Chloride (98-107) mmol/L Carbon Dioxide (22-32) mmol/L BUN (9-20) mg/dL Creatinine (0.66-1.25) mg/dL Estimated GFR (>60) mL/min BUN/Creatinine Ratio (6-22) Glucose (80-110) mg/dL Lactate 0.8 (0.7-2.1) mmol/L Calcium (8.4-10.2) mg/dL Total Bilirubin (0.2-1.3) mg/dL AST (17-59) IU/L ALT (<50) IU/L Alkaline Phosphatase (38-126) U/L Total Protein (6.3-8.2) g/dL Albumin (3.5-5.0) g/dL Globulin (1.7-4.1) g/dL Albumin/Globulin Ratio (1.0-2.8) Lipase (23-300) U/L Procalcitonin (<0.5) ng/mL Urine Color Yellow Urine Appearance Clear Urine pH 7.5 (4.5-8.0) Ur Specific [place] 1.010 (1.000-1.035) Urine Protein Negative (Negative) Urine Glucose (UA) Negative (Negative) g/dL Urine Ketones Negative (NEGATIVE) Urine Occult Blood Trace-intact (Negative) Urine Nitrate Negative (Negative) Urine Bilirubin Negative (NEGATIVE) Urine Urobilinogen 2.0 H (0.2) E.U./dL Ur Leukocyte Esterase Negative (NEGATIVE) Urine RBC 1-5/hpf (0-5/HPF) Urine WBC None seen (0-5/HPF) Urine Bacteria None seen (None) Ur Culture Indicated? Cult not indicated A.calcoaceticus-baumannii cmplx PCR (Not Detect) Chlamy pneumoniae PCR (Not Detect) Adenovirus (PCR) (Not Detect) Bacteroides fragilis (Not Detect) B. pertussis DNA (PCR) (Not Detecte) B.parapertussis DNA PCR (Not Detecte) Feli albicans (PCR) (Not Detect) Feli auris (PCR) (Not Detect) C. glabrata (PCR) (Not Detect) C. krusei (PCR) (Not Detect) C. parapsilosis (PCR) (Not Detect) C. tropicalis (PCR) (Not Detect) Coronavirus OC43 (PCR) (Not Detect) Coronavirus HKU1 (PCR) (Not Detect) Coronavirus 229E (PCR) (Not Detect) SARS-CoV-2 (PCR) (Not Detecte) Coronavirus NL63 (PCR) (Not Detect) C. neoform/gattii (PCR) (Not Detect) Enterobacterales (PCR) (Not Detect) E. cloacae complex PCR (Not Detect) Enterococc faecalis PCR (Not Detect) Enterococc faecium PCR (Not Detect) E. coli (PCR) (Not Detect) H. influenzae (PCR) (Not Detect) Human Metapneumovir PCR (Not Detect) Influenza Type A (PCR) (Not Detect) Influenza Type B (PCR) (Not Detect) Klebsiella aerogenes (PCR) (Not Detect) Klebsiella oxytoca PCR (Not Detect) Klebsiella pneumoniae (Not Detect) List. monocytogenes PCR (Not Detect) M. pneumoniae (PCR) (Not Detect) N. meningitidis (PCR) (Not Detect) Parainfluenza 1 (PCR) (Not Detect) Parainfluenza 2 (PCR) (Not Detect) Parainfluenza 3 (PCR) (Not Detect) Parainfluenza 4 (PCR) (Not Detect) Proteus species (PCR) (Not Detect) RSV (PCR) (Not Detect) Entero/Rhino (PCR) (Not Detect) Salmonella spp. (PCR) (Not Detect) Serratia marcescens PCR (Not Detect) Staphylococcus sp PCR (Not Detect) Staph aureus (PCR) (Not Detect) Staph epidermidis (PCR) (Not Detect) Staph lugdunensis PCR (Not Detect) S. maltophilia (PCR) (Not Detect) Streptococcus sp PCR (Not Detect) Group A Strep (PCR) (Not Detect) Strep agalactiae (PCR) (Not Detect) Strep pneumoniae (PCR) (Not Detect) P. aeruginosa (PCR) (Not Detect) blaIMP Car res Gene PCR (Not Detect) KPC-Carbap Res Gene PCR (Not Detect) blaNDM Car Res Gene PCR (Not Detect) OXA-48 Carbapenem Resis Gene (PCR) (Not Detect) blaVIM Car Res Gene PCR (Not Detect) CTX-M Gene Resistance (PCR) (Not Detect) MDM Narrative Medical decision making narrative: After history and exam sepsis workup started. CBC CMP procalcitonin lactic acid normal saline EKG CT chest abdomen pelvis Tylenol respiratory panel ordered, Rocephin ordered MDM CC: Fever vomiting cough Complicating co-morbidities: Recent diagnosis of rectal cancer Data collected from: Patient daughter son Medical records reviewed: September 19, 2022 discharge summary from hospitalist at this hospital Differential considered: Includes but not limited to sepsis, UTI, pneumonia, upper respiratory infection, viral syndrome Exam documented above, pertinent findings include: Tachycardia, fever Lab Test results independently reviewed as above. Pertinent findings: Urinalysis negative. Respiratory panel negative. WBC 10.3 procalcitonin 0.44 lactic acid 2.7 decreased 0.8 Independently reviewed EKG as above sinus tachycardia rate [address] elevation or depression, otherwise normal EKG Imaging studies independently reviewed: CT chest abdomen pelvis no acute process, there has been increase in rectal mass without obstruction. Metastatic disease suspicious Consultations: 11:00 a.m.. Spoke with patient's general surgeon, Dr. Vee, she states do not transfer patient to [facility] no indication. Patient to be admitted there for fever workup. 12:[address] Hendrickson, hospitalist, he will see patient for evaluation. 1:[address] Hendrickson, he is in the department. He has seen patient in person. Patient feels much better now. He has spoken with patient and the patient desires discharge home. Dr. Hendrickson feels there is no indication for admission. He is unable to print hydrocodone Reglan and Zofran for patient and has asked me to print them as software for the system does not allow him to print them. Treatments: Normal saline Tylenol Rocephin Re-evaluations: 1:47 p.m.. I spoke with patient and family and daughter and son at bedside. Patient states he feels much better. They do understand dis cussion from Dr. Hendrickson, fever at this time possibly from the cancer or the medications he took. However not toxic at this time. I did inform them that blood cultures are pending. And will be resulted tomorrow. Return precautions reviewed with him. They desire discharge home. Discussion: Patient being discharged home after evaluation of Internal Medicine hospitalist Dr. Hendrickson, computer system would not allow him to print prescription so I had to print them for him. Again these are under his directions. Nontoxic at discharge. Return precautions reviewed with him. Diagnosis: Fever unknown origin 10/13/22 8:00 Dr. Hernández, patient blood culture is positive for Gram-negative bacilli Proteus species. Patient was called he actually seems to be doing better. He received 1 dose of antibiotics on the . However with Gram- negative bacteremia patient needs re-evaluation. understands this and will bring him back either here or to [place]. Discharge Plan Departure Patient Disposition: Home Clinical Impression: Fever of unknown origin Instructions: DI for Fever (Symptom) -- Adult Activity Restrictions/Additional Instructions: Please call your oncology doctor and your surgeon to reschedule your appointments. At this time the Internal Medicine doctor has seen you in the hospital and has found your results reassuring to be discharged home. Prescriptions at his request have been printed. Return if worse if any questions or concerns. Prescriptions: New ondansetron HCl 4 mg tablet 4 mg PO Q6H PRN (Reason: nausea and vomiting) 30 Days Qty: 30 0RF metoclopramide HCl 5 mg tablet 5 mg PO QAC PRN (Reason: nausea and vomiting) 30 Days Qty: 90 0RF Rx Instructions: administer 30 minutes before meals hydrocodone-acetaminophen 5-325 mg tablet 1 tab PO Q6H PRN (Reason: pain) Qty: 20 0RF metoclopramide HCl [Reglan] 10 mg tablet 10 mg PO Q6H PRN (Reason: nausea and vomiting) Qty: 20 0RF ondansetron 4 mg tablet,disintegrating 4 mg PO Q8H PRN (Reason: nausea and vomiting) Qty: 20 0RF Continued metformin [Glucophage] 500 MG tablet 500 mg PO DAILY Qty: 0 albuterol sulfate 90 mcg/actuation HFA aerosol inhaler 2 puff inhalation Q6HR PRN (Reason: Wheezing) Patient Comments: INHALE 2 PUFFS BY MOUTH EVERY 4 HOURS IF NEEDED FOR BREATHING Referrals: Miscellaneous,Doctor, MD [Primary Care Provider] - Stand Alone Forms: Patient Portal/API
[2022-10-11 07:40] LABS: INR 1.2 (0.9-1.3); Prothrombin Time 13.9 SECONDS (10.1-12.7)
[2022-10-11 07:43] LABS: PTT Partial Thromboplastin Tim 31 SECONDS (26-36)
[2022-10-11 07:44] LABS: Lactate (Lactic Acid) 2.7 mmol/L (0.7-2.1)
[2022-10-11 07:45] LABS: Anisocytosis 1+; Poikilocytosis 1+
[2022-10-11 07:46] LABS: Alanine Aminotransferase 18 IU/L (<50); Albumin 3.7 g/dL (3.5-5.0); Albumin Globulin Ratio 0.8 (1.0-2.8); Alkaline Phosphatase 280 U/L (38-126); Aspartate Aminotransferase 22 IU/L (17-59); BUN Creatinine Ratio 10.5 (6-22); Blood Urea Nitrogen 9 mg/dL (9-20); Calcium 8.5 mg/dL (8.4-10.2); Carbon Dioxide 20 mmol/L (22-32); Chloride 104 mmol/L (98-107); Estimated Glomerular Filt Rate > 60 mL/min (>60); Globulin 4.4 g/dL (1.7-4.1); Glucose 156 mg/dL (80-110); HEMOLYSIS < 15 (0-50); Lipase 168 U/L (23-300); Potassium 3.2 mmol/L (3.4-5.1); Sodium 137 mmol/L (137-145); Total Protein 8.1 g/dL (6.3-8.2)
[2022-10-11 08:02] LABS: Procalcitonin 0.44 ng/mL (<0.5)
[2022-10-11] MEDS: cefTRIAXone 2,000 MG in SODIUM CHLORIDE 0.9% 100 ML 200 MG IV (08:04)
[2022-10-11] MEDS: ACETAMINOPHEN 325 MG TABLET 975 MG PO (08:04)
[2022-10-11 09:24] LABS: Adenovirus Not Detected (Not Detect); B. parapertussis Not Detected (Not Detecte); Bordetella pertussis Not Detected (Not Detecte); Chlamydophila pneumoniae Not Detected (Not Detect); Coronavirus 229E Not Detected (Not Detect); Coronavirus HKU1 Not Detected (Not Detect); Coronavirus NL 63 Not Detected (Not Detect); Coronavirus OC43 Not Detected (Not Detect); Human Metapneumovirus Not Detected (Not Detect); Human Rhinovirus/Enterovirus Not Detected (Not Detect); Influenza A Not Detected (Not Detect); Influenza B Not Detected (Not Detect); Mycoplasma pneumoniae Not Detected (Not Detect); Parainfluenza Virus 1 Not Detected (Not Detect); Parainfluenza Virus 2 Not Detected (Not Detect); Parainfluenza Virus 3 Not Detected (Not Detect); Parainfluenza Virus 4 Not Detected (Not Detect); Respiratory Syncytial Virus Not Detected (Not Detect); SARS- CoV-2 Not Detected (Not Detecte)
[2022-10-11 09:35] LABS: Reflexed Lactate in 2 Hours Y
[2022-10-11 10:12] LABS: Lactate 2HR (Lactic Acid Rflx) 0.8 mmol/L (0.7-2.1)
[2022-10-11 11:26] LABS: Appearance Urine UA CLEAR; Bilirubin Urine UA NEGATIVE (NEGATIVE); Color Urine UA YELLOW; Glucose Urine UA NEGATIVE (Negative); Ketones Urine UA NEGATIVE (NEGATIVE); Leukocyte Esterase Urine UA NEGATIVE (NEGATIVE); Nitrite Urine UA NEGATIVE (Negative); Occult Blood Urine UA TRACE-INTACT (Negative); Protein Urine UA NEGATIVE (Negative); pH Urine UA 7.5 (4.5-8.0)
[2022-10-11 11:34] LABS: Bacteria Urine None Seen; Culture Indicated Urine Cult Not Indicated; RBC Urine 1-5/HPF (0-5/HPF); WBC Urine None Seen (0-5/HPF)
--- NOTE | 2022-10-11 13:14 | P.CONS_ITS ---
History of Present Illness Consult details Date Patient Seen: 10/11/22 Time Patient Seen: 13:00 Chief complaint: throwing up, mild fever Narrative: Edgar Hernandez Jr is a 67-year-old male with a history of COPD, pulmonary hypertension, CAD, essential HTN, alcoholism, cirrhosis, Asthma, daily smoker, non insulin diabetes, recent diagnosis of rectal adenocarcinoma. He started having nausea and vomiting yesterday evening. He recently changed his pain medication from hydrocodone/tylenol to oxycodone/tylenol and took the first dose yesterday evening just before his symptoms started. He has continued hematochezia, but denies chest pain, dizziness, shortness of breath or syncope. He endorses fever, epigastric burning with the vomiting but now improved. In the emergency room, patient had low grade fever, unremarkable CT abdomen and chest, and negative urinalysis. Hg was stable from prior studies. K was a bit low at 3.2, procalcitonin was 0.44. Respiratory panel was negative. He was given nausea medications and some IV fluids. Lactate improved from 2.7 to normal. I was asked to evaluate for admission. I discussed with the patient and family at bedside that since his infectious workup was negative, and he did feel improved, he could either be observed in the hospital to see if fever recurs (though I suspect fever is related to underlying malignancy) or discharge home. Family and patient wished to discharge home. Meds Home Medications and Allergies Home Medications Medication Instructions Recorded Confirmed Type metformin 500 mg tablet 500 mg PO DAILY ##0 09/22/11 09/30/22 History (Glucophage) albuterol sulfate 90 mcg/actuation 2 puff inhalation Q6HR PRN Wheezing 12/15/18 09/30/22 History aerosol inhaler hydrocodone 5 mg-acetaminophen 325 1 tab PO Q6H PRN pain #20 tabs 10/11/22 Rx mg tablet hydrocodone 5 mg-acetaminophen 325 1 tab PO Q6H PRN pain 10 days #30 10/11/22 Rx mg tablet tabs metoclopramide HCl 10 mg tablet 10 mg PO Q6H PRN nausea and 10/11/22 Rx (Reglan) vomiting #20 tabs metoclopramide HCl 5 mg tablet 5 mg PO QAC PRN nausea and 10/11/22 Rx vomiting 30 days #90 tabs ondansetron 4 mg disintegrating 4 mg PO Q8H PRN nausea and 10/11/22 Rx tablet vomiting #20 tabs ondansetron HCl 4 mg tablet 4 mg PO Q6H PRN nausea and 10/11/22 Rx vomiting 30 days #30 tabs Allergies Allergy/AdvReac Type Severity Reaction Status Date / Time ibuprofen [IBUPROFEN] Allergy Severe RASH Verified 09/30/22 12:02 Review of Systems Review of Systems Narrative: All other systems reviewed with the patient and are negative unless otherwise stated. Exam Vital Signs (past 8 hours): - 10/11/22 07:27 10/11/22 07:21 10/11/22 07:21 Temperature 100.9 F H Pulse Rate 135 H 133 H Respiratory Rate 18 Blood Pressure 172/72 H 112/72 Pulse Oximetry 99 99 Oxygen Delivery Method Room Air 10/11/22 07:30 10/11/22 07:33 10/11/22 07:33 Temperature Pulse Rate 127 H 132 H Respiratory Rate 12 14 Blood Pressure 110/75 Pulse Oximetry 98 99 Oxygen Delivery Method 10/11/22 08:00 10/11/22 08:00 10/11/22 08:25 Temperature Pulse Rate 118 H 120 H Respiratory Rate 24 13 Blood Pressure 132/75 Pulse Oximetry 97 99 Oxygen Delivery Method 10/11/22 08:25 10/11/22 08:30 10/11/22 08:48 Temperature Pulse Rate 129 H 121 H Respiratory Rate 20 21 Blood Pressure 130/76 Pulse Oximetry 98 Oxygen Delivery Method 10/11/22 08:48 10/11/22 09:00 10/11/22 09:00 Temperature Pulse Rate 122 H Respiratory Rate 13 Blood Pressure 130/77 134/73 Pulse Oximetry 99 Oxygen Delivery Method 10/11/22 09:30 10/11/22 10:00 10/11/22 10:07 Temperature Pulse Rate 127 H 114 H 111 H Respiratory Rate 20 21 20 Blood Pressure Pulse Oximetry 97 98 97 Oxygen Delivery Method 10/11/22 10:07 10/11/22 10:30 10/11/22 11:00 Temperature Pulse Rate 121 H 109 H Respiratory Rate 20 20 Blood Pressure 126/77 Pulse Oximetry 98 99 Oxygen Delivery Method Room Air 10/11/22 11:40 10/11/22 11:42 10/11/22 11:43 Temperature 97.9 F Pulse Rate 107 H 107 H Respiratory Rate 13 19 Blood Pressure Pulse Oximetry 99 98 Oxygen Delivery Method 10/11/22 11:43 10/11/22 12:00 10/11/22 12:00 Temperature Pulse Rate 107 H Respiratory Rate 19 Blood Pressure 142/85 H 145/79 H Pulse Oximetry 98 Oxygen Delivery Method 10/11/22 12:30 10/11/22 12:31 10/11/22 12:31 Temperature Pulse Rate 110 H 110 H Respiratory Rate 20 12 Blood Pressure 125/79 Pulse Oximetry 98 100 Oxygen Delivery Method 10/11/22 13:00 10/11/22 13:00 Temperature Pulse Rate 106 H Respiratory Rate 13 Blood Pressure 130/79 Pulse Oximetry 99 Oxygen Delivery Method Oxygen Delivery Method Room Air Narrative Exam Narrative: General:? Chronically ill appearing male, no acute distress HEENT:? Normocephalic, atraumatic, extraocular muscles intact, oral pharynx is clear and mucous membranes are moist. adebayo (per family) left sided of nose and eyebrow Neck: supple and symmetric, trachea is midline, no cervical adenopathy. Negative for JVD Chest:? Normal AP diameter and contour without kyphoscoliosis, no tachypnea, equal chest rise bilaterally. Lungs:? CTA b/l no wheezing rhonchi or rales. Cardio:?tachycardic, regular rhythm no m/r/g. Abdomen: S NT ND. Musculoskeletal:? Muscle strength and tone are equal within normal limits, no deformity. Extremities: No edema or joint effusions. No cyanosis or clubbing. Skin:? Pale,? Warm to touch,dry and intact without rashes, ulcerations or petechiae.? Neuro:? Alert and orientated x3,? sensation to touch intact in all extremities, no gross deficits noted of cranial nerves. Psych:? Patient has a well-kept appearance, appropriate affect, mental status attitude thought context and judgment are appropriate for age. Objective Labs 10/11/22 07:25 10/11/22 07:25 Labs: Laboratory Results - last 24 hr 10/11/22 10/11/22 10/11/22 07:25 07:25 07:25 WBC 10.3 RBC 4.60 Hgb 9.1 L Hct 29.1 L MCV 63.2 L MCH 19.7 L MCHC 31.1 RDW 16.7 H Plt Count 431 H Neut % (Auto) 86.1 H Lymph % (Auto) 7.1 L [place] % (Auto) 6.0 Eos % (Auto) 0.1 L Baso % (Auto) 0.7 Neut # (Auto) 8900 H Lymph # (Auto) 700 L [place] # (Auto) 600 Eos # (Auto) 0 Baso # (Auto) 100 RBC Morphology Not Reportable Poikilocytosis 1+ H Anisocytosis 1+ H PT 13.9 H INR 1.2 APTT 31 Sodium 137 Potassium 3.2 L Chloride 104 Carbon Dioxide 20 L BUN 9 Creatinine 0.86 Estimated GFR > 60 BUN/Creatinine Ratio 10.5 Glucose 156 H Lactate Calcium 8.5 Total Bilirubin 1.0 AST 22 ALT 18 Alkaline Phosphatase 280 H Total Protein 8.1 Albumin 3.7 Globulin 4.4 H Albumin/Globulin Ratio 0.8 L Lipase 168 Procalcitonin 0.44 Urine Color Urine Appearance Urine pH Ur Specific [place] Urine Protein Urine Glucose (UA) Urine Ketones Urine Occult Blood Urine Nitrate Urine Bilirubin Urine Urobilinogen Ur Leukocyte Esterase Urine RBC Urine WBC Urine Bacteria Ur Culture Indicated? Chlamy pneumoniae PCR Adenovirus (PCR) B. pertussis DNA (PCR) B.parapertussis DNA PCR Coronavirus OC43 (PCR) Coronavirus HKU1 (PCR) Coronavirus 229E (PCR) SARS-CoV-2 (PCR) Coronavirus NL63 (PCR) Human Metapneumovir PCR Influenza Type A (PCR) Influenza Type B (PCR) M. pneumoniae (PCR) Parainfluenza 1 (PCR) Parainfluenza 2 (PCR) Parainfluenza 3 (PCR) Parainfluenza 4 (PCR) RSV (PCR) Entero/Rhino (PCR) 10/11/22 10/11/22 10/11/22 07:25 08:12 09:45 WBC RBC Hgb Hct MCV MCH MCHC RDW Plt Count Neut % (Auto) Lymph % (Auto) [place] % (Auto) Eos % (Auto) Baso % (Auto) Neut # (Auto) Lymph # (Auto) [place] # (Auto) Eos # (Auto) Baso # (Auto) RBC Morphology Poikilocytosis Anisocytosis PT INR APTT Sodium Potassium Chloride Carbon Dioxide BUN Creatinine Estimated GFR BUN/Creatinine Ratio Glucose Lactate 2.7 H 0.8 Calcium Total Bilirubin AST ALT Alkaline Phosphatase Total Protein Albumin Globulin Albumin/Globulin Ratio Lipase Procalcitonin Urine Color Urine Appearance Urine pH Ur Specific [place] Urine Protein Urine Glucose (UA) Urine Ketones Urine Occult Blood Urine Nitrate Urine Bilirubin Urine Urobilinogen Ur Leukocyte Esterase Urine RBC Urine WBC Urine Bacteria Ur Culture Indicated? Chlamy pneumoniae PCR Not detected Adenovirus (PCR) Not detected B. pertussis DNA (PCR) Not detected B.parapertussis DNA PCR Not detected Coronavirus OC43 (PCR) Not detected Coronavirus HKU1 (PCR) Not detected Coronavirus 229E (PCR) Not detected SARS-CoV-2 (PCR) Not detected Coronavirus NL63 (PCR) Not detected Human Metapneumovir PCR Not detected Influenza Type A (PCR) Not detected Influenza Type B (PCR) Not detected M. pneumoniae (PCR) Not detected Parainfluenza 1 (PCR) Not detected Parainfluenza 2 (PCR) Not detected Parainfluenza 3 (PCR) Not detected Parainfluenza 4 (PCR) Not detected RSV (PCR) Not detected Entero/Rhino (PCR) Not detected 10/11/22 11:12 WBC RBC Hgb Hct MCV MCH MCHC RDW Plt Count Neut % (Auto) Lymph % (Auto) [place] % (Auto) Eos % (Auto) Baso % (Auto) Neut # (Auto) Lymph # (Auto) Co[place] # (Auto) Eos # (Auto) Baso # (Auto) RBC Morphology Poikilocytosis Anisocytosis PT INR APTT Sodium Potassium Chloride Carbon Dioxide BUN Creatinine Estimated GFR BUN/Creatinine Ratio Glucose Lactate Calcium Total Bilirubin AST ALT Alkaline Phosphatase Total Protein Albumin Globulin Albumin/Globulin Ratio Lipase Procalcitonin Urine Color Yellow Urine Appearance Clear Urine pH 7.5 Ur Specific [place] 1.010 Urine Protein Negative Urine Glucose (UA) Negative Urine Ketones Negative Urine Occult Blood Trace-intact Urine Nitrate Negative Urine Bilirubin Negative Urine Urobilinogen 2.0 H Ur Leukocyte Esterase Negative Urine RBC 1-5/hpf Urine WBC None seen Urine Bacteria None seen Ur Culture Indicated? Cult not indicated Chlamy pneumoniae PCR Adenovirus (PCR) B. pertussis DNA (PCR) B.parapertussis DNA PCR Coronavirus OC43 (PCR) Coronavirus HKU1 (PCR) Coronavirus 229E (PCR) SARS-CoV-2 (PCR) Coronavirus NL63 (PCR) Human Metapneumovir PCR Influenza Type A (PCR) Influenza Type B (PCR) M. pneumoniae (PCR) Parainfluenza 1 (PCR) Parainfluenza 2 (PCR) Parainfluenza 3 (PCR) Parainfluenza 4 (PCR) RSV (PCR) Entero/Rhino (PCR) PFSH Medical History Acute exacerbation of chronic obstructive pulmonary disease (COPD) Alcoholism Asthma Cirrhosis of liver Diabetes Hard of hearing History of gastric ulcer History of kidney stones HTN (hypertension) Hypoxia Portal hypertension Tobacco use disorder, moderate, in early remission, dependence Type 2 diabetes mellitus Surgical History H/O right knee surgery Family History Mother Colon cancer Father Diabetes mellitus Social History household members: family lives independently: Yes Tobacco & Substance Use Smoking Status: Former smoker alcohol intake: former Assessment & Plan Assessment & Plan narrative: Edgar Hernandez Jr is a 67-year-old male with a history of COPD, pulmonary hyperten [place], CAD, essential HTN, alcoholism, cirrhosis, Asthma, daily smoker, non insulin diabetes, recent diagnosis of rectal adenocarcinoma. He started having nausea and vomiting yesterday evening, likely secondary to pain medication reaction. Family and patient wished to discharge home after negative infectious workup in the ER. 1. Nausea / vomiting , resolved - likely secondary to recent change in pain medication from hydrocodone to oxycodone. CT abdomen and chest show no signs of infection. Procalcitonin is indeterminant but within normal limits, and patient without leukocytosis. - patient improved with nausea medications and fluids. 2. Fever - - given negative infectious workup, fever likely is from his underlying malignancy. Blood cultures were drawn, and given clinical history he was given the option of discharge home or observation, he wished to discharge home. - there is no ascites to suggest SBP either given his history of cirrhosis. - recommend discharge without antibiotics given negative evaluation. 3. Rectal adenocarcinoma - patient's appetite has been declining per family. Seems related to nausea as he has eaten a bit better with nausea medications here. Will prescribe zofran and reglan. Advised to trial zofran first to see if improvement, if not working trial reglan. - he was scheduled for port placement today. This is being rescheduled. No evidence of obstruction on CT imaging. 4. Dm - glucose 156, not likely related to hyperglycemia, no changes recommended at this time. Chronic conditions: COPD, Pulm HTN, CAD, HTN, Cirrhosis, DM. Code: Full, surrogate is patient's daughter Dispo: discharge from ER I have utilized all available immediate resources to obtain, update, or review the patient's current medications. I have reviewed patient's relevant imaging, labs, and recent documentation including biopsies, outpatient notes, and notes from prior hospitalization. Additional history obtained from daughter at bedside, and ER provider. COVID-19 COVID-19 status: Negative
[2022-10-12 12:16] LABS: Acinetobacter calcoa-baumannii Not Detected (Not Detect); Bacteroides fragilis Not Detected (Not Detect); CTX-M Resistance Not Detected (Not Detect); Enterobacter cloacae complex Not Detected (Not Detect); Enterobacterales DETECTED (Not Detect); Enterococcus faecalis Not Detected (Not Detect); Enterococcus faecium Not Detected (Not Detect); IMP Resistance Not Detected (Not Detect); KPC Resistance Not Detected (Not Detect); Listeria monocytogenes Not Detected (Not Detect); NDM Resistance Not Detected (Not Detect); OXA-48-like Resistance Not Detected (Not Detect); Staphylococcus epidermidis Not Detected (Not Detect); Staphylococcus lugdunensis Not Detected (Not Detect); Staphylococcus species Not Detected (Not Detect); Streptococcus agalactiae (Gr B Not Detected (Not Detect); Streptococcus pneumonia Not Detected (Not Detect); Streptococcus pyogenes (Gr A) Not Detected (Not Detect); Streptococcus species Not Detected (Not Detect); VIM Resistance Not Detected (Not Detect)
[2022-10-12 12:17] LABS: Candida albicans Not Detected (Not Detect); Candida auris Not Detected (Not Detect); Candida glabrata Not Detected (Not Detect); Candida krusei Not Detected (Not Detect); Candida parapsilosis Not Detected (Not Detect); Candida tropicalis Not Detected (Not Detect); Cryptococcus neoformans/gatti Not Detected (Not Detect); Haemophilus influenzae Not Detected (Not Detect); Klebsiella aerogenes Not Detected (Not Detect); Neisseria meningitidis Not Detected (Not Detect); Proteus species DETECTED (Not Detect); Pseudomonas aeruginosa Not Detected (Not Detect); Salmonella species Not Detected (Not Detect); Serratia marcescens Not Detected (Not Detect); Stenotrophomonas maltophilia Not Detected (Not Detect)
== END 2022-10-11 14:27 | disposition home or self-care (01) ==
PROVIDERS: Emergency Provider Emergency Medicine
DX: R50.9 Fever, unspecified (principal); R00.0 Tachycardia, unspecified; C20 Malignant neoplasm of rectum; R11.2 Nausea with vomiting, unspecified; Z20.822 Contact with and (suspected) exposure to COVID-19
CPT/HCPCS: 36415; 71260; 74177; 80053; 81001; 83605; 83690; 84145; 85025; 85610; 85730; 87040; 87077; 87154; 87186; 87633; 93005; 93010; 96361; 96365; 96375; 99284; J0696; J2405; Q9967